=== PATIENT | male | born 1945 | race Caucasian/White ===

== ENCOUNTER 2020-07-23 09:12 | Outpatient (CLI) | payer OTHER, SELFPAY ==
--- NOTE | 2020-07-23 09:29 | USCV_ITS ---
Farhat Daly Age: 74 Gender: M : 1945 Exam Date: 07/23/2020 09:57 Ordering Phys: Kenney Wallace DO Technologist: Shelbie Yuan [place] [facility] [place]: SCREENING HISTORY: Diameter (cm) AP x Transverse x Length Velocity (cm/s) Waveform Prox Aorta: 2.00 x 2.38 x 166.10 Mid Aorta: 1.76 x 1.81 x 116.50 Distal Aorta: 1.69 x 2.01 x 102.30 Right Iliac Prox: 1.55 x 1.72 x 113.70 Left Iliac Prox: 1.38 x 1.75 x 92.80 Stent Prox Landing x x Aneurysmal Sac Max x x Lt Lat Sac Dim Rt Lat Sac Dim Stent Dist Landing x x Right Iliac Stent x x Left Iliac Stent x x Right Renal Art Left Renal Art FINDINGS: Comparison: none available. No evidence of abdominal aortic or bilateral iliac aneurysm. Ectatic abdominal aorta with evidence of atherosclerotic plaque noted. There is no evidence of a right common iliac artery aneurysm. There is no evidence of a left common iliac artery aneurysm. CONCLUSIONS No evidence of abdominal aortic aneurysm. Dr. Jaqui Carlisle DO (Electronically Signed) Final Date: 23 Jul 2020 10:40 S
== END 2020-07-23 09:13 | disposition home or self-care (01) ==
LOC: RAD 09:16
PROVIDERS: Visit Provider Emergency Medicine Emergency Medical Services
DX: Z13.6 Encounter for screening for cardiovascular disorders (principal)
CPT/HCPCS: 76706

== ENCOUNTER → 2021-08-24 11:36 | Outpatient (BNVA) | payer OTHER, SELFPAY | PROVIDERS: PCP Emergency Medicine Emergency Medical Services; Visit Provider Internal Medicine Cardiovascular Disease | DX: I25.10 Atherosclerotic heart disease of native coronary artery without angina pectoris (principal); R60.0 Localized edema; Z95.818 Presence of other cardiac implants and grafts; I48.0 Paroxysmal atrial fibrillation; G47.33 Obstructive sleep apnea (adult) (pediatric); I47.2 Ventricular tachycardia; I10 Essential (primary) hypertension; I11.0 Hypertensive heart disease with heart failure; I50.33 Acute on chronic diastolic (congestive) heart failure; M79.606 Pain in leg, unspecified; Z87.891 Personal history of nicotine dependence | CPT/HCPCS: 36415; 80048; 83880; 93005; 99214 ==

== ENCOUNTER → 2021-12-22 11:00 | Outpatient (BNVA) | payer OTHER, SELFPAY | PROVIDERS: PCP Emergency Medicine Emergency Medical Services; Visit Provider Internal Medicine Cardiovascular Disease | DX: R06.02 Shortness of breath (principal); R60.0 Localized edema; N18.9 Chronic kidney disease, unspecified; I48.0 Paroxysmal atrial fibrillation; Z79.01 Long term (current) use of anticoagulants; I12.9 Hypertensive chronic kidney disease with stage 1 through stage 4 chronic kidney disease, or unspecified chronic kidney disease; G47.33 Obstructive sleep apnea (adult) (pediatric); I47.20 Ventricular tachycardia, unspecified; I25.10 Atherosclerotic heart disease of native coronary artery without angina pectoris; Z95.818 Presence of other cardiac implants and grafts; Z87.891 Personal history of nicotine dependence | CPT/HCPCS: 80048; 83880; 84443; 99214 ==

== ENCOUNTER 2022-01-19 10:14 | Outpatient (CLI) | payer OTHER, SELFPAY ==
--- NOTE | 2022-01-19 10:15 | USCV_ITS ---
Farhat Daly Age: 76 Gender: M : 1945 Exam Date: 01/19/2022 10:36 Ordering Phys: Rebecca Alvarenga MD ([email or web address]) Technologist: MARY JANE Exam Location: [facility] [place] Indication: Leg Swelling HISTORY: Lower extremity swelling. Lower extremity edema. PROCEDURES: Venous duplex imaging was performed in bilateral lower extremities. The venous duplex Doppler examination of both lower extremities was performed in the standard fashion. The following venous structures were evaluated: common femoral vein, profunda vein, proximal portion of the greater saphenous vein, superficial femoral vein, and the popliteal vein. In addition, the posterior tibial and peroneal trunk were evaluated. Bilaterally, the common femoral, superficial femoral, profunda femoral, popliteal, posterior tibial, greater saphenous veins, and the peroneal trunk were identified and interrogated in the standard fashion. These veins were found to be easily compressible with spontaneous blood flow. No evidence of insufficiency or thrombus noted. FINDINGS: No evidence of DVT seen in any vessel visualized at this time. Multiple echolucent seeds in the subcutaneous tissue The veins were found to be easily compressible with spontaneous blood flow. Non pulsatile flow pattern. CONCLUSIONS No evidence of DVT in the above-mentioned identifiable veins. Features of Fluid retention/edema in the subcutaneous tissue on the right side, mostly in the thigh area Dr Rebecca Alvarenga MD [facility] (Electronically Signed) Final Date: 19 January 2022 19:20 S
== END 2022-01-19 10:15 | disposition home or self-care (01) ==
LOC: RAD 10:15
PROVIDERS: PCP Emergency Medicine Emergency Medical Services; Visit Provider Internal Medicine Cardiovascular Disease
DX: M79.89 Other specified soft tissue disorders (principal)
CPT/HCPCS: 93970

== ENCOUNTER → 2022-06-29 09:40 | Outpatient (BNVA) | payer OTHER, SELFPAY | PROVIDERS: PCP Emergency Medicine Emergency Medical Services; Visit Provider Internal Medicine Cardiovascular Disease | DX: I48.0 Paroxysmal atrial fibrillation (principal); R60.0 Localized edema; I25.10 Atherosclerotic heart disease of native coronary artery without angina pectoris; Z95.818 Presence of other cardiac implants and grafts; G47.33 Obstructive sleep apnea (adult) (pediatric); I10 Essential (primary) hypertension; I49.8 Other specified cardiac arrhythmias; Z87.891 Personal history of nicotine dependence | CPT/HCPCS: 99214 ==

== ENCOUNTER → 2023-01-11 11:31 | Outpatient (BNVA) | payer OTHER, SELFPAY | PROVIDERS: PCP Emergency Medicine Emergency Medical Services; Visit Provider Internal Medicine Cardiovascular Disease | DX: I48.0 Paroxysmal atrial fibrillation (principal); I25.10 Atherosclerotic heart disease of native coronary artery without angina pectoris; R60.0 Localized edema; Z95.818 Presence of other cardiac implants and grafts; G47.33 Obstructive sleep apnea (adult) (pediatric); I10 Essential (primary) hypertension; Z87.891 Personal history of nicotine dependence | CPT/HCPCS: 99214 ==

== ENCOUNTER → 2023-09-06 09:29 | Outpatient (BNVA) | payer OTHER, SELFPAY | PROVIDERS: PCP Emergency Medicine Emergency Medical Services; Visit Provider Nurse Practitioner Family | DX: I10 Essential (primary) hypertension (principal); I48.0 Paroxysmal atrial fibrillation; I25.10 Atherosclerotic heart disease of native coronary artery without angina pectoris; Z87.891 Personal history of nicotine dependence | CPT/HCPCS: 99214 ==

== ENCOUNTER 2024-02-07 11:19 | Inpatient (IN) | payer OTHER, SELFPAY ==
[2024-02-07] VITALS (66 sets, daily range): BP systolic 126–172; BP diastolic 62–110; PULSE 68–90; RESP 10–26; TEMP 36.5–36.8; O2SAT 89–99; BMI 33.0
--- NOTE | 2024-02-07 11:54 | XR_ITS ---
WS: [id number] Exam: XR chest 1V portable [id number] Date/Time of Exam: 02/07/2024 12:03 PM Reason For Exam: Chest pain No priors. Lungs are fully expanded and clear. Mild cardiac enlargement. No pleural effusions. The mediastinum i s normal in contour for technique. Bony structures are unremarkable. XR/XR chest 1V portable [id number] IMPRESSION: 1. Mild cardiac enlargement. No acute process.
--- NOTE | 2024-02-07 11:54 | ECG_ITS ---
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 Measurements Intervals [employer] Rate: 86 P: 0 MD: 0 QRS: 76 QRSD: 115 T: 65 QT: 390 QTc: 468 Interpretive Statements ATRIAL FIBRILLATION INCOMPLETE RIGHT BUNDLE BRANCH BLOCK [90+ ms QRS DURATION, TERMINAL R IN V1/V2, 40+ ms S IN I/aVL/V4/V5/V6] ABNORMAL RHYTHM ECG No previous ECG available for comparison Electronically Signed On 02-09-2024 22:02:23 WAREHOUSE SORTER by Matthias Flores M.D. [email or web address]
[2024-02-07 12:34] LABS: Basophils # 0.1 10^3/uL (0.0-0.1); Basophils % 0.9 %; Eosinophils # 0.3 10^3/uL (0.0-0.8); Eosinophils % 3.7 %; Hematocrit 49.9 % (37-53); Lymphocytes # 1.1 10^3/uL (0.8-4.8); Lymphocytes % 12.1 %; Mean Corpuscular HGB Conc 32.7 g/dL (30-55); Mean Corpuscular Hemoglobin 28.6 pg (27-33); Mean Corpuscular Volume 87.7 fl (82-101); Mean Platelet Volume 8.7 fL (7.4-10.4); Monocytes # 0.8 10^3/uL (0.2-0.9); Monocytes % 9.3 %; Neutrophils # 6.43 10^3/uL (1.8-7.7); Neutrophils % 73.5 %; Nucleated Red Blood Cells % 0 %; Platelet Count 380 10^3/cmm (157-399); Red Blood Count 5.69 10^6/uL (3.85-5.65); Red Cell Distribution Width 13.6 % (12.1-15.1); White Blood Count 8.74 10^3/uL (3.29-11.43)
[2024-02-07 12:55] LABS: Troponin(5th) Baseline 14 ng/L (0-15)
[2024-02-07 13:08] LABS: Alanine Aminotransferase 26 U/L (0-41); Albumin Level 4.1 g/dL (3.5-5.2); Alkaline Phosphatase 116 U/L (40-130); Anion Gap 16.1 (5-19); Aspartate Amino Transferase 18 U/L (0-40); Blood Urea Nitrogen 18 mg/dL (8-23); Carbon Dioxide 25 mmol/L (22-29); Chloride 104 mmol/L (98-107); Creatinine Clr Calc Pharmacy 80.5147; Globulin 2.7 g/dL (1.3-4.6); Glucose 97 mg/dL (65-115); NT Pro B Type Natriuretic Pept 799 pg/mL (0-450); Osmolality Calculated 294 mOsm/kg (285-295); Potassium 4.1 mmol/L (3.5-5.1); Sodium 141 mmol/L (136-145); Total Bilirubin 0.3 mg/dL (0.15-1.2); Total Protein 6.8 g/dL (6.6-8.7)
--- NOTE | 2024-02-07 14:27 | ECG_ITS ---
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 Measurements Intervals [place] Rate: 78 P: 0 NE: 0 QRS: 74 QRSD: 113 T: 62 QT: 395 QTc: 450 Interpretive Statements ATRIAL FIBRILLATION INCOMPLETE RIGHT BUNDLE BRANCH BLOCK [90+ ms QRS DURATION, TERMINAL R IN V1/V2, 40+ ms S IN I/aVL/V4/V5/V6] Compared to ECG 02/07/2024 11:24:55 No significant changes Electronically Signed On 02-09-2024 22:17:55 TOP EDGE BEVELER by Matthias Flores M.D. [email or web address]
--- NOTE | 2024-02-07 14:27 | ED_ITS ---
HPI - Chest Pain 2 General: Chief Complaint: Chest Pain Stated Complaint: Chest pain Time Seen by Provider: 02/07/24 14:16 History of Present Illness: 78-year-old man with a history of atrial fibrillation, history of multiple ablations and a watchman placement, and nonocclusive coronary artery disease who presents to the emergency room with chest pain. He was outside doing something and developed some pain down the left side of his chest. He felt like it was something that hit him in the chest. Also had some tightness and pressure. He sat down to rest and it finally improved so he decided not to come to the emergency room. They then went to [facility] and as he got up and started walking he developed the pain again. Seems to be exertional in nature. It is now resolved. Related Data Home Medications Medication Instructions Recorded Confirmed amlodipine 2.5 mg tablet 2.5 mg PO DAILY 08/13/20 02/07/24 tamsulosin 0.4 mg capsule 0.4 mg PO DAILY 08/13/20 02/07/24 hydroxyzine HCl 25 mg tablet 25 mg PO TID PRN anxiety or sleep 06/29/22 02/07/24 carvedilol 12.5 mg tablet See Rx Instructions .Route .COMPLEX 02/07/24 02/07/24 dorzolamide 22.3 mg-timolol 6.8 1 drp ophthalmic (eye) BID 02/07/24 02/07/24 mg/mL eye drops finasteride 5 mg tablet 5 mg PO DAILY 02/07/24 02/07/24 furosemide 40 mg tablet (Lasix) 40 mg PO QAM 02/07/24 02/07/24 latanoprost 0.005 % eye drops 1 drp ophthalmic (eye) QPM 02/07/24 02/07/24 potassium chloride 20 mEq See Rx Instructions .Route .COMPLEX 02/07/24 02/07/24 tablet,extended release vit C 250 mg-vit E 90 mg-zinc 40 1 tab PO BID 02/07/24 02/07/24 mg-copper 1 [id number] capsule (PreserVision AREDS-2) Previous Rx's Medication Instructions Recorded isosorbide mononitrate 30 mg See Rx Instructions .Route 01/29/21 tablet,extended release 24 hr .COMPLEX #90 tabs Allergies Allergy/AdvReac Type Severity Reaction Status Date / Time clonidine Allergy unknown Verified 02/07/24 11:37 diltiazem Allergy unknown Verified 02/07/24 11:37 hydrochlorothiazide Allergy unknown Verified 02/07/24 11:37 lisinopril Allergy unknown Verified 02/07/24 11:37 sertraline [From Zoloft] Allergy unknown Verified 02/07/24 11:37 spironolactone Allergy unknown Verified 02/07/24 11:37 [From Aldactone] telmisartan [From Micardis] Allergy unknown Verified 02/07/24 11:37 Review of Systems 2 Narrative: Constitutional symptoms: Negative except as documented in HPI. Skin symptoms: Negative except as documented in HPI. Eye symptoms: Negative except as documented in HPI. ENMT symptoms: Negative except as documented in HPI. Respiratory symptoms: Negative except as documented in HPI. Cardiovascular symptoms: Negative except as documented in HPI. Gastrointestinal symptoms: Negative except as documented in HPI. Genitourinary symptoms: Negative except as documented in HPI. Musculoskeletal symptoms: Negative except as documented in HPI. Neurologic symptoms: Negative except as documented in HPI. Psychiatric symptoms: Negative except as documented in HPI. Endocrine symptoms: Negative except as documented in HPI. PFSH ED 2 PFSH: Medical History Atherosclerosis of coronary artery Benign prostatic hyperplasia Gout Hyperlipidemia LVH (left ventricular hypertrophy) Hearing loss Macular degeneration PTSD (post-traumatic stress disorder) Hx of tongue cancer Hx of tuberculosis Presence of Watchman left atrial appendage closure device Sleep apnea Ventricular tachycardia CAD (coronary artery disease) Patient was told to have mild coronary disease by cardiac catheterization. Paroxysmal A-fib Hypertension Surgical History Hx of lymph node excision Hx of neck surgery Hx of tonsillectomy Hx of appendectomy History of radiofrequency ablation procedure for cardiac arrhythmia Family History Mother CAD (coronary artery disease) Cancer Diabetes Son Cancer Chronic kidney disease (CKD) Father Dementia Lung disease TB Stroke Denies family history of Clotting disorder Suicide Anesthesia complication Bleeding disorder Social History Smoking and tobacco/nicotine status: former use of tobacco/nicotine Alcohol intake: never Substance/Drug Use: never Physical Exam 2 Narrative: EXAM NARRATIVE: General: Alert, no acute distress. Skin: Warm, dry. Head: Normocephalic, atraumatic. Neck: Supple, trachea midline. Eye: Extraocular movements are intact. Ears, nose, mouth and throat: mucosa moist. Cardiovascular: Regular, Normal peripheral perfusion. Respiratory: Lungs are clear to auscultation, respirations are non-labored, breath sounds are equal, Symmetrical chest wall expansion. Gastrointestinal: Soft, Nontender, Non distended Musculoskeletal: Normal ROM, no deformity. Neurological: Alert and oriented, No focal neurological deficit observed. Psychiatric: Cooperative, appropriate mood & affect. Course 2 Vital Signs: Vital signs: Vital Signs Temperature 97.7 F 02/07/24 11:31 Pulse Rate 72 02/07/24 15:00 Respiratory Rate 17 02/07/24 15:00 Blood Pressure 146/95 02/07/24 15:00 Pulse Oximetry 96 02/07/24 15:00 Oxygen Delivery Me thod Room Air 02/07/24 15:00 MDM - Chest Pain Medical Decision Making Differential diagnosis for patient with chest pain includes but is not limited to and based on the above HPI, review of systems and physical exam: Pneumonia. unstable angina. angina. Acute coronary syndrome / [place]. Pulmonary embolism. Costochondritis / musculoskeletal. Pleurisy. Pericarditis. Esophageal spasm. Pancreatis. Cholecystitis. Orders placed to evaluate differential diagnosis based on the above differential, HPI and physical exam Chest x-ray: Mild cardiomegaly. No acute process. No infiltrate. No pneumothorax. This was reviewed and interpreted by myself the emergency room physician. I also reviewed the radiology report. EKG: Time 1124. Rate 86. Atrial fibrillation with controlled rate, No ST-T changes, no ectopy, This was reviewed and interpreted by myself the ER physician at 1130 Repeat EKG: Time 1427. Rate 78. Atrial fibrillation with controlled rate, No ST-T changes, no ectopy, This was reviewed and interpreted by myself the ER physician at 1430. No significant changes from EKG done previously today in the emergency room. Lab Review: Laboratory results were reviewed and interpreted by myself the emergency room physician. No leukocytosis. No anemia. No renal failure. Initial troponin and 2-hour troponin are negative. I reviewed the patient's medical record. HEART Pathway for Early Discharge in Acute Chest Pain from [employer] on 02/07/2024 All calculations should be rechecked by clinician prior to use RESULT SUMMARY: 6 points HEART Pathway Score High risk 12-65% 30-day MACE Admit to hospital or observation. Further testing indicated. INPUTS: History ?> 2 = Highly suspicious EKG ?> 0 = Normal Age ?> 2 = >=5 Risk factors ?> 2 = >= risk factors or history of atherosclerotic disease Initial troponin ?> 0 = <=ormal limit Reexamination: Patient remained stable. No increased work of breathing. No altered mental status. No focal motor deficits. We discussed admission and he favors being admitted. Discussed that his heart score does suggest that he should be at least observed. Consultation: I spoke with Dr. Unger who is on-call for the [employer] solutions architect service. He agrees that admission with a stress test in the morning is appropriate. He request consultation if the stress test indicates. No official consultation at this time. Consultation: I spoke with Dr. Fierro who is on-call for the hospitalist service. She agrees to admission. We will place him on observation. Assessment and plan: Coronary artery disease Chest pain Exertional chest pain -I discussed the patient with the hospitalist on-call who is admitting the patient. - Discussed findings and plan with patient. Answered any questions. - All laboratory values were reviewed and interpreted personally by myself, the ER physician - All imaging was reviewed and interpreted personally by myself, the ER physician. - Evaluation and treatment of this problem were appropriate in the emergency setting Lab Data 02/07/24 12:18 02/07/24 12:18 Radiology Impressions Chest X-Ray 02/07/24 11:54 IMPRESSION: 1. Mild cardiac enlargement. No acute process. Laboratory Results WBC 8.74 10^3/uL (3.29-11.43) 02/07/24 12:18 RBC 5.69 10^6/uL (3.85-5.65) H 02/07/24 12:18 Hgb 16.30 g/dL (11.27-16.99) 02/07/24 12:18 Hct 49.9 % (37-53) 02/07/24 12:18 MCV 87.7 fl (82-101) 02/07/24 12:18 MCH 28.6 pg (27-33) 02/07/24 12:18 MCHC 32.7 g/dL (30-55) 02/07/24 12:18 RDW 13.6 % (12.1-15.1) 02/07/24 12:18 Plt Count 380 10^3/cmm (157-399) 02/07/24 12:18 MPV 8.7 fL (7.4-10.4) 02/07/24 12:18 Neut % (Auto) 73.5 % 02/07/24 12:18 Lymph % (Auto) 12.1 % 02/07/24 12:18 Taliaferro % (Auto) 9.3 % 02/07/24 12:18 Eos % (Auto) 3.7 % 02/07/24 12:18 Baso % (Auto) 0.9 % 02/07/24 12:18 Neut # (Auto) 6.43 10^3/uL (1.8-7.7) 02/07/24 12:18 Lymph # (Auto) 1.1 10^3/uL (0.8-4.8) 02/07/24 12:18 [place]ferro # (Auto) 0.8 10^3/uL (0.2-0.9) 02/07/24 12:18 Eos # (Auto) 0.3 10^3/uL (0.0-0.8) 02/07/24 12:18 Baso # (Auto) 0.1 10^3/uL (0.0-0.1) 02/07/24 12:18 Nucleated RBC % (auto) 0 % 02/07/24 12:18 Nucleated RBCs # 0.0 /100WBC 02/07/24 12:18 Sodium 141 mmol/L (136-145) 02/07/24 12:18 Potassium 4.1 mmol/L (3.5-5.1) 02/07/24 12:18 Chloride 104 mmol/L (98-107) 02/07/24 12:18 Carbon Dioxide 25 mmol/L (22-29) 02/07/24 12:18 Anion Gap 16.1 (5-19) 02/07/24 12:18 BUN 18 mg/dL (8-23) 02/07/24 12:18 Creatinine 0.9 mg/dL (0.7-1.2) 02/07/24 12:18 GFR Calculation Not Reportable 02/07/24 12:18 Glucose 97 mg/dL (65-115) 02/07/24 12:18 Calculated Osmolality 294 mOsm/kg (285-295) 02/07/24 12:18 Calcium 10.0 mg/dL (8.5-10.5) 02/07/24 12:18 Total Bilirubin 0.3 mg/dL (0.15-1.2) 02/07/24 12:18 AST 18 U/L (0-40) 02/07/24 12:18 ALT 26 U/L (0-41) 02/07/24 12:18 Alkaline Phosphatase 116 U/L (40-130) 02/07/24 12:18 Troponin T Baseline 14 ng/L (0-15) 02/07/24 12:18 Troponin T 120 Minute 12.22 ng/L (0-15) 02/07/24 14:24 Delta Troponin T -1.78 ABS# (0-10) L 02/07/24 14:24 NT-Pro-B Natriuret Pep 799 pg/mL (0-450) H 02/07/24 12:18 Total Protein 6.8 g/dL (6.6-8.7) 02/07/24 12:18 Albumin 4.1 g/dL (3.5-5.2) 02/07/24 12:18 Globulin 2.7 g/dL (1.3-4.6) 02/07/24 12:18 All radiology interpretation(s) finalized by discharge Clincial Decision Support The following clinical decision support tools were used to aid in care of the patient HEART Score -> History: Highly Suspicious, EKG: Normal, Age: 65 or more yrs, Risk Factors: >/=3 Risk Factors, Troponin: Baseline Trop <16 ng/L. Resulting HEART Score: 6. Discharge Plan Discharge Patient Disposition: Placed in Observation Clinical Impression: Chest pain CAD (coronary artery disease) Qualifiers: Coronary Disease-Associated Artery/Lesion type: hamilton artery [place] vs. transplanted heart: hamilton heart Associated angina: without angina Qualified Code(s): I25.10 - Atherosclerotic heart disease of hamilton coronary artery without angina pectoris Coding Level of Care Code ED Associate Research Scientist for Anamariag Mazin
--- NOTE | 2024-02-07 14:40 | PC.PHAR ---
Addendum entered by Marilou Blackwell 02/07/24 14:40: faxed for med list 1:50pm Original Note: Pt is Va
[2024-02-07 14:47] LABS: Troponin 5 2HR 12.22 ng/L (0-15)
[2024-02-07 14:48] LABS: Troponin 5 2HR Delta -1.78 ABS# (0-10)
--- NOTE | 2024-02-07 16:14 | ECG_ITS ---
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 Interpretive Statements LEXISCAN SESTAMIBI STRESS TEST Procedure: At the baseline, the blood pressure was 185/104 mmHg with a heart rate of 93 bpm. The electrocardiogram showed atrial fibrillation, normal axis with normal ST and T's. The Lexiscan was infused over a period of 20 seconds. A total of 0.4 mg of Lexiscan was infused. The stress phase was continued for a total of 5 minutes. Heart rate was at the end of stress phase was 85 bpm and a blood pressure of 179/104 mmHg. The EKG at the peak infusion revealed atrial fibrillation with no significant ST-T wave changes. Sestamibi was injected 20 seconds after the Lexiscan infusion. Blood pressure at the end of recovery phase was 181/103 mmHg with a heart rate of 94 bpm. Conclusion: 1. Normal EKG response to Lexiscan infusion 2. No Lexiscan induced chest pain or cardiac arrhythmia. 3. Normal blood pressure and heart rate response. 4. Sestamibi/sestamibi perfusion scan pending; see separate report. Electronically Signed On 02-12-2024 08:50:16 UNIT OPERATOR by Matthias Flores M.D. [id number]
--- NOTE | 2024-02-07 16:14 | USCV_ITS ---
Farhat Daly Age: 78 Gender: M : 1945 Exam Date: 02/07/2024 17:59 Ordering Phys: Kia Fierro MD Technologist: [place] [facility] [place] cp BP: 155 / 95 HR: 86 Rhythm: Sinus Technical Quality: Adequate MEASUREMENTS (Male / Female) Normal Values 2D ECHO LVOT Diameter 2.2 cm LV Ejection Fraction MOD 4C 48.3 % LV Ejection Fraction MOD 2C 47.1 % LV Ejection Fraction 2C AL 48.7 % LA Diameter 5.1 cm RA Systolic Volume 4C AL 81.6 ml RA Systolic Volume 4C MOD 78.5 ml LA Sys Volume AL 72.4 cm cubed LA Sys Volume Index AL 30.9 cm cubed/m squared Aorta at Sinotubular Diameter 3.0 cm IVC Diameter 2.4 cm M-MODE LA Ao Ratio MM 1.8 AV Cusp Separation MM 1.6 cm DOPPLER AV Peak Velocity 99.0 cm/s LVOT Peak Velocity 73.0 cm/s AV Area Cont Eq vti 3.1 cm squared AV Area Cont Eq pk 2.7 cm squared MV Peak Velocity 106.0 cm/s MV Area PHT 3.8 cm squared Mitral E to A Ratio 53.5 TR Peak Velocity 377.5 cm/s TR Peak Gradient 57.0 mmHg TR Mean Velocity 247.0 cm/s TR Mean Gradient 29.4 mmHg TR Velocity Time Integral 101.3 cm TV Peak E Velocity 101.0 cm/s PV Peak Velocity 74.0 cm/s FINDINGS Left Ventricle Left ventricle is normal in size. LV systolic function is mildly reduced with EF of 45 to 50%. Mild global hypokinesis. Right Ventricle Normal in size and function Right Atrium Dilated Left Atrium Normal in size Mitral Valve Structurally normal mitral valve. Mild mitral regurgitation. Aortic Valve Aortic valve is thickened. No significant aortic stenosis. Mild aortic regurgitation Tricuspid Valve Mild tricuspid regurgitation. RVSP is 55 to 60 mmHg. This is consistent with moderate pulmonary hypertension. Pulmonic Valve Mild pulmonic regurgitation. Pericardium Normal Aorta Normal in size IVC Not well visualized CONCLUSIONS LV systolic function is mildly reduced with EF of 45 to 50%. Right atrial dilation Mild mitral regurgitation. Mild aortic regurgitation. Mild tricuspid regurgitation Moderate pulmonary hypertension Mild pulmonic regurgitation No comparison studies are available. Matthias Flores MD (Electronically Signed) Final Date: 08 February 2024 07:26 S
--- NOTE | 2024-02-07 16:17 | NMCV_ITS ---
NM kenisha perf SPECT r/s* [id number] Farhat Daly Age: 78 Gender: M : 1945 Exam Date: 02/08/2024 06:58 Ordering Phys: Kia Fierro MD Technologist: MAGALI Garzon Exam Location: [facility] Indications: CP STRESS TEST Please see separate stress test report in [facility] for full findings IMAGE PROTOCOL Rest/Stress 1 Day Radiopharmaceutical Dose (mCi) Administration Site Administered by Rest: Tc-99m 11 IV MAGALI Garzon Sestamibi Stress:Tc-99m 33 IV MAGALI Perera Sestamibi Rest: 08-Feb-2024 60 Discovery 630 Stress: 08-Feb-2024 30 Discovery 630 0.4mg Lexiscan. Images obtained in supine and prone position. SPECT RESULTS Technical Quality: Good Raw Data Analysis: Normal Image Corrections: No attenuation or motion correction applied Summed Stress Score: 8 Summed Rest Score: 7 Summed Difference Score: 2 PERFUSION FINDINGS There is a large area of mostly fixed perfusion defect seen in inferior and inferolateral galindo. This is consistent with large area of prior infarct with minimal evelyn-infarct ischemia in these galindo. FUNCTIONAL RESULTS (calculated via Gated SPECT) Stress Image LV EF (%): 58 Stress EDV (mL):97 TID: 1.04 Stress ESV (mL):41 FUNCTIONAL FINDINGS: There is normal left ventricular systolic function. IMPRESSIONS 1. Large area of prior infarct with minimal evelyn-infarct ischemia seen in the inferior and inferolateral galindo. Attenuation artifact can not be ruled out. 2. LV systolic function is normal Matthias Flores MD (Electronically Signed) Final Date: 08 February 2024 09:26 S
[2024-02-07 16:53] LABS: Estmated Average Glucose 120; Hemoglobin A1C 5.8 % (4.0-6.0)
[2024-02-07 17:02] LABS: Chol HDL Ratio 5.19 mg/dL (1.0-5.00); Cholesterol 192 mg/dL (0-200); HDL Cholesterol 37 mg/dL (60-100); LDL Cholesterol Calculated 129 mg/dL (50-129); LDL HDL Ratio 3.49 RATIO (0.00-3.22); Thyroid Stimulating Hormone 1.11 uIU/mL (0.27-4.20); Triglycerides 130 mg/dL (0-150)
--- NOTE | 2024-02-07 18:26 | ECG_ITS ---
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 Measurements Intervals [place] Rate: 84 P: 0 RI: 0 QRS: 67 QRSD: 120 T: 64 QT: 389 QTc: 461 Interpretive Statements ATRIAL FIBRILLATION POSSIBLE RIGHT VENTRICULAR CONDUCTION DELAY [RSR (QR) IN V1/V2] Compared to ECG 02/07/2024 14:27:31 Incomplete right bundle-branch block no longer present Electronically Signed On 02-09-2024 22:15:00 OPERATIONS BOARDMAN by Matthias Flores M.D. [id number]
[2024-02-07] MEDS: heparin 5,000 unit/mL INJ 1 mL 5000 UNIT SUBCUT (18:53)
[2024-02-07 19:30] LABS: Troponin 5 6HR 12.32 ng/L (0-15)
[2024-02-07 19:31] LABS: Troponin 5 6HR Delta -1.68 ng/L (0-12)
[2024-02-07] MEDS: isosorbide mononitrate ER 30 mg Tablet PO (22:00)
--- NOTE | 2024-02-07 22:06 | P.HP_ITS ---
Providers/Chief Complaint 2 Admitting Physician: Kia Fierro MD Primary Care Provider: Kenney Wallace DO Chief Complaint: Chest pain History of Present Illness Farhat Daly is a 78 year old male with history of hypertension, hyperlipidemia, paroxysmal Afib, ventricular tachycardia, atherosclerosis of coronary artery, sleep apnea, implanted watchman device, hx of radiofrequency ablation r/t arrythmia, and PTSD.? [place] He mainly came to the office to be established with our service. He has a history intermittent atrial fibrillation, symptomatic.? He has a history of intraocular bleed.? Because of the history of the bleeding complication, it was decided to do a watchman procedure for the atrial appendage occlusion.? Prior to this, he had a couple of radiofrequency ablations and 1 or 2 electrical cardioversions.? For the last few years, he has been doing okay with no recurrence of atrial fibrillation.? He has been compliant with medications.? He had anaphylactic reaction with SRIRAM inhibitor/ARB. He had a cardiac catheterization in the past and was told to have mild coronary disease Presented with chief complaint of chest pain. Patient is stating that he is not on any anticoagulating agent since Watchman device insertion, at baseline he sometimes gets left-sided chest discomfort which does resolve on its own but yesterday around 8:40 AM when he wanted to check the front door to make sure it was locked he took 3 steps to get up to the door and became short of breath and started experiencing left-sided chest pain, he described this pain as dull, left-sided, he had to stop after taking 3 steps to catch his breath, when his chest pain eased up he went outside, his was at the front door, his is a nurse, he told his symptoms to his , he was expecting that his chest pain will ease out but it was not getting better, they decided to come to the hospital, on his way he had 1 episode of emesis and then felt better. In the ER his chest pain resolved, his CBC BMP was unremarkable, troponin trending down with BNP 800, stress test was requested. EKG showing A-fib without RVR Review of Systems 2 Const: Denies: fever(s) Eyes: Denies: change in vision ENMT: Denies: throat pain Card: Reports: chest pain Resp: Reports: dyspnea Medications/Allergies Home Medications Medication Instructions Recorded Confirmed Last Taken Type amlodipine 2.5 mg tablet 2.5 mg PO DAILY 08/13/20 02/07/24 02/07/24 History tamsulosin 0.4 mg capsule 0.4 mg PO DAILY 08/13/20 02/07/24 02/07/24 History isosorbide mononitrate 30 mg See Rx Instructions .Route 01/29/21 02/07/24 02/07/24 Rx tablet,extended release 24 hr .COMPLEX #90 tabs hydroxyzine HCl 25 mg tablet 25 mg PO TID PRN anxiety or sleep 06/29/22 02/07/24 Unknown History carvedilol 12.5 mg tablet See Rx Instructions .Route .COMPLEX 02/07/24 02/07/24 02/07/24 History dorzolamide 22.3 mg-timolol 6.8 1 drp ophthalmic (eye) BID 02/07/24 02/07/24 02/07/24 History mg/mL eye drops finasteride 5 mg tablet 5 mg PO DAILY 02/07/24 02/07/24 02/07/24 History furosemide 40 mg tablet (Lasix) 40 mg PO QAM 02/07/24 02/07/24 02/07/24 History latanoprost 0.005 % eye drops 1 drp ophthalmic (eye) QPM 02/07/24 02/07/24 Unknown History potassium chloride 20 mEq See Rx Instructions .Route .COMPLEX 02/07/24 02/07/24 02/07/24 History tablet,extended release vit C 250 mg-vit E 90 mg-zinc 40 1 tab PO BID 02/07/24 02/07/24 02/07/24 History mg-copper 1 ac-[id number]-[id number] capsule (PreserVision AREDS-2) Allergies Allergy/AdvReac Type Severity Reaction Status Date / Time clonidine Allergy unknown Verified 02/07/24 11:37 diltiazem Allergy unknown Verified 02/07/24 11:37 hydrochlorothiazide Allergy unknown Verified 02/07/24 11:37 lisinopril Allergy unknown Verified 02/07/24 11:37 sertraline [From Zoloft] Allergy unknown Verified 02/07/24 11:37 spironolactone Allergy unknown Verified 02/07/24 11:37 [From Aldactone] telmisartan [From Micardis] Allergy unknown Verified 02/07/24 11:37 PFSH Acute 2 PFSH: Medical History Atherosclerosis of coronary artery Benign prostatic hyperplasia Gout Hyperlipidemia LVH (left ventricular hypertrophy) Hearing loss Macular degeneration PTSD (post-traumatic stress disorder) Hx of tongue cancer Hx of tuberculosis Presence of Watchman left atrial appendage closure device Sleep apnea Ventricular tachycardia CAD (coronary artery disease) Patient was told to have mild coronary disease by cardiac catheterization. Paroxysmal A-fib Hypertension Surgical History Hx of lymph node excision Hx of neck surgery Hx of tonsillectomy Hx of appendectomy History of radiofrequency ablation procedure for cardiac arrhythmia Family History Mother CAD (coronary artery disease) Cancer Diabetes Son Cancer Chronic kidney disease (CKD) Father Dementia Lung disease TB Stroke Denies family history of Clotting disorder Suicide Anesthesia complication Bleeding disorder Social History Smoking and tobacco/nicotine status: former use of tobacco/nicotine Alcohol intake: never Substance/Drug Use: never Vitals/I&O/Wt Last Vital Signs Temp 98.3 F 02/07/24 20:00 Pulse 75 02/07/24 20:23 Resp 21 H 02/07/24 20:00 BP 153/101 02/07/24 20:23 Pulse Ox 98 02/07/24 20:23 O2 Del Method Room Air 02/07/24 20:00 Weight last 48 hrs Weight 110.132 kg Weight 104.326 kg Physical Exam 2 Narrative: Morbidly obese A-fib without RVR GCS 15 No sign of fluid overload No audible stridor or wheezing Afebrile S1-S2 hemodynamically stable No active chest pain Pleasant and cooperative Nonfocal neuroexam Data 02/07/24 12:18 02/07/24 12:18 A&P Assessment and plan (1) Hypertension: Qualifiers: Hypertension type: essential hypertension Qualified Code(s): I10 - Essential (primary) hypertension (2) CAD (coronary artery disease): Qualifiers: Coronary Disease-Associated Artery/Lesion type: [place] artery [place] vs. transplanted heart: [place] heart Associated angina: without angina Qualified Code(s): I25.10 - Atherosclerotic heart disease of [place] coronary artery without angina pectoris (3) Chest pain: (4) Paroxysmal A-fib: (5) Presence of Watchman left atrial appendage closure device: (6) Sleep apnea: Qualifiers: Sleep apnea type: obstructive Qualified Code(s): G47.33 - Obstructive sleep apnea (adult) (pediatric) (7) Leg edema: Plan Unstable angina No active chest pain Troponin trending down Requested echo and stress test in the morning N.p.o. after midnight A-fib without RVR status post Watchman device Rate controlled Patient history of sleep apnea: CPAP overnight Hypertension: Continue amlodipine, Coreg CHF new onset? Patient does not have a official diagnosis of CHF, he is on diuretics for lower extremity edema Considering sleep apnea my concern is related to right-sided heart failure symptoms EF unknown I do not have previous echo: No severe exacerbation I will continue his home regimen of Lasix along potassium supplementation which she normally takes for lower extremity edema Requested echo BPH: Continue tamsulosin Full code N.p.o. right now DVT prophylaxis added Attestations 2 Medical Necessity Statement*: Anticipating discharge within 48 hours Diagnoses Essential hypertension I10 Hypertension type: essential hypertension Coronary artery disease involving [place] coronary artery of [place] heart without angina pectoris I25.10 Coronary Disease-Associated Artery/Lesion type: [place] artery [place] vs. transplanted heart: [place] heart Associated angina: without angina Chest pain R07.9 Paroxysmal A-fib I48.0 Presence of Watchman left atrial appendage closure device Z95.818 Obstructive sleep apnea syndrome G47.33 Sleep apnea type: obstructive Leg edema R60.0
[2024-02-08] VITALS (10 sets, daily range): BP systolic 123–181; BP diastolic 71–120; PULSE 70–94; RESP 15–22; TEMP 36.4–37.2; O2SAT 94–97
[2024-02-08] MEDS: heparin 5,000 unit/mL INJ 1 mL 5000 UNIT SUBCUT ×2 (04:49→17:03)
--- NOTE | 2024-02-08 07:13 | USCV_ITS ---
Farhat Daly Age: 78 Gender: M : 1945 Exam Date: 02/08/2024 09:08 Ordering Phys: Caitlin Malave MD Technologist: Exam [place]: [facility] [place]: pedal edmea PROCEDURES: The venous duplex Doppler examination of both lower extremities was performed in the standard fashion. In addition, the posterior tibial and peroneal trunk were evaluated. FINDINGS: Normal 2-D Doppler and augmentation and compressibility throughout the lower extremity venous structures. Additional imaging through the proximal calf veins also reveals no thrombus. Limited evaluation of the greater saphenous vein is patent with no thrombus. CONCLUSIONS No DVT bilateral lower extremities. Dr. Jaqui Carlisle DO (Electronically Signed) Final Date: 08 February 2024 09:52 S
[2024-02-08] MEDS: regadenoson 0.4 Mg/5 ml Syringe IVP (07:43)
[2024-02-08] MEDS: isosorbide mononitrate ER 30 mg Tablet PO (10:15)
[2024-02-08] MEDS: aspirin 81 mg EC Tablet PO (10:15)
[2024-02-08] MEDS: tamsulosin 0.4 mg Capsule PO (10:15)
[2024-02-08] MEDS: amlodipine 5 mg Tablet 2.5 MG PO (10:16)
[2024-02-08] MEDS: FUROsemide 40 mg Tablet PO (10:16)
[2024-02-08] MEDS: pantoprazole DR 40 mg Tablet PO (10:16)
[2024-02-08 12:54] LABS: Basophils # 0.1 10^3/uL (0.0-0.1); Basophils % 0.8 %; Eosinophils # 0.2 10^3/uL (0.0-0.8); Eosinophils % 2.6 %; Hematocrit 53.2 % (37-53); Lymphocytes # 1.3 10^3/uL (0.8-4.8); Lymphocytes % 14.2 %; Mean Corpuscular HGB Conc 32.7 g/dL (30-55); Mean Corpuscular Hemoglobin 28.3 pg (27-33); Mean Corpuscular Volume 86.5 fl (82-101); Mean Platelet Volume 8.8 fL (7.4-10.4); Monocytes # 0.8 10^3/uL (0.2-0.9); Monocytes % 9.4 %; Neutrophils # 6.37 10^3/uL (1.8-7.7); Neutrophils % 72.4 %; Nucleated Red Blood Cells % 0 %; Platelet Count 403 10^3/cmm (157-399); Red Blood Count 6.15 10^6/uL (3.85-5.65); Red Cell Distribution Width 13.6 % (12.1-15.1)
[2024-02-08] MEDS: carvedilol 12.5 mg Tablet PO (12:57)
[2024-02-08 13:14] LABS: D Dimer 0.57 ug/mLFEU (0-0.59)
[2024-02-08 13:16] LABS: Anion Gap 15.6 (5-19); Blood Urea Nitrogen 15 mg/dL (8-23); Calcium 10.1 mg/dL (8.5-10.5); Carbon Dioxide 25 mmol/L (22-29); Chloride 103 mmol/L (98-107); Creatinine Clr Calc Pharmacy 93.0386; Glucose 101 mg/dL (65-115); Magnesium 2.4 mg/dL (1.7-2.3); Osmolality Calculated 291 mOsm/kg (285-295); Potassium 3.6 mmol/L (3.5-5.1); Sodium 140 mmol/L (136-145)
[2024-02-08 13:20] LABS: Estmated Average Glucose 120; Hemoglobin A1C 5.8 % (4.0-6.0)
--- NOTE | 2024-02-08 13:22 | P.PN_ITS ---
Subjective 2 Subjective: Patient seen this morning after stress test. Stress test shows large area of prior infarct with minimal evelyn-infarct ischemia seen in the inferior and inferior lateral galindo. Attenuation artifact cannot be ruled out. Patient states he was climbing stairs yesterday when suddenly had pressure like chest pain in the middle of the chest substernal area which spread towards his shoulder and downwards towards his stomach. He clenched his chest with his fist and bend over. Also had an episode of vomiting at the same time. Did report mild shortness of breath around that time as well. He states the pain lasted for 10 to 15 minutes. He came to the hospital thereafter. Patient's at bedside was with him at the time this happened. He states the pain he had yesterday he has never had before in his life. He does get chest pain on and off from time to time however the crushing chest pain episode yesterday was different. He also states he has wet macular degeneration and gets injections every 7 weeks. Has had a scleral bleed in the past. Was told by ophthalmology that is better he stay off of anticoagulants and secondly he was not interested in taking Eliquis and therefore Watchman device was pursued. He does have a known history of A-fib. At this time he is chest pain-free and denies any family history of MS. Vitals/I&O/Wt Last Vital Signs Temp 98.3 F 02/08/24 12:00 Pulse 91 02/08/24 12:00 Resp 18 02/08/24 12:00 BP 159/120 02/08/24 12:00 Pulse Ox 96 02/08/24 12:00 O2 Del Method Room Air 02/08/24 12:00 02/07/24 02/08/24 02/08/24 22:59 06:59 14:59 Intake Total 200 / 200 480 / 480 Output Total 0 / 0 600 / 600 Balance 200 / 200 -600 / -400 480 / 480 Weight last 48 hrs Weight 110.132 kg Weight 110.132 kg Weight 104.326 kg Physical Exam 2 Narrative: Morbidly obese A-fib without RVR GCS 15 No sign of fluid overload No audible stridor or wheezing Afebrile S1-S2 hemodynamically stable No active chest pain Pleasant and cooperative Nonfocal neuroexam Data 02/08/24 12:38 02/08/24 12:38 A&P Assessment and plan (1) Hypertension: Qualifiers: Hypertension type: essential hypertension Qualified Code(s): I10 - Essential (primary) hypertension (2) CAD (coronary artery disease): Qualifiers: Coronary Disease-Associated Artery/Lesion type: [place] artery [place] vs. transplanted heart: [place] heart Associated angina: without angina Qualified Code(s): I25.10 - Atherosclerotic heart disease of [place] coronary artery without angina pectoris (3) Chest pain: (4) Paroxysmal A-fib: (5) Presence of Watchman left atrial appendage closure device: (6) Sleep apnea: Qualifiers: Sleep apnea type: obstructive Qualified Code(s): G47.33 - Obstructive sleep apnea (adult) (pediatric) (7) Leg edema: Plan Unstable angina No active chest pain Troponin trending down Requested echo and stress test in the morning N.p.o. after midnight A-fib without RVR status post Watchman device Rate controlled Patient history of sleep apnea: CPAP overnight Hypertension: Continue amlodipine, Coreg CHF new onset? Patient does not have a official diagnosis of CHF, he is on diuretics for lower extremity edema Considering sleep apnea my concern is related to right-sided heart failure symptoms EF unknown I do not have previous echo: No severe exacerbation I will continue his home regimen of Lasix along potassium supplementation which she normally takes for lower extremity edema Requested echo BPH: Continue tamsulosin Full code N.p.o. right now DVT prophylaxis added 02/08/2024 -Echocardiogram pending ? Stress is complete. Have consulted cardiology. Await recommendations ? Stress test abnormal ? Continue home regimen of Lasix and potassium. ? Plan to discharge if no procedures planned by cardiology. Will await their recommendations regarding medications. I will hold off on starting patient on dual antiplatelet at this time and have only added aspirin 81 daily. Attestations 2 Medical Necessity Statement*: Potential discharge today after cardiology consult. If procedures planned patient may stay tonight. Diagnoses Essential hypertension I10 Hypertension type: essential hypertension Coronary artery disease involving [place] coronary artery of [place] heart without angina pectoris I25.10 Coronary Disease-Associated Artery/Lesion type: [place] artery [place] vs. transplanted heart: [place] heart Associated angina: without angina Chest pain R07.9 Paroxysmal A-fib I48.0 Presence of Watchman left atrial appendage closure device Z95.818 Obstructive sleep apnea syndrome G47.33 Sleep apnea type: obstructive Leg edema R60.0
--- NOTE | 2024-02-08 16:29 | P.CONIM_ITS ---
<Statement entered by Caitlin Unger MD - 02/08/24 21:16> Patient was evaluated and cared for in conjunction with an advanced practice practitioner. I personally examined the patient and reviewed the chart and all pertinent data including imaging, telemetry, and laboratory results. I discussed the patient in detail with the advanced practice practitioner. Please see their note for complete H&P testing result and agreed upon plan of care for the patient. 78-year-old male as history defined below presented with chest pain and moderately depressed left ventricular ejection fraction which has slightly dropped from the previous echo has been having off-and-on chest pressure yesterday it was more radiating towards the left side, stress test was suggestive of old myocardial infarction with mild evelyn-infarct ischemia however patient continues to get worse with shortness of breath chest pressure and now LV function we have been asked to assist in his care. GENERAL: Patient is alert, awake and oriented x3. HEART: Regular S1 and S2. No murmur, rub or gallop. LUNGS: Clear to auscultate bilaterally. CENTRAL NERVOUS SYSTEM: Grossly nonfocal. EXTREMITIES: Lower extremities with out edema bilaterally. Assessment and plan Paroxysmal A-fib Moderately depressed left ventricular ejection fraction Chest pain worsening of shortness of breath Given patient high risk for obstructive coronary artery disease worsening of LV function chest pain evidence of myocardial infarction on the nuclear stress test I think coronary angiogram may be appropriate to assess the anatomy and pathology specifically when patient is complaining of chest pain chest radiating to left side. Continue current management Plan for left heart cath tomorrow afternoon Providers/Reason For Consult 2 Consulting Physician/Specialty*: Caitlin Unger MD Reason for Consult*: Chest pain Requesting Physician: Dr. Fierro Attending Physician: Kia Fierro MD Primary Care Provider: Kenney Wallace DO History of Present Illness History of Present Illness This is a very pleasant 78-year-old gentleman who has a history of chronic A-fib Watchman several ablations and cardioversions in the past. States he has had a coronary artery angiogram in the past several years ago that was shown to be negative. He came in originally for chest pain that occurred when he was walking down the steps. He states it was on the left side of his chest any describes this as a chest pressure like something was sitting on his left side. He states he thinks this stayed there for about 30 minutes. He came to the hospital after being recommended by his to do so. Currently he is chest pain-free. Currently in A-fib. He is not anticoagulated due to history of watchman. Rates are controlled. He has not noted acute distress. EKG showed no acute ST elevations or T wave abnormalities. Troponins negative. He patient underwent a stress test that showed large area of previous infarct in the inferior and inferior lateral galindo with small area of evelyn-infarct ischemia although prone imaging was not performed. Echo was performed that showed EF was 45 to 50%. Mild global hypokinesis. Patient does not have any signs of CHF overload. He states he has never been told he has had a reduced ejection fraction or heart failure. This is newer onset according to him. Currently taking carvedilol, aspirin, and amlodipine. Risk factors include former smoker many years ago, hypertension, prediabetes. Review of Systems 2 Narrative: Consitutional: denies fever, chills, body aches, or changes in appetite, denies abnormal weight loss Eyes: Denies changes in vision Card: Denies chest pain, palpitations, irregular heart rhythm, edema, syncope, shortness of breath, orthopnea, leg pain with exertion Resp: Denies shortness of breath, denies hemoptysis, denies cough GI: denies abdominal pain, denies nausea or voimting, denies blood in stool : denies blood in urine, denies dysuria Musc: Denies extremity pain, denies limited range of motion or recent injury Skin: Denies rash, lesions, or wounds, denies changes to skin color Neuro: Denies nubmness in extremities, h/a, s/s of stroke Julio Cesar: Denies easy bruiding/bleeding All: Denies s/s of allergies Medications/Allergies Home Medications Medication Instructions Recorded Confirmed Last Taken Type amlodipine 2.5 mg tablet 2.5 mg PO DAILY 08/13/20 02/07/24 02/07/24 History tamsulosin 0.4 mg capsule 0.4 mg PO DAILY 08/13/20 02/07/24 02/07/24 History isosorbide mononitrate 30 mg See Rx Instructions .Route 01/29/21 02/07/24 02/07/24 Rx tablet,extended release 24 hr .COMPLEX #90 tabs hydroxyzine HCl 25 mg tablet 25 mg PO TID PRN anxiety or sleep 06/29/22 02/07/24 Unknown History carvedilol 12.5 mg tablet See Rx Instructions .Route .COMPLEX 02/07/24 02/07/24 02/07/24 History dorzolamide 22.3 mg-timolol 6.8 1 drp ophthalmic (eye) BID 02/07/24 02/07/24 02/07/24 History mg/mL eye drops finasteride 5 mg tablet 5 mg PO DAILY 02/07/24 02/07/24 02/07/24 History furosemide 40 mg tablet (Lasix) 40 mg PO QAM 02/07/24 02/07/24 02/07/24 History latanoprost 0.005 % eye drops 1 drp ophthalmic (eye) QPM 02/07/24 02/07/24 Unknown History potassium chloride 20 mEq See Rx Instructions .Route .COMPLEX 02/07/24 02/07/24 02/07/24 History tablet,extended release vit C 250 mg-vit E 90 mg-zinc 40 1 tab PO BID 02/07/24 02/07/24 02/07/24 History mg-copper 1 [id number] capsule (PreserVision AREDS-2) Allergies Allergy/AdvReac Type Severity Reaction Status Date / Time clonidine Allergy unknown Verified 02/07/24 11:37 diltiazem Allergy unknown Verified 02/07/24 11:37 hydrochlorothiazide Allergy unknown Verified 02/07/24 11:37 lisinopril Allergy unknown Verified 02/07/24 11:37 sertraline [From Zoloft] Allergy unknown Verified 02/07/24 11:37 spironolactone Allergy unknown Verified 02/07/24 11:37 [From Aldactone] telmisartan [From Micardis] Allergy unknown Verified 02/07/24 11:37 Current Medications Generic Name Dose Route Start Last Admin Trade Name Freq PRN Reason Stop Dose Admin Amlodipine Besylate 2.5 mg 02/08/24 10:00 02/08/24 10:16 Amlodipine 5 Mg Tablet PO 2.5 mg DAILY ORIANA Administration Aspirin 81 mg 02/08/24 09:00 02/08/24 10:15 Aspirin 81 Mg Ec Tablet PO 81 mg DAILY ORIANA Administration Carvedilol 12.5 mg 02/08/24 14:30 02/08/24 12:57 Carvedilol 12.5 Mg Tablet PO 12.5 mg DAILY ORIANA Administration Furosemide 40 mg 02/08/24 10:00 02/08/24 10:16 Furosemide 40 Mg Tablet PO 40 mg QAM ORIANA Administration Heparin Sodium (Porcine) 5,000 unit 02/07/24 16:15 02/08/24 04:49 Heparin 5,000 Unit/Ml Inj 1 Ml SUBCUT 5,000 unit Q12H ORIANA Administration Isosorbide Mononitrate 30 mg 02/07/24 21:00 02/08/24 10:15 Isosorbide Mononitrate Er 30 Mg Tablet PO 30 mg DAILY ORIANA Administration Pantoprazole Sodium 40 mg 02/08/24 09:00 02/08/24 10:[address] 40 Mg Tablet PO 40 mg DAILY ORIANA Administration Tamsulosin HCl 0.4 mg 02/08/24 09:00 02/08/24 10:15 Tamsulosin 0.4 Mg Capsule PO 0.4 mg DAILY ORIANA Administration PFSH Acute 2 PFSH: Medical History Atherosclerosis of coronary artery Benign prostatic hyperplasia Gout Hyperlipidemia LVH (left ventricular hypertrophy) Hearing loss Macular degeneration PTSD (post-traumatic stress disorder) Hx of tongue cancer Hx of tuberculosis Presence of Watchman left atrial appendage closure device Sleep apnea Ventricular tachycardia CAD (coronary artery disease) Patient was told to have mild coronary disease by cardiac catheterization. Paroxysmal A-fib Hypertension Surgical History Hx of lymph node excision Hx of neck surgery Hx of tonsillectomy Hx of appendectomy History of radiofrequency ablation procedure for cardiac arrhythmia Family History Mother CAD (coronary artery disease) Cancer Diabetes Son Cancer Chronic kidney disease (CKD) Father Dementia Lung disease TB Stroke Denies family history of Clotting disorder Suicide Anesthesia complication Bleeding disorder Social History Smoking and tobacco/nicotine status: former use of tobacco/nicotine Alcohol intake: never Substance/Drug Use: never Vitals/I&O/Wt Last Vital Signs Temp 98.3 F 02/08/24 12:00 Pulse 91 02/08/24 12:00 Resp 18 02/08/24 12:00 BP 159/120 02/08/24 12:00 Pulse Ox 96 02/08/24 12:00 O2 Del Method Room Air 02/08/24 12:00 02/08/24 02/08/24 02/08/24 06:59 14:59 22:59 Intake Total 480 / 480 Output Total 600 / 600 Balance -600 / -400 480 / 480 Weight last 48 hrs Weight 242 lb 12.8 oz Weight 242 lb 12.8 oz Weight 230 lb Physical Exam 2 Narrative: General: No apparent distress, healthy appearing, well nourished HENMT: normoceophalic Eye: PERRL Muskuloskeletal: Full ROM Lymphatic: no lymphedema noted Respiratory: Normal respiratory effort, clear to auscultation bilaterally throughout all lung pink, no use of accessory muscles Cardio: No JVD, irregularly irregular rhythm rhythm regular rate, S1 S2 normal, no murmurs, peripheral pulses 2+ throughout GI: Normal to inspection, nondistended Extremities: Full ROM, normal, normal capillary refill, no cyanosis or edema Neuro: Alert and oriented x4, no focal motor deficits Psych: Affect normal, denies suicidal ideation, mental status grossly normal Skin: No rashes or lesions noted, no wounds Data 02/08/24 12:38 02/08/24 12:38 A&P Assessment and plan (1) Chest pain: (2) Hypertension: Qualifiers: Hypertension type: essential hypertension Qualified Code(s): I10 - Essential (primary) hypertension (3) Paroxysmal A-fib: (4) CAD (coronary artery disease): Qualifiers: Coronary Disease-Associated Artery/Lesion type: [place] artery [place] vs. transplanted heart: [place] heart Associated angina: without angina Qualified Code(s): I25.10 - Atherosclerotic heart disease of [place] coronary artery without angina pectoris (5) Presence of Watchman left atrial appendage closure device: (6) Heart failure with reduced ejection fraction: Plan Patient has new onset CHF with reduced systolic function global wall motion abnormalities. Patient's chest pain is atypical but in the setting of the new onset heart failure it is appropriate to proceed with a coronary angiogram to evaluate for possible disease. This reduced systolic function may be from A- fib. If patient's cath is clear may need to do a cardioversion on an outpatient basis and treat medically with goal-directed medical therapy. Patient currently on beta-ubaldo carvedilol will continue this continue dual antiplatelet therapy. Patient will be going tomorrow afternoon at 1 PM. He has been educated on the risks and benefits and agrees to proceed. Thank you for allowing us to take care of this very pleasant 78-year-old gentleman Consult Attestations 2 Medical Necessity Statement: Defer to primary. Coding Level of Care Code Acute Code for [facility] Diagnoses Chest pain R07.9 Essential hypertension I10 Hypertension type: essential hypertension Paroxysmal A-fib I48.0 Coronary artery disease involving [place] coronary artery of [place] heart without angina pectoris I25.10 Coronary Disease-Associated Artery/Lesion type: [place] artery [place] vs. transplanted heart: [place] heart Associated angina: without angina Presence of Watchman left atrial appendage closure device Z95.818 Heart failure with reduced ejection fraction I50.20
[2024-02-08] MEDS: acetaminophen 325 mg Tablet 650 MG PO (17:12)
[2024-02-08] MEDS: carvedilol 6.25 mg Tablet PO (21:48)
[2024-02-09] VITALS (59 sets, daily range): BP systolic 120–177; BP diastolic 71–114; PULSE 67–110; RESP 8–26; TEMP 36.4–37.3; O2SAT 91–98
--- NOTE | 2024-02-09 02:11 | PC.RESP ---
Pt wearing his home CPAP with no help needed from Respiratory
[2024-02-09 04:05] LABS: Basophils # 0.1 10^3/uL (0.0-0.1); Basophils % 1.2 %; Eosinophils # 0.6 10^3/uL (0.0-0.8); Eosinophils % 7.4 %; Hematocrit 47.4 % (37-53); Lymphocytes # 1.7 10^3/uL (0.8-4.8); Lymphocytes % 21.9 %; Mean Corpuscular HGB Conc 32.5 g/dL (30-55); Mean Corpuscular Hemoglobin 28.7 pg (27-33); Mean Corpuscular Volume 88.4 fl (82-101); Mean Platelet Volume 8.9 fL (7.4-10.4); Monocytes % 12.7 %; Neutrophils # 4.34 10^3/uL (1.8-7.7); Neutrophils % 56.2 %; Nucleated Red Blood Cells % 0 %; Platelet Count 355 10^3/cmm (157-399); Red Blood Count 5.36 10^6/uL (3.85-5.65); Red Cell Distribution Width 13.5 % (12.1-15.1); White Blood Count 7.72 10^3/uL (3.29-11.43)
[2024-02-09 04:51] LABS: Anion Gap 14.3 (5-19); Blood Urea Nitrogen 17 mg/dL (8-23); Calcium 9.3 mg/dL (8.5-10.5); Carbon Dioxide 24 mmol/L (22-29); Chloride 105 mmol/L (98-107); Creatinine Clr Calc Pharmacy 82.7009; Glucose 92 mg/dL (65-115); Osmolality Calculated 291 mOsm/kg (285-295); Potassium 3.3 mmol/L (3.5-5.1); Sodium 140 mmol/L (136-145)
[2024-02-09] MEDS: FUROsemide 40 mg Tablet PO (05:27)
[2024-02-09] MEDS: isosorbide mononitrate ER 30 mg Tablet PO (08:49)
[2024-02-09] MEDS: acetaminophen 325 mg Tablet 650 MG PO ×2 (08:49→20:12)
[2024-02-09] MEDS: aspirin 81 mg EC Tablet PO (08:49)
[2024-02-09] MEDS: tamsulosin 0.4 mg Capsule PO (08:49)
[2024-02-09] MEDS: pantoprazole DR 40 mg Tablet PO (08:49)
[2024-02-09] MEDS: amlodipine 5 mg Tablet 2.5 MG PO (08:49)
[2024-02-09] MEDS: carvedilol 12.5 mg Tablet PO (08:49)
--- NOTE | 2024-02-09 13:00 | XACV_ITS ---
Exam Room: 2 Ht: 178 cm Wt: 110 kg BSA: 2.37 m2 Gender: Male : 1945 Exam Priority: Routine Procedure(s): Procedure Description: Diagnostic procedure Procedure Description: PCI procedure Procedure Description: Drug Eluting Coronary Stent Procedure Description: PTCA Procedure Description: Miscellaneous Procedure Description: ACT Procedure Description: Coronary Angiography Cornel ACOSTA; Diagnostic Cath Status: Urgent Diagnostic Findings * Left Main has no disease. * Mid Left Anterior Descending: severe 90% stenosis, MITALI: 3 flow. * Mid Right Coronary Artery to Distal Right Coronary Artery: luminal irregularities 20% stenosis, MITALI: 3 flow. * Proximal Circumflex: luminal irregularities 20% stenosis, MITALI: 3 flow. * Coronary angiography shows right dominance. PCI Indication: New Onset Angina <= 2 months Interventional Findings * Mid Left Anterior Descendin% stenosis treated with a AB TREK 3.00X12 RX BALLOON, WENDY Stiles DARRELL 4.0X18 KB, and WENDY LONGORIA EUPHORA RX [id number] BALLOON. 0% residual stenosis, MITALI: 3 flow. Conclusions 1. There is severe coronary artery disease with three vessel disease. 2. Mid Left Anterior Descending was treated with a Balloon, Drug Eluting Stent, and Balloon. Recommendations * Continue current medical management and risk factor modification. * 1-Return to inpatient for close monitoring and routine cath care 2-Risk factor modification for secondary prevention 3-Statin and aspirin 81 mg life-long, if tolerated 4-Patient was pre-loaded with 600 mg of Plavix, continue Plavix 75mg p.o. daily for at least one year. We will assess at the end of one year again to continue if further or not 5-Continue optimal medical management 6-Follow up with Dr. Unger in four weeks and your primary care in 10 days. Diagnostic RX Recommendation: PCI w/o planned CABG Pressures Phase:Rest AO : 130 / 100 ( 115 ) @ 3:24:00 PM 138 / 93 ( 116 ) @ 3:33:00 PM 142 / 102 ( 118 ) @ 3:37:00 PM Clinical Evaluation EBL: 5mL-10mL Procedural Details Procedure Consent Obtained. Admit Source: In Patient. Pre-Procedure Time Out. Identified patient by full name and date of as verbalized by the patient/guarantor. Does the consent match the physician's order: Yes. Accurate & Complete Informed Consent: Yes. Inpatient/Outpatient History & Physical on Chart: Yes. If H&P is completed, is and addenduem needed: No; If yes, is the addendum complete: N/A. Visualize and Verify Site with Patient/Guarantor: N/A. Relevant Radiology Images available: N/A. Pre-op teaching completed and patient verbalized understanding. The risks, benefits, and alternatives of sedation and/or procedure were discussed by physician. The patient agrees to continue. Procedure started. [facility] Clinical Fraility Score: 3: Managing Well. 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 Chest Pain Symptom Assessment: Typical Angina Symptoms. Cardiovascular Instability: Yes, if yes, Persistant Ischemic Symptoms. Correct patient, site and procedure confirmed by cath team. Current diagnosis: Chest Pain. PERRLA. Strong, equal hand surgical corsetier bilaterally. Lungs clear x 5 lobes. IV Site on Arrival: 20 gauge in the left wrist. IV Site on Arrival: Saline Lock. IV Fluids: 0.9% NaCl at KVO. 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 Pre Procedural Pulses: right radial was 3+. Pre Procedural Pulses: bilateral dorsalis pedis was 2+. Oxygen started at 2liters/min via nasal canula. right groin was prepped with chloroprep then draped in the usual sterile fashion. right radial was prepped with chloroprep then draped in the usual sterile fashion. Physician notified. Baseline sample Acquired. HR: 91 BPM. Physician arrived. Physician scrubbed in. Immediate Pre-Procedure Time Out. Correct Patient: Yes; Correct Procedure: Yes; Correct Site: Yes; Correct Patient Position: Yes; Correct Supplies: Yes; Dried Flammable Prep: Yes; Blood Products Available: N/A;. Lidocaine 1% infiltrated to the right radial. Arterial access obtained. A 5 kazakh TIG catheter in over wire. Multiple views taken of left coronary artery. Catheter redirected to the RCA. Multiple views taken of right coronary artery. Catheter removed over the exchange wire. Equipment: 6F - Radial. 6 kazakh XB 3.5 guide catheter was inserted over the wire. BMW guidewire was advanced through the guide catheter to lesion in the mid LAD. Balloon inserted to lesion in the mid LAD. Inflation number : 1 A AB TREK 3.00X12 RX BALLOON was prepped and advanced across the Mid LAD , then inflated to 14 ALY for 0:09 seconds. Inflation number: 2 The AB TREK 3.00X12 RX BALLOON was reinflated across the Mid LAD, to 16 ALY for 0:08 seconds. Results checked. Balloon out. Stent inserted to lesion in the mid LAD. Inflation Number : 3 A MDT R DARRELL 4.0X18 KB -Lot Number# [id number] Exp 11/06/2026 was prepped and advanced across the Mid LAD. The stent was deployed at 12 ALY for 0:16 seconds. Stent balloon out over wire. Inflation number : 4 A MDT NC EUPHORA RX [id number] BALLOON was prepped and advanced across the Mid LAD , then inflated to 12 ALY for 0:12 seconds. Inflation number: 5 The MDT NC EUPHORA RX [id number] BALLOON was reinflated across the Mid LAD, to 12 ALY for 0:12 seconds. Inflation number: 6 The MDT NC EUPHORA RX [id number] BALLOON was reinflated across the Mid LAD, to 12 ALY for 0:15 seconds. ACT drawn. Results 295 seconds. Therapeutic limits - pre-heparin administration 90-150 seconds and monitoring heparin during a vascular procedure >250 seconds. Wire out. Guide catheter out. A TR Band was successful obtaining hemostatsis at the Right Radial artery insertion site. Physician scrubbed out. Post Procedure: Pulses reassessed and unchanged. PERRLA. Strong, equal hand surgical corsetier bilaterally. No VTE prophylaxis required. Medication's Wasted: Nitro = 49.6 mg. Medication's Wasted: Other = Fentanyl 25 mcg. Medication's Wasted: Other = Versed 1 mg. Medication's Wasted: Lidocaine 1% = 18 mL. Medication's Wasted: Heparin = 1000 u. Total IV fluids: 50 mL. Post-op diagnosis: LV Dysfunction, Severe Mid LAD stenosis S/P successful stenting x1. Complications: none. Estimated blood loss: 5mL-10mL. Responsiveness - Normal response to verbal stimuli; alert and oriented, PERRLA. Airway - Unaffected, no intervention required; spontaneous ventilation. Circulation: W/N/L, pulses unchanged. Nausea/Vomiting: No. Procedure completed. Patient transferred by wheelchair to 1st floor. Vital chart was stopped. Pt c/o chest pain post procedure. 12 lead EKG ordered per Dr. Unger. Pt chest pain improved from 6/10 to 3/10 currently. 12 lead EKG performed and reviewed by Dr. Unger, no acute findings. Results checked. Balloon inserted to lesion in the mid LAD. Balloon out. Results checked. Results checked. Dr. Unger states pt ok to be returned to CSU, and nitro paste ordered to start on floor. Access Site Site: Right Radial artery Sheath Size: 6 Fr Hemostasis Method: TR Band Hemostasis Success: Successful Procedure Medications Start: 3:11 PM Stop: 3:11 PM Medication: Versed Amount: 1 mg Route: I.V. Start: 3:11 PM Stop: 3:11 PM Medication: Fentanyl Amount: 50 mcg Route: I.V. Start: 3:14 PM Stop: 3:14 PM Medication: Versed Amount: 1 mg Route: I.V. Start: 3:19 PM Stop: 3:19 PM Medication: Nitrogylcerin Amount: 200 mcg Route: I.A. Start: 3:20 PM Stop: 3:20 PM Medication: Heparin Amount: 5000 units Route: I.V. Start: 3:30 PM Stop: 3:30 PM Medication: Plavix Amount: 600 mg Route: P.O. Start: 3:33 PM Stop: 3:33 PM Medication: Heparin Amount: 5000 units Route: I.V. Start: 3:35 PM Stop: 3:35 PM Medication: Versed 1 mg and Fentanyl 25 mcg Amount: 1 Route: I.V. Start: 3:44 PM Stop: 3:44 PM Medication: Nitrogylcerin Amount: 200 mcg Route: I.C. Start: 4:02 PM Stop: 4:02 PM Medication: Aggrastat 12.5 mg/250 mL Amount: 55 ml Route: I.V. bolus Start: 4:03 PM Stop: 4:03 PM Medication: Aggrastat 12.5 mg/250 mL Amount: 19.8 ml/hr Route: I.V. bolus Start: 4:03 PM Stop: 4:03 PM Medication: Nitrogylcerin Amount: 2 Sprays Route: SRosalio Sierra, the attending physician, have reviewed and verified all procedure medications. Yes, all medications given per verbal order History/Risk Factors Hypertension: Yes Dyslipidemia: Yes Peripheral Arterial Disease (PAD): No Myocardial Infarction ([place]): No Obesity: Yes Renal Disease: No Tobacco Use: Former Prior Interventions PCI: No CABG: No Valve Surgery: No Report Signatures Finalized by Caitlin Unger MD on 02/09/2024 04:19 PM
--- NOTE | 2024-02-09 14:52 | PM.PN ---
Subjective Subjective: seen today going for cath at 1 pm denies cp at this time Vitals/I&O/Wt Last Vital Signs Temp 97.5 F L 02/09/24 12:00 Pulse 75 02/09/24 12:00 Resp 18 02/09/24 12:00 BP 120/82 02/09/24 12:00 Pulse Ox 94 02/09/24 12:00 O2 Del Method CPAP 02/09/24 12:00 02/08/24 02/09/24 02/09/24 22:59 06:59 14:59 Intake Total 480 / 960 400 / 1360 Output Total 500 / 500 600 / 1100 475 / 475 Balance -20 / 460 -200 / 260 -475 / -475 Weight last 48 hrs Weight 110.404 kg Weight 110.132 kg Weight 110.132 kg Physical Exam Narrative: Morbidly obese A-fib without RVR GCS 15 No sign of fluid overload No audible stridor or wheezing Afebrile S1-S2 hemodynamically stable No active chest pain Pleasant and cooperative Nonfocal neuroexam Data 02/09/24 03:09 02/09/24 03:09 A&P Assessment and plan (1) Hypertension: Qualifiers: Hypertension type: essential hypertension Qualified Code(s): I10 - Essential (primary) hypertension (2) CAD (coronary artery disease): Qualifiers: Coronary Disease-Associated Artery/Lesion type: [place] artery [place] vs. transplanted heart: [place] heart Associated angina: without angina Qualified Code(s): I25.10 - Atherosclerotic heart disease of [place] coronary artery without angina pectoris (3) Chest pain: (4) Paroxysmal A-fib: (5) Presence of Watchman left atrial appendage closure device: (6) Sleep apnea: Qualifiers: Sleep apnea type: obstructive Qualified Code(s): G47.33 - Obstructive sleep apnea (adult) (pediatric) (7) Leg edema: Plan Unstable angina No active chest pain Troponin trending down Requested echo and stress test in the morning N.p.o. after midnight A-fib without RVR status post Watchman device Rate controlled Patient history of sleep apnea: CPAP overnight Hypertension: Continue amlodipine, Coreg CHF new onset? Patient does not have a official diagnosis of CHF, he is on diuretics for lower extremity edema Considering sleep apnea my concern is related to right-sided heart failure symptoms EF unknown I do not have previous echo: No severe exacerbation I will continue his home regimen of Lasix along potassium supplementation which she normally takes for lower extremity edema Requested echo BPH: Continue tamsulosin Full code N.p.o. right now DVT prophylaxis added 02/09/2024 -Echocardiogram reviewed. ? Stress test abnormal. coronary angiogram scheduled for today; ? Continue home regimen of Lasix and potassium. - cardiology consulted Attestations Medical Necessity Statement*: angiogram today Diagnoses Essential hypertension I10 Hypertension type: essential hypertension Coronary artery disease involving [place] coronary artery of [place] heart without angina pectoris I25.10 Coronary Disease-Associated Artery/Lesion type: [place] artery [place] vs. transplanted heart: [place] heart Associated angina: without angina Chest pain R07.9 Paroxysmal A-fib I48.0 Presence of Watchman left atrial appendage closure device Z95.818 Obstructive sleep apnea syndrome G47.33 Sleep apnea type: obstructive Leg edema R60.0
--- NOTE | 2024-02-09 15:04 | W.PM.OPSUD ---
Surgery/Procedure H&P Update DATE OF PROCEDURE: February 09, 2024 DATE H&P PERFORMED: 02/08/24 H&P UPDATE INFORMATION: I have reviewed H&P completed within last 30 days, I have examined patient prior to procedure, No changes to prior documentation and Changes to prior documentation as noted here PREOP DIAGNOSIS: Abnormal stress test chest pain unstable angina, LV dysfunction PATIENT REASSESSED PRIOR TO SEDATION, WITH NO CHANGE NOTED: Yes PHYSICAL EXAM: alert, oriented x 3, clear to auscultation bilaterally, regular rate & rhythm and operative site marked AIRWAY EVAL/ANESTHESIA PLAN: ASA II, Risks, benefits & alternatives of sedation and/or procedure discussed and Patient agrees to continue as planned
[2024-02-09] MEDS: sodium chloride 0.9% 1,000 ML 50 ML IV (15:38)
--- NOTE | 2024-02-09 16:06 | ECG_ITS ---
[facility] Date: 2024-02-09 Pat Name: Farhat Daly Department: Room: 104 Gender: Male Medical Office Clerk: : 1945 Requested By: Caitlin Unger Order Number: [id number] Guerrero MD: Matthias Flores M.D. Measurements Intervals [place] Rate: 90 P: 0 MA: 0 QRS: 81 QRSD: 117 T: 73 QT: 382 QTc: 469 Interpretive Statements ATRIAL FIBRILLATION Electronically Signed On 02-09-2024 22:06:40 SEARCH DEVELOPER by Matthias Flores M.D. [id number]
[2024-02-09] MEDS: carvedilol 6.25 mg Tablet PO (20:12)
[2024-02-10] VITALS: BP 160/95; PULSE 78; RESP 15; TEMP 36.6; O2SAT 96
--- NOTE | 2024-02-10 03:42 | PC.RESP ---
Pt using home CPAP with no need of assistance from RT
[2024-02-10 04:00] VITALS: BP 152/94; PULSE 65; RESP 12; O2SAT 97
[2024-02-10] MEDS: FUROsemide 40 mg Tablet PO (05:01)
[2024-02-10] MEDS: heparin 5,000 unit/mL INJ 1 mL 5000 UNIT SUBCUT (05:01)
[2024-02-10 07:39] VITALS: PULSE 85; RESP 16; O2SAT 98
[2024-02-10 07:55] VITALS: BP 170/91; PULSE 73; RESP 16; TEMP 36.7; O2SAT 97
[2024-02-10] MEDS: tamsulosin 0.4 mg Capsule PO (08:57)
[2024-02-10] MEDS: carvedilol 12.5 mg Tablet PO (08:57)
[2024-02-10] MEDS: pantoprazole DR 40 mg Tablet PO (08:57)
[2024-02-10] MEDS: aspirin 81 mg EC Tablet PO (08:57)
[2024-02-10] MEDS: isosorbide mononitrate ER 30 mg Tablet PO (08:58)
[2024-02-10] MEDS: clopidogrel 75 mg Tablet PO (08:58)
[2024-02-10] MEDS: amlodipine 5 mg Tablet 2.5 MG PO (08:58)
[2024-02-10 12:00] VITALS: BP 144/86; PULSE 81; RESP 20; TEMP 36.6; O2SAT 93
--- NOTE | 2024-02-10 12:38 | P.DS_ITS ---
Discharge Providers Date of Admission: 02/09/24 13:00 Date of Discharge: February 10, 2024 Attending Provider at Admission: Kia Fierro MD Attending Provider at Discharge: Kia Fierro MD Primary Care Provider: Kenney Wallace DO Diagnoses at Discharge Discharge Diagnosis (1) Hypertension: Status: Acute Qualifiers: Hypertension type: essential hypertension Qualified Code(s): I10 - Essential (primary) hypertension (2) CAD (coronary artery disease): Status: Acute Qualifiers: Associated angina: without angina Coronary Disease-Associated Artery/Lesion type: [place] artery [place] vs. transplanted heart: [place] heart Qualified Code(s): I25.10 - Atherosclerotic heart disease of [place] coronary artery without angina pectoris Permanent problem details: Patient was told to have mild coronary disease by cardiac catheterization. (3) Chest pain: Status: Acute (4) Paroxysmal A-fib: Status: Acute (5) Presence of Watchman left atrial appendage closure device: Status: Acute (6) Sleep apnea: Status: Acute Qualifiers: Sleep apnea type: obstructive Qualified Code(s): G47.33 - Obstructive sleep apnea (adult) (pediatric) (7) Leg edema: Status: Acute Reason for Visit Reason for Visit: Chest pain Hospital Course Hospital Course Patient presented to the hospital with chest pain underwent stress testing which was abnormal. Cardiology was consulted and he was taken for coronary angiogram. Echo did show diffuse hypokinesia and mildly reduced EF. Patient received a stent to LAD and had balloon angioplasty done. He will be discharged home with aspirin Plavix atorvastatin. Continue home Coreg. Right posterior approach was used. Capillary refill less than 2 seconds. No evidence of hematoma. Patient chest pain-free at this time. Is to follow-up with cardiology as an outpatient. at bedside. Plan discussed. Physical Exam Narrative: Morbidly obese A-fib without RVR GCS 15 No sign of fluid overload No audible stridor or wheezing Afebrile S1-S2 hemodynamically stable No active chest pain Pleasant and cooperative Nonfocal neuroexam Discharge Data Studies Completed and Pending Completed Studies During Hospitalization Category Date Time Status SENIOR FACILITIES MANAGER request for service Routine Exams 02/09/24 13:00 Completed XR chest 1V portable [id number] Stat Exams 02/07/24 11:54 Completed NM kenisha perf SPECT r/s* [id number] Routine Nuc Med 02/07/24 16:17 [place] [id number] Routine Ultrasound 02/08/24 07:13 Completed US echo complete [CV. echo complete* [id number]] Routine Ultrasound 02/07/24 16:14 Completed Pending at discharge Category Date Time Status Sestamibi Stress Test Request Stat Exams 02/07/24 16:14 Ordered Basic Metabolic Panel AM LABS Lab 02/10/24 04:00 Ordered Complete Blood Count w/Auto AM LABS Lab 02/10/24 04:00 Ordered Radiology Impressions Chest X-Ray 02/07/24 11:54 IMPRESSION: 1. Mild cardiac enlargement. No acute process. Laboratory Results WBC 7.72 10^3/uL (3.29-11.43) 02/09/24 03:09 RBC 5.36 10^6/uL (3.85-5.65) 02/09/24 03:09 Hgb 15.40 g/dL (11.27-16.99) 02/09/24 03:09 Hct 47.4 % (37-53) 02/09/24 03:09 MCV 88.4 fl (82-101) 02/09/24 03:09 MCH 28.7 pg (27-33) 02/09/24 03:09 MCHC 32.5 g/dL (30-55) 02/09/24 03:09 RDW 13.5 % (12.1-15.1) 02/09/24 03:09 Plt Count 355 10^3/cmm (157-399) 02/09/24 03:09 MPV 8.9 fL (7.4-10.4) 02/09/24 03:09 Neut % (Auto) 56.2 % 02/09/24 03:09 Lymph % (Auto) 21.9 % 02/09/24 03:09 [place] % (Auto) 12.7 % 02/09/24 03:09 Eos % (Auto) 7.4 % 02/09/24 03:09 Baso % (Auto) 1.2 % 02/09/24 03:09 Neut # (Auto) 4.34 10^3/uL (1.8-7.7) 02/09/24 03:09 Lymph # (Auto) 1.7 10^3/uL (0.8-4.8) 02/09/24 03:09 [place] # (Auto) 1.0 10^3/uL (0.2-0.9) H 02/09/24 03:09 Eos # (Auto) 0.6 10^3/uL (0.0-0.8) 02/09/24 03:09 Baso # (Auto) 0.1 10^3/uL (0.0-0.1) 02/09/24 03:09 Nucleated RBC % (auto) 0 % 02/09/24 03:09 Nucleated RBCs # 0.0 /100WBC 02/09/24 03:09 D-Dimer 0.57 ug/mLFEU (0-0.59) 02/08/24 12:38 Sodium 140 mmol/L (136-145) 02/09/24 03:09 Potassium 3.3 mmol/L (3.5-5.1) L 02/09/24 03:09 Chloride 105 mmol/L (98-107) 02/09/24 03:09 Carbon Dioxide 24 mmol/L (22-29) 02/09/24 03:09 Anion Gap 14.3 (5-19) 02/09/24 03:09 BUN 17 mg/dL (8-23) 02/09/24 03:09 Creatinine 0.9 mg/dL (0.7-1.2) 02/09/24 03:09 GFR Calculation Not Reportable 02/09/24 03:09 Glucose 92 mg/dL (65-115) 02/09/24 03:09 Estimat Average Glucose 120 02/08/24 12:38 Hemoglobin A1c 5.8 % (4.0-6.0) 02/08/24 12:38 Calculated Osmolality 291 mOsm/kg (285-295) 02/09/24 03:09 Calcium 9.3 mg/dL (8.5-10.5) 02/09/24 03:09 Magnesium 2.4 mg/dL (1.7-2.3) H 02/08/24 12:38 Total Bilirubin 0.3 mg/dL (0.15-1.2) 02/07/24 12:18 AST 18 U/L (0-40) 02/07/24 12:18 ALT 26 U/L (0-41) 02/07/24 12:18 Alkaline Phosphatase 116 U/L (40-130) 02/07/24 12:18 Troponin T Baseline 14 ng/L (0-15) 02/07/24 12:18 Troponin T 120 Minute 12.22 ng/L (0-15) 02/07/24 14:24 Delta Troponin T -1.78 ABS# (0-10) L 02/07/24 14:24 Troponin T Hi Sens 6Hr 12.32 ng/L (0-15) 02/07/24 19:03 Troponin T Hi Sens 6Hr Delta -1.68 ng/L (0-12) L 02/07/24 19:03 NT-Pro-B Natriuret Pep 799 pg/mL (0-450) H 02/07/24 12:18 Total Protein 6.8 g/dL (6.6-8.7) 02/07/24 12:18 Albumin 4.1 g/dL (3.5-5.2) 02/07/24 12:18 Globulin 2.7 g/dL (1.3-4.6) 02/07/24 12:18 Triglycerides 130 mg/dL (0-150) 02/07/24 12:18 Cholesterol 192 mg/dL (0-200) 02/07/24 12:18 LDL Cholesterol, Calc 129 mg/dL (50-129) 02/07/24 12:18 HDL Cholesterol 37 mg/dL (60-100) L 02/07/24 12:18 LDL/HDL Ratio 3.49 RATIO (0.00-3.22) H 02/07/24 12:18 Cholesterol/HDL Ratio 5.19 mg/dL (1.0-5.00) H 02/07/24 12:18 TSH 1.11 uIU/mL (0.27-4.20) 02/07/24 12:18 Vitals Last Vital Signs Temp 97.9 F 02/10/24 12:00 Pulse 81 02/10/24 12:00 Resp 20 H 02/10/24 12:00 BP 144/86 02/10/24 12:00 Pulse Ox 93 02/10/24 12:00 O2 Del Method Room Air 02/10/24 12:00 Discharge Plan Discharge Patient Disposition: Home Condition: Stable Prescriptions: New clopidogrel 75 mg Tablet 75 mg PO DAILY Qty: 30 0RF aspirin 81 mg Tablet,Delayed Release (Dr/Ec) 81 mg PO DAILY Qty: 30 0RF pantoprazole 40 mg Tablet,Delayed Release (Dr/Ec) 40 mg PO DAILY Qty: 30 0RF atorvastatin 40 mg tablet 40 mg PO DAILY Qty: 30 0RF Continued amlodipine 2.5 mg tablet 2.5 mg PO DAILY tamsulosin 0.4 mg capsule 0.4 mg PO DAILY hydroxyzine HCl 25 mg tablet 25 mg PO TID PRN (Reason: anxiety or sleep) isosorbide mononitrate 30 mg tablet extended release 24 hr See Rx Instructions .ROUTE .COMPLEX Qty: 90 3RF Dose Instruction: TAKE ONE TABLET BY MOUTH ONCE A DAY TO PREVENT CHEST PAIN. TAKE ON EMPTY STOMACH. SWALLOW WHOLE. DO NOT CRUSH OR CHEW. Rx Instructions: TAKE ONE TABLET BY MOUTH ONCE A DAY TO PREVENT CHEST PAIN. TAKE ON EMPTY STOMACH. SWALLOW WHOLE. DO NOT CRUSH OR CHEW. latanoprost 0.005 % Drops 1 drp ophthalmic (eye) QPM carvedilol 12.5 mg Tablet See Rx Instructions .ROUTE .COMPLEX Rx Instructions: Take 1 tablet by mouth in the morning and (1/2) one-half tablet in the evening. dorzolamide-timolol 22.3-6.8 mg/mL Drops 1 drp OPHTHALMIC (EYE) BID finasteride 5 mg Tablet 5 mg PO DAILY PreserVision AREDS-2 250-90-40-1 mg Capsule 1 tab PO BID furosemide [Lasix] 40 mg tablet 40 mg PO QAM potassium chloride 20 mEq tablet extended release See Rx Instructions .ROUTE .COMPLEX Rx Instructions: Take 1 tablet by mouth daily and take an additional dose every other day. Discharge Orders: Discharge Order (Routine); Ordered 02/10/24 Ordered By: Kia Fierro Referrals: Kia Suárez NP [Nurse Practitioner] - 7-10 days (Kia Suárez's Office has your information and will be calling you to schedule a follow up appointment. You can call them to schedule if you do not hear from them. Thank you.) Caitlin Unger MD [Physician] - 1 month (Your follow up appointment with Dr. Unger will be scheduled during your visit with Kia Suárez. Thank you.) Kenney Wallace DO [Primary Care Provider] - 4-7 days (Please call Dr. Wallace's Office on Monday at [phone] to schedule a follow up appointment. Thank you.) Discharge Diet: Cardiac and Diabetic Discharge Activity: Limit activity as instructed Patient Instructions: Aspirin (By mouth) (Venkatesh Extra Strength, Venkatesh Aspirin Children's,..., Atorvastatin (By mouth) (Lipitor, Atorvaliq), Clopidogrel (By mouth) (Plavix), Pantoprazole (By mouth) (Protonix), Heart Failure (DC), Coronary Artery Disease (GEN), CHF Stoplight, Opioid Safety Discharge Attestations Time Spent in Discharge Care*: greater than 30 min Quality Metrics Clinical Quality Measures [ No reported AMI, CVA or VTE this stay] Coding Level of Care Code Acute Code for Chg Fwd Diagnoses Essential hypertension I10 Hypertension type: essential hypertension Coronary artery disease involving [place] coronary artery of [place] heart without angina pectoris I25.10 Associated angina: without angina Coronary Disease-Associated Artery/Lesion type: [place] artery [place] vs. transplanted heart: [place] heart Chest pain R07.9 Paroxysmal A-fib I48.0 Presence of Watchman left atrial appendage closure device Z95.818 Obstructive sleep apnea syndrome G47.33 Sleep apnea type: obstructive Leg edema R60.0
[2024-02-10 13:15] VITALS: BP 146/96; PULSE 83; RESP 19; O2SAT 95
== END 2024-02-10 13:52 | disposition home or self-care (01) | DRG 322 ==
LOC: ER 16:34 → ER IP 16:51 → CSU 18:17
PROVIDERS: Internal Medicine; Internal Medicine Cardiovascular Disease; Nurse Practitioner Family; Admitting Provider Internal Medicine; Emergency Provider Emergency Medicine; PCP Emergency Medicine Emergency Medical Services; Visit Provider Internal Medicine
PROC: 027034Z Dilation of Coronary Artery, One Artery with Drug-eluting Intraluminal Device, Percutaneous Approach (ICD-10-PCS; principal; 2024-02-09 15:00)
PROC: 027034Z Dilation of Coronary Artery, One Artery with Drug-eluting Intraluminal Device, Percutaneous Approach (ICD-10-PCS; 2024-02-09 15:00)
DX: I25.110 Atherosclerotic heart disease of native coronary artery with unstable angina pectoris (principal); I50.20 Unspecified systolic (congestive) heart failure; I11.0 Hypertensive heart disease with heart failure; E78.5 Hyperlipidemia, unspecified; I48.0 Paroxysmal atrial fibrillation; G47.33 Obstructive sleep apnea (adult) (pediatric); F43.10 Post-traumatic stress disorder, unspecified; N40.0 Benign prostatic hyperplasia without lower urinary tract symptoms; M10.9 Gout, unspecified; H91.90 Unspecified hearing loss, unspecified ear; H35.30 Unspecified macular degeneration; E66.01 Morbid (severe) obesity due to excess calories; R60.9 Edema, unspecified; Z68.34 Body mass index [BMI] 34.0-34.9, adult; Z85.810 Personal history of malignant neoplasm of tongue; Z87.891 Personal history of nicotine dependence; Z98.890 Other specified postprocedural states
CPT/HCPCS: 36415; 71045; 78452; 80048; 80053; 80061; 83036; 83735; 83880; 84443; 84484; 85025; 85347; 85378; 93005; 93017; 93306; 93454; 93970; 96372; 96374; 96375; 96376; 99152; 99153; 99285; A9500; C1725; C1769; C1874; C1887; C1894; C9600; G0378; J1644; J2250; J2785; J3010; J3490; J7030; Q9967

== ENCOUNTER 2024-02-27 14:39 | Outpatient (CLI) | payer OTHER, SELFPAY ==
[2024-02-27 16:08] LABS: Blood Urea Nitrogen 18 mg/dL (8-23); Calcium 10.2 mg/dL (8.5-10.5); Carbon Dioxide 27 mmol/L (22-29); Chloride 103 mmol/L (98-107); Glucose 83 mg/dL (65-115); NT Pro B Type Natriuretic Pept 848 pg/mL (0-450); Osmolality Calculated 289 mOsm/kg (285-295); Sodium 139 mmol/L (136-145)
== END 2024-02-27 14:40 | disposition home or self-care (01) ==
LOC: LAB 14:41
PROVIDERS: PCP Emergency Medicine Emergency Medical Services; Visit Provider Nurse Practitioner Family
DX: I50.20 Unspecified systolic (congestive) heart failure (principal); I10 Essential (primary) hypertension; I25.10 Atherosclerotic heart disease of native coronary artery without angina pectoris; E87.6 Hypokalemia; R60.9 Edema, unspecified; Z87.891 Personal history of nicotine dependence
CPT/HCPCS: 36415; 80048; 83880; 99214

== ENCOUNTER 2024-05-06 18:37 | Emergency (ER) | payer OTHER, SELFPAY ==
[2024-05-06] VITALS (8 sets, daily range): BP systolic 148–167; BP diastolic 92–104; PULSE 78–89; RESP 16; TEMP 36.6; O2SAT 93–95
--- NOTE | 2024-05-06 18:51 | XRR_ITS ---
PROCEDURE INFORMATION: Exam: XR Right Shoulder Exam date and time: 05/06/2024 7:17 PM Age: 78 years old Clinical indication: Injury or trauma; Fall; Blunt trauma (contusions or hematomas); Shoulder; Right; Additional info: Fall, shoulder pain TECHNIQUE: Imaging protocol: Radiologic exam of the right shoulder. Views: 2 or more views. COMPARISON: DX XR shoulder RT min 2V* [id number] 02/13/2024 10:49 AM FINDINGS: Bones/joints: Fracture through the head neck junction of the proximal humerus. Soft tissues: Normal. XR/XR shoulder RT min 2V* [id number] IMPRESSION: Fracture through the proximal right humerus.
--- NOTE | 2024-05-06 18:51 | XRR_ITS ---
PROCEDURE INFORMATION: Exam: XR Left Wrist Exam date and time: 05/06/2024 7:20 PM Age: 78 years old Clinical indication: Injury or trauma; Fall; Blunt trauma (contusions or hematomas); Wrist; Left; Additional info: Fall, wrist pain TECHNIQUE: Imaging protocol: Radiologic exam of the left wrist. Views: 3 or more views. COMPARISON: No relevant prior studies available. FINDINGS: Bones/joints: Nondisplaced fracture of the distal radius. Soft tissues: Normal. XR/XR wrist LT min 3V* [id number] IMPRESSION: Nondisplaced fracture of the distal radius.
--- NOTE | 2024-05-06 18:51 | CTR_ITS ---
PROCEDURE INFORMATION: Exam: CT Head Without Contrast Exam date and time: 05/06/2024 7:10 PM Age: 78 years old Clinical indication: Injury or trauma; Fall; Blunt trauma (contusions or hematomas); Additional info: Fall, head injury TECHNIQUE: Imaging protocol: Computed tomography of the head without contrast. Radiation optimization: All CT scans at this facility use at least one of these dose optimization techniques: automated exposure control; mA and/or kV adjustment per patient size (includes targeted exams where dose is matched to clinical indication); or iterative reconstruction. COMPARISON: CT cervical spin wo con* [id number] 05/06/2024 7:10 PM RADIATION DOSE METRICS: Total DLP (mGy-cm): 1171.72 FINDINGS: Brain: There is an acute small subdural hematoma lying in the anterior portion of the interhemispheric fissure. The hematoma measures 4 mm in diameter. No other brain abnormality is noted. Cerebral ventricles: No ventriculomegaly. No midline shift. Paranasal sinuses: A mucous retention cyst is noted in the right maxillary sinus. Mastoid air cells: Visualized mastoid air cells are well aerated. Bones: Unremarkable. No acute fracture. Soft tissues: See Brain finding. CT/CT head wo con* [id number] IMPRESSION: 1. Small acute subdural hematoma lying in the interhemispheric fissure 2. Mucous retention cyst in the right maxillary sinus
--- NOTE | 2024-05-06 18:51 | CTR_ITS ---
PROCEDURE INFORMATION: Exam: CT Cervical Spine Without Contrast Exam date and time: 05/06/2024 7:10 PM Age: 78 years old Clinical indication: Injury or trauma; Fall; Blunt trauma; Additional info: Fall, neck pain TECHNIQUE: Imaging protocol: Computed tomography of the cervical spine without contrast. Radiation optimization: All CT scans at this facility use at least one of these dose optimization techniques: automated exposure control; mA and/or kV adjustment per patient size (includes targeted exams where dose is matched to clinical indication); or iterative reconstruction. COMPARISON: DX XR shoulder RT min 2V* [id number] 02/13/2024 10:49 AM RADIATION DOSE METRICS: Total DLP (mGy-cm): 238.7 FINDINGS: Bones: There is multilevel degenerative disc disease along with vertebral body spurring and facet arthropathy. No fracture or subluxation. Lungs: Lung apices are normal. Soft tissues: Unremarkable. CT/CT cervical spin wo con* [id number] IMPRESSION: 1. No acute findings 2. Multilevel arthritic changes are noted.
--- NOTE | 2024-05-06 18:52 | W.ED.FALL ---
HPI - Fall General: Chief Complaint: Fall Stated Complaint: Fell hit head and L Wrist and R arm Time Seen by Provider: 05/06/24 18:48 History of Present Illness: 78-year-old man with a history of coronary artery disease, BPH, gout, hyperlipidemia, left ventricular hypertrophy, PTSD, history of tongue cancer with surgical excision, A-fib with a watchman placement and hypertension who presents emergency room after a fall. His only anticoagulation is on aspirin. He tripped on steps because of his boots he says. He hit his head. He has an abrasion in his mid central forehead. He is having pain in his right shoulder that is quite severe and there is some swelling. Also some pain and swelling in his right radial wrist. He is neurovascular intact. No known loss of consciousness. No altered mental status. No vomiting. No chest pain. No shortness of breath. No abdominal pain. No other extremity injuries. Related Data Home Medications ?Medication ?Instructions ?Recorded ?Confirmed amlodipine 2.5 mg tablet 2.5 mg PO DAILY 08/13/20 02/27/24 tamsulosin 0.4 mg capsule 0.4 mg PO DAILY 08/13/20 02/27/24 hydroxyzine HCl 25 mg tablet 25 mg PO TID PRN anxiety or sleep 06/29/22 02/27/24 carvedilol 12.5 mg tablet See Rx Instructions .Route .COMPLEX 02/07/24 02/27/24 dorzolamide 22.3 mg-timolol 6.8 1 drp ophthalmic (eye) BID 02/07/24 02/27/24 mg/mL eye drops finasteride 5 mg tablet 5 mg PO DAILY 02/07/24 02/27/24 latanoprost 0.005 % eye drops 1 drp ophthalmic (eye) QPM 02/07/24 02/27/24 potassium chloride 20 mEq See Rx Instructions .Route .COMPLEX 02/07/24 02/27/24 tablet,extended release vit C 250 mg-vit E 90 mg-zinc 40 1 tab PO BID 02/07/24 02/27/24 mg-copper 1 [id number] capsule (PreserVision AREDS-2) Previous Rx's ?Medication ?Instructions ?Recorded aspirin 81 mg tablet,delayed 81 mg PO DAILY #30 tabs 02/10/24 release atorvastatin 40 mg tablet 40 mg PO DAILY #30 tabs 02/10/24 clopidogrel 75 mg tablet 75 mg PO DAILY #30 tabs 02/10/24 pantoprazole 40 mg tablet,delayed 40 mg PO DAILY #30 tabs 02/10/24 release isosorbide mononitrate 30 mg 30 mg PO DAILY #90 tabs 02/27/24 tablet,extended release 24 hr furosemide 40 mg tablet (Lasix) 40 mg PO QAM PRN edema #30 tabs 03/04/24 Allergies Allergy/AdvReac Type Severity Reaction Status Date / Time clonidine Allergy unknown Verified 05/06/24 18:46 diltiazem Allergy unknown Verified 05/06/24 18:46 hydrochlorothiazide Allergy unknown Verified 05/06/24 18:46 lisinopril Allergy unknown Verified 05/06/24 18:46 sertraline (From Zoloft) Allergy unknown Verified 05/06/24 18:46 spironolactone (From Allergy unknown Verified 05/06/24 18:46 Aldactone) telmisartan (From Micardis) Allergy unknown Verified 05/06/24 18:46 Review of Systems Narrative: Constitutional symptoms: Negative except as documented in HPI. Skin symptoms: Negative except as documented in HPI. Eye symptoms: Negative except as documented in HPI. ENMT symptoms: Negative except as documented in HPI. Respiratory symptoms: Negative except as documented in HPI. Cardiovascular symptoms: Negative except as documented in HPI. Gastrointestinal symptoms: Negative except as documented in HPI. Genitourinary symptoms: Negative except as documented in HPI. Musculoskeletal symptoms: Negative except as documented in HPI. Neurologic symptoms: Negative except as documented in HPI. Psychiatric symptoms: Negative except as documented in HPI. Endocrine symptoms: Negative except as documented in HPI. PFSH ED PFSH: Medical History Atherosclerosis of coronary artery Benign prostatic hyperplasia Gout Hyperlipidemia LVH (left ventricular hypertrophy) Hearing loss Macular degeneration PTSD (post-traumatic stress disorder) Hx of tongue cancer Hx of tuberculosis Presence of Watchman left atrial appendage closure device Sleep apnea Ventricular tachycardia CAD (coronary artery disease) Patient was told to have mild coronary disease by cardiac catheterization. Paroxysmal A-fib Hypertension Surgical History Hx of lymph node excision Hx of neck surgery Hx of tonsillectomy Hx of appendectomy History of radiofrequency ablation procedure for cardiac arrhythmia Family History Mother CAD (coronary artery disease) Cancer Diabetes Son Cancer Chronic kidney disease (CKD) Father Dementia Lung disease TB Stroke Denies family history of Clotting disorder Suicide Anesthesia complication Bleeding disorder Social History Smoking and tobacco/nicotine status: former use of tobacco/nicotine Alcohol intake: never Substance/Drug Use: never Physical Exam Narrative: EXAM NARRATIVE: General: Alert, no acute distress. Skin: Warm, dry. Abrasion on the right forearm. Head: Normocephalic, abrasions on the forehead.. Neck: Supple, trachea midline. Eye: Extraocular movements are intact. Ears, nose, mouth and throat: mucosa moist. Cardiovascular: Regular, Normal peripheral perfusion. Respiratory: Lungs are clear to auscultation, respirations are non-labored, breath sounds are equal, Symmetrical chest wall expansion. Gastrointestinal: Soft, Nontender, Non distended Musculoskeletal: Patient is quite tender in his right shoulder with some swelling and tenderness to palpation. No obvious deformity. Neurovascularly intact. Left wrist has some swelling over the radial dorsal portion. No obvious deformity there as well. Again neurovascularly intact. Neurological: Alert and oriented, No focal neurological deficit observed. Psychiatric: Cooperative, appropriate mood & affect. Course Vital Signs: Vital signs: Vital Signs Temperature 97.9 F 05/06/24 18:41 Pulse Rate 85 05/06/24 18:46 Respiratory Rate 16 05/06/24 18:46 Blood Pressure 148/94 05/06/24 18:46 Pulse Oximetry 95 05/06/24 18:46 Oxygen Delivery Me thod Room Air 05/06/24 18:46 MDM - Fall Medical Decision Making Medical decision making: Differential diagnosis including but not limited to and based on the above HPI, review of systems and physical exam: patient with fall and head injury. Subdural hematoma, subarachnoid hemorrhage, concussion, skull fracture. Also getting a neck CT given he has distracting injury of his shoulder. Also right shoulder x-ray and left wrist x-ray. Orders placed to evaluate differential diagnosis based on the above differential, HPI and physical exam CT scan of the head was ordered. CT head: What appears to be a very small subdural hematoma in the anterior hemispheric fissure. No skull fractures..This was reviewed and interpreted by myself the ER physician. CT of the cervical spine: No fracture. Good alignment. No step-offs. This was reviewed and interpreted by myself the emergency room physician. I also reviewed the radiologist report. X-ray of the right shoulder: There is a proximal humerus fracture. This was reviewed and interpreted by myself the emergency room physician. I also reviewed the radiology report. X-ray of the left wrist: Patient has a nondisplaced distal radial fracture. This was reviewed and interpreted by myself the emergency room physician. I also reviewed the radiology report. Lab work: Lab work was reviewed and interpreted by myself emergency room physician. No significant abnormalities. Mild leukocytosis. No anemia. No renal failure. Coags are normal. I reviewed the patient's medical record. Consultation: I spoke with Dr. Salcedo who is on-call for orthopedics. He recommends splint for the wrist and sling for the shoulder. Consultation: I spoke with Dr. Kulkarni in the ER at [facility] who has accepted the patient to the emergency room. He is a trauma with a subdural hematoma. Requires tertiary care. Requires neurosurgery which is not available here. Assessment and plan: Subdural hematoma Fall Head injury Wrist fracture Shoulder fracture ? Life-saving tetanus was given ?Splint placed by nursing. Sling placed. I have examined. Neurovascular intact. - Discharged home - Discussed plan with patient. Answered any questions. - Evaluation and treatment of this problem were appropriate in the emergency setting. Lab Data 05/06/24 20:25 05/06/24 20:25 Radiology Impressions Cervical Spine CT 05/06/24 18:51 IMPRESSION: 1. No acute findings 2. Multilevel arthritic changes are noted. Head CT 05/06/24 18:51 IMPRESSION: 1. Small acute subdural hematoma lying in the interhemispheric fissure 2. Mucous retention cyst in the right maxillary sinus ADDENDUM: 05/06/241946 COMMENT: THIS REPORT CONTAINS FINDINGS THAT MAY BE CRITICAL TO PATIENT CARE. The exam findings were verbally communicated by me to JAZZY TELLES via telephone conference at 7:45 PM CDT on 05/06/2024. The findings were acknowledged and understood. Shoulder X-Ray 05/06/24 18:51 IMPRESSION: Fracture through the proximal right humerus. Wrist X-Ray 03/10/25 18:51 IMPRESSION: Nondisplaced fracture of the distal radius. Laboratory Results WBC 12.32 10^3/uL (3.29-11.43) H 05/06/24 20:25 RBC 5.57 10^6/uL (3.85-5.65) 05/06/24 20:25 Hgb 16.10 g/dL (11.27-16.99) 05/06/24 20:25 Hct 49.4 % (37-53) 05/06/24 20:25 MCV 88.7 fl (82-101) 05/06/24: MCH 28.9 pg (27-33) 05/06/24: MCHC 32.6 g/dL (30-55) 05/06/24: RDW 13.8 % (12.1-15.1) 05/06/24: Plt Count 283 10^3/cmm (157-399) 05/06/24: MPV 9.2 fL (7.4-10.4) 05/06/24 20:25 Neut % (Auto) 80.6 % 05/06/24 20:25 Lymph % (Auto) 7.7 % 05/06/24 20:25 [place] % (Auto) 8.4 % 05/06/24:25 Eos % (Auto) 1.9 % 05/06/24:25 Baso % (Auto) 0.7 % 05/06/24:25 Neut # (Auto) 9.91 10^3/uL (1.8-7.7) H 05/06/24 20:25 Lymph # (Auto) 1.0 10^3/uL (0.8-4.8) 05/06/24 20:25 [place] # (Auto) 1.0 10^3/uL (0.2-0.9) H 05/06/24 20:25 Eos # (Auto) 0.2 10^3/uL (0.0-0.8) 05/06/24:25 Baso # (Auto) 0.1 10^3/uL (0.0-0.1) 05/06/24 20:25 Nucleated RBC % (auto) 0 % 03/10/25 20:25 Nucleated RBCs # 0.0 /100WBC 05/06/24 20: PT 13.70 SECONDS (12.1-14.9) 05/06/24 20:25 INR 0.98 (0.8-1.2) 05/06/24 20: APTT 31.0 SECONDS (23.9-36.7) 05/06/24 20:25 Sodium 141 mmol/L (136-145) 05/06/24 20:25 Potassium 4.0 mmol/L (3.5-5.1) 05/06/24 20:25 Chloride 105 mmol/L (98-107) 05/06/24 20: Carbon Dioxide 23 mmol/L (22-29) 05/06/24 20: Anion Gap 17.0 (5-19) 05/06/24 20: BUN 23 mg/dL (8-23) 05/06/24: Creatinine 1.0 mg/dL (0.7-1.2) 05/06/24: GFR Calculation Not Reportable 05/06/24: Glucose 112 mg/dL (65-115) 05/06/24: Calculated Osmolality 296 mOsm/kg (285-295) H 05/06/24 20: Lactic Acid 1.5 mmol/L (0.5-2.2) 05/06/24: Calcium 9.1 mg/dL (8.5-10.5) 05/06/24 20: Total Bilirubin 0.6 mg/dL (0.15-1.2) 05/06/24 20:25 AST 19 U/L (0-40) 05/06/24:25 ALT 21 U/L (0-41) 05/06/24 20: Alkaline Phosphatase 107 U/L (40-130) 05/06/24 20: Total Protein 6.9 g/dL (6.6-8.7) 05/06/24: Albumin 3.8 g/dL (3.5-5.2) 05/06/24 20: Globulin 3.1 g/dL (1.3-4.6) 05/06/24 20:25 All radiology interpretation(s) finalized by discharge Discharge Plan Discharge Patient Disposition: Xfer Short-Term Hosp Clinical Impression: Acute subdural hematoma, Head injury, Fall Fracture of left distal radius Qualifiers: Encounter type: initial encounter Fracture type: closed Fracture morphology: unspecified fracture morphology Qualified Code(s): S52.502A - Unspecified fracture of the lower end of left radius, initial encounter for closed fracture Closed fracture of right proximal humerus Qualifiers: Encounter type: initial encounter Fracture morphology: unspecified fracture morphology Qualified Code(s): S42.201A - Unspecified fracture of upper end of right humerus, initial encounter for closed fracture Condition: Stable Referrals: Pierre Estes MD [Physician] - 4-7 days (Please call for follow-up appointment.) Print Language: Congolese Coding Level of Care Code ED Hat [employer]ining Blocker for Sheela Retana
[2024-05-06] MEDS: tetanus-dipt-pertussis 0.5 mL SDV IM (20:20)
[2024-05-06 20:47] LABS: Basophils # 0.1 10^3/uL (0.0-0.1); Basophils % 0.7 %; Eosinophils # 0.2 10^3/uL (0.0-0.8); Eosinophils % 1.9 %; Hematocrit 49.4 % (37-53); Lymphocytes % 7.7 %; Mean Corpuscular HGB Conc 32.6 g/dL (30-55); Mean Corpuscular Hemoglobin 28.9 pg (27-33); Mean Corpuscular Volume 88.7 fl (82-101); Mean Platelet Volume 9.2 fL (7.4-10.4); Monocytes % 8.4 %; Neutrophils # 9.91 10^3/uL (1.8-7.7); Neutrophils % 80.6 %; Nucleated Red Blood Cells % 0 %; Platelet Count 283 10^3/cmm (157-399); Red Blood Count 5.57 10^6/uL (3.85-5.65); Red Cell Distribution Width 13.8 % (12.1-15.1); White Blood Count 12.32 10^3/uL (3.29-11.43)
[2024-05-06 20:58] LABS: INR 0.98 (0.8-1.2)
[2024-05-06 21:03] LABS: Alanine Aminotransferase 21 U/L (0-41); Albumin Level 3.8 g/dL (3.5-5.2); Alkaline Phosphatase 107 U/L (40-130); Aspartate Amino Transferase 19 U/L (0-40); Blood Urea Nitrogen 23 mg/dL (8-23); Calcium 9.1 mg/dL (8.5-10.5); Carbon Dioxide 23 mmol/L (22-29); Chloride 105 mmol/L (98-107); Creatinine Clr Calc Pharmacy 74.4617; Globulin 3.1 g/dL (1.3-4.6); Sodium 141 mmol/L (136-145); Total Bilirubin 0.6 mg/dL (0.15-1.2); Total Protein 6.9 g/dL (6.6-8.7)
[2024-05-06 21:04] LABS: Lactic Sepsis W/Reflex 1.5 mmol/L (0.5-2.2)
[2024-05-06 21:11] LABS: Glucose 112 mg/dL (65-115); Osmolality Calculated 296 mOsm/kg (285-295)
== END 2024-05-06 21:25 | disposition short-term general hospital (02) ==
PROVIDERS: Emergency Provider Emergency Medicine
DX: I62.00 Nontraumatic subdural hemorrhage, unspecified (principal); S52.502A Unspecified fracture of the lower end of left radius, initial encounter for closed fracture; S42.201A Unspecified fracture of upper end of right humerus, initial encounter for closed fracture; Z87.891 Personal history of nicotine dependence; I25.10 Atherosclerotic heart disease of native coronary artery without angina pectoris; E78.5 Hyperlipidemia, unspecified; Z85.810 Personal history of malignant neoplasm of tongue; I10 Essential (primary) hypertension; W19.XXXA Unspecified fall, initial encounter; Z23 Encounter for immunization; M54.2 Cervicalgia
CPT/HCPCS: 29125; 36415; 70450; 72125; 73030; 73110; 80053; 83605; 85025; 85610; 85730; 90471; 90715; 99285

== ENCOUNTER → 2024-06-20 14:51 | Outpatient (BNVA) | payer OTHER, SELFPAY | PROVIDERS: PCP Nurse Practitioner Family; Visit Provider Internal Medicine Cardiovascular Disease | DX: I48.0 Paroxysmal atrial fibrillation (principal); Z79.01 Long term (current) use of anticoagulants; Z79.82 Long term (current) use of aspirin; I25.10 Atherosclerotic heart disease of native coronary artery without angina pectoris; I10 Essential (primary) hypertension; I47.20 Ventricular tachycardia, unspecified; R60.0 Localized edema; G47.33 Obstructive sleep apnea (adult) (pediatric); Z95.818 Presence of other cardiac implants and grafts; Z87.891 Personal history of nicotine dependence | CPT/HCPCS: 99214 ==

== ENCOUNTER 2024-08-20 14:49 | Outpatient (RCR) | payer OTHER, SELFPAY | END 2024-08-26 23:55 | disposition home or self-care (01) | LOC: SPT 14:49 | PROVIDERS: Visit Provider Physician Assistant | DX: S42.201D Unspecified fracture of upper end of right humerus, subsequent encounter for fracture with routine healing (principal); S52.502D Unspecified fracture of the lower end of left radius, subsequent encounter for closed fracture with routine healing; X58.XXXD Exposure to other specified factors, subsequent encounter | CPT/HCPCS: 97110; 97161 ==

== ENCOUNTER 2024-08-27 06:30 | Outpatient (RCR) | payer OTHER, SELFPAY | END 2024-09-26 23:59 | disposition home or self-care (01) | LOC: SPT 06:30 | PROVIDERS: Visit Provider Physician Assistant | DX: S42.201D Unspecified fracture of upper end of right humerus, subsequent encounter for fracture with routine healing (principal); S52.502D Unspecified fracture of the lower end of left radius, subsequent encounter for closed fracture with routine healing; X58.XXXD Exposure to other specified factors, subsequent encounter | CPT/HCPCS: 97110 ==

== ENCOUNTER 2024-09-23 19:26 | Inpatient (IN) | payer OTHER, MEDICARE, SELFPAY ==
--- OUTSIDE RECORDS SUMMARY | 2017-12-06 04:00 | XMS_ITS | Continuity of Care Document ---
Author Organization [facility] Address [address] [place] [address] Phone Care Team Providers Care Rock Star Name Role Phone Destiny ENAMORADO Dr Unavailable Unavailable Procedures Procedure Date Offic/outpt E&m Estab Mod-tx 2 18 Routine Venipunct/finger/heel 8 Offic/outpt E&m Estab [facility] [place] 8 Offic/outpt E&m Estab [facility]-tx 2 18 Routine Venipunct/finger/heel 8 Offic/outpt E&m Estab [facility] [place] 7 Offic/outpt E&m Estab [facility]-tx 2 16 Routine Venipunct/finger/heel 6 Offic/outpt E&m Estab [facility] [place] 6 No Charge Visit Ecg-routine 12 Lead; W/intrpt 5 Offic/outpt E&m Estab Mod-tx 2 15 Offic/outpt E&m Estab Mod-tx 2 15 Preven Meds E&m Estab Pt; /> 15 Routine Venipunct/finger/heel 5 Routine Venipunct/finger/heel 4 Preven Meds E&m Estab Pt; 65/> 14 Routine Venipunct/finger/heel 4 Offic/outpt E&m Estab Low-mod 9 Offic/outpt E&m New Mod-hi 45 9 Advance Directives Directive Yes / No Effective Date File Name No Information Encounters Encounter Description Practice Location Reason(s) For Visit Diagnoses Date Provider Offic/outpt E&m Estab Mod-hi 2 [facility], [address], [place], [place], [id number], [place] tel:[phone] [facility] No Information 2017 [employer] Iyer [address] [facility], [place], [id number], [place]. tel: [facility], [address], [place], [place], [id number], [place] tel:[phone] [place] [address] No Information 2017 [employer] Iyer [address] [facility], [place], [id number], [place]. tel: Offic/outpt E&m Estab Low-mod [facility], [address], [place], [place], [id number], [place] tel:[phone] [facility] No Information 2017 [employer] Iyer [address] [facility], [place], [id number], [place]. tel: Offic/outpt E&m Estab Mod-hi 2 [facility], [address], [place], [place], [id number], [place] tel:[phone] [facility] No Information 2017 [employer] Iyer [address] [facility], [place], [id number], [place]. tel: [facility], [address], [place], [place], [id number], [place] tel:[phone] [facility] No Information 2017 Destiny Iyer [address] [facility], [place], [id number], [place]. tel: Offic/outpt E&m Estab Low-mod [facility], [address], [place], [place], [id number], [place] tel:[phone] [facility] No Information [address], [place], [place], [id number], [place]. tel: [phone] Offic/outpt E&m Estab Mod-hi 2 [facility], [address], [place], [place], [id number], [place] tel:[phone] [place] [address] No Information 2015 Oj LOCKHART Ro[address]. [address], [place], [place], [id number], [place]. tel: [facility], [address], [place], [place], [id number], [place] tel:[phone] [facility] No Information 2015 Enriquez PAC [address]anth. [address], [place], [place], [id number], [place]. tel: Offic/outpt E&m Estab Low-mod [facility], [address], [place], [place], [id number], [place] tel:[phone] [facility] No Information 2015 [address], [place], [place], [id number], [place]. tel: No Charge Visit [facility], [address], [place], [place], [id number], [place] tel:[phone] [place] [address] No Information 2014 [employer], [place], [place], [id number], [place]. tel: [phone] [facility], [address], [place], [place], [id number], [place] tel:[phone] [place] [address] No Information 2014 [employer], [place], [place], [id number], [place]. tel: [phone] Offic/outpt E&m Estab Mod-hi 2 [facility], [address], [place], [place], [id number], [place] tel:[phone] [place] [address] No Information 2014 [address], [place], [place], [id number], [place]. tel: [phone] Offic/outpt E&m Estab Mod-hi 2 [facility], [address], [place], [place], [id number], [place] tel:[phone] [facility] No Information 2014 En[address], [place], [place], [id number], [place]. tel: Preven Meds E&m Estab Pt; 65/> [facility], [address], [place], [place], [id number], [place] tel:[phone] [place] [address] No Information 2014 Enri[address] PAC [address]anth. [address], [place], [place], [id number], [place]. tel: [facility], [address], [place], [place], [id number], [place] tel:[phone] [facility] No Information 2014 Enri[address] PAC [address], [place], [place], [id number], [place]. tel: [phone] [facility], [address], [place], [place], [id number], [place] tel:[phone] [facility] No Information 2013 En[address]. [address], [place], [place], [id number], [place]. tel: [phone] Preven Meds E&m Estab Pt; 65/> [facility], [address], [place], [place], [id number], [place] tel:[phone] [facility] No Information [address], [place], [place], [id number], [place]. tel: [phone] [facility], [address], [place], [place], [id number], [place] tel:[phone] [facility] No Information [address], [place], [place], [id number], [place]. tel: [phone] Offic/outpt E&m Estab Low-mod [facility], [address], [place], [place], [id number], [place] tel:[phone] [facility] No Information 2008 Trini Hernandez. [address] [place], [place], [id number], [place]. tel: [phone] Offic/outpt E&m New Mod-hi 45 [facility], [address], [place], [place], [id number], [place] tel:[phone] [facility] No Information [address] [facility], [place], [place], [id number], [place]. tel: [phone] Family History Family Member Type Diagnosis Age At Onset No Information Payers Payer name Insurance type Covered democrat ID Marian umana(s) [facility] Administration CI [id number] Social History Type Description Quantity Date Captured Comments Sex Male Smoking Status No Information Chief Complaint And Reason For Visit No Information History Of Present Illness Encounter Date Complaint History Of Prese nt Illness No Information Instructions Date Instruction Additional Infor mation No Information Assessments Type Assessment Date No Information
--- OUTSIDE RECORDS SUMMARY | 2017-12-06 04:00 | XMS_ITS | Continuity of Care Document ---
Author Organization [facility] Address [address] [place] [address] Phone Care Team Providers Care Side Show Entertainer Name Role Phone Destiny ENAMORADO Dr Unavailable Unavailable Procedures Procedure Date Offic/outpt E&m Estab Mod-de 2 18 Routine Venipunct/finger/heel 8 Offic/outpt E&m Estab [facility] 8 Offic/outpt E&m Estab [facility]-de 2 18 Routine Venipunct/finger/heel 8 Offic/outpt E&m Estab [facility] 7 Offic/outpt E&m Estab [facility]-de 2 16 Routine Venipunct/finger/heel 6 Offic/outpt E&m Estab [facility] 6 No Charge Visit Ecg-routine 12 Lead; W/intrpt 5 Offic/outpt E&m Estab Mod-de 2 15 Offic/outpt E&m Estab Mod-de 2 15 Preven Meds E&m Estab Pt; [...] Date Provider Offic/outpt E&m Estab Mod-hi 2 [facility], [address], [place], [place], [id number], [place] tel:[phone] [facility] No Information 2017 [employer]yer [address] [facility], [place], [place], [id number], [place]. tel: [facility], [address], [place], [place], [id number], [place] tel:[phone] [place] [address] No Information 2017 [employer] Iyer [address] [facility], [place], [place], [id number], [place]. tel: Offic/outpt E&m Estab Low-mod [facility], [address], [place], [place], [id number], [place] tel:[phone] [facility] No Information 2017 [employer] Iyer [address] [facility], [place], [id number], [place]. tel: Offic/outpt E&m Estab Mod-hi 2 [facility], [address], [place], [place], [id number], [place] tel:[phone] [facility] No Information 2017 [employer] Iyer [address] [facility], [place], [id number], [place]. tel: [facility], [address], [place], [place], [id number], [place] tel:[phone] [facility] No Information 2017 Destiny Iyer [address] [facility], [place], [id number], [place]. tel: Offic/outpt E&m Estab Low-mod [facility], [address], [place], [place], [id number], [place] tel:[phone] [facility] No Information [address], [place], [place], [id number], [place]. tel: [phone] Offic/outpt E&m Estab Mod-hi 2 [facility], [address], [place], [place], [id number], [place] tel:[phone] [place] [address] No Information 2015 Oj LOCKHART [address], [place], [place], [id number], [place]. tel: [facility], [address], [place], [place], [id number], [place] tel:[phone] [facility] No Information 2015 Enri[address], [place], [place], [id number], [place]. tel: Offic/outpt E&m Estab Low-mod [facility], [address], [place], [place], [id number], [place] tel:[phone] [facility] No Information 2015 [address], [place], [place], [id number], [place]. tel: No Charge Visit [facility], [address], [place], [place], [id number], [place] tel:[phone] [place] [address] No Information 2014 Enri[address], [place], [place], [id number], [place]. tel: [phone] [facility], [address], [place], [place], [id number], [place] tel:[phone] [place] [address] No Information 2014 Enri[address], [place], [place], [id number], [place]. tel: [phone] Offic/outpt E&m Estab Mod-hi 2 [facility], [address], [place], [place], [id number], [place] tel:[phone] [place] [address] No Information 2014 En[address]. [address], [place], [place], [id number], [place]. tel: [phone] Offic/outpt E&m Estab Mod-hi 2 [facility], [address], [place], [place], [id number], [place] tel:[phone] [facility] No Information 2014 Enriquez [address], [place], [place], [id number], [place]. tel: Preven Meds E&m Estab Pt; 65/> [facility], [address], [place], [place], [id number], [place] tel:[phone] [place] [address] No Information 2014 Enri[address], [place], [place], [id number], [place]. tel: [facility], [address], [place], [place], [id number], [place] tel:[phone] [facility] No Information 2014 Enriquez [address], [place], [place], [id number], [place]. tel: [phone] [facility], [address], [place], [place], [id number], [place] tel:[phone] [facility] No Information 2013 Enri[address], [place], [place], [id number], [place]. tel: [phone] Preven Meds E&m Estab Pt; 65/> [facility], [address], [place], [place], [id number], [place] tel:[phone] [facility] No Information [address], [place], [place], [id number], [place]. tel: [phone] [facility], [address], [place], [place], [id number], [place] tel:[phone] [facility] No Information [address], [place], [place], [id number], [place]. tel: [phone] Offic/outpt E&m Estab Low-mod [facility], [address], [place], [place], [id number], [place] tel:[phone] [facility] No Information 2008 Trini Hernandez. [address] [place], [place], [id number], [place]. tel: [phone] Offic/outpt E&m New Mod-hi 45 [facility], [address], [place], [place], [id number], [place] tel:[phone] [facility] No Information [address] [facility], [place], [place], [id number], [place]. tel: [phone] Family History Family Member Type Diagnosis Age At Onset No Information Payers Payer name Insurance type Covered libertarian ID Marian umana(s) [facility] Administration CI [id number] Social History Type Description Quantity Date Captured Comments Sex Male Smoking Status No Information Chief Complaint And Reason For Visit No Information History Of Present Illness Encounter Date Complaint History Of Prese nt Illness No Information Instructions Date Instruction Additional Infor mation No Information Assessments Type Assessment Date No Information
--- OUTSIDE RECORDS SUMMARY | 2017-12-06 04:00 | XMS_ITS | Continuity of Care Document ---
Author Organization [facility] Address [address] [place] [address] Phone Care Team Providers Care Nursery Technician Name Role Phone Destiny ENAMORADO Dr Unavailable Unavailable Procedures Procedure Date Offic/outpt E&m Estab Mod-il 2 18 Routine Venipunct/finger/heel 8 Offic/outpt E&m Estab [facility] 8 Offic/outpt E&m Estab [facility]-[place] 2 18 Routine Venipunct/finger/heel 8 Offic/outpt E&m Estab [facility] 7 Offic/outpt E&m Estab [facility]-[place] 2 16 Routine Venipunct/finger/heel 6 Offic/outpt E&m Estab [facility] 6 No Charge Visit Ecg-routine 12 Lead; W/intrpt 5 Offic/outpt E&m Estab Mod-il 2 15 Offic/outpt E&m Estab Mod-il 2 15 Preven Meds E&m Estab Pt; [...] Date Provider Offic/outpt E&m Estab Mod-hi [address] [facility], [address], [place], [place], [id number], [place] tel:[phone] [facility] No Information 2017 [employer] Iyer [address] [facility], [place], [place], [id number], [place]. tel: [facility], [address], [place], [place], [id number], [place] tel:[phone] [place] [address] No Information 2017 [employer] Iyer [address] [facility], [place], [id number], [place]. tel: Offic/outpt E&m Estab Low-mod [facility], [address], [place], [place], [id number], [place] tel:[phone] [facility] No Information 2017 NextGen Iyer [address] [facility], [place], [id number], [place]. tel: Offic/outpt E&m Estab Mod-hi [address] [facility], [address], [place], [place], [id number], [place] tel:[phone] [facility] No Information 2017 NextGen Iyer [address] [facility], [place], [id number], [place]. tel: [facility], [address], [place], [place], [id number], [place] tel:[phone] [facility] No Information 2017 Destiny Iyer [address] [facility], [place], [id number], [place]. tel: Offic/outpt E&m Estab Low-mod [facility], [address], [place], [place], [id number], [place] tel:[phone] [facility] No Information [address], [place], [place], [id number], [place]. tel: [phone] Offic/outpt E&m Estab Mod-hi 2 [facility], [address], [place], [place], [id number], [place] tel:[phone] [place] [address] No Information 2015 Oj LOCKHART [address], [place], [place], [id number], [place]. tel: [facility], [address], [place], [place], [id number], [place] tel:[phone] [facility] No Information 2015 Enriquez PAC [address], [place], [place], [id number], [place]. tel: Offic/outpt E&m Estab Low-mod [facility], [address], [place], [place], [id number], [place] tel:[phone] [facility] No Information 2015 [address], [place], [place], [id number], [place]. tel: No Charge Visit [facility], [address], [place], [place], [id number], [place] tel:[phone] [place] [address] No Information 2014 Enriquez PAC [address]. [address], [place], [place], [id number], [place]. tel: [phone] [facility], [address], [place], [place], [id number], [place] tel:[phone] [place] [address] No Information 2014 Enriquez PAC [address]. [address], [place], [place], [id number], [place]. tel: [phone] Offic/outpt E&m Estab Mod-hi 2 [facility], [address], [place], [place], [id number], [place] tel:[phone] [place] [address] No Information 2014 Enriquez PAC [address]. [address], [place], [place], [id number], [place]. tel: [phone] Offic/outpt E&m Estab Mod-hi 2 [facility], [address], [place], [place], [id number], [place] tel:[phone] [facility] No Information 2014 Enriquez PAC [address]. [address], [place], [place], [id number], [place]. tel: Preven Meds E&m Estab Pt; 65/> [facility], [address], [place], [place], [id number], [place] tel:[phone] [place] [address] No Information 2014 Enriquez PAC [address]. [address], [place], [place], [id number], [place]. tel: [facility], [address], [place], [place], [id number], [place] tel:[phone] [facility] No Information 2014 Enriquez PAC [address]. [address], [place], [place], [id number], [place]. tel: [phone] [facility], [address], [place], [place], [id number], [place] tel:[phone] [facility] No Information 2013 Enri[address] PAC [address], [place], [place], [id number], [place]. tel: [phone] Preven Meds E&m Estab Pt; 65/> [facility], [address], [place], [place], [id number], [place] tel:[phone] [facility] No Information [address], [place], [place], [id number], [place]. tel: [phone] [facility], [address], [place], [place], [id number], [place] tel:[phone] [facility] No Information [address], [place], [place], [id number], [place]. tel: [phone] Offic/outpt E&m Estab Low-mod [facility], [address], [place], [place], [id number], [place] tel:[phone] [facility] No Information 2008 Trini Hernandez. [address] [place], [place], [id number], [place]. tel: [phone] Offic/outpt E&m New Mod-hi 45 [facility], [address], [place], [place], [id number], [place] tel:[phone] [facility] No Information 2008 Juanito Bravo. [address] [facility], [place], [place], [id number], [place]. tel: [phone] Family History Family Member Type Diagnosis Age At Onset No Information Payers Payer name Insurance type Covered republican ID Marian umana(s) [facility] Administration CI [id number] Social History Type Description Quantity Date Captured Comments Sex Male Smoking Status No Information Chief Complaint And Reason For Visit No Information History Of Present Illness Encounter Date Complaint History Of Prese nt Illness No Information Instructions Date Instruction Additional Infor mation No Information Assessments Type Assessment Date No Information
--- OUTSIDE RECORDS SUMMARY | 2023-10-18 08:38 | XMS_ITS | Encounter Summary ---
Author Name [facility] [place] [facility] [place] [facility] [place] Address [address] [place] [address] Care Team Providers Care Meter/Relay Technician Name Role Phone GORDY BOONE Primary Care Provider Unavaila LAXMI Stubbs Primary Care Provider Unavailab MURRAY Knox Unavailable Unavailable ROYAL, HAILEY Unavailable Unavailable DOMINIC DELATORRE Unavailable Unavailable ELLIOT GOMEZ Primary Care Provider Unavailabl bryan Insurance Providers: All historical and current Section Date Range: From patient's date of to the date document was created. This section includes the names of all active insurance providers for the patient. Insurance Provider Type of Coverage Plan Name Start of Policy Coverage End of Policy Coverage Group Number Member ID Insurance Provider's Telephone Number Policy Castle's Name Patient's Relationship to Policy Castle [employer] SENIOR SUPPLEMNTA L INS* MEDICARE SUPPLEMEN JAMES PLANG * Jan 27, 2018 PLANG [id number] [phone] ZAIDA MURILLO PATIENT CIGNA PREFERRED PROVIDER ORGANIZAT ION (PPO) VALIT HEALT H SERV Feb 27, 2007 [id number] ZAIDA MURILLO PATIENT [employer] HEALTHCARE COMPREHEN SIVE MAJOR MEDICAL VALIT HEALT H Feb 27, 2007 [id number] ZAIDA MURILLO PATIENT MEDICARE (WNR) MEDICARE (M) PART A Feb 27, 2018 PART A [id number] [phone] ZAIDA MURILLO PATIENT MEDICARE (WNR) MEDICARE (M) PART A Feb 27, 2018 PART A [id number] ZAIDA MURILLO PATIENT MEDICARE (WNR) MEDICARE (M) PART B Feb 27, 2018 PART B [id number] ZAIDA MURILLO PATIENT MEDICARE (WNR) MEDICARE (M) PART B Jan 27, 2018 PART B [id number] ZAIDA MURILLO PATIENT MEDICARE (WNR) MEDICARE (M) PART B Jan 27, 2018 PART B [id number] ZAIDA MURILLO PATIENT MEDICARE (WNR) MEDICARE (M) PART A Aug 27, 2009 PART A [id number] ZAIDA MURILLO PATIENT MEDICARE (WNR) MEDICARE (M) PART A Aug 27, 2009 PART A [id number] ZAIDA MURILLO PATIENT MEDICARE (WNR) MEDICARE (M) PART B Aug 27, 2009 PART B [id number] ZAIDA MURILLO PATIENT Selected Encounter This section includes the information on record at [place] for the Encounter. Date/Time Encounter Type Encounter Description Reason Pro vider Source Oct 18, 2023 01:38 PM Outpatient Encounter ADMIN PAT ACTIVTIES (MASNONCT) IHE Encounter Template Text not used by [place] Plan of Treatment: Future Appointments (+ 6 months) and Future Tests (+/- 45 days) The Plan of Treatment section includes future care activities for the patient from all [place] treatmentfacilities. This section includes future appointments and future orders which are active, pending or scheduled. Future Appointments This section includes appointments that were scheduled to occur 6 months from the date of the Encounter, up to a maximum of 20 appointments. The data comes from all [place] treatment facilities. Appointment Date/Time Appointment Type Appointme nt Facility Name Oct 19, 2023 02:00 PM AMBULATORY - PSYCHIATRY [facility] Oct 25, 2023 12:30 PM AMBULATORY - PS[facility]CHIATRY [facility] Oct 25, 2023 12:32 PM AMBULATORY - PSYCHIATRY [facility] Nov 06, 2023 11:30 AM AMBULATORY - MEDICINE [facility] [facility] Nov 10, 2023 01:00 PM [facility]IC[place] [facility] Nov 10, 2023 01:01 PM AMBULATORY - [facility]IC[facility] [place] Nov 13, 2023 10:30 AM [facility] Nov 24, 2023 10:30 AM AM[facility]ULATORY - MEDICINE [facility] Nov 24, 2023 10:31 AM AMBULATORY - MEDIC[facility] [place] [facility] Dec 06, 2023 09:30 AM [facility] Dec 18, 2023 08:30 AM [facility] Dec 18, 2023 11:30 AM [facility]ULATORY - MEDICINE [facility] Dec 22, 2023 12:30 PM [facility] Dec 22, 2023 12:31 PM AMBULATORY - MEDICINE [facility] Dec 26, 2023 08:30 AM [facility] Dec 29, 2023 02:00 PM AM[facility]ULATORY - MEDICINE [facility] Dec 29, 2023 02:01 PM AMBULATORY - MEDIC[facility] [place] [facility] Jan 03, 2024 01:00 PM AM[facility]ULAT[facility]RY [facility] Jan 11, 2024 10:30 AM [facility] Jan 30, 2024 12:00 PM AM[facility]ULATORY - MEDICINE [facility] Social History: Smoking Status (Most current) and Tobacco Use (All prior to encounter date) This section includes the most current, and the historical, smoking and tobacco- related health factors from the [place] facility where the Encounter took place. Current Smoking Status This section includes the most current smoking, or tobacco-related health factor, from the [place] facility where the Encounter took place. Date/Time Current Smoking Status Comment Facil ity Jun 15, 2023 09:00 AM VA-TOBACCO FORMER USER [facility] Tobacco Use History This section includes a history of the smoking, or tobacco-related health factors, that were collected on or before the date of the Encounter. The data comes from the [place] facility where the Encounter took place. Date/Time Smoking Status/Tobacco Use Comment F acility Jun 15, 2023 09:00 AM VA-TOBACCO QUIT 15 YRS OR MORE [facility] Jun 15, 2022 10:00 AM [facility] Jun 15, 2022 10:00 AM VA-TOBACCO QUIT 15 YRS OR MORE [facility] Jun 15, 2021 10:00 AM VA-TOBACCO FORMER USER [facility] Jun 15, 2021 10:00 AM VA-TOBACCO QUIT 15 YRS OR MORE [facility] Jun 15, 2020 10:00 AM VA-TOBACCO FORMER USER [facility] Jun 15, 2020 10:00 AM VA-TOBACCO QUIT 15 YRS OR MORE [facility] Apr 27, 2004 10:39 AM CURRENT NON-TOBACCO USER-HX OF [facility] Nov 28, 2003 10:32 AM CURRENT NON-TOBACCO USER-HX OF [facility] May 06, 2003 11:28 AM CURRENT NON-TOBACCO USER-HX OF [facility] Dec 12, 2002 09:14 AM CURRENT NON-TOBACCO USER-HX OF [facility] Jun 25, 2002 08:26 AM CURRENT NON-TOBACCO USER-HX OF [facility] Apr 30, 2002 01:27 PM TOB-CURRENT NON-SMOKER BUT HX [facility] Advance Directives: All historical and current Section Date Range: From patient's date of to the date document was created. This section includes ALL of a patient's completed or amended [place] Advance and Rescinded Directives. The entries below indicate that a directive exists for the patient, but an actual copy is not included with this document. The data comes from all [place] facilities. Date Advance Directives Provider Source Aug 17, 2007 ADVANCE DIRECTIVE HUDSON SHEPARD [facility] Aug 16, 2007 ADVANCE DIRECTIVE Pipe [facility] Apr 01, 2004 ADVANCE DIRECTIVE DAREN DENISE [facility] Encounter Notes: All associated encounter notes This section contains the clinical notes associated to the Encounter. Date/Time Encounter Note(s) Provider Source Oct 18, 2023 01:38 PM GENERAL MEDICINE N OTE: LOCAL TITLE: General Note PB STANDARD TITLE: GENERAL MEDICINE NOTE DATE OF NOTE: OCT 18, 2023@13:38 ENTRY DATE: OCT 18, 2023@13:39:06 AUTHOR: XIMENA MARTINEZ EXP COSIGNER: URGENCY: STATUS: COMPLETED Rec'd hearing aids, certified in [facility]. [place] has upcoming appt for fitting. /nancy/ JESSIE ABAD [facility] Signed: 10/18/2023 13:39 XIMENA MARTINEZ [facility]
--- OUTSIDE RECORDS SUMMARY | 2024-01-04 08:22 | XMS_ITS | Encounter Summary ---
Author Name [facility] [place] Organization [facility] [place] [place] [facility] [place] Address [address] [place] [address] Care Team Providers Care System Support Specialist Name Role Phone GORDY BOONE Primary Care [...] JAMES PLANG * Jan 27, 2018 PLANG [id number] [phone] ZAIDA MURILLO PATIENT [employer] PREFERRED PROVIDER ORGANIZAT ION (PPO) VALIT HEALT H SERV Feb 27, 2007 [id number] ZAIDA MURILLO PATIENT [employer] HEALTHCARE COMPREHEN SIVE MAJOR MEDICAL VALIT HEALT H Feb 27, 2007 [id number] ZAIDA MURILLO PATIENT MEDICARE (WNR) MEDICARE (M) PART A Feb 27, 2018 PART A [id number] ZAIDA MURILLO PATIENT MEDICARE (WNR) MEDICARE (M) PART A Feb 27, 2018 PART A [id number] ZAIDA MURILLO PATIENT MEDICARE (WNR) MEDICARE (M) PART B Feb 27, 2018 PART B [id number] ZAIDA MURILLO PATIENT MEDICARE (WNR) MEDICARE (M) PART B Jan 27, 2018 PART B [id number] ZAIDA MURILLO PATIENT MEDICARE (WNR) MEDICARE (M) PART B Jan 27, 2018 PART B [id number] ZAIDA MURILLO PATIENT MEDICARE (WNR) MEDICARE (M) PART A Aug 27, 2009 PART A [id number] ZAIDA MURILLO PATIENT MEDICARE (WNR) MEDICARE (M) PART A Aug 27, 2009 PART A [id number] ZAIDA MURILLO PATIENT MEDICARE (WNR) MEDICARE (M) PART B Aug 27, 2009 PART B [id number] ZAIDA MURILLO PATIENT Selected Encounter This section includes the information on record at [place] for the Encounter. Date/Time Encounter Type Encounter Description Reason Pro vider Source Jan 04, 2024 01:22 PM Outpatient Encounter ADMIN PAT ACTIVTIES (MASNONCT) IHE Encounter Template Text not used by [place] Plan of Treatment: Future Appointments (+ 6 months) and Future Tests (+/- 45 days) The Plan of Treatment section includes future care activities for the patient from all [place] treatmentfacilities. This section includes future appointments and future orders which are active, pending or scheduled. Future Appointments This section includes appointments that were scheduled to occur 6 months from the date of the Encounter, up to a maximum of 20 appointments. The data comes from all [place] treatment facilities. Appointment Date/Time Appointment Type Appointme nt Facility Name Jan 11, 2024 10:30 AM AMBULATORY - [facility]CHIATRY [facility] Jan 30, 2024 12:00 PM AMBULATORY - MEDICINE [facility] Jan 30, 2024 12:01 PM AMBULATORY - MEDICINE [facility] Feb 13, 2024 09:30 AM AMBULATORY - MEDICINE [facility] Mar 12, 2024 11:00 AM AMBULATORY - MEDICINE [place] [facility] Mar 14, 2024 02:00 PM AMBULATORY - PS[facility]CHIATRY [facility] May 03, 2024 10:30 AM AMBULATORY - [facility]CHIATRY [facility] May 15, 2024 01:00 PM AMBULATORY - MEDICINE [facility] May 22, 2024 08:20 AM AMBULATORY - [facility]IC[facility] [place] [facility] Jun 14, 2024 09:30 AM AMBULATORY - MEDICINE [facility] Jun 19, 2024 10:30 AM AMBULATORY - MEDICINE [facility] Jun 20, 2024 03:15 PM AMBULATORY - MEDICINE [place] Active, Pending, and Scheduled Orders This section includes a listing of several types of active, pending, and scheduled orders, including clinic medications orders, diagnostic test orders, procedure orders and consult orders; where the start date of the order is 45 days before the date of the Encounter or 45 days after the date of theEncounter. The data comes from all [place] treatment facilities. Test Date/Time Test Type Test Details Facility Name Dec 18, 2023 11:47 AM Laboratory - Chemi stry Order POC UA (STL-PB-MA) URINE SP [facility] Social History: Smoking Status (Most current) and Tobacco Use (All prior to encounter date) This section includes the most current, and the historical, smoking and tobacco- related health factors from the [place] facility where the Encounter took place. Current Smoking Status This section includes the most current smoking, or tobacco-related health factor, from the [place] facility where the Encounter took place. Date/Time Current Smoking Status Comment Facil ity Jun 15, 2023 09:00 AM VA-TOBACCO FORMER USER [facility] Tobacco Use History This section includes a history of the smoking, or tobacco-related health factors, that were collected on or before the date of the Encounter. The data comes from the [place] facility where the Encounter took place. Date/Time Smoking Status/Tobacco Use Comment F acility Jun 15, 2023 09:00 AM VA-TOBACCO QUIT 15 YRS OR MORE [facility] Jun 15, 2022 10:00 AM VA-TOBACCO FORMER USER [facility] Jun 15, 2022 10:00 AM VA-TOBACCO QUIT 15 YRS OR MORE [facility] Jun 15, 2021 10:00 AM VA-TOBACCO FORMER USER [facility] Jun 15, 2021 10:00 AM VA-TOBACCO QUIT 15 YRS OR MORE [facility] Jun 15, 2020 10:00 AM VA-TOBACCO FORMER USER [facility] Jun 15, 2020 10:00 AM VA-TOBACCO QUIT 15 YRS OR MORE [facility] Apr 27, 2004 10:39 AM CURRENT NON-TOBACCO USER-HX [facility] Nov 28, 2003 10:32 AM CURRENT NON-TOBACCO USER-[facility]X [facility] May 06, 2003 11:28 AM CURRENT NON-TOBACCO USER-[facility]X [facility] Dec 12, 2002 09:14 AM CURRENT NON-TOBACCO USER-HX [facility] Jun 25, 2002 08:26 AM CURRENT NON-TOBACCO USER-HX [facility] Apr 30, 2002 01:27 PM TOB-CURRENT NON-SMOKER BUT HX [facility] Advance Directives: All historical and current Section Date Range: From patient's date of to the date document was created. This section includes ALL of a patient's completed or amended [place] Advance and Rescinded Directives. The entries below indicate that a directive exists for the patient, but an actual copy is not included with this document. The data comes from all [place] facilities. Date Advance Directives Provider Source Aug 17, 2007 ADVANCE DIRECTIVE HUDSON SHEPARD [facility] Aug 16, 2007 ADVANCE DIRECTIVE Pipe [facility] Apr 01, 2004 ADVANCE DIRECTIVE DAREN DENISE [facility] Encounter Notes: All associated encounter notes This section contains the clinical notes associated to the Encounter. Date/Time Encounter Note(s) Provider Source Jan 04, 2024 01:22 PM GENERAL MEDICINE N OTE: LOCAL TITLE: General Note PB STANDARD TITLE: GENERAL MEDICINE NOTE DATE OF NOTE: JAN 04, 2024@13:22 ENTRY DATE: JAN 04, 2024@13:22:27 AUTHOR: MEGHAN SOLORIO EXP COSIGNER: URGENCY: STATUS: COMPLETED General Note PB Has ADDENDA Received hearing aid devices, certified in [place]> has pending appt for fitting /nancy/ MEGHAN SOLORIO Telehealth Clinical Lithographic Press Operator Signed: 01/04/2024 13:22 01/04/2024 ADDENDUM STATUS: COMPLETED Correction Drew was received /nancy/ MEGHAN SOLORIO Telehealth Clinical Lithographic Press Operator Signed: 01/04/2024 13:24 MEGHAN SOLORIO [facility]
--- OUTSIDE RECORDS SUMMARY | 2024-05-15 08:00 | XMS_ITS | Encounter Summary ---
Author Name [facility] [place] [facility] [place] [facility] [place] Address [address] [place] [address] Care Team Providers Care Combiner Name Role Phone GORDY BOONE Primary Care [...] JAMES PLANG * Jan 27, 2018 PLANG [id number] [phone] ZAIDA MURILLO PATIENT [employer] PREFERRED PROVIDER ORGANIZAT ION (PPO) VALIT HEALT H SERV Feb 27, 2007 [id number] ZAIDA MURILLO PATIENT [employer] HEALTHCARE COMPREHEN SIVE MAJOR MEDICAL VALIT HEALT H Feb 27, 2007 [id number] ZAIDA MURILLO PATIENT MEDICARE (WNR) MEDICARE (M) PART A Feb 27, 2018 PART A [id number] ZAIDA MURILLO PATIENT MEDICARE (WNR) MEDICARE (M) PART A Feb 27, 2018 PART A [id number] ZAIDA MURILLO PATIENT MEDICARE (WNR) MEDICARE (M) PART B Feb 27, 2018 PART B [id number] ZAIDA MURILLO PATIENT MEDICARE (WNR) MEDICARE (M) PART B Jan 27, 2018 PART B [id number] ZAIDA MURILLO PATIENT MEDICARE (WNR) MEDICARE (M) PART B Jan 27, 2018 PART B [id number] ZAIDA MURILLO PATIENT MEDICARE (WNR) MEDICARE (M) PART A Aug 27, 2009 PART A [id number] ZAIDA MURILLO PATIENT MEDICARE (WNR) MEDICARE (M) PART B Aug 27, 2009 PART B [id number] ZAIDA MURILLO PATIENT MEDICARE (WNR) MEDICARE (M) PART A Aug 27, 2009 PART A [id number] ZAIDA MURILLO PATIENT Selected Encounter This section includes the information on [place] at [place] for the Encounter. Date/Time Encounter Type Encounter Description Reason Provider Source May 15, 2024 01:00 PM OFFICE O/P EST MOD 30 MIN PRIMARY CARE/MEDICINE ICD-10-CM Z09 Encntr for f/u exam aft trtmt for cond oth than malig AMANDA Molina Bryan Encounter Template Text not used by [facility] Assessments - Encounter Diagnoses This section includes the primary and secondary diagnoses documented for the Encounter. Date/Time Primary/Secondary Diagnosis Diagnosis Name Provider Source May 15, 2024 02:31 PM PRIMARY Encntr for f/u exam aft trtmt for cond oth than AMANDA Schmidt [facility] May 15, 2024 02:31 PM SECONDARY Other fracture of shaft of left humerus, esthelaela AM[facility]DA JAIN [facility] May 15, 2024 02:31 PM SECONDARY Other fractures of lower end of left radius, sequela AM[facility]DA JAINS [facility] Plan of Treatment: Future Appointments (+ 6 months) and Future Tests (+/- 45 days) The Plan of Treatment section includes future care activities for the patient from all [place] [facility]. This section includes future appointments and future orders which are active, pending or scheduled. Future Appointments This section includes appointments that were scheduled to occur 6 months from the date of the Encounter, up to a maximum of 20 appointments. The data comes from all [facility] facilities. Appointment Date/Time Appointment Type Appointme nt Facility Name May 22, 2024 08:20 AM AMBULATORY - MEDICINE [facility] Jun 14, 2024 09:30 AM AMBULATORY - MEDICINE [facility] Jun 19, 2024 10:30 AM AMBULATORY - MEDICINE [facility] Jun 20, 2024 03:15 PM AMBULATORY - MEDICINE POPL [facility] Vital Signs: All taken on the encounter date This section contains inpatient and outpatient Vital Signs collected on the date of the Encounter. Date/Time Temperature Pulse Blood Pressure Respiratory Rate SP02 Pain Height Weight Body Mass Index Source May 15, 2024 01:33 PM 132/88 [facility] May 15, 2024 01:10 PM 97.4 84 152/99 20 96 254.0 50 [facility] Social History: Smoking Status (Most current) and Tobacco Use (All prior to encounter date) This section includes the most current, and the historical, smoking and tobacco- related health factors from the [place] facility where the Encounter took place. Current Smoking Status This section includes the most current smoking, or tobacco-related health factor, from the [place] facility where the Encounter took place. Date/Time Current Smoking Status Comment Aletha ity May 15, 2024 01:00 PM VA-TOBACCO USE FORMER CIGARETTES [facility] Tobacco Use History This section includes a history of the smoking, or tobacco-related health factors, that were collected on or before the date of the Encounter. The data comes from the [place] facility where the Encounter took place. Date/Time Smoking Status/Tobacco Use Comment F acility May 15, 2024 01:00 PM VA-TOBACCO USE FORMER OTHER TYPE [facility] Jun 15, 2023 09:00 AM VA-TOBACCO FORMER USER [facility] Jun 15, 2023 09:00 AM VA-TOBACCO QUIT 15 YRS OR MORE [facility] Jun 15, 2022 10:00 AM VA-TOBACCO FORMER USER [facility] Jun 15, 2022 10:00 AM VA-TOBACCO QUIT 15 YRS OR MORE [facility] Jun 15, 2021 10:00 AM VA-TOBACCO FORMER USER [facility] Jun 15, 2021 10:00 AM VA-TOBACCO QUIT 15 YRS OR MORE [facility] Jun 15, 2020 10:00 AM VA-TOBACCO FORMER USER [facility] Jun 15, 2020 10:00 AM VA-TOBACCO QUIT 15 YRS OR MORE [facility] Apr 27, 2004 10:39 AM CURRENT NON-TOBACCO USER-HX OF U [facility] Nov 28, 2003 10:32 AM CURRENT NON-TOBACCO USER-HX OF U [facility] May 06, 2003 11:28 AM CURRENT NON-TOBACCO USER-HX OF U [facility] Dec 12, 2002 09:14 AM CURRENT NON-TOBACCO USER-HX OF [facility] Jun 25, 2002 08:26 AM CURRENT NON-TOBACCO USER-HX OF [facility] Apr 30, 2002 01:27 PM TOB-CURRENT NON-SMOKER BUT HX [facility] Advance Directives: All historical and current Section Date Range: From patient's date of to the date document was created. This section includes ALL of a patient's completed or amended [place] Advance and Rescinded Directives. The entries below indicate that a directive exists for the patient, but an actual copy is not included with this document. The data comes from all [place] facilities. Date Advance Directives Provider Source Aug 17, 2007 ADVANCE DIRECTIVE HUDSON SHEPARD [facility] Aug 16, 2007 ADVANCE DIRECTIVE Pipe [facility] Apr 01, 2004 ADVANCE DIRECTIVE DAREN [facility] Encounter Notes: All associated encounter notes This section contains the clinical notes associated to the Encounter. Date/Time Encounter Note(s) Provider Source May 15, 2024 01:58 PM PRIMARY CARE PROGRESS NOTE: LOCAL TITLE: PRIMARY CARE CLINIC PROGRESS NOTE PB STANDARD TITLE: PRIMARY CARE PROGRESS NOTE DATE OF NOTE: MAY 15, 2024@13:58 ENTRY DATE: MAY 15, 2024@13:58:40 AUTHOR: AMANDA JAIN EXP COSIGNER: URGENCY: STATUS: COMPLETED Date & Time: Apr@13:58 This is a 78 year old MALE Allergies: MICARDIS TABS, CLONIDINE, ZOLOFT, ALDACTONE, LISINOPRIL HCTZ HYDROCHLOROTHIAZIDE, DILTIAZEM CC: Follow-up hospital stay HPI: [place] presented today for follow-up hospital stay fell off of his porch that was 5 feet tall and approximately May 07 has a broken humerus to the right and a left distal radius fracture will not follow-up with Ortho until May 27. Subdural hematoma and was cleared by neuro and does not need to follow-up a consult will be placed for Dr. Astorga for follow-up at [facility] orthopedics for May 27. Temperature: 97.4 F [36.3 C] (05/15/2024 13:10) Respiratory Rate: 20 (05/15/2024 13:10) Pulse Rate: 84 (05/15/2024 13:10) Blood Pressure: 132/88 (05/15/2024 13:33) HT: 60.0 in [152.4 cm] (02/13/2024 10:01) WT: 254.0 lb [115.21 kg] (05/15/2024 13:10) BMI: 49.7 96% (05/15/2024 13:10) REVIEW OF SYSTEMS: HEENT: No headache. No blurry vision, vision loss, eye pain, red eyes, or foreign body. No runny nose, congestion, or nose bleed. No hearing loss, ringing in the ears, or vertigo. No sore throat or dental pain. RESPIRATORY: No cough, SOA, wheezing, or sputum production. CARDIOVASCULAR: No chest pain, palpitations, tachycardia, PND, or orthopnea. GI: No abdominal pain, nausea, vomiting, diarrhea, constipation, melena, or hematochezia. : No dysuria, hematuria, urinary frequency, weak stream, or post-void dribbling. MUSCULOSKELETAL: Bilateral arm pain. SKIN: No rash, lesions, or infection PSYCH: No depression and anxious at this time. Not suicidal. 1) Hypertension (SNOMED CT 72183432) 2) Hyperlipidemia (SCT 27641058) 3) Elevated PSA 4) AF- Atrial Fibrillation ([facility] [id number]) 5) Benign Prostatic Hypertrophy with Outflow Obstruction ([facility] [id number]) 6) Sleep Apnea ([facility] [id number]) 7) CAD - Coronary Artery Disease ([facility] [id number]) 8) Gout ([facility] [id number]) 9) Hearing Loss ([facility] [id number]) 10) LVH - Left ventricular hypertrophy 11) VT - Ventricular tachycardia 12) PTSD - Post-traumatic stress disorder 13) Exposure to potentially hazardous chemical 14) Exposure to potentially hazardous substance 15) Bilateral tinnitus Active Outpatient Medications (including Supplies): Active Outpatient Medications Status 1) AMLODIPINE BESYLATE 2.5MG TAB TAKE ONE TABLET BY MOUTH ONCE ACTIVE A DAY FOR HEART/BLOOD PRESSURE 2) ASPIRIN 81MG EC TAB TAKE ONE TABLET BY MOUTH ONCE A DAY ACTIVE TAKE WITH FOOD. Indication: FOR CARDIOVASCULAR DISEASE 3) ATORVASTATIN CALCIUM 80MG TAB TAKE ONE-HALF TABLET BY MOUTH ACTIVE EVERY EVENING Indication: FOR HIGH CHOLESTEROL 4) CARVEDILOL 12.5MG TAB TAKE ONE TABLET BY MOUTH EVERY MORNING ACTIVE AND TAKE ONE-HALF TABLET EVERY EVENING TAKE WITH FOOD. DOSAGE CHANGE Indication: FOR HIGH BLOOD PRESSURE 5) CLOPIDOGREL BISULFATE 75MG TAB TAKE ONE TABLET BY MOUTH ONCE ACTIVE A DAY Indication: FOR ACUTE CORONARY SYNDROME 6) DORZOLAMIDE 22.3/TIMOLOL6.8MG/ML OPH JAVI INSTILL 1 DROP IN ACTIVE LEFT EYE TWICE A DAY 7) FINASTERIDE 5MG TAB TAKE ONE TABLET BY MOUTH ONCE A DAY ACTIVE SWALLOW WHOLE, DO NOT CRUSH, SPLIT, OR CHEW. Indication: FOR BENIGN PROSTATIC HYPERPLASIA 8) FUROSEMIDE 40MG TAB TAKE ONE TABLET BY MOUTH EVERY MORNING ACTIVE Indication: FOR FLUID RETENTION (EDEMA) 9) HYDROXYZINE HCL 25MG TAB TAKE ONE TABLET BY MOUTH THREE ACTIVE TIMES A DAY NEEDED *MAY CAUSE DROWSINESS* Indication: ANXIETY OR SLEEP. 10) ISOSORBIDE MONONITRATE 30MG SA TAB TAKE ONE TABLET BY MOUTH ACTIVE ONCE A DAY TO PREVENT CHEST PAIN. TAKE ON EMPTY STOMACH. SWALLOW WHOLE. DO NOT CRUSH OR CHEW. 11) LATANOPROST 0.005% OPH SOLN INSTILL 1 DROP IN BOTH EYES ACTIVE EVERY EVENING FOR GLAUCOMA. KEEP REFRIGERATED UNTIL READY TO USE, THEN STORE AT ROOM TEMPERATURE FOR MAXIMUM OF 42 DAYS. 12) MULTIVIT/OPHTH AREDS2/LUTE/ZEAX CAP/TAB TAKE 1 CAP/TAB BY ACTIVE MOUTH TWICE A DAY WITH MEAL(S) FOR EYE HEALTH. AVOID IF YOU HAVE PEANUT ALLERGY. 13) PANTOPRAZOLE NA 40MG EC TAB TAKE ONE TABLET BY MOUTH EVERY ACTIVE MORNING BEFORE A MEAL TAKE 30 MINUTES BEFORE MEAL(S) Indication: FOR GASTROESOPHAGEAL REFLUX DISEASE 14) POTASSIUM CL 20MEQ SA TAB (DISPERSIBLE) TAKE ONE TABLET BY ACTIVE MOUTH ONCE A DAY AND TAKE 1 ADDITIONAL TABLET EVERY OTHER DAY. TAKE WITH FOOD Indication: FOR POTASSIUM SUPPLEMENTATION 15) TAMSULOSIN HCL 0.4MG CAP TAKE TWO CAPSULES BY MOUTH EVERY ACTIVE EVENING APPROXIMATELY 30 MINUTES AFTER THE SAME MEAL EACH DAY (FOR PROSTATE) Indication: FOR BENIGN PROSTATIC HYPERPLASIA OBJECTIVE: Physical Exam General: NAD noted, A&Ox3, pleasant, appears stated age HEENT: NCAT, TM's clear, nares and oropharynx clear Neck: Supple with normal active ROM, without any lymphadenopathy Heart: RRR, no murmur, clicks, or rub Resp: Lungs CTA bilaterally, respirations even and unlabored Abdomen: Soft, non-distended, non-tender Ext: No clubbing, cyanosis, edema or obvious deformity Neuro: Grossly intact Psych: Affect normal, answers questions appropriately throughout visit Assessment/Plan: Follow-up hospital stay -current The plan is to continue current plan of care and follow-up with orthopedics in May 27 Broken right humerus -current Plan continue current plan of care taking pain medication oxycodone and follow-up with orthopedics in April Broken left distal radius -current Plan continue current plan of care splint in place will follow-up with orthopedics May 27 Follow-up: ___ as needed. Discussed with patient that in the event of community imaging / testing being ordered in the future, once the imaging / testing has been completed, please notify PACT of completion at outside facility if not called with results within 1 week by a [facility] PACT member; this is due to intermittent lapses in notification of imaging completion within CPR[facility]. All questions answered; agrees to plan of care. Follow up as listed above, annually, and as needed. Keep all appointments. Medications Reconciled. See AVS given to [place]. Time spent 30 minutes. Amanda LOPEZ /nancy/ NIA Auguste, MSN, Zaida Kothari [facility] Signed: 05/15/2024 14:32 AMANDA JAIN Donis [facility] May 15, 2024 01:54 PM ORTHOTICS PROSTHETICS EDUCATION NOTE: LOCAL TITLE: NURSING PROSTHETIC ITEM PATIENT EDUCATION NOTE PB STANDARD TITLE: ORTHOTICS PROSTHETICS EDUCATION NOTE DATE OF NOTE: MAY 15, 2024@13:54 ENTRY DATE: MAY 15, 2024@13:55:08 AUTHOR: BARBARA CHAPARRO COSIGNER: URGENCY: STATUS: COMPLETED Prosthetic Patient Education Learner: Patient, Significant other Method: Individual Evaluation of Learning: Able to Perform/Verbalize Items: Compression Stockings (15-20) Knee High Washing Instructions: It is best to wash stockings after each day of use. DO NOT USE WOOLITE, fabric softener or bleach. Most stocking can be machined washed in cold or warm water; however, your provider will inform you if hand washing is needed. Do not put in the dryer unless instructed by your provider. How to Put on Compression Stockings: 1. Turn the stocking so that the heel faces you. 2. Roll your stockings down and inside out stopping when you see the heel. This can be done by reaching inside the stocking and pinching the heel with your first figure and thumb pulling the stocking inside out holding on to the heel between the two fingers. 3. Put toes inside the end of the stocking and pull onto midfoot. 4. Then slowly pull the top of the stocking over the foot and to ankle area. 5. Grab and pull the stocking with both hands staying low around the ankle area. Continue pulling with both hands up toward the calf. 6. The top band of the stocking should come up to just below the bend of your knee leaving 1-2 fingers width at the top of stocking and the bend in the back of your knee. 7. Next, run your hands up and down the stocking making sure you don't feel any wrinkle or folds. If you do find wrinkle or folds, rub or pull to smooth it out. Never fold or tuck top band over nor under. Safety: -Compressions stockings are for everyday use and should NEVER be worn to bed. -If you experience any complication while wearing your stockings such as increased pain or discoloration in the leg or you notice swelling in the thigh, knee or toes, take them off and call your PC Provider. If you are unable to reach and you feel you have an emergency please go to the nearest emergency room and take the stockings with you so the Doctor can see them. A copy of this document was provided to the patient. /nancy/ BARBARA CHAPARRO LPN [facility] Signed: 05/15/2024 14:01 BARBARA CHAPARRO [facility] May 15, 2024 01:10 PM PRIMARY CARE NURSING NOTE: LOCAL TITLE: PRIMARY CARE NURSING PROGRESS NOTE (TEXT) NURSING P STANDARD TITLE: PRIMARY CARE NURSING NOTE DATE OF NOTE: MAY 15, 2024@13:10 ENTRY DATE: MAY 15, 2024@13:10:40 AUTHOR: BARBARA CHAPARRO EXP COSIGNER: URGENCY: STATUS: COMPLETED Established Patient ZAIDA MURILLO IS A 78 YEAR OLD MALE BEING SEEN IN CLINIC MAY 15, 2024. REASON FOR VISIT: Hospital follow up after a fall on 05/06/24. Subdermal hematoma, Top of humerous right arm, radius close to the wrist on left arm. Are you receiving care any where other than the [place]? No HEALTH AND SURGICAL HISTORY: Does patient report using home oxygen? No CURRENT ACTIVE MEDICATIONS FOR REVIEW: Allergies/ADRs (Tool #5) FACILITY ALLERGY/ADR -------- [facility] CLONIDINE [facility] DILTIAZEM [facility] HYDROCHLOROTHIAZIDE [facility] LISINOPRIL [facility] SERTRALINE [facility] SPIRONOLACTONE [facility] TELMISARTAN GERDA [facility] CLONIDINE GERDA [facility] DILTIAZEM GERDA [facility] SERTRALINE GERDA NOYOLA [facility] TELMISARTAN [facility] HYDROCHLOROTHIAZIDE [facility] LISINOPRIL [facility] SPIRONOLACTONE [facility] TELMISARTAN [facility] DIVISION ALDACTONE [facility] DIVISION CLONIDINE [facility] DILTIAZEM [facility] HCTZ HYDROCHLOROTHIAZIDE [facility] LISINOPRIL [facility] MICARDIS TABS [facility] ZOLOFT Med. Reconciliation (Tool #1) INCLUDED IN THIS LIST: Alphabetical list of active outpatient prescriptions dispensed from this [place] (local) and dispensed from another [place] or [facility] facility (remote) as well as inpatient orders (local pending and active), local clinic medications, locally documented non-VA medications, and local prescriptions that have or been discontinued in the past 90 days. Non-VA Meds Last Documented On: Data not found NOTE The display of VA prescriptions dispensed from another [place] or [facility] [place] facility (remote) is limited to active outpatient prescription entries matched to National Drug File at the originating site and may not include some items such as investigational drugs, compounds, etc. NOT INCLUDED IN THIS LIST: Medications self-entered by the patient into personal health records (i.e. [facility]) are NOT included in this list. Non-VA medications documented outside this [place], remote inpatient orders (regardless of status) and remote clinic medications are NOT included in this list. The patient and provider must always discuss medications the patient is taking, regardless of where the medication was dispensed or obtained. OUTPT AMLODIPINE BESYLATE 2.5MG TAB (Status = Active) TAKE ONE TABLET BY MOUTH ONCE A DAY FOR HEART/BLOOD PRESSURE Rx# [id number] Last Released: 03/30/24 Qty/Days Supply: 90/ Rx Expiration Date: 05/26/24 Refills Remainin OUTPT ASPIRIN 81MG EC TAB (Status = Active) TAKE ONE TABLET BY MOUTH ONCE A DAY FOR CARDIOVASCULAR DISEASE TAKE WITH FOOD. Rx# [id number] Last Released: 02/15/24 Qty/Days Supply: 120/90 Rx Expiration Date: 02/13/25 Refills Remainin Indication: FOR CARDIOVASCULAR DISEASE OUTPT ATORVASTATIN CALCIUM 80MG TAB (Status = Active) TAKE ONE-HALF TABLET BY MOUTH EVERY EVENING FOR HIGH CHOLESTEROL Rx# [id number] Last Released: 02/15/24 Qty/Days Supply: 45/ Rx Expiration Date: 02/13/25 Refills Remainin Indication: FOR HIGH CHOLESTEROL OUTPT CARVEDILOL 12.5MG TAB (Status = Active) TAKE ONE TABLET BY MOUTH EVERY MORNING AND TAKE ONE-HALF TABLET EVERY EVENING FOR HIGH BLOOD PRESSURE TAKE WITH FOOD. DOSAGE CHANGE Rx# [id number] Last Released: 01/18/24 Qty/Days Supply: 135/90 Rx Expiration Date: 06/16/24 Refills Remainin Indication: FOR HIGH BLOOD PRESSURE OUTPT CLOPIDOGREL BISULFATE 75MG TAB (Status = Active) TAKE ONE TABLET BY MOUTH ONCE A DAY FOR ACUTE CORONARY SYNDROME Rx# [id number] Last Released: 02/14/24 Qty/Days Supply: 90/ Rx Expiration Date: 02/13/25 Refills Remainin Indication: FOR ACUTE CORONARY SYNDROME OUTPT DORZOLAMIDE 22.3/TIMOLOL6.8MG/ML OPH JAVI (Status = Active) INSTILL 1 DROP IN LEFT EYE TWICE A DAY Rx# [id number] Last Released: 04/26/24 Qty/Days Supply: 12/26 Rx Expiration Date: 06/15/24 Refills Remainin OUTPT FINASTERIDE 5MG TAB (Status = Active) TAKE ONE TABLET BY MOUTH ONCE A DAY FOR BENIGN PROSTATIC HYPERPLASIA SWALLOW WHOLE, DO NOT CRUSH, SPLIT, OR CHEW. Rx# [id number] Last Released: 04/17/24 Qty/Days Supply: 90 Rx Expiration Date: 12/14/24 Refills Remainin Indication: FOR BENIGN PROSTATIC HYPERPLASIA OUTPT FUROSEMIDE 40MG TAB (Status = Active) TAKE ONE TABLET BY MOUTH EVERY MORNING FOR FLUID RETENTION (EDEMA) Rx# [id number] Last Released: 04/15/24 Qty/Days Supply: 90 Rx Expiration Date: 05/26/24 Refills Remainin Indication: FOR FLUID RETENTION (EDEMA) OUTPT HYDROXYZINE HCL 25MG TAB (Status = Active) TAKE ONE TABLET BY MOUTH THREE TIMES A DAY NEEDED ANXIETY OR SLEEP. *MAY CAUSE DROWSINESS* Rx# [id number] Last Released: 05/31/23 Qty/Days Supply: 150/ Rx Expiration Date: 05/26/24 Refills Remainin Indication: ANXIETY OR SLEEP. OUTPT ISOSORBIDE MONONITRATE 30MG SA TAB (Status = Active) TAKE ONE TABLET BY MOUTH ONCE A DAY TO PREVENT CHEST PAIN. TAKE ON EMPTY STOMACH. SWALLOW WHOLE. DO NOT CRUSH OR CHEW. Rx# [id number] Last Released: 04/12/24 Qty/Days Supply: Rx Expiration Date: 05/26/24 Refills Remainin OUTPT LATANOPROST 0.005% OPH SOLN (Status = Active) INSTILL 1 DROP IN BOTH EYES EVERY EVENING FOR GLAUCOMA. KEEP REFRIGERATED UNTIL READY TO USE, THEN STORE AT ROOM TEMPERATURE FOR MAXIMUM OF 42 DAYS. Rx# [id number] Last Released: 03/08/24 Qty/Days Supply: 7.5 Rx Expiration Date: 05/26/24 Refills Remainin OUTPT MULTIVIT/OPHTH AREDS2/LUTE/ZEAX CAP/TAB (Status = Active) TAKE 1 CAP/TAB BY MOUTH TWICE A DAY WITH MEAL(S) FOR EYE HEALTH. AVOID IF YOU HAVE PEANUT ALLERGY. Rx# [id number] Last Released: 02/23/24 Qty/Days Supply: 240/ Rx Expiration Date: 05/26/24 Refills Remainin OUTPT PANTOPRAZOLE NA 40MG EC TAB (Status = Active) TAKE ONE TABLET BY MOUTH EVERY MORNING BEFORE A MEAL FOR GASTROESOPHAGEAL REFLUX DISEASE TAKE 30 MINUTES BEFORE MEAL(S) Rx# [id number] Last Released: 02/19/24 Qty/Days Supply: 90 Rx Expiration Date: 02/13/25 Refills Remainin Indication: FOR GASTROESOPHAGEAL REFLUX DISEASE OUTPT POTASSIUM CL 20MEQ SA TAB (DISPERSIBLE) (Status = Active) TAKE ONE TABLET BY MOUTH ONCE A DAY FOR POTASSIUM SUPPLEMENTATION AND TAKE 1 ADDITIONAL TABLET EVERY OTHER DAY. TAKE WITH FOOD Rx# [id number] Last Released: 02/14/24 Qty/Days Supply: 135 Rx Expiration Date: 05/26/24 Refills Remainin Indication: FOR POTASSIUM SUPPLEMENTATION OUTPT TAMSULOSIN HCL 0.4MG CAP (Status = Active) TAKE TWO CAPSULES BY MOUTH EVERY EVENING FOR BENIGN PROSTATIC HYPERPLASIA APPROXIMATELY 30 MINUTES AFTER THE SAME MEAL EACH DAY (FOR PROSTATE) Rx# [id number] Last Released: 01/04/24 Qty/Days Supply: 180 Rx Expiration Date: 12/14/24 Refills Remainin Indication: FOR BENIGN PROSTATIC HYPERPLASIA SUPPLIES PHARMACY TERMS AND POSSIBLE PATIENT ACTIONS INPT = [place] inpatient order IV = [place] intravenous medication OUTPT = [place] outpatient prescription PHARMACY POSSIBLE PATIENT TERMS EXPLANATION ACTIONS -------- -- ACTIVE A prescription that can be If you have refills, filled at the local [place] pharmacy. you may request a refill of this prescription from your [place] pharmacy. CLINIC A medication you received during If you have questions a visit to a VA clinic or about this medication emergency department. contact your VA healthcare team. DISCONTINUED A prescription your provider has Contact your VA stopped. It is no longer healthcare team if you available to be sent to you or need more of this picked up at the [place] pharmacy medication. window. A prescription which is too old Contact your VA to fill. This does not refer to healthcare team if you the expiration date of the need more of this medication in the container. medication. NON-VA A medication that came from If this medication someplace other than a VA information is pharmacy. This may be a incorrect or out of prescription from either the VA date, please tell your or non VA providers that was VA healthcare team. filled outside the VA. Or, it may be an [id number] (OTC), herbal, dietary supplements or sample medication. ON HOLD An active prescription that will [facility] not be filled until pharmacy pharmacy when you need resolves the issue. more of this medication. PARKED An active prescription that will [facility] not be filled until the patient pharmacy when you need requests it. this medication. PENDING This prescription order has been If you have been sent to the pharmacy for review instructed to start and is not ready yet. this medication now, [facility]. SUSPENDED An active prescription that is Contact your [place] not scheduled to be filled yet. pharmacy if you need You should receive it before this medication now. you run out. ====== Medication list reviewed with Patient Patient/Caregiver reports taking medications as ordered., Patient/Caregiver reports taking meds other than as directed/ordered: Gabapentin, methocarbamol, oxycodone, acetaminophen, ascorbic acid, turmeric see list. IS PATIENT TAKING ANY OVER THE COUNTER MEDICATIONS, SUCH VITAMINS OR HERBAL SUPPLEMENTS, INCLUDING ANY MEDICATIONS PRESCRIBED BY ANOTHER PHYSICIAN? No Does patient have any new allergies to report since last visit? NO VITALS: TEMPERATURE: 97.4 F [36.3 C] (05/15/2024 13:10) BP: 152/99 (05/15/2024 13:10) RESP: 20 (05/15/2024 13:10) PULSE: 84 (05/15/2024 13:10) HT: 60.0 in [152.4 cm] (02/13/2024 10:01) WT: 254.0 lb [115.21 kg] (05/15/2024 13:10) BMI: 49.7 PAIN ASSESSMENT: (Most Recent Pain Score in Vitals Package: 0 (02/13/2024 10:01) ) The patient indicated that they and their close contacts have not traveled outside of the [place] in the past 21 days. The patient reports the following symptoms: No symptoms present The patient is not immunocompromised. The patient does not report having a history of Multi Drug Resistant Organism (MDRO) within the last five years. The patient does not report having been exposed to measles, chickenpox, or zoster in last 30 days. STRESS: Thank you for your service. Now let us serve you. At the [facility], we strive to provide you with exceptional health care that improves your health and well-being. Are you feeling sad, empty, or depressed? Yes Do you need to talk about things in your life that worry you or cause you stress? No Do you need to talk about personal problems, family problems, alcohol use, drug use, or mental or emotional illness? No SUICIDE SCREENING: The patient was asked, Over the past two weeks, how often have you been bothered by thoughts that you would be better off or of hurting yourself in some way? Not At All SPIRITUAL ASSESSMENT: Are there orthodox practices or spiritual concerns you want the pediatric genetic counselor, your physician, and other health care team members to immediately know about? No Patient advised to call the clinic for any concerns, questions, or symptoms. Patient and/or caregiver verbalized understanding of plan of care. Per [facility] Directive 1605.06, wristband documentation: Patient wristband was removed and destroyed by (staff name) barbara chaparro and placed in the designated [employer] bin. Suicide Screen - V: C-SSRS Screening [place] Suicide Severity Rating Scale (C-SSRS) screener 1. Over the past month, have you wished you were or wished you could go to sleep and not wake up? No 2. Over the past month, have you had any actual thoughts of killing yourself? No 3. Over the past month, have you been thinking about how you might do this? Response not required due to responses to other questions. 4. Over the past month, have you had these thoughts and had some intention of acting on them? Response not required due to responses to other questions. 5. Over the past month, have you started to work out or worked out the details of how to kill yourself? Response not required due to responses to other questions. 6. If yes, at any time in the past month did you intend to carry out this plan? Response not required due to responses to other questions. 7. In your lifetime, have you ever done anything, started to do anything, or prepared to do anything to end your life (for example, collected pills, obtained a gun, gave away valuables, went to the roof but didn't jump)? No 8. If YES, was this within the past 3 months? Response not required due to responses to other questions. Sexual Orientation - CP,L,N,P,PH,PS,S,U: The patient thinks of their sexual orientation as: Straight or Heterosexual COVID-19 Immunization - L,N,P,PH,U: Refused Moderna Monovalent COVID-19 vaccine Immunization: COVID-19 (MODERNA), MRNA, LNP-S, PF, 50 MCG/0.5 ML (AGES 12+ YEARS) Refusal Reason: PATIENT DECISION Patient refuses all immunization(s) in the COVID-19 group Date Documented: 05/15/24 13:22 Alcohol Use Screen (AUDIT-C) - V: Alcohol Screen: SCREEN FOR ALCOHOL (AUDIT-C) An alcohol screening test (AUDIT-C) was negative (score=0). 1. How often did you have a drink containing alcohol in the past year? Consider a drink to be a 12 ounce can or bottle of regular beer, 8 ounces of malt liquor, a 5 ounce glass of table wine, or a 1.5 ounce shot of liquor (like scotch, gin, or vodka). Never 2. How many drinks containing alcohol did you have on a typical day when you were drinking in the past year? Response not required due to responses to other questions. 3. How often did you have six or more drinks on one occasion in the past year? Response not required due to responses to other questions. Tobacco Use Screening - AT,DE,L,M,N,P,PH,PS,RT,S,U: The patient is a former cigarette smoker. The patient formerly used other types of tobacco. Depression Screening - V: Perform PHQ-2 A PHQ-2 screen was performed. The score was 2 which is a negative screen for depression. Over the past two weeks, how often have you been bothered by the following problems? 1. Little interest or pleasure in doing things Several days 2. Feeling down, depressed, or hopeless Several days Influenza Immunization - L,N,P,PH,U: Deferral / Refusal The patient declines to receive the recommended dose of seasonal influenza vaccine. Immunization: INFLUENZA, UNSPECIFIED FORMULATION Refusal Reason: PATIENT DECISION Patient refuses all immunization(s) in the FLU group Date Documented: 05/15/24 13:23 Pain Assessment: - PAIN ASSESSMENT: .. This patient's last pain assessment score was: 0 (02/13/2024 10:01). A detailed pain assessment showed the following: Pain characteristics (per patient's own words) Intermittent, Aching Location of current pain Arms bilateral Patient's self identified pain goal: 9 Weight Control/Nutrition Counseling: * The patient received the following counseling at this encounter: Patient was encouraged to restrict fat, especially saturated fats, in a normal diet. Benefit of a diet high in fiber was discussed. Patient was advised to include 5 or more servings of fruit and vegetables and six or more servings of grains as a well balanced diet. [facility] [employer] CAPABILITY REMINDER: Patient is not interested in [facility] at this time. 'S RIGHT TO DECLINE STATEMENT understands they have the right to decline the use of [employer] at any time without adverse affects on their continued access to healthcare. Patient/Nurse Interview: * * Patient stated that adequate information was received regarding the condition and/or treatment. /nancy/ BARBARA CHAPARRO LPN [place] [facility] Signed: 05/15/2024 13:34 BARBARA CHAPARRO [facility]ON[facility]
--- OUTSIDE RECORDS SUMMARY | 2024-06-19 05:30 | XMS_ITS | Encounter Summary ---
Author Name [facility] Organization [facility] [place] Address [address] [place] [address] Care Team Providers Care Neuro Intensivist Physician Name Role Phone GORDY BOONE Primary Care Provider Unavaila LAXMI Stubbs Primary Care Provider Unavailab MURRAY Knox Unavailable Unavailable ROYAL, HAILEY Unavailable Unavailable DOMINIC DELATORRE Unavailable Unavailable ELLIOT GOMEZ Primary Care Provider Unavailabl bryna Insurance Providers: All historical and current Section [...] JAMES PLANG * Jan 27, 2018 PLANG [id number] ZAIDA MURILLO PATIENT [employer] PREFERRED PROVIDER ORGANIZAT ION (PPO) VALIT HEALT H SERV Feb 27, 2007 [id number] ZAIDA MURILLO PATIENT [employer] COMPREHEN SIVE MAJOR MEDICAL VALIT HEALT H Feb 27, 2007 [id number] ZAIDA MURILLO PATIENT MEDICARE (WNR) MEDICARE (M) PART A Feb 27, 2018 PART A [id number] ZAIDA MURILLO PATIENT MEDICARE (WNR) MEDICARE (M) PART A Feb 27, 2018 PART A [id number] ZAIDA MURILLO PATIENT MEDICARE (WNR) MEDICARE (M) PART B Feb 27, 2018 PART B [id number] ZAIDA MURILLO PATIENT MEDICARE (WNR) MEDICARE (M) PART B Jan 27, 2018 PART B [id number] ZAIDA MURILLO PATIENT MEDICARE (WNR) MEDICARE (M) PART B Jan 27, 2018 PART B [id number] ZAIDA MURILLO PATIENT MEDICARE (WNR) MEDICARE (M) PART A Aug 27, 2009 PART A [id number] ZAIDA MURILLO PATIENT MEDICARE (WNR) MEDICARE (M) PART A Aug 27, 2009 PART A [id number] ZAIDA MURILLO PATIENT MEDICARE (WNR) MEDICARE (M) PART B Aug 27, 2009 PART B [id number] ZAIDA MURILLO PATIENT Selected Encounter This section includes the information on record at DC for the Encounter. Date/Time Encounter Type Encounter Description Reason Provider Source Jun 19, 2024 10:30 AM OFFICE O/P EST MOD 30 MIN PRIMARY CARE/MEDICINE ICD-10-CM Z00.01 Encounter for general adult medical exam w abnormal findings AMANDA JAIN Encounter Template Text not used by DC Assessments - Encounter Diagnoses This section includes the primary and secondary diagnoses documented for the Encounter. Date/Time Primary/Secondary Diagnosis Diagnosis Name Provider Source Jun 19, 2024 04:08 PM PRIMARY Encounter for general adult medical exam w abnormal findings AMANDA JAIN [facility] Jun 19, 2024 04:08 PM SECONDARY Benign prostatic hyperplasia with lower urinary tract symp [facility] Jun 19, 2024 04:08 PM SECONDARY Essential (primary) hypertension [facility] Jun 19, 2024 04:08 PM SECONDARY Hyperlipidemia, unspecified AMANDA JAIN [facility] Jun 19, 2024 04:08 PM SECONDARY Other obstructive and reflux uropathy AMANDA JAIN [facility] Jun 19, 2024 04:08 PM SECONDARY Pneumonia, unspecified organism AMANDA JAIN [facility] Jun 19, 2024 04:08 PM SECONDARY Post-traumatic stress disorder, unspecified AMANDA JAIN [facility] Jun 19, 2024 04:08 PM SECONDARY Unspecified atrial fibrillation AMANDA JAIN [facility] Plan of Treatment: Future Appointments (+ 6 months) and Future Tests (+/- 45 days) The Plan of Treatment section includes future care activities for the patient from all [facility] This section includes future appointments and future orders which are active, pending or scheduled. Future Appointments This section includes appointments that were scheduled to occur 6 months from the date of the Encounter, up to a maximum of 20 appointments. The data comes from all [place] treatment facilities. Appointment Date/Time Appointment Type Appointme nt Facility Name Jun 20, 2024 03:15 PM AMBULATORY - MEDICINE [facility] Lab Results: +/- 30 days of the encounter This section includes the Chemistry and Hematology Lab Results on record with DC for the patient. Radiology Reports and Pathology Reports are provided separately, in subsequent sections. Lab Results This section contains the Chemistry/Hematology Results that were resulted 30 days before or 30 daysafter the date of the Encounter. Date/Time Source Result Type Result - Unit Interpretation Reference Range Specimen Type Comment Jun 19, 2024 11:55 AM [facility] B12 SERUM Specimen Type: SERUM No comment entered. Ordering Provider: AMANDA JAIN Report Released Date/Time: Jun 13, 2024 01:57 PM Reporting Lab: [place] [facility] [address] [place] [address] Performing Lab: [facility] [address] [place] [address] B12 470 pg/mL 213-816 Jun 19, 2024 11:55 AM [facility] FOLATE (PB) SERUM Specimen Typ e: SERUM No comment entered. Ordering Provider: AMANDA JAIN Report Released Date/Time: Jun 13, 2024 01:57 PM Reporting Lab: [facility] [address] [place] [address] Performing Lab: [place] [facility] [address] [place] [address] FOLATE (PB) 11.5 ng/mL 7-20 Jun 19, 2024 11:55 AM [facility] COMPREHENSIVE METABOLIC PANEL PLASMA Specimen Type: PLASMA No comment entered. Ordering Provider: AMANDA JAIN Report Released Date/Time: Jun 13, 2024 01:57 PM Reporting Lab: [place] [facility] [address] [place] [address] Performing Lab: [place] [facility] [address] [place] [address] CREATININE 0.94 mg/dL 0.7-1.3 UREA NITROGEN 17 mg/dL 9-25 GLUCOSE 97 mg/dL 72-99 SODIUM 140 meq/L 136-145 POTASSIUM 3.8 meq/L 3.5-5 CHLORIDE 108 meq/L H 98-107 CARBON DIOXIDE 23 meq/L 22-31 CALCIUM 9.7 mg/dL 8.4-10.4 PROTEIN 6.9 g/dL 6-8.6 ALBUMIN 3.9 g/dL 3.4-5 TOTAL BILIRUBIN 1.0 mg/dL 0.2-1.2 ALKALINE PHOSPHATASE 137 U/L 40-150 AST/SGOT 25 U/L 5-34 ALT/SGPT 25 U/L 8-40 EGFR (CKD-EPI 2020) 82 Jun 19, 2024 11:55 AM [facility] HGA1C BLOOD Specimen Type: BLOOD No comment entered. Ordering Provider: AMANDA JAIN Report Released Date/Time: Jun 13, 2024 01:57 PM Reporting Lab: [place] [facility] [address] [place] [address] Performing Lab: [place] [facility] [address] [place] [address] HGA1C 5.7 4.0-6.0 Jun 19, 2024 11:55 AM [facility] CBC BLOOD Specimen Type: BLOOD No comment entered. Ordering Provider: AMANDA JAIN Report Released Date/Time: Jun 13, 2024 01:57 PM Reporting Lab: [place] [facility] [address] [place] [address] Performing Lab: [place] [facility] [address] [place] [address] WBC 8.2 10*3/uL 3.6-11.2 RBC 5.52 10*6/uL 4.10-5.70 HGB 15.9 g/dL 13.1-16.8 HCT 48.5 H 38.2-48.4 MCV 87.9 fL 80.0-100.0 MCH 28.8 pg 27.0-34.0 MCHC 32.8 g/dL L 33.0-36.0 PLT 275 10*3/uL 150-400 MPV 8.9 fL 7.5-11.2 RDW 13.6 11.8-15.1 LYMPHOCYTES, AUTO % 14.1 MONOCYTES, AUTO % 12.0 NEUTROPHILS, AUTO % 65.3 EOSINOPHILS, AUTO % 7.3 BASOPHILS, AUTO % 0.9 LYMPHOCYTES, ABSOLUTE 1.15 10*3/uL 0.77- 4.50 MONOCYTES, ABSOLUTE 0.98 10*3/uL H 0.19-0. 8 NEUTROPHILS, ABSOLUTE 5.35 10*3/uL 2.10- 8.00 EOSINOPHILS, ABSOLUTE 0.60 10*3/uL 0.00- 0.60 BASOPHILS, ABSOLUTE 0.07 10*3/uL 0.00-0. 20 IMMATURE GRANS, AUTO % 0.4 IMMATURE GRANS, AUTO ABS 0.03 10*3/uL 0. 00-0.05 Jun 19, 2024 11:55 AM [facility] VITAMIN D, 25-HYDROXY SERUM Specimen Type: SE RUM No comment entered. Ordering Provider: AMANDA JAIN Report Released Date/Time: Jun 13, 2024 01:57 PM Reporting Lab: [facility] [address] [place] [address] Performing Lab: [facility] [address] [place] [address] VITAMIN D, 25-HYDROXY >154.2 ng/mL H 30-96 Jun 19, 2024 11:55 AM [facility] CHOLESTEROL PANEL (PB) PLASMA Specimen Type: P LASMA No comment entered. Ordering Provider: AMANDA JAIN Report Released Date/Time: Jun 13, 2024 01:57 PM Reporting Lab: [facility] [address] [place] [address] Performing Lab: [place] [facility] [address] [place] [address] CHOLESTEROL 123 mg/dL 0-200 TRIGLYCERIDE 163 mg/dL H 0-150 CALCULATED LDL 56.7 mg/dL HDL(New) 33.7 mg/dL L >40 HDL % OF TOTAL CHOLESTEROL (PB) 27.4 >25 Jun 19, 2024 11:55 AM [facility] TSH (MA-PB) SERUM Specimen Typ e: SERUM No comment entered. Ordering Provider: AMANDA JAIN Report Released Date/Time: Jun 13, 2024 01:57 PM Reporting Lab: [facility] [address] [place] [address] Performing Lab: [facility] [address] [place] [address] TSH 1.185 u[IU]/mL 0.47-5 Vital Signs: All taken on the encounter date This section contains inpatient and outpatient Vital Signs collected on the date of the Encounter. Date/Time Temperature Pulse Blood Pressure Respiratory Rate SP02 Pain Height Weight Body Mass Index Source Jun 19, 2024 11:03 AM 97.5 79 129/79 20 94 7 250.7 49 [facility] Social History: Smoking Status (Most current) and Tobacco Use (All prior to encounter date) This section includes the most current, and the historical, smoking and tobacco- related health factors from the DC facility where the Encounter took place. Current Smoking Status This section includes the most current smoking, or tobacco-related health factor, from the DC facility where the Encounter took place. Date/Time Current Smoking Status Comment Aletha ity May 15, 2024 01:00 PM VA-TOBACCO USE FORMER CIGARETTES [facility] Tobacco Use History This section includes a history of the smoking, or tobacco-related health factors, that were collected on or before the date of the Encounter. The data comes from the DC facility where the Encounter took place. Date/Time Smoking Status/Tobacco Use Comment F acility May 15, 2024 01:00 PM VA-TOBACCO USE FORMER OTHER TYPE [facility] Jun 15, 2023 09:00 AM VA-TOBACCO FORMER USER [facility] Jun 15, 2023 09:00 AM VA-TOBACCO QUIT 15 YRS OR MORE [facility] Jun 15, 2022 10:00 AM VA-TOBACCO FORMER USER [facility] Jun 15, 2022 10:00 AM VA-TOBACCO QUIT 15 YRS OR MORE [facility] Jun 15, 2021 10:00 AM VA-TOBACCO FORMER USER [facility] Jun 15, 2021 10:00 AM VA-TOBACCO QUIT 15 YRS OR MORE [facility] Jun 15, 2020 10:00 AM VA-TOBACCO FORMER USER [facility] Jun 15, 2020 10:00 AM VA-TOBACCO QUIT 15 YRS OR MORE [facility] Apr 27, 2004 10:39 AM CURRENT NON-TOBACCO USER-HX OF [facility] Nov 28, 2003 10:32 AM CURRENT NON-TOBACCO USER-HX OF [facility] May 06, 2003 11:28 AM CURRENT NON-TOBACCO USER-HX OF [facility] Dec 12, 2002 09:14 AM CURRENT NON-TOBACCO USER-HX OF [facility] Jun 25, 2002 08:26 AM CURRENT NON-TOBACCO USER-HX OF [facility] Apr 30, 2002 01:27 PM TOB-CURRENT NON-SMOKER BUT HX [facility] Advance Directives: All historical and current Section Date Range: From patient's date of to the date document was created. This section includes ALL of a patient's completed or amended DC Advance and Rescinded Directives. The entries below indicate that a directive exists for the patient, but an actual copy is not included with this document. The data comes from all [place] facilities. Date Advance Directives Provider Source Aug 17, 2007 ADVANCE DIRECTIVE HUDSON SHEPARD [facility] Aug 16, 2007 ADVANCE DIRECTIVE Pipe [facility] Apr 01, 2004 ADVANCE DIRECTIVE DAREN DENISE [facility] Radiology Reports: +/- 30 days of the encounter Radiology Reports For cases when an order for radiology services may have been completed prior to the date of the Encounter, the report list includes the Radiology Reports that were completed up to 30 days before dateof the Encounter. For cases when an order for radiology services may have been completed after the date of the Encounter, the report list also includes the Radiology Reports that were completed up to30 days after date of the Encounter. The data comes from all [place] treatment facilities. Date/Time Radiology Report Provider Source Jun 19, 2024 11:32 AM CHEST X-RAY, 2 VIE WS: ZAIDA MURILLO [id number] M Exm Date: JUN 19, 2024@11:32 Req Phys: JAINAMADNA Donis Pat Loc: PB-SIG[facility]REDO PACT [facility] [employer] [facility] (Req'g Lo Img Loc: PB-XRAY [place] Service: [place] [address] (Case [id number] COMPLETE) CHEST X-RAY, 2 VIEWS (RAD Detailed) CPT:14901 Reason for Study: cough Clinical History: Report Status: Verified Date Reported: JUN 19, 2024 Date Verified: JUN 19, 2024 Sales/Marketing E-Sig: Report: EXAM: Chest x-ray PA and lateral views. FINDINGS: There is atherosclerotic change involving the thoracic aorta. There is borderline cardiomegaly. There is no pulmonary vascular congestion. There is blunting of the left costophrenic angle which may represent pleural scarring or small pleural effusion. There is mild density in the left lung base which may represent scarring, atelectasis, or infiltrate. There is a question of old granulomatous disease. There is degenerative change involving the thoracic spine. Impression: 1. Mild density in the left lung base which may represent scarring, atelectasis, or infiltrate. 2. Borderline cardiomegaly. 3. Blunting of the left costophrenic angle which may represent pleural scarring or a small left pleural effusion. 4. Chronic changes. 5. Follow-up chest x-ray in approximately 1 week is recommended. Primary Interpreting Staff: Mario Balderas M.D., Radiology (Sales/Marketing, no e-sig) /MARIO ZAMUDIO [facility] Encounter Notes: All associated encounter notes This section contains the clinical notes associated to the Encounter. Date/Time Encounter Note(s) Provider Source Jun 19, 2024 11:30 AM PRIMARY CARE PROGRESS NOTE: LOCAL TITLE: PRIMARY CARE CLINIC PROGRESS NOTE PB STANDARD TITLE: PRIMARY CARE PROGRESS NOTE DATE OF NOTE: JUN 19, 2024@11:30 ENTRY DATE: JUN 19, 2024@11:30:48 AUTHOR: AMANDA JAIN COSIGNER: URGENCY: STATUS: COMPLETED This is a 78 year old MALE DS - Disabilities Eligibility: SERVICE CONNECTED 50% to 100% VERIFIED Total S/C %: 80 POST-TRAUMATIC STRESS DISORDER 30% S/C IMPAIRED HEARING 0% S/C ARTERIOSCLEROTIC HEART DISEASE 60% S/C TINNITUS 10% S/C DEFORMITY OF THE PENIS 0% S/C IMPAIRED HEARING 20% S/C HYPERTENSIVE VASCULAR DISEASE 0% S/C Chief Complaint (Reason for today's visit): annual appointment History of Present Illness (Subjective): Julissa presented today for a scheduled appointment for an annual exam for chronic illnesses such as hypertension, hyperlipidemia, atrial fibrillation, BPH and PTSD. On exam lower left lobe diminished with faint crackle noted will do chest x-ray today. Julissa is still in recovery fell off his porch several weeks back had a brain bleed and has broken both arms. Julissa denies any other needs at this time he is being followed by orthopedics for his arm fractures and has been released from neurology for his brain bleed. Julissa did state that he has started having occasional headaches that only last a little while and go away but he has never had headaches before. 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 We discussed the fact that he fell off 5 foot over onto his face onto the concrete and that ultimately caused his brain bleed and injury to his head. Julissa ultimately is not sure why he fell off he does not remember discussed with his possible dizziness and just falling off tripping versus dizziness he does have a history of hypertension and A-fib. Julissa does not have any other complaints states that everything else is fine he is being treated by orthopedics and followed for his injuries to both arms. Julissa is up-to-date and current on all of his health maintenance at this point Allergies: MICARDIS TABS, CLONIDINE, ZOLOFT, ALDACTONE, LISINOPRIL HCTZ HYDROCHLOROTHIAZIDE, DILTIAZEM REVIEW OF SYSTEMS: HEENT: No visual or auditory symptoms. RESPIRATORY: Cough no shortness of breath, or sputum. CARDIOVASCULAR: No chest pain or palpitation. GI: No abdominal pain, nausea, vomiting or bowel changes. MUSCULOSKELETAL: Bilateral arm pain. SKIN: No new rashes, no unhealing lesions, no moles. : No urinary symptoms. PSYCH: Denies being depressed or anxious. VITALS: Temperature: 97.5 F [36.4 C] (06/19/2024 11:03) Respiratory Rate: 20 (06/19/2024 11:03) Pulse Rate: 79 (06/19/2024 11:03) Blood Pressure: 129/79 (06/19/2024 11:03) HT: 60.0 in [152.4 cm] (02/13/2024 10:01) WT: 250.7 lb [113.72 kg] (06/19/2024 11:03) BMI: 49.1 94% (06/19/2024 11:03) PHYSICAL EXAM: General: NAD noted, A&Ox3, pleasant, appears stated age HEENT: NCAT, TM's clear, nares and oropharynx clear Neck: Supple with normal active ROM, without any lymphadenopathy Heart: RRR, no murmur, clicks, or rub Resp: Lungs on auscultation diminished left lower lobe with slight crackles, respirations even and unlabored. does state he has a productive cough abdomen: Soft, non-distended, non-tender Ext: No clubbing, cyanosis, edema or obvious deformity Neuro: Grossly intact Psych: Affect normal, answers questions appropriately throughout visit DIAGNOSTIC STUDIES: Labs Performed/Reviewed at Today's Visit: annual labs Radiology/Imaging Performed/Reviewed at Today's Visit: CXR Reason for studies: On the following Active Medications: Active Outpatient Medications (including Supplies): Active Outpatient [...] ONE TABLET BY MOUTH EVERY MORNING ACTIVE (S) AND TAKE ONE-HALF TABLET EVERY EVENING TAKE WITH FOOD. DOSAGE CHANGE Indication: FOR HIGH BLOOD PRESSURE 5) CLOPIDOGREL BISULFATE 75MG TAB TAKE ONE TABLET BY MOUTH ONCE ACTIVE A DAY Indication: FOR ACUTE CORONARY SYNDROME 6) FINASTERIDE 5MG TAB TAKE ONE TABLET BY MOUTH ONCE A DAY ACTIVE SWALLOW WHOLE, DO NOT CRUSH, SPLIT, OR CHEW. Indication: FOR BENIGN PROSTATIC HYPERPLASIA 7) FUROSEMIDE 40MG TAB TAKE ONE TABLET BY MOUTH EVERY MORNING ACTIVE (S) Indication: FOR FLUID RETENTION (EDEMA) 8) GABAPENTIN 300MG CAP TAKE ONE CAPSULE BY MOUTH THREE TIMES A ACTIVE DAY Indication: FOR NERVE PAIN 9) HYDROXYZINE HCL 25MG TAB TAKE ONE [...] TEMPERATURE FOR MAXIMUM OF 42 DAYS. 12) METHOCARBAMOL 750MG TAB TAKE 1 TABLET BY MOUTH EVERY ACTIVE EIGHT(8) HOURS NEEDED Indication: FOR MUSCLE SPASM 13) MULTIVIT/OPHTH AREDS2/LUTE/ZEAX CAP/TAB TAKE 1 CAP/TAB BY ACTIVE MOUTH TWICE A DAY WITH MEAL(S) FOR EYE HEALTH. AVOID IF YOU HAVE PEANUT ALLERGY. 14) PANTOPRAZOLE NA 40MG EC TAB TAKE ONE TABLET BY MOUTH EVERY ACTIVE MORNING BEFORE A MEAL TAKE 30 MINUTES BEFORE MEAL(S) Indication: FOR GASTROESOPHAGEAL REFLUX DISEASE 15) POTASSIUM CL 20MEQ SA TAB (DISPERSIBLE) TAKE ONE TABLET BY ACTIVE MOUTH ONCE A DAY AND TAKE 1 ADDITIONAL TABLET EVERY OTHER DAY. TAKE WITH FOOD Indication: FOR POTASSIUM SUPPLEMENTATION 16) TAMSULOSIN HCL 0.4MG CAP TAKE TWO CAPSULES BY MOUTH EVERY ACTIVE EVENING APPROXIMATELY 30 MINUTES AFTER THE SAME MEAL EACH DAY (FOR PROSTATE) Indication: FOR BENIGN PROSTATIC HYPERPLASIA 1) Hypertension (SNOMED CT 72834877) 2) Hyperlipidemia (SCT 72277756) 3) Elevated PSA 4) AF- Atrial Fibrillation (SCT 88061643) 5) Benign Prostatic Hypertrophy with Outflow Obstruction (SCT 456491131) 6) Sleep Apnea ([facility] [id number]) 7) CAD - Coronary Artery Disease ([facility] [id number]) 8) Gout ([facility] [id number]) 9) Hearing Loss ([facility] [id number]) 10) LVH - Left ventricular hypertrophy 11) VT - Ventricular tachycardia 12) PTSD - Post-traumatic stress disorder 13) Exposure to potentially hazardous chemical 14) Exposure to potentially hazardous substance 15) Bilateral tinnitus = MEDICATION RECONCILIATION: ACTIVE/ OUTPATIENT MEDICATIONS: MRT1 - Med Reconciliation INCLUDED IN THIS LIST: Alphabetical list of active outpatient prescriptions dispensed from this DC (local) and dispensed from another DC or [facility] facility (remote) as well as inpatient orders (local pending and active), local clinic medications, locally documented non-VA medications, and local prescriptions that have or been discontinued in the past 90 days. Non-VA Meds Last Documented On: Data not found NOTE The display of VA prescriptions dispensed from another DC or [facility] facility (remote) is limited to active outpatient prescription entries matched to National Drug File at the originating site and may not include some items such as investigational drugs, compounds, etc. NOT INCLUDED IN THIS LIST: Medications self-entered by the patient into personal health records (i.e. [place]) are NOT included in this list. Non-VA medications documented outside this DC, remote inpatient orders (regardless of status) and remote clinic medications are NOT included in this list. The patient and provider must always discuss medications the patient is taking, regardless of where the medication was dispensed or obtained. OUTPT AMLODIPINE BESYLATE 2.5MG TAB (Status = Discontinued) TAKE ONE TABLET BY MOUTH ONCE A DAY FOR HEART/BLOOD PRESSURE Rx# [id number] Last Released: 03/30/24 Qty/Days Supply: 90/90 Rx Expiration Date: 05/26/24 Refills Remainin OUTPT AMLODIPINE BESYLATE 2.5MG TAB (Status = Active) TAKE ONE TABLET BY MOUTH ONCE A DAY FOR HEART/BLOOD PRESSURE Rx# [id number] Last Released: 06/18/24 Qty/Days Supply: 90/90 Rx Expiration Date: 06/14/25 Refills Remainin OUTPT ASPIRIN 81MG EC TAB (Status = Active) TAKE ONE TABLET BY MOUTH ONCE A DAY FOR CARDIOVASCULAR DISEASE TAKE WITH FOOD. Rx# [id number] Last Released: 02/15/24 Qty/Days Supply: 120/90 Rx Expiration Date: 02/13/25 Refills Remainin Indication: FOR CARDIOVASCULAR DISEASE OUTPT ATORVASTATIN CALCIUM 80MG TAB (Status = Active) TAKE ONE-HALF TABLET BY MOUTH EVERY EVENING FOR HIGH CHOLESTEROL Rx# [id number] Last Released: 02/15/24 Qty/Days Supply: 45/90 Rx Expiration Date: 02/13/25 Refills Remainin Indication: FOR HIGH CHOLESTEROL OUTPT CARVEDILOL 12.5MG TAB (Status = Discontinued) TAKE ONE TABLET BY MOUTH EVERY MORNING AND TAKE ONE-HALF TABLET EVERY EVENING FOR HIGH BLOOD PRESSURE TAKE WITH FOOD. DOSAGE CHANGE Rx# [id number] Last Released: 05/29/24 Qty/Days Supply: 135/90 Rx Expiration Date: 06/16/24 Refills Remainin Indication: FOR HIGH BLOOD PRESSURE OUTPT CARVEDILOL 12.5MG TAB (Status = Active/Suspended) TAKE ONE TABLET BY MOUTH EVERY MORNING AND TAKE ONE-HALF TABLET EVERY EVENING FOR HIGH BLOOD PRESSURE TAKE WITH FOOD. DOSAGE CHANGE Rx# [id number] Last Released: Qty/Days Supply: 135/90 Rx Expiration Date: 06/14/25 Refills Remainin Indication: FOR HIGH BLOOD PRESSURE OUTPT CLOPIDOGREL BISULFATE 75MG TAB (Status = Active) TAKE ONE TABLET BY MOUTH ONCE A DAY FOR ACUTE CORONARY SYNDROME Rx# [id number] Last Released: 06/13/24 Qty/Days Supply: Rx Expiration Date: 02/13/25 Refills Remainin Indication: FOR ACUTE CORONARY SYNDROME OUTPT DORZOLAMIDE 22.3/TIMOLOL6.8MG/ML OPH JAVI (Status = ) INSTILL 1 DROP IN LEFT EYE TWICE A DAY Rx# [id number] Last Released: 04/26/24 Qty/Days Supply: 12/26 Rx Expiration Date: 06/15/24 Refills Remainin OUTPT FINASTERIDE 5MG TAB (Status = Active) TAKE ONE TABLET BY MOUTH ONCE A DAY FOR BENIGN PROSTATIC HYPERPLASIA SWALLOW WHOLE, DO NOT CRUSH, SPLIT, OR CHEW. Rx# [id number] Last Released: 04/17/24 Qty/Days Supply: 90 Rx Expiration Date: 12/14/24 Refills Remainin Indication: FOR BENIGN PROSTATIC HYPERPLASIA OUTPT FUROSEMIDE 40MG TAB (Status = Discontinued) TAKE ONE TABLET BY MOUTH EVERY MORNING FOR FLUID RETENTION (EDEMA) Rx# [id number] Last Released: 04/15/24 Qty/Days Supply: 90 Rx Expiration Date: 05/26/24 Refills Remainin Indication: FOR FLUID RETENTION (EDEMA) OUTPT FUROSEMIDE 40MG TAB (Status = Active/Suspended) TAKE ONE TABLET BY MOUTH EVERY MORNING FOR FLUID RETENTION (EDEMA) Rx# [id number] Last Released: Qty/Days Supply: Rx Expiration Date: 06/14/25 Refills Remainin Indication: FOR FLUID RETENTION (EDEMA) OUTPT GABAPENTIN 300MG CAP (Status = Active) TAKE ONE CAPSULE BY MOUTH THREE TIMES A DAY FOR NERVE PAIN Rx# [id number] Last Released: 05/16/24 Qty/Days Supply: 270 Rx Expiration Date: 05/16/25 Refills Remainin Indication: FOR NERVE PAIN OUTPT HYDROXYZINE HCL 25MG TAB (Status = Discontinued) TAKE ONE TABLET BY MOUTH THREE TIMES A DAY NEEDED ANXIETY OR SLEEP. *MAY CAUSE DROWSINESS* Rx# [id number] Last Released: 05/31/23 Qty/Days Supply: 150/ Rx Expiration Date: 05/26/24 Refills Remainin Indication: ANXIETY OR SLEEP. OUTPT HYDROXYZINE HCL 25MG TAB (Status = Active) TAKE ONE TABLET BY MOUTH THREE TIMES A DAY NEEDED ANXIETY OR SLEEP. *MAY CAUSE DROWSINESS* Rx# [id number] Last Released: 06/17/24 Qty/Days Supply: 150/ Rx Expiration Date: 06/14/25 Refills Remainin Indication: ANXIETY OR SLEEP. OUTPT ISOSORBIDE MONONITRATE 30MG SA TAB (Status = Discontinued) TAKE ONE TABLET BY MOUTH ONCE A DAY TO PREVENT CHEST PAIN. TAKE ON EMPTY STOMACH. SWALLOW WHOLE. DO NOT CRUSH OR CHEW. Rx# [id number] Last Released: 04/12/24 Qty/Days Supply: 90/ Rx Expiration Date: 05/26/24 Refills Remainin OUTPT ISOSORBIDE MONONITRATE 30MG SA TAB (Status = Active) TAKE ONE TABLET BY MOUTH ONCE A DAY TO PREVENT CHEST PAIN. TAKE ON EMPTY STOMACH. SWALLOW WHOLE. DO NOT CRUSH OR CHEW. Rx# [id number] Last Released: 06/17/24 Qty/Days Supply: 90/ Rx Expiration Date: 06/14/25 Refills Remainin OUTPT LATANOPROST 0.005% OPH SOLN (Status = Discontinued) INSTILL 1 DROP IN BOTH EYES EVERY EVENING FOR GLAUCOMA. KEEP REFRIGERATED UNTIL READY TO USE, THEN STORE AT ROOM TEMPERATURE FOR MAXIMUM OF 42 DAYS. Rx# [id number] Last Released: 03/08/24 Qty/Days Supply: 7.5 Rx Expiration Date: 05/26/24 Refills Remainin OUTPT LATANOPROST 0.005% OPH SOLN (Status = Active) INSTILL 1 DROP IN BOTH EYES EVERY EVENING FOR GLAUCOMA. KEEP REFRIGERATED UNTIL READY TO USE, THEN STORE AT ROOM TEMPERATURE FOR MAXIMUM OF 42 DAYS. Rx# [id number] Last Released: 06/17/24 Qty/Days Supply: 7. Rx Expiration Date: 06/14/25 Refills Remainin OUTPT METHOCARBAMOL 750MG TAB (Status = Active) TAKE 1 TABLET BY MOUTH EVERY EIGHT(8) HOURS NEEDED FOR MUSCLE SPASM Rx# [id number] Last Released: 05/16/24 Qty/Days Supply: 270/90 Rx Expiration Date: 05/16/25 Refills Remainin Indication: FOR MUSCLE SPASM OUTPT MULTIVIT/OPHTH AREDS2/LUTE/ZEAX CAP/TAB (Status = Discontinued) TAKE 1 CAP/TAB BY MOUTH TWICE A DAY WITH MEAL(S) FOR EYE HEALTH. AVOID IF YOU HAVE PEANUT ALLERGY. Rx# [id number] Last Released: 02/23/24 Qty/Days Supply: 240/90 Rx Expiration Date: 05/26/24 Refills Remainin OUTPT MULTIVIT/OPHTH AREDS2/LUTE/ZEAX CAP/TAB (Status = Active) TAKE 1 CAP/TAB BY MOUTH TWICE A DAY WITH MEAL(S) FOR EYE HEALTH. AVOID IF YOU HAVE PEANUT ALLERGY. Rx# [id number] Last Released: 06/17/24 Qty/Days Supply: 240/90 Rx Expiration Date: 06/14/25 Refills Remainin OUTPT PANTOPRAZOLE NA 40MG EC TAB (Status = Active) TAKE ONE TABLET BY MOUTH EVERY MORNING BEFORE A MEAL FOR GASTROESOPHAGEAL REFLUX DISEASE TAKE 30 MINUTES BEFORE MEAL(S) Rx# [id number] Last Released: 02/19/24 Qty/Days Supply: 90/90 Rx Expiration Date: 02/13/25 Refills Remainin Indication: FOR GASTROESOPHAGEAL REFLUX DISEASE OUTPT POTASSIUM CL 20MEQ SA TAB (DISPERSIBLE) (Status = Discontinued) TAKE ONE TABLET BY MOUTH ONCE A DAY FOR POTASSIUM SUPPLEMENTATION AND TAKE 1 ADDITIONAL TABLET EVERY OTHER DAY. TAKE WITH FOOD Rx# [id number] Last Released: 02/14/24 Qty/Days Supply: 135/90 Rx Expiration Date: 05/26/24 Refills Remainin Indication: FOR POTASSIUM SUPPLEMENTATION OUTPT POTASSIUM CL 20MEQ SA TAB (DISPERSIBLE) (Status = Active) TAKE ONE TABLET BY MOUTH ONCE A DAY FOR POTASSIUM SUPPLEMENTATION AND TAKE 1 ADDITIONAL TABLET EVERY OTHER DAY. TAKE WITH FOOD Rx# [id number] Last Released: 06/17/24 Qty/Days Supply: 135/90 Rx Expiration Date: 06/14/25 Refills Remainin Indication: FOR POTASSIUM SUPPLEMENTATION OUTPT TAMSULOSIN HCL 0.4MG CAP (Status = Active) TAKE TWO CAPSULES BY MOUTH EVERY EVENING FOR BENIGN PROSTATIC HYPERPLASIA APPROXIMATELY 30 MINUTES AFTER THE SAME MEAL EACH DAY (FOR PROSTATE) Rx# [id number] Last Released: 05/15/24 Qty/Days Supply: 180/90 Rx Expiration Date: 12/14/24 Refills Remainin Indication: FOR BENIGN PROSTATIC HYPERPLASIA SUPPLIES PHARMACY TERMS AND POSSIBLE PATIENT ACTIONS INPT = DC inpatient order IV = DC intravenous medication OUTPT = DC outpatient prescription PHARMACY POSSIBLE PATIENT TERMS EXPLANATION ACTIONS -------- -- ACTIVE A prescription that can be If you have refills, filled at the local DC pharmacy. you may request a refill of this prescription from your DC pharmacy. CLINIC A medication you received during If you have questions a visit to a DC clinic or about this medication emergency department. contact your DC healthcare team. DISCONTINUED A prescription your provider has Contact your [facility] stopped. It is no longer healthcare team if you available to be sent to you or need more of this picked up at the DC pharmacy medication. window. A prescription which is [...] the VA date, please tell your or non-VA providers that was VA healthcare team. filled outside the VA. Or, it may be an iypx-qat-knefxka (OTC), herbal, dietary supplements or sample medication. [...] An active prescription that is Contact your DC not scheduled to be filled yet. pharmacy if you need You should receive it before this medication now. you run out. ====== DISCONTINUED: none ADDED/CHANGES: none NON-VA MEDICATIONS NOT LISTED ABOVE (List, including Herbals and OTC): Reviewed with patient/family members. Copy given to patient. Patient verbalized understanding? yes = ASSESSMENT/IMPRESSION: Annual adult well exam -current Hypertension -current Hyperlipidemia -current Atrial fibrillation -current PTSD -current BPH -current pneumonia -current PLAN OF CARE: Adult annual well exam plan annual labs today Hypertension plan to continue current medications annual labs today Hyperlipidemia plan to continue atorvastatin and plan labs today Atrial fibrillation plan annual labs today plan to continue current medications PTSD plan to continue current medications BPH plan to continue current medications plan annual labs today pneumonia plan to call Augmentin, Tessalon pearls and doxycycline called to [facility] [place] called reported x-ray report will treat for pneumonia Impression: 1. Mild density in the left lung base which may represent scarring, atelectasis, or infiltrate. 2. Borderline cardiomegaly. 3. Blunting of the left costophrenic angle which may represent pleural scarring or a small left pleural effusion. 4. Chronic changes. 5. Follow-up chest x-ray in approximately 1 week is recommended. Follow-up: _8_ months and/or as needed and keep regularly scheduled appointment. Discussed diet and exercise as relevant to patient conditions. Patient is advised this primary care clinic has open access and he can make a same day appointment anytime a problem/concern arises. Patient further advised he can be seen on a walk-in basis as needed. Patient is provided clinic contact information. Treatment plan as noted above and the After Visit Summary was reviewed with ; opportunity provided to report concerns and ask question regarding aspects of care or treatment or services; concurrence reached and verbalized understanding. Discussed with patient that in the event of community imaging/testing being ordered in the future, once the imaging testing has been completed, please notify PACT of within 1 week by a DC PACT member; this is due to intermittent lapses in notification of imaging completion within CPRS. All questions answered; agrees to plan of care. Follow up as listed above, annually, and as needed. Keep all completion at outside facility if not called with results appointments. Medications Reconciled. Time spent 30 minutes. Amanda KRAMER-[facility] MAY Float /es/ NIA Auguste, MSN, Zaida Bennetthing [facility] Signed: 06/19/2024 16:12 AMANDA JAIN [facility] Jun 19, 2024 10:55 AM PRIMARY CARE NURSING NOTE: LOCAL TITLE: PRIMARY CARE NURSING PROGRESS NOTE (TEXT) NURSING P STANDARD TITLE: PRIMARY CARE NURSING NOTE DATE OF NOTE: JUN 19, 2024@10:55 ENTRY DATE: JUN 19, 2024@10:55:07 AUTHOR: BARBARA CHAPARRO COSIGNER: URGENCY: STATUS: COMPLETED Established Patient ZAIDA MURILLO IS A 78 YEAR OLD MALE BEING SEEN IN CLINIC JUN 19, 2024. REASON FOR VISIT: Annual visit Are you receiving care any where other than the DC? No HEALTH AND SURGICAL HISTORY: Does patient report using home oxygen? CURRENT ACTIVE MEDICATIONS FOR REVIEW: If the list for review does not include a component, then it was not applicable to this patient. Allergies/ADRs (Tool #5) FACILITY [facility] -------- [facility]ON[facility] DILTIAZEM [place] [facility] HYDROCHLOROTHIAZIDE [facility] [facility] LISINOPRIL [facility] [facility] SERTRALINE [place] [facility] SPIRONOLACTONE BILI [facility] TELMISARTAN GERDA CRESPOOG [facility] CLONIDINE GERDA CRESPOOG [facility] DILTIAZEM GERDA [facility] SERTRALINE GERDA Saldivar [facility] TELMISARTAN [facility] HYDROCHLOROTHIAZIDE [facility] LISINOPRIL [facility] SPIRONOLACTONE [facility] TELMISARTAN [facility] ALDACTONE [facility] CLONIDINE [facility] DILTIAZEM [facility] HCTZ HYDROCHLOROTHIAZIDE [facility] LISINOPRIL [facility] MICARDIS TABS [facility] ZOLOFT Med. Reconciliation (Tool #1) INCLUDED IN THIS LIST: Alphabetical list of active outpatient prescriptions dispensed from this DC (local) and dispensed from another DC or DoD facility (remote) as well as inpatient orders (local pending and active), local clinic medications, locally documented non-VA medications, and local prescriptions that have or been discontinued in the past 90 days. Non-VA Meds Last Documented On: Data not found NOTE The display of VA prescriptions dispensed from another DC or DoD facility (remote) is limited to active outpatient prescription entries matched to National Drug File at the originating site and may not include some items such as investigational drugs, compounds, etc. NOT INCLUDED IN THIS LIST: Medications self-entered by the patient into personal health records (i.e. [employer]) are NOT included in this list. Non-VA medications documented outside this DC, remote inpatient orders (regardless of status) and remote clinic medications are NOT included in this list. The patient and provider must always discuss medications the patient is taking, regardless of where the medication was dispensed or obtained. OUTPT AMLODIPINE BESYLATE 2.5MG TAB (Status = Discontinued) TAKE ONE TABLET BY MOUTH ONCE A DAY FOR HEART/BLOOD PRESSURE Rx# [id number] Last Released: 03/30/24 Qty/Days Supply: 90/ Rx Expiration Date: 05/26/24 Refills Remainin OUTPT AMLODIPINE BESYLATE 2.5MG TAB (Status = Active) TAKE ONE TABLET BY MOUTH ONCE A DAY FOR HEART/BLOOD PRESSURE Rx# [id number] Last Released: 06/18/24 Qty/Days Supply: 90/90 Rx Expiration Date: 06/14/25 Refills Remainin OUTPT ASPIRIN 81MG EC TAB (Status = Active) TAKE ONE TABLET BY MOUTH ONCE A DAY FOR CARDIOVASCULAR DISEASE TAKE WITH FOOD. Rx# [id number] Last Released: 02/15/24 Qty/Days Supply: 120/90 Rx Expiration Date: 02/13/25 Refills Remainin Indication: FOR CARDIOVASCULAR DISEASE OUTPT ATORVASTATIN CALCIUM 80MG TAB (Status = Active) TAKE ONE-HALF TABLET BY MOUTH EVERY EVENING FOR HIGH CHOLESTEROL Rx# [id number] Last Released: 02/15/24 Qty/Days Supply: 45/90 Rx Expiration Date: 02/13/25 Refills Remainin Indication: FOR HIGH CHOLESTEROL OUTPT CARVEDILOL 12.5MG TAB (Status = Discontinued) TAKE ONE TABLET BY MOUTH EVERY MORNING AND TAKE ONE-HALF TABLET EVERY EVENING FOR HIGH BLOOD PRESSURE TAKE WITH FOOD. DOSAGE CHANGE Rx# [id number] Last Released: 05/29/24 Qty/Days Supply: 135/90 Rx Expiration Date: 06/16/24 Refills Remainin Indication: FOR HIGH BLOOD PRESSURE OUTPT CARVEDILOL 12.5MG TAB (Status = Active/Suspended) TAKE ONE TABLET BY MOUTH EVERY MORNING AND TAKE ONE-HALF TABLET EVERY EVENING FOR HIGH BLOOD PRESSURE TAKE WITH FOOD. DOSAGE CHANGE Rx# [id number] Last Released: Qt/ Supply: 135 Rx Expiration Date: 06/14/25 Refills Remainin Indication: FOR HIGH BLOOD PRESSURE OUTPT CLOPIDOGREL BISULFATE 75MG TAB (Status = Active) TAKE ONE TABLET BY MOUTH ONCE A DAY FOR ACUTE CORONARY SYNDROME Rx# [id number] Last Released: 06/13/24 Qty/Days Supply: Rx Expiration Date: 02/13/25 Refills Remainin Indication: FOR ACUTE CORONARY SYNDROME OUTPT DORZOLAMIDE 22.3/TIMOLOL6.8MG/ML OPH JAVI (Status = ) INSTILL 1 DROP IN LEFT EYE TWICE A DAY Rx# [id number] Last Released: 04/26/24 Qty/Days Supply: 12/26 Rx Expiration Date: 06/15/24 Refills Remainin OUTPT FINASTERIDE 5MG TAB (Status = Active) TAKE ONE TABLET BY MOUTH ONCE A DAY FOR BENIGN PROSTATIC HYPERPLASIA SWALLOW WHOLE, DO NOT CRUSH, SPLIT, OR CHEW. Rx# [id number] Last Released: 04/17/24 Qty/Days Supply: Rx Expiration Date: 12/14/24 Refills Remainin Indication: FOR BENIGN PROSTATIC HYPERPLASIA OUTPT FUROSEMIDE 40MG TAB (Status = Discontinued) TAKE ONE TABLET BY MOUTH EVERY MORNING FOR FLUID RETENTION (EDEMA) Rx# [id number] Last Released: 04/15/24 Qty/Days Supply: Rx Expiration Date: 05/26/24 Refills Remainin Indication: FOR FLUID RETENTION (EDEMA) OUTPT FUROSEMIDE 40MG TAB (Status = Active/Suspended) TAKE ONE TABLET BY MOUTH EVERY MORNING FOR FLUID RETENTION (EDEMA) Rx# [id number] Last Released: Qty/Days Supply: Rx Expiration Date: 06/14/25 Refills Remainin Indication: FOR FLUID RETENTION (EDEMA) OUTPT GABAPENTIN 300MG CAP (Status = Active) TAKE ONE CAPSULE BY MOUTH THREE TIMES A DAY FOR NERVE PAIN Rx# [id number] Last Released: 05/16/24 Qty/Days Supply: 270/ Rx Expiration Date: 05/16/25 Refills Remainin Indication: FOR NERVE PAIN OUTPT HYDROXYZINE HCL 25MG TAB (Status = Discontinued) TAKE ONE TABLET BY MOUTH THREE TIMES A DAY NEEDED ANXIETY OR SLEEP. *MAY CAUSE DROWSINESS* Rx# [id number] Last Released: 05/31/23 Qty/Days Supply: 150/90 Rx Expiration Date: 05/26/24 Refills Remainin Indication: ANXIETY OR SLEEP. OUTPT HYDROXYZINE HCL 25MG TAB (Status = Active) TAKE ONE TABLET BY MOUTH THREE TIMES A DAY NEEDED ANXIETY OR SLEEP. *MAY CAUSE DROWSINESS* Rx# [id number] Last Released: 06/17/24 Qty/Days Supply: 150/90 Rx Expiration Date: 06/14/25 Refills Remainin Indication: ANXIETY OR SLEEP. OUTPT ISOSORBIDE MONONITRATE 30MG SA TAB (Status = Discontinued) TAKE ONE TABLET BY MOUTH ONCE A DAY TO PREVENT CHEST PAIN. TAKE ON EMPTY STOMACH. SWALLOW WHOLE. DO NOT CRUSH OR CHEW. Rx# [id number] Last Released: 04/12/24 Qty/Days Supply: 90/90 Rx Expiration Date: 05/26/24 Refills Remainin OUTPT ISOSORBIDE MONONITRATE 30MG SA TAB (Status = Active) TAKE ONE TABLET BY MOUTH ONCE A DAY TO PREVENT CHEST PAIN. TAKE ON EMPTY STOMACH. SWALLOW WHOLE. DO NOT CRUSH OR CHEW. Rx# [id number] Last Released: 06/17/24 Qty/Days Supply: 90 Rx Expiration Date: 06/14/25 Refills Remainin OUTPT LATANOPROST 0.005% OPH SOLN (Status = Discontinued) INSTILL 1 DROP IN BOTH EYES EVERY EVENING FOR GLAUCOMA. KEEP REFRIGERATED UNTIL READY TO USE, THEN STORE AT ROOM TEMPERATURE FOR MAXIMUM OF 42 DAYS. Rx# [id number] Last Released: 03/08/24 Qty/Days Supply: 7. Rx Expiration Date: 05/26/24 Refills Remainin OUTPT LATANOPROST 0.005% OPH SOLN (Status = Active) INSTILL 1 DROP IN BOTH EYES EVERY EVENING FOR GLAUCOMA. KEEP REFRIGERATED UNTIL READY TO USE, THEN STORE AT ROOM TEMPERATURE FOR MAXIMUM OF 42 DAYS. Rx# [id number] Last Released: 06/17/24 Qty/Days Supply: 7. Rx Expiration Date: 06/14/25 Refills Remainin OUTPT METHOCARBAMOL 750MG TAB (Status = Active) TAKE 1 TABLET BY MOUTH EVERY EIGHT(8) HOURS NEEDED FOR MUSCLE SPASM Rx# [id number] Last Released: 05/16/24 Qty/Days Supply: 270/90 Rx Expiration Date: 05/16/25 Refills Remainin Indication: FOR MUSCLE SPASM OUTPT MULTIVIT/OPHTH AREDS2/LUTE/ZEAX CAP/TAB (Status = Discontinued) TAKE 1 CAP/TAB BY MOUTH TWICE A DAY WITH MEAL(S) FOR EYE HEALTH. AVOID IF YOU HAVE PEANUT ALLERGY. Rx# [id number] Last Released: 02/23/24 Qty/Days Supply: 240/90 Rx Expiration Date: 05/26/24 Refills Remainin OUTPT MULTIVIT/OPHTH AREDS2/LUTE/ZEAX CAP/TAB (Status = Active) TAKE 1 CAP/TAB BY MOUTH TWICE A DAY WITH MEAL(S) FOR EYE HEALTH. AVOID IF YOU HAVE PEANUT ALLERGY. Rx# [id number] Last Released: 06/17/24 Qty/Days Supply: 240/90 Rx Expiration Date: 06/14/25 Refills Remainin OUTPT PANTOPRAZOLE NA 40MG EC TAB (Status = Active) TAKE ONE TABLET BY MOUTH EVERY MORNING BEFORE A MEAL FOR GASTROESOPHAGEAL REFLUX DISEASE TAKE 30 MINUTES BEFORE MEAL(S) Rx# [id number] Last Released: 02/19/24 Qty/Days Supply: 90 Rx Expiration Date: 02/13/25 Refills Remainin Indication: FOR GASTROESOPHAGEAL REFLUX DISEASE OUTPT POTASSIUM CL 20MEQ SA TAB (DISPERSIBLE) (Status = Discontinued) TAKE ONE TABLET BY MOUTH ONCE A DAY FOR POTASSIUM SUPPLEMENTATION AND TAKE 1 ADDITIONAL TABLET EVERY OTHER DAY. TAKE WITH FOOD Rx# [id number] Last Released: 02/14/24 Qty/Days Supply: 135/90 Rx Expiration Date: 05/26/24 Refills Remainin Indication: FOR POTASSIUM SUPPLEMENTATION OUTPT POTASSIUM CL 20MEQ SA TAB (DISPERSIBLE) (Status = Active) TAKE ONE TABLET BY MOUTH ONCE A DAY FOR POTASSIUM SUPPLEMENTATION AND TAKE 1 ADDITIONAL TABLET EVERY OTHER DAY. TAKE WITH FOOD Rx# [id number] Last Released: 06/17/24 Qty/Days Supply: 135/90 Rx Expiration Date: 06/14/25 Refills Remainin Indication: FOR POTASSIUM SUPPLEMENTATION OUTPT TAMSULOSIN HCL 0.4MG CAP (Status = Active) TAKE TWO CAPSULES BY MOUTH EVERY EVENING FOR BENIGN PROSTATIC HYPERPLASIA APPROXIMATELY 30 MINUTES AFTER THE SAME MEAL EACH DAY (FOR PROSTATE) Rx# [id number] Last Released: 05/15/24 Qty/Days Supply: 180/90 Rx Expiration Date: 12/14/24 Refills Remainin Indication: FOR BENIGN PROSTATIC HYPERPLASIA SUPPLIES PHARMACY TERMS AND POSSIBLE PATIENT ACTIONS INPT = DC inpatient order IV = DC intravenous medication OUTPT = DC outpatient prescription PHARMACY POSSIBLE PATIENT TERMS EXPLANATION ACTIONS -------- -- ACTIVE A prescription that can be If you have refills, filled at the local DC pharmacy. you may request a refill of this prescription from your DC pharmacy. CLINIC A medication you received during If you have questions a visit to a DC clinic or about this medication emergency department. contact your DC healthcare team. DISCONTINUED A prescription your provider has Contact your DC stopped. It is no longer healthcare team if you available to be sent to you or need more of this picked up at the DC pharmacy medication. window. A prescription which is [...] the [facility]. Or, it may be an iflu-cwx-wewyxaz (OTC), herbal, dietary supplements or sample medication. [...] An active prescription that is Contact your DC not scheduled to be filled yet. pharmacy if you need You should receive it before this medication now. you run out. ====== Medication list reviewed with Patient Patient/Caregiver reports taking medications as ordered. IS PATIENT TAKING ANY OVER THE COUNTER MEDICATIONS, SUCH VITAMINS OR HERBAL SUPPLEMENTS, INCLUDING ANY MEDICATIONS PRESCRIBED BY ANOTHER PHYSICIAN? No Does patient have any new allergies to report since last visit? NO VITALS: TEMPERATURE: 97.4 F [36.3 C] (05/15/2024 13:10) BP: 132/88 (05/15/2024 13:33) RESP: 20 (05/15/2024 13:10) PULSE: 84 (05/15/2024 [...] Now let us serve you. At the [facility], we strive to provide you with exceptional health care that improves your health and well-being. Are you feeling sad, empty, or depressed? No Do you need to talk about things [...] Not At All SPIRITUAL ASSESSMENT: Are there uatsdin practices or spiritual concerns you want the salsa dance instructor, your physician, and other health care team members to immediately know about? No Patient advised to call the clinic for any concerns, questions, or symptoms. Patient and/or caregiver verbalized understanding of plan of care. Per [facility] Directive 1605.06, wristband documentation: Patient wristband was removed and destroyed by (staff name) Barbara Chaparro and placed in the designated [employer] bin. Influenza Immunization - L,N,P,PH,U: Deferral / Refusal The patient declines to receive the recommended dose of seasonal influenza vaccine. Immunization: INFLUENZA, UNSPECIFIED FORMULATION Refusal Reason: PATIENT DECISION Patient refuses all immunization(s) in the FLU group Date Documented: 06/19/24 11:08 COVID-19 Immunization - L,N,P,PH,U: Refused Moderna Monovalent COVID-19 vaccine Immunization: COVID-19 (MODERNA), MRNA, LNP-S, PF, 50 MCG/0.5 ML (AGES 12+ YEARS) Refusal Reason: PATIENT DECISION Patient refuses all immunization(s) in the COVID-19 group Date Documented: 06/19/24 11:08 Frail/Elderly Screen: ADL Screen - [place] Index of [place] in Activities of Daily Living Bathing: (3 Points) Receives no assistance (gets in and out of tub by self, if tub is usual means of bathing) Dressing: (3 Points) Gets clothes and gets completely dressed without assistance. Toileting: (3 Points) Goes to toilet room , cleans self, and arranges clothes without assistance (may use object for support such as cane, walker, or wheelchair, and may manage own night bedpan or commode, emptying same next morning) Transferring: (3 Points) Moves in and out of bed and in and out of chair without assistance (may be using object for support, such as cane or walker) Continence: (2 Points) Has occasional accidents or urination or bowels Feeding: (3 Points) Feeds self without assistance Total Score: 18 Points 18 = High (patient independent) 6 = Low (patient very dependent) IADL Screen - [place] Instrumental Activities of Daily Living Scale Ability to use telephone: (1 point) Operates Telephone on own initiative; looks up and dials numbers. Shopping: (1 point) Takes care of all shopping needs independently. Food preparation: (1 point) Plans, prepares, and serves adequate meals independently. Housekeeping: (1 point) Maintains house alone with occasional assistance (heavy work). Laundry: (1 point) Does personal laundry completely. Mode of transportation: (1 point) Travels independently on public transportation or drives own car. Responsibility for own medications: (1 point) Is responsible for taking medications in correct dosages at correct times. Ability to handle finances: (1 point) Manages financial matters independently (budgets, writes checks, pays rent and bills, goes to bank); collects and keeps track of income. Total score: 8 points 8 = High function, independent 0 = Low function, dependent Falls Screen: At least one fall with injury requiring treatment (in ED or clinic visit) within the last 12 months. Incontinence Screen: No incontinence. Eye Care At-Risk Screen - L,N,PH,U: Patient identified to be at risk for the following eye condition(s): MACULAR DEGENERATION: Macular Degeneration Risk Factors Information: Reminder Term: VA-AMD RISK FACTORS Problem Diagnosis: 06/19/2024@11:10:18 I25.10 (ICD-10-CM) Atherosclerotic Heart Disease of [place] Coronary Artery without Angina Pectoris Date Entered: 06/15/2020; Date Last Modified: 06/15/2020 Status: ACTIVE; Priority: CHRONIC Prov. Narr. - CAD - Coronary Artery Disease ([facility] [id number]) Action: No Referral Ordered: Eye exam completed elsewhere by an Twisting Press Operator or Commercial Sewing Instructor Exam Information: Date: May, ? Exact date is unknown Findings/Comment Getting eye injections Location: Dr. Torres at [facility] Patient/Nurse Interview: * * Patient stated that adequate information was received regarding the condition and/or treatment. Pain Assessment: - PAIN ASSESSMENT: .. This patient's last pain assessment score was: 7 (06/19/2024 11:03). A detailed pain assessment showed the following: Location of current pain Bilateral arm fractures from fall. Patient's self identified pain goal: 7 Herpes Zoster (Shingles) Vaccine - L,N,P,PH,U: The patient declines to receive the recommended dose of zoster (shingles) vaccine. Immunization: ZOSTER RECOMBINANT Refusal Reason: PATIENT DECISION Patient refuses all immunization(s) in the ZOSTER group Date Documented: 06/19/24 11:13 /nancy/ BARBARA CHAPARRO LPN [facility] Signed: 06/19/2024 11:13 BARBARA CHAPARRO [facility]
[2024-09-23] VITALS (8 sets, daily range): BP systolic 140–178; BP diastolic 86–107; PULSE 82–95; RESP 16–18; TEMP 37.3; O2SAT 91–97; BMI 35.2
--- OUTSIDE RECORDS SUMMARY | 2024-09-23 19:33 | XMS_ITS | Continuity of Care Document ---
Author Name [facility] Organization [facility] Care Team Providers Care Digital Campaign Manager Name Role Phone [facility] Unavailable Unavailable Problems Combined list of problems from Department of Defense and Veterans Affairs facilities. It does not include entries that were removed or entered in error. Problem Status Onset Date Problem Type Date of Resolution Comments Source Abnormal glucose level Active Condition Unknown Organization Atrial fibrillation Active Condition Un known Organization Atrial fibrillation and flutter Active Condition Unknown Organization Benign essential hypertension (SNOMED CT 7931167) Active Condition Unknown Organization Hypertension, Benign Active Condition U nknown Organization Benign prostatic hyperplasia Active Condition Unknown Organization Benign prostatic hypertrophy without outflow obstruction Active Condition Unkno Organization Coronary artery disease1 Active Condition cardiology eval 01/09/18 reviewed on 03/13/18 Unknown Organization Dyspnea on exertion Active Condition Un known Organization Essential hypertension Active Condition Unknown Organization Wet senile macular degeneration2 Active Condition Eyeinjections every 8 weeks- Eylea Unknown Organization Family History of Diabetes Mellitus3 Active Condition MOTHER, NIDDM Unk nown Organization Generalized seizure4 Active Condition hospitalized 04/2017 seizures secondary to severe hyponatremia Unknown Organization Gout Active Condition Unknown Organization History of shingles Active Condition Un known Organization History of radiofrequency ablation operation for arrhythmia Active Condition Unknown Organization Hypercholesterolemia Active Condition U nknown Organization Hyperlipidemia (SNOMED CT 58811678) Active Condition Unknown Organization Hypertension5 Active Condition PREVIO USLY ON HCTZ/PROPRANOL OL 25/40 MG. HYPOKALEMIA?<b r/>HCTZ/LISINO PRIL 12.520 INITIATED REPLACEMENT Unknown Organization Hypokalemia Active Condition Unknown Organization Hyponatremia Active Condition Unknown Organization Left ventricular hypertrophy6 Active Condition cardiology exam 06/28/17 karlene Dia 6 months Unknown Organization Cancer of tongue Active Condition Unkno wn Organization Medical examinations/reports status (SNOMED CT 460898803) Active Condition Unknown Organization Obstructive sleep apnea syndrome7 Active Condition CPAP Unknown Organization Bilateral foot pain Active Condition Un known Organization Ptsd Active Condition Unknown Organization Elevated PSA Active Condition Unknown Organization Sensorineural hearing loss Active Condition Unknown Organization Ventricular tachycardia Active Condition Unknown Organization AF- Atrial Fibrillation (SCT 15910997) Active Condition Jun 15, 2020 Entered By: MILLA DANG RD Comment: Intermittent. Watchman device implanted.Jun 15, 2020 Entered By: MILLA DANG RD Comment: Hx. Abalation procedure. [facility] Benign prostatic hyperplasia Active Condition GERDA Janna [facility] Benign Prostatic Hypertrophy with Outflow Obstruction (SCT 787560547) Active Condition [facility] Bilateral tinnitus Active Condition [facility] CAD - Coronary artery disease Active Condition Mar 13, 2018 Entered By: RODO DRISCOLL Comment: cardiology eval 01/09/18 reviewed on 03/13/18 [facility] CAD - Coronary Artery Disease ([facility] 57747267) Active Condition [facility] Coronary artery disease Active Condition [facility] Elevated PSA Active Condition Jun 12, 2020 Entered By: MILLA DANG RD Comment: 17 in May,.Jun 15, 2020 Entered By: MILLA DANG RD Comment: Biopsy neg. per pt. Declines referral 05/2020. [facility] Elevated PSA (SNOMED CT 135939334) Active Condition [facility] Exposure to potentially hazardous chemical Active Condition [facility] Exposure to potentially hazardous substance Active Condition [facility] Family History of Diabetes Mellitus Active Condition Aug 03 07 Entered By: ZAIDA RAY Comment: MOTHER, NIDDM [facility] Generalized seizure Active Condition May 23, 2017 Entered By: RODO DRISCOLL Comment: hospitalized 04/2017 seizures secondary to severe hyponatremia [facility] Gout (SCT 71993907) Active Condition [facility] Hearing Loss (SCT 50454547) Active Condition [facility] Hyperlipidemia (SCT 06117163) Active Condition [facility] Hypertension Active Condition Jan 16, 2006 Entered By: ZAIDA RAY Comment: PREVIOUSLY ON HCTZ/PROPRANOL OL 25/40 MG. HYPOKALEMIA?Ju n 2006 Entered By: ZAIDA RAY Comment: HCTZ/LISINOPRI L 12.5 INITIATED REPLACEMENT [facility] Hypertension (SNOMED CT 97081181) Active Condition [facility] Left ventricular hypertrophy Active Condition Aug 22, 2017 Entered By: RODO DRISCOLL Comment: cardiology exam 06/28/17 karlene Dia 6 months [facility] LVH - Left ventricular hypertrophy Active Condition [facility] Obstructive sleep apnea syndrome Active Condition May 23, 2017 Entered By: RODO DRISCOLL Comment: CPAP [facility] Obstructive sleep apnea syndrome Active Condition [facility] PTSD - Post-traumatic stress disorder Active Condition [facility] Sleep Apnea Active Condition Jan 16, 2006 Entered By: ZAIDA RAY Comment: ON C-PAP. CONSISTENT USE ENCOURAGED [facility]DA CandelariaStefani [facility] Sleep Apnea (SCT 71058245) Active Condition [facility] Vitamin B12 deficiency Active Condition [facility] VT - Ventricular tachycardia Active Condition [place] [facility] Wet senile macular degeneration Active Condition Dec 06, 2017 Entered By: RODO DRISCOLL Comment: Eyeinjections every 8 weeks- Eylea [facility] Chest discomfort Inactive Condition 05/23/2017 [facility] Chest pain Inactive Condition 03/13/2018 Jan 25, 2018 Entered By: RODO DRISCOLL Comment: lidia [facility] Edema Inactive Condition 10/27/2004 [facility] Fatigue Inactive Condition 05/15/2017 [facility] Lipoma Inactive Condition 05/15/2017 [facility] Morbid obesity Inactive Condition 05/23/2017 [facility] Obesity Inactive Condition 01/16/2006 GERDA TeaganStefani [facility] Obstructive Sleep APNEA (ADULT) (Pediatric) (ICD-9-CM 327.23) Inactive Condition 05/15/2017 [facility] Other and unspecified Sleep Apnea (ICD-9-CM 780.57) Inactive Condition 05/15/2017 [facility] Palpitations Inactive Condition 03/13/2018Dec Entered By: RODO DRISCOLL Comment: per [facility] SENSORY R L B Inactive Condition 08/03/2006 [facility] Tinnitus-Subj R L B Inactive Condition 08/03/2006 [facility] Diagnosis: ICD-10-CM Z00.01 Encounter for general adult medical exam w abnormal findings Active Diagnosis [facility] Diagnosis: ICD-10-CM Z09 Encntr for f/u exam aft trtmt for cond oth than malig neoplm Active Diagnosis [facility] Diagnosis: ICD-10-CM F43.10 Post-traumatic stress disorder, unspecified Active Diagnosis [facility] Diagnosis: ICD-10-CM Z46.1 Encounter for fitting and adjustment of hearing aid Active Diagnosis [facility] Diagnosis: ICD-10-CM N40.1 Benign prostatic hyperplasia with lower urinary tract symp Active Diagnosis [facility] Diagnosis: ICD-10-CM Z02.89 Encounter for other administrative examinations Active Diagnosis [facility] Diagnosis: ICD-10-CM H93.13 Tinnitus, bilateral Active Diagnosis [facility] Diagnosis: ICD-10-CM D49.2 Neoplasm of unsp behavior of bone, soft tissue, and skin Active Diagnosis [facility] Diagnosis: ICD-10-CM Z13.89 Encounter for screening for other disorder Active Diagnosis [facility] Diagnosis: ICD-10-CM I25.10 Athscl heart disease of ione coronary artery w/o ang pctrs Active Diagnosis [facility] Diagnosis: ICD-10-CM G47.33 Obstructive sleep apnea (adult) (pediatric) Active Diagnosis [facility] Medications Combined list of outpatient medications from Department of Defense and Veterans Affairs facilities.Medications provided include 1) outpatient medications from the last 15 months, and 2) patient-reported medications. Medication Details Route Status Patient Instructions Prescription Expires Prescription Number Last Dispense Date Ordering Provider Order Date Order Qty Source ALBUTEROL 90 MCG (CFC-F) FOR PFT Inhale, Once, INHALE 2 PUFFS BY INHALATI ON ONE TIME ONLY ADMINIST ERED IN CLINIC, 0 total refill(s ) Inhala tion (breat he in) Complet ed 05/14/20202020 [facility] PST AMIODARONE HCL (PACERONE) 200MG TAB 200 mg, Oral, Daily, TAKE ONE TABLET BY MOUTH DAILY FOR ARRHYTHM IA, 0 total refill(s ) Oral (given by mouth) Ordered 2019 [facility] PST AMLODIPINE BESYLATE 2.5MG TAB 2.5 mg, Oral, Daily, TAKE ONE TABLET BY MOUTH EVERY DAY FOR BLOOD PRESSURE CONTROL. , 0 total refill(s ) Oral (given by mouth) Complet ed 12/26/20192019 [facility] PST AMLODIPINE BESYLATE 2.5MG TAB 2.5 mg, Oral, Daily, TAKE ONE TABLET BY MOUTH EVERY DAY FOR BLOOD PRESSURE CONTROL. , 0 total refill(s ), Physicia n Stop Oral (given by mouth) Discont inued 06/29/20172019 [facility] PST AMLODIPINE BESYLATE 2.5MG TAB 2.5 mg, Oral, Daily, TAKE ONE TABLET BY MOUTH EVERY DAY FOR BLOOD PRESSURE CONTROL. , 0 total refill(s ) Oral (given by mouth) Complet ed 12/26/20192019 [facility] PST AMLODIPINE BESYLATE 2.5MG TAB TAKE ONE TABLET BY MOUTH ONCE A DAY FOR HEART/BL OOD PRESSURE ORAL ACTIVE 06/14/2025 [id number] 5 ANSELMO JAIN [address] [place] [address] [facility] AMLODIPINE BESYLATE 2.5MG TAB TAKE ONE TABLET BY MOUTH ONCE A DAY FOR HEART/BL OOD PRESSURE ORAL DISCONT INUED 05/26/2024 [id number] 5 SHANNON DANG [address] [place] [address] [facility] AMLODIPINE BESYLATE 5MG TAB 5 mg, Oral, Daily, TAKE ONE TABLET BY MOUTH EVERY DAY FOR BLOOD PRESSURE CONTROL. , 0 total refill(s ), Physicia n Stop Oral (given by mouth) Discont inued 05/15/20172019 [facility] PST AMLODIPINE BESYLATE 5MG TAB 2.5 mg, Oral, Daily, TAKE ONE-HALF TABLET BY MOUTH DAILY (DO NOT TAKE WITH GRAPEFRU IT JUICE) FOR HEART AND BLOOD PRESSURE , 0 total refill(s ) Oral (given by mouth) Ordered 2019 [facility] PST AMOXICILLIN TRIHYDRATE 875MG/CLAVU LANATE K 125MG TAB TAKE ONE TABLET BY MOUTH TWO TIMES DAILY WITH MEALS ORAL ACTIVE AMERICOLAXMIY 2017 [facility] APIXABAN 5MG TAB 5 mg, Oral, BID, TAKE ONE TABLET BY MOUTH TWICE A DAY AN ANTICOAG ULANT (BLOOD THINNER) , 0 total refill(s ) Oral (given by mouth) Complet ed 05/14/20202020 [facility] PST APIXABAN 5MG TAB 5 mg, Oral, BID, TAKE ONE TABLET BY MOUTH TWICE A DAY AN ANTICOAG ULANT (BLOOD THINNER) , 0 total refill(s ), Physicia n Stop Oral (given by mouth) Discont inued 08/21/20192019 [facility] PST ASPIRIN 81MG EC TAB 81 mg, Oral, Daily, TAKE ONE TABLET BY MOUTH EVERY DAY FOR HEART AND CIRCULAT ION PER DR MURPHY, 0 total refill(s ) Oral (given by mouth) Complet ed 12/26/20192019 [facility] PST ASPIRIN 81MG EC TAB 81 mg, Oral, Daily, TAKE ONE TABLET BY MOUTH DAILY TO PREVENT BLOOD CLOTS, 0 total refill(s ) Oral (given by mouth) Ordered 2019 [facility] PST ASPIRIN 81MG TAB,EC TAKE ONE TABLET BY MOUTH ONCE A DAY FOR CARDIOVA SCULAR DISEASE TAKE WITH FOOD. ORAL ACTIVE 02/13/2025 [id number] ANSELMO JAIN 2023 120 [facility] ATORVASTATI N CA 80MG TAB TAKE ONE-HALF TABLET BY MOUTH EVERY EVENING FOR HIGH CHOLESTE ROL ORAL ACTIVE 02/13/2025 [id number] 5 ANSELMO JAIN G 2023 45 [facility] ATORVASTATI N CALCIUM 10MG TAB 10 mg, Oral, Daily, TAKE ONE TABLET BY MOUTH EVERY DAY FOR CHOLESTE ROL, 0 total refill(s ), Physicia n Stop Oral (given by mouth) Discont inued 01/10/20182019 [facility] PST ATORVASTATI N CALCIUM 80MG TAB 80 mg, Oral, every day at bedtime, TAKE ONE TABLET BY MOUTH AT BEDTIME FOR CHOLESTE ROL, 0 total refill(s ) Oral (given by mouth) Complet ed 12/26/20192019 [facility] PST CARVEDILOL 12.5MG TAB 6.25 mg, Oral, BID, TAKE ONE-HALF TABLET BY MOUTH TWICE A DAY FOR HEART AND BLOOD PRESSURE , 0 total refill(s ) Oral (given by mouth) Ordered 2019 [facility] PST CARVEDILOL 12.5MG TAB TAKE ONE TABLET BY MOUTH EVERY MORNING AND TAKE ONE-HALF TABLET EVERY EVENING FOR HIGH BLOOD PRESSURE TAKE WITH FOOD. DOSAGE CHANGE ORAL ACTIVE 06/14/2025 [id number] 5 ANSELMO JAIN 2024 [address] [place] [facility] CARVEDILOL 12.5MG TAB TAKE ONE TABLET BY MOUTH EVERY MORNING AND TAKE ONE-HALF TABLET EVERY EVENING FOR HIGH BLOOD PRESSURE TAKE WITH FOOD. DOSAGE CHANGE ORAL DISCONT INUED 06/16/2024 [id number] 5 SHANNON DANG 2023 [address] [place] [facility] CARVEDILOL 25MG TAB 12.5 mg, Oral, BID, TAKE ONE-HALF TABLET BY MOUTH TWICE A DAY FOR HEART AND BLOOD PRESSURE , 0 total refill(s ), Physicia n Stop Oral (given by mouth) Discont inued 06/28/20192019 [facility] PST CARVEDILOL 6.25MG TAB 6.25 mg, Oral, BID w/Meals, TAKE ONE TABLET BY MOUTH TWO TIMES DAILY WITH MEALS, 0 total refill(s ), Physicia n Stop Oral (given by mouth) Discont inued 07/04/20172019 [facility] PST CARVEDILOL 6.25MG TAB 6.25 mg, Oral, BID w/Meals, TAKE ONE TABLET BY MOUTH TWO TIMES DAILY WITH MEALS, 0 total refill(s ), Physicia n Stop Oral (given by mouth) Discont inued 05/07/20182019 [facility] PST CARVEDILOL 6.25MG TAB 6.25 mg, Oral, BID w/Meals, TAKE ONE TABLET BY MOUTH TWO TIMES DAILY WITH MEALS, 0 total refill(s ) Oral (given by mouth) Complet ed 12/26/20192019 [facility] PST CARVEDILOL 6.25MG TAB TAKE ONE TABLET BY MOUTH TWO TIMES DAILY WITH MEALS ORAL ACTIVE MARIO WEN 2017 [facility] CIPROFLOXAC IN HCL 500MG TAB 500 mg, Oral, As Directed , TAKE ONE TABLET BY MOUTH DIRECTED FOR PROSTATE BIOPSY (TAKE ONE TABLET THE EVENING PRIOR, ONE TABLET THE MORNING OF; ONE TABLET THE EVENING OF; ONE TABLET THE MORNING AFTER) DO NOT TAKE WITH MILK OR DAIRY PRODUCTS , 0 total refill(s ) Oral (given by mouth) Complet ed 12/26/20192019 [facility] PST CLOPIDOGREL BISULFATE 75MG TAB 75 mg, Oral, Daily, TAKE ONE TABLET BY MOUTH DAILY TO PREVENT BLOOD CLOTS, 0 total refill(s ) Oral (given by mouth) Ordered 2019 [facility] PST CLOPIDOGREL BISULFATE 75MG TAB TAKE ONE TABLET BY MOUTH ONCE A DAY FOR ACUTE CORONARY SYNDROME ORAL ACTIVE 02/13/2025 [id number] 5 ANSELMO JAIN [address] [place] [address] [facility]OC COLCHICINE 0.6MG CAP TAKE 1 CAPSULE BY MOUTH ORAL ACTIVE LAXMI DRISCOLL 2017 [facility] COLCHICINE 0.6MG TAB 1.2 mg, Oral, TAKE TWO TABLETS BY MOUTH NOW AT ONSET OF ATTACK. MAY REPEAT ONE TABLET IN ONE HOUR (MAX 3 TABLETS/ DAY)., 0 total refill(s ) Oral (given by mouth) Complet ed 12/26/20192019 [facility] PST COLCHICINE 0.6MG TAB 0.6 mg, Oral, Daily, TAKE ONE TABLET BY MOUTH DAILY UNTIL PAIN IMPROVES . FOR ACUTE GOUT ATTACK, 0 total refill(s ), Physicia n Stop Oral (given by mouth) Discont inued 10/15/20192019 [facility] PST CYCLOSPORIN E 0.05% (PF) OPH EMUL 0.4ML RIGHT EYE, BID, INSTILL 1 DROP IN RIGHT EYE TWICE A DAY, 0 total refill(s ) Complet ed 12/26/20192019 [facility] PST DICLOFENAC NA 1% TOP GEL Topical, QID, APPLY 4 GRAMS TOPICALL Y FOUR TIMES A DAY NEEDED FOR PAIN. USE DOSE CARD. DO NOT EXCEED 8 GRAMS/DA Y FOR JOINTS OF UPPER EXTREMIT IES, 16 GRAMS/DA Y FOR JOINTS OF LOWER EXTREMIT IES OR 32 GRAMS/DA Y OVER ALL JOINTS, 0 total refill(s ) Topica l (on the skin) Ordered 2019 [facility] PST DORZOLAMIDE HCL 22.3MG/HIEN LOL MALEATE 6.8MG/ML SOLN,OPH INSTILL 1 DROP IN LEFT EYE TWICE A DAY FOR GLAUCOMA OPHTHA LMIC ACTIVE 07/25/2025 [id number] REX DELATORRE EDWARD 2024 10 [facility] DORZOLAMIDE HCL 22.3MG/HIEN LOL MALEATE 6.8MG/ML SOLN,OPH INSTILL 1 DROP IN LEFT EYE TWICE A DAY OPHTHA LMIC 06/15/2024 [id number] 5 SHANNON DANG [address] [place] [address] [facility]OC FINASTERIDE 5MG TAB TAKE ONE TABLET BY MOUTH ONCE A DAY FOR BENIGN PROSTATI C HYPERPLA NELSON SWALLOW WHOLE, DO NOT CRUSH, SPLIT, OR CHEW. ORAL ACTIVE 12/14/2024 [id number] 5 ANSELMO JAIN ISTEL G [address] [place] [address] [facility]OC FUROSEMIDE 40MG TAB TAKE ONE TABLET BY MOUTH EVERY MORNING FOR FLUID RETENTIO N (EDEMA) ORAL ACTIVE 06/14/2025 [id number] 5 ANSELMO JAIN ISTEL G [address] [place] [address] [facility]OC FUROSEMIDE 40MG TAB TAKE ONE TABLET BY MOUTH EVERY MORNING FOR FLUID RETENTIO N (EDEMA) ORAL DISCONT INUED 05/26/2024 [id number] 5 SHANNON DANG [address] [place] [address] [facility]OC GABAPENTIN 300MG CAP TAKE ONE CAPSULE BY MOUTH THREE TIMES A DAY FOR NERVE PAIN ORAL ACTIVE 05/16/2025 [id number] ANSELMO JAIN G 2024 270 [facility] HYDROXYZINE HCL 25MG TAB TAKE ONE TABLET BY MOUTH THREE TIMES A DAY NEEDED ANXIETY OR SLEEP. *MAY CAUSE DROWSINE SS* ORAL ACTIVE 06/14/2025 [id number] 5 ANSELMO JAIN ISTEL G 2024 150 [facility] INDAPAMIDE 2.5MG TAB 2.5 mg, Oral, BID, TAKE ONE TABLET BY MOUTH TWICE A DAY FOR BLOOD PRESSURE CONTROL, 0 total refill(s ) Oral (given by mouth) Complet ed 12/26/20192019 [facility] PST INDAPAMIDE 2.5MG TAB 2.5 mg, Oral, BID, TAKE ONE TABLET BY MOUTH TWICE A DAY FOR BLOOD PRESSURE CONTROL, 0 total refill(s ), Physicia n Stop Oral (given by mouth) Discont inued 06/18/20182019 [facility] PST INDAPAMIDE 2.5MG TAB 2.5 mg, Oral, BID, TAKE ONE TABLET BY MOUTH TWICE A DAY A DIURETIC OR WATER PILL, 0 total refill(s ) Oral (given by mouth) Ordered 2019 [facility] PST INDAPAMIDE 2.5MG TAB 2.5 mg, Oral, BID, TAKE ONE TABLET BY MOUTH TWICE A DAY FOR BLOOD PRESSURE CONTROL, 0 total refill(s ), Physicia n Stop Oral (given by mouth) Discont inued 05/15/20172019 [facility] PST ISOSORBIDE MONONITRATE 30MG TAB,SA TAKE ONE TABLET BY MOUTH ONCE A DAY TO PREVENT CHEST PAIN. TAKE ON EMPTY STOMACH. SWALLOW WHOLE. DO NOT CRUSH OR CHEW. ORAL ACTIVE 06/14/2025 [id number] 5 ANSELMO JAIN ISTEL G 2024 90 [facility] ISOSORBIDE MONONITRATE 30MG TAB,SA TAKE ONE TABLET BY MOUTH ONCE A DAY TO PREVENT CHEST PAIN. TAKE ON EMPTY STOMACH. SWALLOW WHOLE. DO NOT CRUSH OR CHEW. ORAL DISCONT INUED 05/26/2024 [id number] 5 SHANNON DANG 2023 90 [facility] LATANOPROST 0.005% SOLN,OPH INSTILL 1 DROP IN BOTH EYES EVERY EVENING FOR GLAUCOMA . KEEP REFRIGER ATED UNTIL READY TO USE, THEN STORE AT ROOM TEMPERAT URE FOR MAXIMUM OF 42 DAYS. OPHTHA LMIC ACTIVE 06/14/2025 [id number] 5 ANSELMO JAIN G 2024 7.5 [facility] LATANOPROST 0.005% SOLN,OPH INSTILL 1 DROP IN BOTH EYES EVERY EVENING FOR GLAUCOMA . KEEP REFRIGER ATED UNTIL READY TO USE, THEN STORE AT ROOM TEMPERAT URE FOR MAXIMUM OF 42 DAYS. OPHTHA LMIC DISCONT INUED 05/26/2024 [id number] 5 SHANNON DANG 2023 7.5 [facility] METHOCARBAM OL 750MG TAB TAKE 1 TABLET BY MOUTH EVERY EIGHT(8) HOURS NEEDED FOR MUSCLE SPASM ORAL ACTIVE 05/16/2025 [id number] 5 ANSELMO JAIN 2024 270 [facility] MULTIVIT/OP HTH AREDS2/LUTE IN/ZEAXANTH IN CAP/TAB TAKE 1 CAP/TAB BY MOUTH TWICE A DAY WITH MEAL(S) FOR EYE HEALTH. AVOID IF YOU HAVE PEANUT ALLERGY. ORAL ACTIVE 06/14/2025 [id number] 5 ANSELMO JAINTEL G 2024 240 [facility] MULTIVIT/OP HTH AREDS2/LUTE IN/ZEAXANTH IN CAP/TAB TAKE 1 CAP/TAB BY MOUTH TWICE A DAY WITH MEAL(S) FOR EYE HEALTH. AVOID IF YOU HAVE PEANUT ALLERGY. ORAL DISCONT INUED 05/26/2024 [id number] 4 SHANNON DANG 2023 240 [facility] NITROFURANT OIN MONO/MACRO 100MG SA CAP 100 mg, Oral, As Directed , TAKE ONE CAPSULE BY MOUTH DIRECTED FOR PROSTATE BIOPSY (TAKE ONE CAPSULE THE EVENING PRIOR, ONE CAPSULE THE MORNING OF; ONE CAPSULE THE EVENING OF; ONE CAPSULE THE MORNING AFTER), 0 total refill(s ) Oral (given by mouth) Complet ed 12/26/20192019 [facility] PST OPHTH VITAMIN/ARE DS/LUTEIN CAP Oral, BID, TAKE 1 CAPSULE BY MOUTH TWICE A DAY, 0 total refill(s ) Oral (given by mouth) Ordered 2019 [facility] PST PANTOPRAZOL E NA 40MG TAB,EC TAKE ONE TABLET BY MOUTH EVERY MORNING BEFORE A MEAL FOR GASTROES OPHAGEAL REFLUX DISEASE TAKE 30 MINUTES BEFORE MEAL(S) ORAL ACTIVE 02/13/2025 [id number] ANSELMO JAIN ISTEL G 2023 90 [facility] POTASSIUM CHLORIDE 20MEQ TAB,SA (DISPERSIBL E) TAKE ONE TABLET BY MOUTH ONCE A DAY FOR POTASSIU M SUPPLEME NTATION AND TAKE 1 ADDITION AL TABLET EVERY OTHER DAY. TAKE WITH FOOD ORAL ACTIVE 06/14/2025 [id number] 5 ANSELMO JAIN ISTEL G 2024 135 [facility] POTASSIUM CHLORIDE 20MEQ TAB,SA (DISPERSIBL E) TAKE ONE TABLET BY MOUTH ONCE A DAY FOR POTASSIU M SUPPLEME NTATION AND TAKE 1 ADDITION AL TABLET EVERY OTHER DAY. TAKE WITH FOOD ORAL DISCONT INUED 05/26/2024 [id number] SHANNON DANG 2023 135 [facility] POTASSIUM CL 20MEQ SA TAB 20 mEq, Oral, Daily, TAKE ONE TABLET BY MOUTH DAILY A POTASSIU M SUPPLEME NT, 0 total refill(s ), Physicia n Stop Oral (given by mouth) Discont inued 05/10/20192019 [facility] PST POTASSIUM CL 20MEQ SA TAB (DISPERSIBL E) 20 mEq, Oral, BID, TAKE ONE TABLET BY MOUTH TWICE A DAY A POTASSIU M SUPPLEME NT, 0 total refill(s ) Oral (given by mouth) Ordered 2019 [facility] PST PREDNISOLON E ACETATE 1% SUSP,OPH INSTILL 1 DROP IN AFFECTED EYE(S) FOUR TIMES A DAY OPHTHA LMIC ACTIVE 09/04/2025 [id number] MONTYPETTY GUDINOIgnacio CLARITZA 2024 10 [place] [facility] PROPAFENONE HCL 150MG TAB 150 mg, Oral, BID, TAKE ONE TABLET BY MOUTH TWICE A DAY PRESCIBE D BY DR. MURPHY, 0 total refill(s ), Physicia n Stop Oral (given by mouth) Discont inued 08/22/20172019 [facility] PST PROPAFENONE HCL 150MG TAB 150 mg, Oral, BID, TAKE ONE TABLET BY MOUTH TWICE A DAY PRESCIBE D BY DR. MURPHY, 0 total refill(s ) Oral (given by mouth) Complet ed 05/14/20202020 [facility] PST PROPAFENONE HCL 150MG TAB 150 mg, Oral, BID, TAKE ONE TABLET BY MOUTH TWICE A DAY PRESCIBE D BY DR. MURPHY, 0 total refill(s ), Physicia n Stop Oral (given by mouth) Discont inued 08/22/20172019 [facility] PST PROPAFENONE HCL 150MG TAB 150 mg, Oral, BID, TAKE ONE TABLET BY MOUTH TWICE A DAY PRESCIBE D BY DR. MURPHY, 0 total refill(s ), Physicia n Stop Oral (given by mouth) Discont inued 10/22/20182019 [facility] PST PROPAFENONE HCL 150MG TAB 150 mg, Oral, BID, TAKE ONE TABLET BY MOUTH TWICE A DAY PRESCIBE D BY DR. MURPHY, 0 total refill(s ), Physicia n Stop Oral (given by mouth) Discont inued 03/13/20182019 [facility] PST ROSUVASTATI N CA 10MG TAB 5 mg, Oral, Daily, TAKE ONE-HALF TABLET BY MOUTH DAILY FOR CHOLESTE ROL, 0 total refill(s ) Oral (given by mouth) Ordered 2019 [facility] PST SODIUM CHLORIDE 5% OINT,OPH APPLY SMALL AMOUNT TO BOTH EYES 6 TIMES A DAY KEEP EYE WET WITH OINTMENT . OPHTHA LMIC ACTIVE 10/03/2024 [id number] PETTY MILLAN CLARITZA 2024 1 [place] [facility] TABLET CUTTER MIS, As Directed , USE * DIRECTED USE TO CUT/SPLI T PILLS, 0 total refill(s ) Complet ed 05/14/20202020 [facility] PST TAMSULOSIN HCL 0.4MG CAP 0.4 mg, Oral, every evening, TAKE ONE CAPSULE BY MOUTH EVERY EVENING . TAKE 30 MINUTES AFTER THE EVENING MEAL. TAKE FOR YOUR URINARY HEALTH, 0 total refill(s ), Physicia n Stop Oral (given by mouth) Discont inued 05/13/20172019 [facility] PST TAMSULOSIN HCL 0.4MG CAP TAKE TWO CAPSULES BY MOUTH EVERY EVENING FOR BENIGN PROSTATI C HYPERPLA NELSON APPROXIM ATELY 30 MINUTES AFTER THE SAME MEAL EACH DAY (FOR PROSTATE ) ORAL SUSPEND ED 12/14/2024 [id number] ANSELMO JAIN G 2023 180 [facility] TAMSULOSIN HCL 0.4MG CAP TAKE ONE CAPSULE BY MOUTH EVERY EVENING APPROXIM ATELY 30 MINUTES AFTER THE SAME MEAL EACH DAY (FOR PROSTATE ) ORAL DISCONT INUED (EDIT) 05/26/2024 [id number] SHANNON DANG 2023 90 [facility] Allergies, Adverse Reactions, Alerts Combined list of allergies from Department of Defense and Veterans Affairs facilities. It does not include entries that were removed or entered in error. Substance Category Reaction Severity Reaction type Status Date Reported Comments Source ALDACTONE Propensity to adverse reactions to drug (finding) Gynecomasti a active 9 [facility] ALDACTONE Propensity to adverse reactions to drug (finding) active 1 [facility] CLONIDINE Propensity to adverse reactions to drug (finding) Fatigue active 5 [facility] CLONIDINE Propensity to adverse reactions to drug (finding) Xerostomia active 9 [facility] cloNIDine Drug allergy Aptyalism (disorder), Aptyalism (disorder), Fatigue (finding) <not entered> Active [facility] PST DILTIAZEM Propensity to adverse reactions to drug (finding) Ankle edema active 6 [facility] DILTIAZEM Propensity to adverse reactions to drug (finding) Swollen ankle region active 1 [facility] dilTIAZem Drug allergy Swollen ankle (finding), Ankle edema (finding) <not entered> Active [facility] HCTZ HYDROCHLOROT HIAZIDE Propensity to adverse reactions to drug (finding) Swelling of lower limb active 1 [facility] HYDROCHLOROT HIAZIDE Propensity to adverse reactions to drug (finding) Swelling of lower limb active 9 [facility] hydroCHLOROt hiazide Drug allergy Leg swelling symptom (finding), Leg swelling symptom (finding) <not entered> Active [facility] LISINOPRIL Propensity to adverse reactions to drug (finding) Cough active 1 [facility] lisinopril Drug allergy Cough (finding), Cough (finding) <not entered> Active [facility] More [facility] Facilit[facility] es PST MICARDIS Propensity to adverse reactions to drug (finding) Anaphylaxis active 9 [facility] MICARDIS TABS Propensity to adverse reactions to drug (finding) active 3 [facility] MICARDIS TABS Propensity to adverse reactions to drug (finding) Anaphylaxis active 5 [facility] sertraline Drug allergy Nausea and vomiting (disorder), Headache (finding), Nausea and vomiting (disorder) <not entered> Active AND HEADACHE [facility] spironolacto ne Drug allergy Gynecomasti a (disorder), Gynecomasti a (disorder) <not entered> Active Obtained from office notes from [facility] telmisartan Drug allergy Anaphylaxis (disorder), Anaphylaxis (disorder) <not entered> Active [facility] PST ZOLOFT Propensity to adverse reactions to drug (finding) Nausea and vomiting active 1 [facility] ZOLOFT 100MG TABLET Propensity to adverse reactions to drug (finding) Nausea and vomiting, Headache active 8 [facility] Immunizations Combined list of available immunizations from the Department of Defense and Veterans Affairs facilities. 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 Comments Source TDAP 1 2024 115 complet ed HISTORICA L INFORMATI ON - FROM OTHER REGISTRY, [facility] PNEUMOCOCCAL POLYSACCHARID E PPV23 2023 JT [place] LEFT DELTO ID [id number] 33 complet ed [facility] INFLUENZA, TRIVALENT, ADJUVANTED 2018 168 complet ed [facility] Influenza, trivlanent, adjuvanted, pf 2018 168 complet ed Influenza , trivlanen t, adjuvante d, pf 02/06/19 Recorded Ambulat ory Pharmac y PNEUMOCOCCAL CONJUGATE PCV 13 2017 133 complet ed [facility] pneumococcal 13-valent conjugate (PCV13) 2017 133 complet ed Result Comment: JL Ambulat ory Pharmac y PNEUMOCOCCAL (HISTORICAL) 2013 109 complet ed [facility] pneumococcal polysaccharid e, 23 valent 2013 33 complet ed pneumococ siena polysacch aride, 23 valent 06/04/13 Recorded Ambulat ory Pharmac y pneumococcal vaccine, unspecified 2013 109 complet ed pneumococ siena vaccine, unspecifi ed 06/04/13 Recorded Ambulat ory Pharmac y tetanus, diphtheria, acellular pertu is 2013 115 complet ed tetanus, diphtheri a, acellular pertussis 06/04/13 Recorded Ambulat ory Pharmac y PNEUMOCOCCAL POLYSACCHARID E PPV23 2013 33 complet ed See note [facility]ELAZQUE[facility] TDAP 2013 115 complet ed noted in JLV [facility] PNEUMOCOCCAL, ADULT (HISTORICAL) 2004 NONE 33 complet ed [id number] [facility] pneumococcal vaccine, unspecified 2004 109 complet ed Result Comment: [id number] Ambulat ory Pharmac y Td(adult) unspecified formulation 2001 139 complet ed Td(adult) unspecifi ed formulati on 08/27/01 Recorded Ambulat ory Pharmac y TETANUS-DIPHT HERIA (HISTORICAL) 2001 139 complet ed [facility] Td(adult) unspecified formulation 2001 139 complet ed Td(adult) unspecifi ed formulati on 02/27/01 Recorded Ambulat ory Pharmac y TD(ADULT) UNSPECIFIED FORMULATION 2001 139 complet ed [facility] influenza virus vaccine, inactivated 2000 88 complet ed influenza virus vaccine, inactivat ed 11/27/00 Recorded Ambulat ory Pharmac y INFLUENZA, UNSPECIFIED FORMULATION 2000 88 complet ed [facility] Results Combined list of recent chemistry, hematology and other laboratory results from Department of Defense and Veterans Affairs, ranging from 15 months to all on record, depending upon the facility. Order Name Results Value Reference Range Date Interpretation Specimen Comments Source B12 COBALAMIN (VITAMIN B12) [MASS/VOLUME] IN SERUM OR PLASMA 470 pg/mL 213 - 816 06/19 Specimen Type: SERUM No comment entered. Ordering Provider: ANSELMO JAIN Report Released Date/Time : Jun 13, 2024 01:57 PM Reporting Lab: [place] [facility] [address] [place] [address] Performin g Lab: [place] [facility] [address] [place] [address] 8 [facility] FOLATE (PB) FOLATE [MASS/VOLUME] IN SERUM OR PLASMA 11.5 ng/mL 7 - 20 06/19 Specimen Type: SERUM No comment entered. Ordering Provider: ANSELMO JAIN Report Released Date/Time : Jun 13, 2024 01:57 PM Reporting Lab: [place] [facility] [address] [place] [address] Performin g Lab: [place] [facility] [address] [place] [address] 8 [facility] COMPREHENSI VE METABOLIC PANEL CREATININE [MASS/VOLUME] IN SERUM OR PLASMA 0.94 mg/dL 0.7 - 1.3 06/19 Specimen Type: PLASMA No comment entered. Ordering Provider: ANSELMO JAIN Report Released Date/Time : Jun 13, 2024 01:57 PM Reporting Lab: [place] [facility] [address] [place] [address] 8 Performin g Lab: [place] [facility] [address] [place] [address] 8 [facility] COMPREHENSI VE METABOLIC PANEL UREA NITROGEN [MASS/VOLUME] IN SERUM OR PLASMA 17 mg/dL 9 - 25 06/19 Specimen Type: PLASMA No comment entered. Ordering Provider: ANSELMO JAIN Report Released Date/Time : Jun 13, 2024 01:57 PM Reporting Lab: [place] [facility] [address] [place] [address] Performin g Lab: [place] [facility] [address] [place] [address] 8 [facility] COMPREHENSI VE METABOLIC PANEL GLUCOSE [MASS/VOLUME] IN SERUM OR PLASMA 97 mg/dL 72 - 99 06/19 Specimen Type: PLASMA No comment entered. Ordering Provider: ANSELMO JAIN Report Released Date/Time : Jun 13, 2024 01:57 PM Reporting Lab: [place] [facility] [address] [place] [address] 8 Performin g Lab: [place] [facility] [address] [place] [address] 8 [facility] COMPREHENSI VE METABOLIC PANEL SODIUM [MOLES/VOLUME ] IN SERUM OR PLASMA 140 meq/L 136 - 145 06/19 Specimen Type: PLASMA No comment entered. Ordering Provider: ANSELMO JAIN Report Released Date/Time : Jun 13, 2024 01:57 PM Reporting Lab: [place] [facility] [address] [place] [address] 8 Performin g Lab: [place] [facility] [address] [place] [address] 8 [facility] COMPREHENSI VE METABOLIC PANEL POTASSIUM [MOLES/VOLUME ] IN SERUM OR PLASMA 3.8 meq/L 3.5 - 5 06/19 Specimen Type: PLASMA No comment entered. Ordering Provider: ANSELMO JAIN Report Released Date/Time : Jun 13, 2024 01:57 PM Reporting Lab: [place] [facility] [address] [place] [address] 8 Performin g Lab: [place] [facility] [address] [place] [address] 8 [facility] COMPREHENSI VE METABOLIC PANEL CHLORIDE [MOLES/VOLUME ] IN SERUM OR PLASMA 108 meq/L 98 - 107 06/19 H Specimen Type: PLASMA No comment entered. Ordering Provider: ANSELMO JAIN Report Released Date/Time : Jun 13, 2024 01:57 PM Reporting Lab: [place] [facility] [address] [place] [address] 8 Performin g Lab: [place] [facility] [address] [place] [address] 8 [facility] COMPREHENSI VE METABOLIC PANEL CARBON DIOXIDE, TOTAL [MOLES/VOLUME ] IN SERUM OR PLASMA 23 meq/L 22 - 31 06/19 Specimen Type: PLASMA No comment entered. Ordering Provider: ANSELMO JAIN Report Released Date/Time : Jun 13, 2024 01:57 PM Reporting Lab: [place] [facility] [address] [place] [address] 8 Performin g Lab: [place] [facility] [address] [place] [address] 8 [facility] COMPREHENSI VE METABOLIC PANEL CALCIUM [MASS/VOLUME] IN SERUM OR PLASMA 9.7 mg/dL 8.4 - 10.4 06/19 Specimen Type: PLASMA No comment entered. Ordering Provider: ANSELMO JAIN Report Released Date/Time : Jun 13, 2024 01:57 PM Reporting Lab: [place] [facility] [address] [place] [address] 8 Performin g Lab: [place] [facility] [address] [place] [address] 8 [facility] COMPREHENSI VE METABOLIC PANEL PROTEIN [MASS/VOLUME] IN SERUM OR PLASMA 6.9 g/dL 6 - 8.6 06/19 Specimen Type: PLASMA No comment entered. Ordering Provider: ANSELMO JAIN Report Released Date/Time : Jun 13, 2024 01:57 PM Reporting Lab: [place] [facility] [address] [place] [address] 8 Performin g Lab: [place] [facility] [address] [place] [address] 8 [facility] COMPREHENSI VE METABOLIC PANEL ALBUMIN [MASS/VOLUME] IN SERUM OR PLASMA 3.9 g/dL 3.4 - 5 06/19 Specimen Type: PLASMA No comment entered. Ordering Provider: ANSELMO JAIN Report Released Date/Time : Jun 13, 2024 01:57 PM Reporting Lab: [place] [facility] [address] [place] [address] 8 Performin g Lab: [place] [facility] [address] [place] [address] 8 [facility] COMPREHENSI VE METABOLIC PANEL BILIRUBIN.TOT AL [MASS/VOLUME] IN SERUM OR PLASMA 1.0 mg/dL 0.2 - 1.2 06/19 Specimen Type: PLASMA No comment entered. Ordering Provider: ANSELMO JAIN Report Released Date/Time : Jun 13, 2024 01:57 PM Reporting Lab: [place] [facility] [address] [place] [address] 8 Performin g Lab: [place] [facility] [address] [place] [address] 8 [facility] COMPREHENSI VE METABOLIC PANEL ALKALINE PHOSPHATASE [ENZYMATIC ACTIVITY/VOLU ME] IN SERUM OR PLASMA 137 U/L 40 - 150 06/19 Specimen Type: PLASMA No comment entered. Ordering Provider: ANSELMO JAIN Report Released Date/Time : Jun 13, 2024 01:57 PM Reporting Lab: [place] [facility] [address] [place] [address] 8 Performin g Lab: [place] [facility] [address] [place] [address] 8 [facility] COMPREHENSI VE METABOLIC PANEL ASPARTATE AMINOTRANSFER ASE [ENZYMATIC ACTIVITY/VOLU ME] IN SERUM OR PLASMA 25 U/L 5 - 34 06/19 Specimen Type: PLASMA No comment entered. Ordering Provider: ANSELMO JAIN Report Released Date/Time : Jun 13, 2024 01:57 PM Reporting Lab: [place] [facility] [address] [place] [address] 8 Performin g Lab: [place] [facility] [address] [place] [address] 8 [facility] COMPREHENSI VE METABOLIC PANEL ALANINE AMINOTRANSFER ASE [ENZYMATIC ACTIVITY/VOLU ME] IN SERUM OR PLASMA 25 U/L 8 - 40 06/19 Specimen Type: PLASMA No comment entered. Ordering Provider: ANSELMO JAIN Report Released Date/Time : Jun 13, 2024 01:57 PM Reporting Lab: [place] [facility] [address] [place] [address] 8 Performin g Lab: [place] [facility] [address] [place] [address] 8 [facility] COMPREHENSI VE METABOLIC PANEL GLOMERULAR FILTRATION RATE/1.73 SQ M.PREDICTED [VOLUME RATE/AREA] IN SERUM, PLASMA OR BLOOD BY CREATININE-BA SED FORMULA (CKD-EPI 2020) 82 06/19 Specimen Type: PLASMA No comment entered. Ordering Provider: ANSELMO JAIN Report Released Date/Time : Jun 13, 2024 01:57 PM Reporting Lab: [place] [facility] [address] [place] [address] 8 Performin g Lab: [place] [facility] [address] [place] [address] 8 [facility] HGA1C HEMOGLOBIN A1C/HEMOGLOBI N.TOTAL IN BLOOD 5.7 4.0 - 6.0 06/19 Specimen Type: BLOOD No comment entered. Ordering Provider: ANSELMO JAIN Report Released Date/Time : Jun 13, 2024 01:57 PM Reporting Lab: [place] [facility] [address] [place] [address] 8 Performin g Lab: [place] [facility] [address] [place] [address] 8 [facility] CBC LEUKOCYTES [#/VOLUME] IN BLOOD BY AUTOMATED COUNT 8.2 10*3/u L 3.6 - 11.2 06/19 Specimen Type: BLOOD No comment entered. Ordering Provider: ANSELMO JAIN Report Released Date/Time : Jun 13, 2024 01:57 PM Reporting Lab: [place] [facility] [address] [place] [address] 8 Performin g Lab: [place] [facility] [address] [place] [address] 8 [facility] CBC ERYTHROCYTES [#/VOLUME] IN BLOOD BY AUTOMATED COUNT 5.52 10*6/u L 4.10 - 5.70 06/19 Specimen Type: BLOOD No comment entered. Ordering Provider: ANSELMO JAIN Report Released Date/Time : Jun 13, 2024 01:57 PM Reporting Lab: [place] [facility] [address] [place] [address] 8 Performin g Lab: [place] [facility] [address] [place] [address] 8 [facility] CBC HEMOGLOBIN [MASS/VOLUME] IN BLOOD 15.9 g/dL 13.1 - 16.8 06/19 Specimen Type: BLOOD No comment entered. Ordering Provider: ANSELMO JAIN Report Released Date/Time : Jun 13, 2024 01:57 PM Reporting Lab: [place] [facility] [address] [place] [address] 8 Performin g Lab: [place] [facility] [address] [place] [address] [facility] CBC HEMATOCRIT [VOLUME FRACTION] OF BLOOD 48.5 38.2 - 48.4 06/19 H Specimen Type: BLOOD No comment entered. Ordering Provider: ANSELMO JAIN Report Released Date/Time : Jun 13, 2024 01:57 PM Reporting Lab: [place] [facility] [address] [place] [address] 8 Performin g Lab: [place] [facility] [address] [place] [address] 8 [facility] CBC MCV [ENTITIC VOLUME] BY AUTOMATED COUNT 87.9 fL 80.0 - 100.0 06/19 Specimen Type: BLOOD No comment entered. Ordering Provider: ANSELMO JAIN Report Released Date/Time : Jun 13, 2024 01:57 PM Reporting Lab: [place] [facility] [address] [place] [address] 8 Performin g Lab: [place] [facility] [address] [place] [address] [facility] CBC MCH [ENTITIC MASS] BY AUTOMATED COUNT 28.8 pg 27.0 - 34.0 06/19 Specimen Type: BLOOD No comment entered. Ordering Provider: ANSELMO JAIN Report Released Date/Time : Jun 13, 2024 01:57 PM Reporting Lab: [place] [facility] [address] [place] [address] 8 Performin g Lab: [place] [facility] [address] [place] [address] 8 [facility] CBC MCHC [MASS/VOLUME] BY AUTOMATED COUNT 32.8 g/dL 33.0 - 36.0 06/19 L Specimen Type: BLOOD No comment entered. Ordering Provider: ANSELMO JAIN Report Released Date/Time : Jun 13, 2024 01:57 PM Reporting Lab: [place] [facility] [address] [place] [address] 8 Performin g Lab: [place] [facility] [address] [place] [address] [facility] CBC PLATELETS [#/VOLUME] IN BLOOD BY AUTOMATED COUNT 275 10*3/u L 150 - 400 06/19 Specimen Type: BLOOD No comment entered. Ordering Provider: ANSELMO JAIN Report Released Date/Time : Jun 13, 2024 01:57 PM Reporting Lab: [place] [facility] [address] [place] [address] 8 Performin g Lab: [place] [facility] [address] [place] [address] [facility] CBC PLATELET MEAN VOLUME [ENTITIC VOLUME] IN BLOOD BY AUTOMATED COUNT 8.9 fL 7.5 - 11.2 06/19 Specimen Type: BLOOD No comment entered. Ordering Provider: ANSELMO JAIN Report Released Date/Time : Jun 13, 2024 01:57 PM Reporting Lab: [place] [facility] [address] [place] [address] 8 Performin g Lab: [place] [facility] [address] [place] [address] [facility] CBC ERYTHROCYTE DISTRIBUTION WIDTH [RATIO] BY AUTOMATED COUNT 13.6 11.8 - 15.1 06/19 Specimen Type: BLOOD No comment entered. Ordering Provider: ANSELMO JAIN Report Released Date/Time : Jun 13, 2024 01:57 PM Reporting Lab: [place] [facility] [address] [place] [address] 8 Performin g Lab: [place] [facility] [address] [place] [address] [facility] CBC LYMPHOCYTES/1 00 LEUKOCYTES IN BLOOD BY AUTOMATED COUNT 14.1 06/19 Specimen Type: BLOOD No comment entered. Ordering Provider: ANSELMO JAIN Report Released Date/Time : Jun 13, 2024 01:57 PM Reporting Lab: [place] [facility] [address] [place] [address] 8 Performin g Lab: [place] [facility] [address] [place] [address] 8 [facility] CBC MONOCYTES/100 LEUKOCYTES IN BLOOD BY AUTOMATED COUNT 12.0 06/19 Specimen Type: BLOOD No comment entered. Ordering Provider: ANSELMO JAIN Report Released Date/Time : Jun 13, 2024 01:57 PM Reporting Lab: [place] [facility] [address] [place] [address] 8 Performin g Lab: [place] [facility] [address] [place] [address] 8 [facility] CBC NEUTROPHILS/1 00 LEUKOCYTES IN BLOOD BY AUTOMATED COUNT 65.3 06/19 Specimen Type: BLOOD No comment entered. Ordering Provider: ANSELMO JAIN Report Released Date/Time : Jun 13, 2024 01:57 PM Reporting Lab: [place] [facility] [address] [place] [address] 8 Performin g Lab: [place] [facility] [address] [place] [address] [facility] CBC EOSINOPHILS/1 00 LEUKOCYTES IN BLOOD BY AUTOMATED COUNT 7.3 06/19 Specimen Type: BLOOD No comment entered. Ordering Provider: ANSELMO JAIN Report Released Date/Time : Jun 13, 2024 01:57 PM Reporting Lab: [place] [facility] [address] [place] [address] 8 Performin g Lab: [place] [facility] [address] [place] [address] [facility] CBC BASOPHILS/100 LEUKOCYTES IN BLOOD BY AUTOMATED COUNT 0.9 06/19 Specimen Type: BLOOD No comment entered. Ordering Provider: ANSELMO JAIN Report Released Date/Time : Jun 13, 2024 01:57 PM Reporting Lab: [place] [facility] [address] [place] [address] 8 Performin g Lab: [place] [facility] [address] [place] [address] 8 [facility] CBC LYMPHOCYTES [#/VOLUME] IN BLOOD BY AUTOMATED COUNT 1.15 10*3/u L 0.77 - 4.50 06/19 Specimen Type: BLOOD No comment entered. Ordering Provider: ANSELMO JAIN Report Released Date/Time : Jun 13, 2024 01:57 PM Reporting Lab: [place] [facility] [address] [place] [address] 8 Performin g Lab: [place] [facility] [address] [place] [address] [facility] CBC MONOCYTES [#/VOLUME] IN BLOOD BY AUTOMATED COUNT 0.98 10*3/u L 0.19 - 0.8 06/19 H Specimen Type: BLOOD No comment entered. Ordering Provider: ANSELMO JAIN Report Released Date/Time : Jun 13, 2024 01:57 PM Reporting Lab: [place] [facility] [address] [place] [address] 8 Performin g Lab: [place] [facility] [address] [place] [address] 8 [facility] CBC NEUTROPHILS [#/VOLUME] IN BLOOD BY AUTOMATED COUNT 5.35 10*3/u L 2.10 - 8.00 06/19 Specimen Type: BLOOD No comment entered. Ordering Provider: ANSELMO JAIN Report Released Date/Time : Jun 13, 2024 01:57 PM Reporting Lab: [place] [facility] [address] [place] [address] 8 Performin g Lab: [place] [facility] [address] [place] [phone] 8 [facility] CBC EOSINOPHILS [#/VOLUME] IN BLOOD BY AUTOMATED COUNT 0.60 10*3/u L 0.00 - 0.60 06/19 Specimen Type: BLOOD No comment entered. Ordering Provider: ANSELMO JAIN Report Released Date/Time : Jun 13, 2024 01:57 PM Reporting Lab: [place] [facility] [address] [place] [phone] Performin g Lab[facility] [place] [facility] [address] [place] [phone] [facility] CBC BASOPHILS [#/VOLUME] IN BLOOD BY AUTOMATED COUNT 0.07 10*3/u L 0.00 - 0.20 06/19 Specimen Type: BLOOD No comment entered. Ordering Provider: ANSELMO JAIN Report Released Date/Time : Jun 13, 2024 01:57 PM Reporting Lab: [place] [facility] [address] [place] [address] Performin g Lab: [place] [facility] [address] [place] [address] [facility] CBC IMMATURE GRANULOCYTES/ 100 LEUKOCYTES IN BLOOD BY AUTOMATED COUNT 0.4 06/19 Specimen Type: BLOOD No comment entered. Ordering Provider: ANSELMO JAIN Report Released Date/Time : Jun 13, 2024 01:57 PM Reporting Lab: [place] [facility] [address] [place] [address] Performin g Lab: [place] [facility] [address] [place] [address] [facility] CBC IMMATURE GRANULOCYTES [#/VOLUME] IN BLOOD BY AUTOMATED COUNT 0.03 10*3/u L 0.00 - 0.05 06/19 Specimen Type: BLOOD No comment entered. Ordering Provider: ANSELMO JAIN Report Released Date/Time : Jun 13, 2024 01:57 PM Reporting Lab: [place] [facility] [address] [place] [address] Performin g Lab: [place] [facility] [address] [place] [address] [facility] VITAMIN D, 25-HYDROXY 25-HYDROXYVIT PADILLA D3 [MASS/VOLUME] IN SERUM OR PLASMA >154.2 ng/mL 30 - 96 06/19 H Specimen Type: SERUM No comment entered. Ordering Provider: ANSELMO JAIN Report Released Date/Time : Jun 13, 2024 01:57 PM Reporting Lab: [place] [facility] [address] [place] [address] Performin g Lab: [place] [facility] [address] [place] [address] 8 [facility] CHOLESTEROL PANEL (PB) CHOLESTEROL [MASS/VOLUME] IN SERUM OR PLASMA 123 mg/dL 0 - 200 06/19 Specimen Type: PLASMA No comment entered. Ordering Provider: ANSELMO JAIN Report Released Date/Time : Jun 13, 2024 01:57 PM Reporting Lab: [place] [facility] [address] [place] [address] Performin g Lab: [place] [facility] [address] [place] [address] [facility] CHOLESTEROL PANEL (PB) TRIGLYCERIDE [MASS/VOLUME] IN SERUM OR PLASMA 163 mg/dL 0 - 150 06/19 H Specimen Type: PLASMA No comment entered. Ordering Provider: ANSELMO JAIN Report Released Date/Time : Jun 13, 2024 01:57 PM Reporting Lab: [place] [facility] [address] [place] [address] Performin g Lab: [place] [facility] [address] [place] [address] [facility] CHOLESTEROL PANEL (PB) CHOLESTEROL IN LDL [MASS/VOLUME] IN SERUM OR PLASMA BY CALCULATION 56.7 mg/dL 06/19 Specimen Type: PLASMA No comment entered. Ordering Provider: ANSELMO JAIN Report Released Date/Time : Jun 13, 2024 01:57 PM Reporting Lab: [place] [facility] [address] [place] [address] Performin g Lab: [place] [facility] [address] [place] [address] [facility] CHOLESTEROL PANEL (PB) CHOLESTEROL IN HDL [MASS/VOLUME] IN SERUM OR PLASMA 33.7 mg/dL 40 06/19 L Specimen Type: PLASMA No comment entered. Ordering Provider: ANSELMO JAIN Report Released Date/Time : Jun 13, 2024 01:57 PM Reporting Lab: [place] [facility] [address] [place] [address] Performin g Lab: [place] [facility] [address] [place] [address] [facility] CHOLESTEROL PANEL (PB) CHOLESTEROL IN HDL/CHOLESTER OL.TOTAL [MASS RATIO] IN SERUM OR PLASMA 27.4 25 06/19 Specimen Type: PLASMA No comment entered. Ordering Provider: ANSELMO JAIN Report Released Date/Time : Jun 13, 2024 01:57 PM Reporting Lab: [place] [facility] [address] [place] [address] Performin g Lab: [place] [facility] [address] [place] [address] [facility] TSH (MA-PB) THYROTROPIN [UNITS/VOLUME ] IN SERUM OR PLASMA 1.185 u[IU]/ mL 0.47 - 5 06/19 Specimen Type: SERUM No comment entered. Ordering Provider: ANSELMO JAIN Report Released Date/Time : Jun 13, 2024 01:57 PM Reporting Lab: [place] [facility] [address] [place] [address] Performin g Lab: [place] [facility] [address] [place] [address] 8 [facility] HGA1C HEMOGLOBIN A1C/HEMOGLOBI N.TOTAL IN BLOOD 5.8 4.0 - 6.0 06/14 Specimen Type: BLOOD No comment entered. Ordering Provider: SHANNON DANG Report Released Date/Time : Jun 12, 2023 12:45 PM Reporting Lab: [place] [facility] [address] [place] [address] Performin g Lab: [place] [facility] [address] [place] [address] [facility] FREE T4 (MA-PB) THYROXINE (T4) FREE [MASS/VOLUME] IN SERUM OR PLASMA 0.94 ng/dL 0.7 - 1.48 06/14 Specimen Type: SERUM No comment entered. Ordering Provider: SHANNON DANG Report Released Date/Time : Jun 12, 2023 12:45 PM Reporting Lab: [place] [facility] [address] [place] [address] Performin g Lab: [place] [facility] [address] [place] [address] [facility] Vital Signs Combined list of inpatient and outpatient Vital Signs from Department of Defense and Veterans Affairs, ranging from 12 months to all on record, depending upon the facility. Vital Sign Value Date Comments Source Systolic Blood Pressure 130 mm[Hg] 05/10/19 16:40:00 One or More A Facilities PST Diastolic Blood Pressure 78 mm[Hg] 16:40:00 [facility] More A Facilities PST Systolic Blood Pressure 142 mm[Hg] 05/10/19 16:26:03 One or More A Facilities PST Diastolic Blood Pressure 90 mm[Hg] 16:26:03 One or More A Facilities PST Systolic Blood Pressure 160 mm[Hg] 02/07/20 15:15:18 One or More [facility] Facilities PST Diastolic Blood Pressure 104 mm[Hg] 15:15:18 [facility] More [facility] Fac[facility] PST Systolic Blood Pressure 149 mm[Hg] 02/07/20 15:15:19 [facility] More [facility] Facilities PST Diastolic Blood Pressure 110 mm[Hg] 15:15:19 [facility] More [facility] Fac[facility] PST Systolic Blood Pressure 138 mm[Hg] 05/01/19 18:48:34 [facility] More [facility] PST Diastolic Blood Pressure 76 mm[Hg] 18:48:34 [facility] More [facility] PST Systolic Blood Pressure 116 mm[Hg] 02/07/20 16:15:00 [facility] More [facility] Facilities PST Diastolic Blood Pressure 78 mm[Hg] 16:15:00 [facility] More [facility] Fac[facility] PST Systolic Blood Pressure 150 mm[Hg] 01/02/20 17:41:45 [facility] More [facility] Facilities PST Diastolic Blood Pressure 86 mm[Hg] 17:41:45 [facility] More [facility] PST Systolic Blood Pressure 150 mm[Hg] 01/02/20 17:41:46 [facility] More [facility] PST Diastolic Blood Pressure 80 mm[Hg] 17:41:46 [facility] More [facility] PST Systolic Blood Pressure 154 mm[Hg] 05/10/19 16:16:03 [facility] More [facility] Fac[facility] PST Diastolic Blood Pressure 86 mm[Hg] 16:16:03 [facility] More [facility] PST Systolic Blood Pressure 122 mm[Hg] 12/07/19 18 16:15:01 [facility] More [facility] PST Diastolic Blood Pressure 76 mm[Hg] 16:15:01 [facility] More [facility] Facilities PST SYSTOLIC BLOOD PRESSURE 129 06/20/19 25 11:03:00 [facility] DIASTOLIC BLOOD PRESSURE 79 025 11:03:00 [facility] PULSE OXIMETRY 94 06/19/2024 11:03:00 [facility] WEIGHT 250.7 06/19/2024 11:03:00 [facility] BMI 49 kg/m2 06/19/2024 11:03:00 [place] [facility] PAIN 7 06/19/2024 11:03:00 [place] [facility] TEMPERATURE 97.5 06/19/2024 11:03:00 [facility] PULSE 79 06/19/2024 11:03:00 [place] [facility] RESPIRATION 20 06/19/2024 11:03:00 [facility] SYSTOLIC BLOOD PRESSURE 152 05/16/19 25 13:10:00 [place] [facility] DIASTOLIC BLOOD PRESSURE 99 025 13:10:00 [place] [facility] PULSE OXIMETRY 96 05/15/2024 13:10:00 [place] [facility] WEIGHT 254.0 05/15/2024 13:10:00 [place] [facility] BMI 50 kg/m2 05/15/2024 13:10:00 [place] [facility] TEMPERATURE 97.4 05/15/2024 13:10:00 [place] [facility] PULSE 84 05/15/2024 13:10:00 [place] [facility] RESPIRATION 20 05/15/2024 13:10:00 [place] [facility] SYSTOLIC BLOOD PRESSURE 138 02/13/20 24 10:01:00 [place] [facility] DIASTOLIC BLOOD PRESSURE 77 024 10:01:00 [place] [facility] PULSE OXIMETRY 94 02/13/2024 10:01:00 [place] [facility] WEIGHT 242.1 02/13/2024 10:01:00 [place] [facility] BMI 47 kg/m2 02/13/2024 10:01:00 [place] [facility] PAIN 0 02/13/2024 10:01:00 [place] [facility] HEIGHT 60.0 02/13/2024 10:01:00 [place] [facility] TEMPERATURE 97.8 02/13/2024 10:01:00 [place] [facility] PULSE 93 02/13/2024 10:01:00 [place] [facility] RESPIRATION 20 02/13/2024 10:01:00 [place] [facility] Encounters Combined list of: 1) Encounters from Department of Veterans Affairs facilities going backup to the last 18 months, not all VA inpatient encounters are included; 2) Encounters from the Department of Defense facilities going backup to 280 months. Location Location Details Encounter Type Encounter Number Reason For Visit Attending Provider ADM Date DC Date Status Disposition Source [facility] Outpatient Encounter [id number] 05/24 [facility] CONT AIRWAY PRESSURE DEVICE [id number] Diagnos is: ICD-10- CM G47.33 Obstruc tive sleep apnea (adult) (pediat rex) JASON COY 05/25 [facility] Outpatient Encounter [id number] 05/28 [facility] Outpatient Encounter [id number] 06/07 [facility] OFFICE O/P EST MOD 30 MIN [id number] Diagnos is: ICD-10- CM 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, soft tissue, and skin Steven MACKENZIE REYNALDO 07/05 [facility] Outpatient Encounter [id number] 07/05 [facility] En[facility] [id number] 07/06 [facility] Outpatient Encounter [id number] 07/09 [facility] Encounter [id number] CHRISTIANO NANCE 07/10 [facility] [place] [facility] Outpatient Encounter [id number] 07/24 [place] [facility] Outpatient Encounter [id number] 07/31 [facility] Outpatient Encounter [id number] 08/08 [facility] Outpatient Encounter [id number] 09/05 [facility] PSYTX W PT 60 MINUTES [id number] Diagnos is: ICD-10- CM F43.10 Post-tr aumatic stress disorde r, unspecDANDY Suarez P 09/14 [facility] PSYTX W PT 60 MINUTES [id number] Diagnos is: ICD-10- CM F43.10 Post-tr aumatic stress disorde r, unspeci DANDY Elena ARIAS P 09/24 [facility] PSYTX W PT 60 MINUTES [id number] Diagnos is: ICD-10- CM F43.10 Post-tr aumatic stress disorde r, unspecashley weinberg ELVADANDY [facility]AS P [facility]LE[facility] FAC[facility] FEE [id number] Diagnos is: ICD-10- CM H93.13 Tinnitu s, bilater al GRAVES,ANGEL BEAU A 10[facility]11 [facility] [place] [facility] [place] [id number] [id number] Diagnos is: ICD-10- CM H93.13 Tinnitu s, bilater al GRAVES,ANGEL BEAU A 10/11 [place] [facility] Outpatient Encounter [id number] 10/17 [facility] Outpatient Encounter [id number] 10/17 [facility] PSYTX W PT 60 MINUTES [id number] Diagnos is: ICD-10- CM F43.10 Post-tr aumatic stress disorde r, unspecashley weinberg ELVADANDY ARIAS P 10/18 [facility] Outpatient Encounter [id number] 10/23 [facility] TELEHEALTH FACILITY FEE [id number] [id number] Diagnos is: ICD-10- CM Z02.89 Encount er for other adminis trative examina LUAN Goldberg 10/24 [facility] Outpatient Encounter [id number] Diagnos is: ICD-10- CM Z02.89 Encount er for other adminis trative examina LUAN Goldberg 10/24 [facility] Outpatient Encounter [id number] 11/05 [facility] TELEHEALTH FACILITY FEE [id number] [id number] Diagnos is: ICD-10- CM Z46.1 Encount er for fitting and adjustm ent of hearing aid ANGEL ISIDRO A 11/09 [facility] CONFORMITY EVALUATION [id number] [id number] Diagnos is: ICD-10- CM Z46.1 Encount er for fitting and adjustm ent of hearing aid ANGEL ISIDRO A 11/09 [facility] PSYTX W PT 60 MINUTES [id number] Diagnos is: ICD-10- CM F43.10 Post-tr aumatic stress disorde r, unspeci fied DANDY STEVENSON ARIAS P 11/12 [facility] TELEHEALTH FACILITY FEE [id number] Diagnos is: ICD-10- CM Z46.1 Encount er for fitting and adjustm ent of hearing aid ANGEL ISIDRONDRA A 11/23 [facility] HEARING AID FITTING/CH ECKING [id number] Diagnos is: ICD-10- CM Z46.1 Encount er for fitting and adjustm ent of hearing aid ANGEL ISIDRO 11/23 [place] [facility] PSYTX W PT 60 MINUTES [id number] Diagnos is: ICD-10- CM F43.10 Post-tr aumatic stress disorde r, DANDY Nelson P 12/05 [facility] Outpatient Encounter [id number] 12/12 [facility] PSYTX W PT 60 MINUTES [id number] [id number] Diagnos is: ICD-10- CM F43.10 Post-tr aumatic stress disorde r, DANDY Nelson P 12/17 [facility] PSYTX W PT 60 MINUTES [id number] Diagnos is: ICD-10- CM F43.10 Post-tr aumatic stress disorde r, DANDY Nelson P 12/17 [facility] OFFICE O/P EST LOW 20 MIN [id number] [id number] Diagnos is: ICD-10- CM 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 ALBIN JAIN G 12/17 [facility] PSYTX W PT 60 MINUTES [id number] [id number] Diagnos is: ICD-10- CM F43.10 Post-tr aumatic stress disorde r, DANDY Nelson P 12/25 [facility] TELEHEALTH FACILITY FEE [id number] Diagnos is: ICD-10- CM Z46.1 Encount er for fitting and adjustm ent of hearing aid ANGEL ISIDRO A 12/28 [facility] [place] [facility] HEARING AID REPAIR/MOD IFYING [id number] [id number] Diagnos is: ICD-10- CM Z46.1 Encount er for fitting and adjustm ent of hearing aid ANGEL ISIDRO A 12/28 [place] [facility] PSYTX W PT 60 MINUTES [id number] [id number] Diagnos is: ICD-10- CM F43.10 Post-tr aumatic stress disorde r, unspeci DANDY Elena P 01/02 [facility] Outpatient Encounter [id number] 01/03 [facility] PSYTX W PT 60 MINUTES [id number] [id number] Diagnos is: ICD-10- CM F43.10 Post-tr aumatic stress disorde r, DANDY Nelson P 01/10 [facility] Outpatient Encounter [id number] 01/29 [facility] TELEHEALTH FACILITY FEE [id number] [id number] Diagnos is: ICD-10- CM Z46.1 Encount er for fitting and adjustm ent of hearing aid ANGEL ISIDRO A 01/29 [facility] [place] [facility] HEARING AID REPAIR/MOD IFYING [id number] [id number] Diagnos is: ICD-10- CM Z46.1 Encount er for fitting and adjustm ent of hearing aid ANGEL ISIDRO A 01/29 [place] [facility] Outpatient Encounter [id number] 01/30 [facility] Outpatient Encounter [id number] FANNIE JEAN-BAPTISTE 02/06 [facility] OFFICE O/P EST MOD 30 MIN [id number] Diagnos is: ICD-10- CM Z09 Encntr for f/u exam aft trtmt for cond oth than malig ALBIN Molina 02/12 [facility] Outpatient Encounter [id number] 02/22 [facility] [place] [facility] Outpatient Encounter [id number] 03/08 [place] [facility] [place] [facility] Outpatient Encounter [id number] 03/12 [place] [facility] [place] [facility] Outpatient Encounter [id number] [id number] 03/14 [place] [facility] [place] [facility] Outpatient Encounter [id number] 03/20 [place] [facility] Outpatient Encounter [id number] [id number] 03/27 [facility] W PT 60 MINUTES [id number] [id number] Diagnos is: ICD-10- CM F43.10 Post-tr aumatic stress disorde r, unspeci DANDY Elena P 05/03 [facility] Outpatient Encounter [id number] 05/06 [facility] [place] [facility] Outpatient Encounter [id number] 05/[address] [facility] Outpatient Encounter [id number] MARY JANE GARCIA 05/08 [facility] [place] [facility] Outpatient Encounter [id number] DOLORES COLON 05/[address] [facility] Encounter [id number] 05/08 [facility] [place] [facility] Outpatient Encounter [id number] 05/[address] [facility] Outpatient Encounter [id number] 05/13 [facility] OFFICE O/P EST MOD 30 MIN [id number] Diagnos is: ICD-10- CM Z09 Encntr for f/u exam aft trtmt for cond oth than isamarig ALBIN Molina 05/15 [facility] [facility] En[facility] [id number] 05/16 [place] [facility] Outpatient Encounter [id number] 05/16 [facility] [facility] En[facility] [id number] [id number] 05/31 [place] [facility] Outpatient Encounter [id number] 06/13 [facility] Outpatient Encounter [id number] 06/18 [facility] N [facility] Outpatient Encounter [id number] [id number] 06/19 [facility] OFFICE O/P EST MOD 30 MIN [id number] Diagnos is: ICD-10- CM Z00.01 Encount er for general adult medical exam w abnorma l finding s ALBIN JAIN G 06/19 [facility] Outpatient Encounter [id number] 06/20 [facility] En[facility] [id number] ALBIN JAIN G 06/20 [place] [facility] Outpatient Encounter [id number] 07/05 [facility] En[facility] [id number] 07/08 [facility] Outpatient Encounter [id number] [id number] 07/24 [facility] N [facility] Outpatient Encounter [id number] 07/29 [facility] Outpatient Encounter [id number] 08/01 [facility] Outpatient Encounter [id number] 08/14 [facility] Outpatient Encounter [id number] [id number] ANATOLY GOLDBERG A 09/04 [facility] Outpatient Encounter [id number] 09/13 [facility] Procedures Combined list of: 1) Procedures from [facility] facilities going back up to thelast 18 months, not all [place] non-surgical procedures are included; 2) All procedures from the Department of Defense facilities. Procedure Procedure Type Code Date Perfomer Comments [facility] e BIOPSY, PROSTATE; NEEDLE OR PUNCH, SINGLE OR MULTIPLE, ANY APPROACH Biopsy, prostate; needle or punch, single or multiple, any approach 47146 7 [facility] BIOPSY, PROSTATE; NEEDLE OR PUNCH, SINGLE OR MULTIPLE, ANY APPROACH Biopsy, prostate; needle or punch, single or multiple, any approach 20393 4 [facility] COLONOSCOPY, FLEXIBLE; DIAGNOSTIC, INCLUDING COLLECTION OF SPECIMEN(S) BY BRUSHING OR WASHING, WHEN PERFORMED (SEPARATE PROCEDURE) Colonoscopy, flexible, proximal to splenic flexure; diagnostic, with or without collection of specimen(s) by brushing or washing, with or without colon decompression (separate procedure) 20069 7 [facility] Normal results [facility] COLONOSCOPY, FLEXIBLE; DIAGNOSTIC, INCLUDING COLLECTION OF SPECIMEN(S) BY BRUSHING OR WASHING, WHEN PERFORMED (SEPARATE PROCEDURE) Colonoscopy, flexible, proximal to splenic flexure; diagnostic, with or without collection of specimen(s) by brushing or washing, with or without colon decompression (separate procedure) 44340 6 [facility] Other appendectomy 47.09 5 [facility] COLONOSCOPY, FLEXIBLE; DIAGNOSTIC, INCLUDING COLLECTION OF SPECIMEN(S) BY BRUSHING OR WASHING, WHEN PERFORMED (SEPARATE PROCEDURE) Colonoscopy, flexible, proximal to splenic flexure; diagnostic, with or without collection of specimen(s) by brushing or washing, with or without colon decompression (separate procedure) 87537 3 [facility] COLONOSCOPY, FLEXIBLE; DIAGNOSTIC, INCLUDING COLLECTION OF SPECIMEN(S) BY BRUSHING OR WASHING, WHEN PERFORMED (SEPARATE PROCEDURE) Colonoscopy, flexible, proximal to splenic flexure; diagnostic, with or without collection of specimen(s) by brushing or washing, with or without colon decompression (separate procedure) 57320 3 [facility] Social History Combined list of available smoking, tobacco, and other social history from Department of Defense and Veterans Affairs facilities. Social History Type Response Date Comment Sourc e Tobacco smoking status NHIS [facility]-TOBACCO USE FORMER CIGARETTES 05/15/2024 [facility] History of tobacco use VA-TOBACCO USE FORMER OTHER TYPE 05/15/2024 [facility] History of tobacco use VA-TOBACCO FORMER USER 06/15/2023 [facility] History of tobacco use VA-TOBACCO FORMER USER 06/15/2022 [facility] History of tobacco use VA-TOBACCO FORMER USER 06/15/2021 [facility] History of tobacco use VA-TOBACCO FORMER USER 06/15/2020 [facility] Sex Representation Male (finding) 11/15/2019 Un known Organization History of tobacco use VA-TOBACCO NEVER USED 02/06/2019 [facility] History of tobacco use VA-TOBACCO USE DECLINED TO ANSWER 10/26/2017 [facility] History of tobacco use LIFETIME NON-USER OF TOBACCO 10/24/2017 [facility] History of tobacco use LIFETIME NON-USER OF TOBACCO 05/02/2017 non smoker [facility] History of tobacco use TOBACCO SCREEN COMPLETED 11/22/2016 [facility] History of tobacco use TOBACCO SCREEN COMPLETED 01/13/2016 [facility] History of tobacco use TOBACCO SCREEN COMPLETED 05/05/2015 [facility] History of tobacco use LIFETIME NON-USER OF TOBACCO 08/20/2014 [facility]oker [facility] History of tobacco use QUIT TOBACCO >7 YEARS AGO 11/01/2007 [facility] History of tobacco use QUIT TOBACCO >12 MO and <7 YRS AGO 07/13/2007 [facility] History of tobacco use HISTORY OF NON-SMOKING >1YR 01/16/20061981 [facility] History of tobacco use HISTORY OF NON-SMOKING >1YR 10/27/20041981 [facility] History of tobacco use CURRENT NON-TOBAC CO USER-HX OF USE 04/27/2004 [facility] History of tobacco use CURRENT NON-TOBAC CO USER-HX OF USE 11/28/2003 [facility] History of tobacco use CURRENT NON-TOBAC CO USER-HX OF USE 05/06/2003 [facility] History of tobacco use CURRENT NON-TOBAC CO USER-HX OF USE 12/12/2002 [facility] History of tobacco use CURRENT NON-TOBAC CO USER-HX OF USE 06/25/2002 [facility] History of tobacco use TOB-CURRENT NON-SMOKER BUT HX 04/30/2002 [facility] Sexual Orientation Ambula tory Pharmacy Gender identity Ambulator y Pharmacy Assessment and Plan Combined list of future care activities from Department of [facility] and [facility] facilities (e.g., assessment and plan notes, appointments, orders, and referrals). Additional future care activities may be listed in the Plan of Care section. Result Assessment and Plan Date Source Assessment and Plan No data available for this section 09/24/2024 [facility] Plan of Care List of future care activities from Department [facility] facilities. Additional future care activities may be listed in the Assessment and Plan section. Date/Time Care Activity Care Activity Detail Facili ty 02/12/2025 AMBULATORY - MEDICINE AMBULATORY - MEDICI [facility] Advance Directives List of completed, amended, or rescinded Advance Directives on record at Department [facility] facilities. An actual copy of the Directive is not included. Date Advance Directive Provider Source 08/17/2007 ADVANCE DIRECTIVE [facility]ON [facility] 08/16/2007 ADVANCE DIRECTIVE Pipe [facility] 04/01/2004 ADVANCE DIRECTIVE [address] Functional Status Combined list of recent functional and cognitive assessments recorded at [facility] [place] Functional Wrens Measurement (FIM) Scale: 1 = Total Assistance (Subject = 0% +), 2 = Maximal Assistance (Subject = 25% +), 3 = Moderate Assistance (Subject = 50% +), 4 = Minimal Assistance (Subject = 75% +), 5 = Supervision, 6 = Modified Wrens (Device), 7 = Complete Wrens (Timely, Safely). Assessment Date/Time Source Assessment Type Assessment Skill Assessment Score Assessment Details No data available for this section
--- OUTSIDE RECORDS SUMMARY | 2024-09-23 19:34 | XMS_ITS | Data Portability ---
Author Organization DESIRE De Jesus jose de jesus [facility]omas [email or web address] Address [address] [place] [address] Care Team Providers Care Planer Operator Name Role Phone MOOKIE ONTIVEROS Referring Provider [phone] GERONIMO HERRERA Abstract Manager [phone] Assessment Encounter Date Assessment Date Assessment LastModified by Organization Details LastModified Time 06/27/2019 06/27/2019 Patient at home in [place]; Provider in [place] for virtual visit. Approximately minutes were spent in medical discussion with the patient and/or caregiver [email or web address] Not available 06/27/2019 12:52:17 01/21/2020 01/21/2020 Patient confirmed to be in a location covered by the provider's current licensure Approximately 25minutes were spent in medical discussion with the patient and/or caregiver [email or web address] Not available 01/21/2020 14:24:20 Plan of Treatment Reminders Order Date Submit Date Provider Last Modified By Organization Details Last Modified Time Details Appointments None record ed. Lab None record ed. Referral None record ed. Procedures None record ed. Surgeries None record ed. Imaging None record ed. Medication Orders None record ed. Patient TargetsNo targets recorded. 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 [email or web address] Not available 08/02/2019 10:18:00 10/07/2019 [id number] Status post chem o XRT currently no evidence of recurrencePatient history of tongue base carcinoma in [place] patient is doing well will follow back up prn. Not available 10/22/2019 19:02:04 Reason for Referral None Reported. Results Created Date Observation Date Name Description Value Unit Range Abnormal Flag Note LastModifiedBy Organization Detail LastModifiedTime 07/19/1907/19/2019 diffe renti al panel , blood neutrophils 63.7 % 40.0-7 4.0 normal Not Available [facility] (Lab) [facility] [address] [place] [address], [address], 07/19/2019 12:43:04 07/19/19 20 07/19/2019 diffe renti al panel , blood lymphocytes 17.1 % 19.0-4 8.0 low Not Available [facility] (Lab) [facility] [address] [place] [address], [address], 07/19/2019 12:43:04 07/19/19 20 07/19/2019 diffe renti al panel , blood monocytes 14.1 % 0.0-12 .0 high Not Available [facility] (Lab) [facility] [address], [address], 07/19/2019 12:43:04 07/19/19 20 07/19/2019 diffe renti al panel , blood eosinophils 3.9 % 0.0-7. 0 normal Not Available [facility] (Lab) [facility] [address] [place] [address], [address], 07/19/2019 12:43:04 07/19/19 20 07/19/2019 diffe renti al panel , blood basophils 1.2 % 0.0-3. 0 normal Not Available [facility] (Lab) [facility] [address] [place] [address], [address], 07/19/2019 12:43:04 07/19/19 20 07/19/2019 diffe renti al panel , blood neutro absolute 5.10 K/uL 1.60-8 .50 normal Not Available [facility] (Lab) [facility] [address] [place] [address], [address], 07/19/2019 12:43:04 07/19/19 20 07/19/2019 diffe renti al panel , blood lymph absolute 1.40 K/uL 0.50-4 .80 normal Not Available [facility] (Lab) [facility] [address] [place] [address], [address], 07/19/2019 12:43:04 07/19/19 20 07/19/2019 diffe kash al panel , blood mono absolute 1.10 K/uL 0.00-0 .80 high Not Available [facility] (Lab) [facility] [address] [place] [address], [address], 07/19/2019 12:43:04 07/19/19 20 07/19/2019 diffe renti al panel , blood eos absolute 0.30 K/uL 0.00-0 .70 normal Not Available [facility] (Lab) [facility] [address] [place] [address], [address], 07/19/2019 12:43:04 07/19/19 20 07/19/2019 diffe arabellati al panel , blood baso absolute 0.10 K/uL 0.00-0 .10 normal Not Available [facility] (Lab) [facility] [address] [place] [address], [address], 07/19/2019 12:43:04 07/19/19 20 07/19/2019 CBC w/ auto diff WBC 8.0 K/uL 4.0-11 .0 normal Not Available [facility] (Lab) [facility] [address] [place] [address], [address], 07/19/2019 12:46:00 07/19/19 20 07/19/2019 CBC w/ auto diff RBC 5.39 M/uL 4.20-5 .60 normal Not Available [facility] (Lab) [facility] [place], [address], 07/19/2019 12:46:00 07/19/19 20 07/19/2019 CBC w/ auto diff HGB 16.4 g/dL 13.7-1 7.0 normal Not Available [facility] (Lab) [facility] [address] [place], [address], 07/19/2019 12:46:00 07/19/19 20 07/19/2019 CBC w/ auto diff HCT 47.9 % 40.0-5 0.0 normal Not Available [facility] (Lab) [facility] [address], [address], 07/19/2019 12:46:00 07/19/19 20 07/19/2019 CBC w/ auto diff MCV 88.8 fL 81.0-9 8.0 normal Not Available [facility] (Lab) [facility] [address], [address], 07/19/2019 12:46:00 07/19/1907/19/2019 CBC w/ auto diff MCH 30.4 pg 27.0-3 3.0 normal Not Available [facility] (Lab) [facility] [address] [place], [address], 07/19/2019 12:46:00 07/19/19 20 07/19/2019 CBC w/ auto diff MCHC 34.2 g/dL 32.0-3 7.0 normal Not Available [facility] (Lab) [facility] [address] [place], [address], 07/19/2019 12:46:00 07/19/19 20 07/19/2019 CBC w/ auto diff RDW 14.1 % 11.5-1 4.5 normal Not Available [facility] (Lab) [facility] [address], [address], 07/19/2019 12:46:00 07/19/19 07/19/2019 CBC w/ auto diff MPV 7.6 fL 6.0-11 .1 normal Not Available [facility] (Lab) [facility], [address], 07/19/2019 12:46:00 07/19/19 20 07/19/2019 CBC w/ auto diff platelet 260 K/uL 150-40 0 normal Not Available [facility] (Lab) [facility] [address], [address], 07/19/2019 12:46:00 07/19/19 20 07/19/2019 CBC w/ auto diff instr WBC 8.0 Not Available [facility] (Lab) [facility] [address], [place], [address], 07/19/2019 12:46:00 07/19/19 20 07/19/2019 PT/IN R PT 16.8 secon ds 11.6-1 5.0 high Not Available [facility] (Lab) [facility] [address], [address], 07/19/2019 13:11:39 07/19/19 20 07/19/2019 PT/IN R INR 1.3 INR Thera peuti c Range s 2.0-3 .0 Low Level Antic oagul ation 2.5-3 .5 New Recom erick d High Level Antic oagul ation Not Available [facility] (Lab) [facility] [address], [address], 07/19/2019 13:11:39 07/19/19 20 07/19/2019 CMP, serum or plasm a glucose lvl 101 mg/dL 70-99 high Fasti ng Gluco se Inter preta tions Silvana l 70 - 99 Impai red Fasti ng Gluco se 100 - 125 Abnor mal >=126 Not Available [facility] (Lab) [facility], [address], 07/19/2019 14:22:19 07/19/19 20 07/19/2019 CMP, serum or plasm a BUN 17 mg/dL 8-26 normal Not Available [facility] (Lab) [facility] [address] [place] [address], [address], 07/19/2019 14:22:19 07/19/19 20 07/19/2019 CMP, serum or plasm a creatinine lvl 1.25 mg/dL 0.72-1 .25 normal Not Available [facility] (Lab) [facility] [address] [place] [address], [address], 07/19/2019 14:22:19 07/19/19 20 07/19/2019 CMP, serum or plasm a calcium lvl 10.2 mg/dL 8.4-10 .8 normal Not Available [facility] (Lab) [address] [place] [address], [address], 07/19/2019 14:22:19 07/19/19 20 07/19/2019 CMP, serum or plasm a sodium lvl 139 mmol/ L 136-14 5 normal Not Available [facility] (Lab) [address] [place] [address], [address], 07/19/2019 14:22:19 07/19/19 20 07/19/2019 CMP, serum or plasm a potassium lvl 3.5 mmol/ L 3.5-5. 1 normal Not Available [facility] (Lab) [address] [place] [address], [address], 07/19/2019 14:22:19 07/19/19 20 07/19/2019 CMP, serum or plasm a chloride 100 mmol/ L 98-107 normal Not Available [facility] (Lab) [address] [place] [address], [address], 07/19/2019 14:22:19 07/19/19 20 07/19/2019 CMP, serum or plasm a CO2 27 mmol/ L 20-30 normal Not Available [facility] (Lab) [address] [place], [address], 07/19/2019 14:22:19 07/19/19 20 07/19/2019 CMP, serum or plasm a agap 12.0 mmol/ L Not Available [facility] (Lab) [facility] [address], [address], 07/19/2019 14:22:19 07/19/19 20 07/19/2019 CMP, serum or plasm a alk phos 77 intl_ units /L 40-150 normal Not Available [facility] (Lab) [facility] [address] [place] [address], [address], 07/19/2019 14:22:19 07/19/19 20 07/19/2019 CMP, serum or plasm a bili total 0.7 mg/dL 0.2-1. 2 normal Not Available [facility] (Lab) [facility] [address] [place] [address], [address], 07/19/2019 14:22:19 07/19/19 20 07/19/2019 CMP, serum or plasm a albumin lvl 3.8 gm/dL 3.4-4. 8 normal Not Available [facility] (Lab) [facility] [address] [place] [address], [address], 07/19/2019 14:22:19 07/19/19 20 07/19/2019 CMP, serum or plasm a total protein 7.3 gm/dL 6.4-8. 3 normal Not Available [facility] (Lab) [facility] [address] [place] [address], [address], 07/19/2019 14:22:19 07/19/19 20 07/19/2019 CMP, serum or plasm a ALT 32 intl_ units /L 11-55 normal Not Available [facility] (Lab) [facility] [address] [place] [address], [address], 07/19/2019 14:22:19 07/19/19 20 07/19/2019 CMP, serum or plasm a AST 20 intl_ units /L 5-34 normal Not Available [facility] (Lab) [address] [place], [address], 07/19/2019 14:22:19 07/19/19 20 07/19/2019 CMP, serum or plasm a BUN/creat ratio 14 7-20 normal Not Available [facility] (Lab) [address] [place] [address], [address], 07/19/2019 14:22:19 07/19/19 20 07/19/2019 CMP, serum or plasm a osmolality 279 mOsm/ kg 275-30 0 normal Not Available [facility] (Lab) [facility] [place] [address], [place], [address], 07/19/2019 14:22:19 07/19/19 20 07/19/2019 CMP, serum or plasm a Ag ratio 1.1 1.1-1. 8 normal Not Available [facility] (Lab) [facility] [facility], [place], [address], 07/19/2019 14:22:19 07/19/19 20 07/19/2019 GFR, estim ated (eGFR ), serum eGFR non-aa 56 mL/mi n/1.7 3m2 Not Available [facility] (Lab) [facility] [place], [address], 07/19/2019 14:22:20 07/19/19 20 07/19/2019 GFR, estim ated (eGFR ), serum eGFR aa >60 mL/mi n/1.7 3m2 Stage s of Renal Failu re Stage I >90 Stage II 60-89 Stage III 30-59 Stage IV 15-29 Stage V <15 Stage Va- ESRD/ Dialy sis The stagi ng syste m for Kidne y Disea se canno t be appli ed for Stage I or Stage II. This calcu latio n for GFR has only been valid ated for GFR 's <60. This GFR calcu latio n is not adjus dianna for extre me body surfa ce area. Nor has it been valid ated for child arabella less than 18 years , pregn ant women , or ethni c group s other than Cristóbal ramires and Afric holley Fry can. Not Available [facility] (Lab) [address] [place], [address], 07/19/2019 14:22:20 07/21/19 20 07/22/2019 SARS CoV 2 RNA (COVI D-19) , QL, 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, respi rator y speci men sars-cov-2 Negati ve negati ve normal Not Available [facility] (Lab) [address], [place], [address], 07/22/2019 12:14:42 08/28/19 20 08/28/2019 BMP, serum or plasm a glucose lvl 95 mg/dL 70-99 normal Fasti ng Gluco se Inter preta tions Silvana l 70 - 99 Impai red Fasti ng Gluco se 100 - 125 Abnor mal >=126 Not Available [facility] (Lab) [address] [facility], [place], [address], 08/28/2019 13:10:41 08/28/19 20 08/28/2019 BMP, serum or plasm a BUN 18 mg/dL 8-26 normal Not Available [facility] (Lab) [address], [address], 08/28/2019 13:10:41 08/28/19 20 08/28/2019 BMP, serum or plasm a creatinine lvl 1.05 mg/dL 0.72-1 .25 normal Not Available [facility] (Lab) [address] [place], [address], 08/28/2019 13:10:41 08/28/19 20 08/28/2019 BMP, serum or plasm a calcium lvl 10.3 mg/dL 8.4-10 .8 normal Not Available [facility] (Lab) [address], [address], 08/28/2019 13:10:41 08/28/19 20 08/28/2019 BMP, serum or plasm a sodium lvl 139 mmol/ L 136-14 5 normal Not Available [facility] (Lab) [facility] [address] [place] [address], [address], 08/28/2019 13:10:41 08/28/19 20 08/28/2019 BMP, serum or plasm a potassium lvl 3.4 mmol/ L 3.5-5. 1 low Not Available [facility] (Lab) [facility] [address] [place] [address], [address], 08/28/2019 13:10:41 08/28/19 20 08/28/2019 BMP, serum or plasm a chloride 100 mmol/ L 98-107 normal Not Available [facility] (Lab) [address] [place] [address], [address], 08/28/2019 13:10:41 08/28/19 20 08/28/2019 BMP, serum or plasm a CO2 25 mmol/ L 20-30 normal Not Available [facility] (Lab) [facility] [address] [place] [address], [address], 08/28/2019 13:10:41 08/28/19 20 08/28/2019 BMP, serum or plasm a agap 14.0 mmol/ L Not Available [facility] (Lab) [facility] [address] [place] [address], [address], 08/28/2019 13:10:41 08/28/19 20 08/28/2019 BMP, serum or plasm a BUN/creat ratio 17 7-20 normal Not Available [facility] (Lab) [address] [place] [address], [address], 08/28/2019 13:10:41 08/28/19 20 08/28/2019 BMP, serum or plasm a osmolality 279 mOsm/ kg 275-30 0 normal Not Available [facility] (Lab) [address] [place], [place] [address], [place], [address], 08/28/2019 13:10:41 08/28/19 20 08/28/2019 GFR, estim ated (eGFR ), serum eGFR non-aa >60 mL/mi n/1.7 3m2 Not Available [facility] (Lab) [address] [facility], [place], [address], 08/28/2019 13:10:44 08/28/19 20 08/28/2019 GFR, estim ated (eGFR ), serum eGFR aa >60 mL/mi n/1.7 3m2 Stage s of Renal Failu re Stage I >90 Stage II 60-89 Stage III 30-59 Stage IV 15-29 Stage V <15 Stage Va- ESRD/ Dialy sis The stagi ng syste m for Kidne y Disea se canno t be appli ed for Stage I or Stage II. This calcu latio n for GFR has only been valid ated for GFR 's <60. This GFR calcu latio n is not adjus dianna for extre me body surfa ce area. Nor has it been valid ated for child arabella less than 18 years , pregn ant women , or ethni c group s other than Cristóbal ramires and Afric holley Ameri can. Not Available [facility] (Lab) [address] [facility], [place], [address], 08/28/2019 13:10:44 08/28/19 20 08/28/2019 CBC w/ auto diff WBC 7.5 K/uL 4.0-11 .0 normal Not Available [facility] (Lab) [address] [facility], [place], [address], 08/28/2019 13:32:30 08/28/19 20 08/28/2019 CBC w/ auto diff RBC 5.54 M/uL 4.20-5 .60 normal Not Available [facility] (Lab) [address] [facility], [place], [address], 08/28/2019 13:32:30 08/28/19 20 08/28/2019 CBC w/ auto diff HGB 16.8 g/dL 13.7-1 7.0 normal Not Available [facility] (Lab) [facility] [address], [address], 08/28/2019 13:32:30 08/28/19 20 08/28/2019 CBC w/ auto diff HCT 48.8 % 40.0-5 0.0 normal Not Available [facility] (Lab) [facility] [address] [place] [address], [address], 08/28/2019 13:32:30 08/28/19 20 08/28/2019 CBC w/ auto diff MCV 88.1 fL 81.0-9 8.0 normal Not Available [facility] (Lab) [facility] [address], [address], 08/28/2019 13:32:30 08/28/19 20 08/28/2019 CBC w/ auto diff MCH 30.4 pg 27.0-3 3.0 normal Not Available [facility] (Lab) [facility] [address] [place] [address], [address], 08/28/2019 13:32:30 08/28/19 20 08/28/2019 CBC w/ auto diff MCHC 34.5 g/dL 32.0-3 7.0 normal Not Available [facility] (Lab) [facility] [address] [place] [address], [address], 08/28/2019 13:32:30 08/28/19 20 08/28/2019 CBC w/ auto diff RDW 13.8 % 11.5-1 4.5 normal Not Available [facility] (Lab) [facility] [address] [place] [address], [address], 08/28/2019 13:32:30 08/28/19 20 08/28/2019 CBC w/ auto diff MPV 8.0 fL 6.0-11 .1 normal Not Available [facility] (Lab) [facility] [address] [place] [address], [address], 08/28/2019 13:32:30 08/28/19 20 08/28/2019 CBC w/ auto diff platelet 271 K/uL 150-40 0 normal Not Available [facility] (Lab) [facility] [address] [place] [address], [address], 08/28/2019 13:32:30 08/28/19 20 08/28/2019 CBC w/ auto diff instr WBC 7.5 Not Available [facility] (Lab) [facility] [address] [place] [address], [address], 08/28/2019 13:32:30 08/28/19 20 08/28/2019 diffe renti al panel , blood neutrophils 67.2 % 40.0-7 4.0 normal Not Available [facility] (Lab) [facility] [address] [place] [address], [address], 08/28/2019 13:32:31 08/28/19 20 08/28/2019 diffe renti al panel , blood lymphocytes 15.0 % 19.0-4 8.0 low Not Available [facility] (Lab) [address] [place] [address], [address], 08/28/2019 13:32:31 08/28/19 20 08/28/2019 diffe renti al panel , blood monocytes 13.9 % 0.0-12 .0 high Not Available [facility] (Lab) [facility] [address] [place] [address], [address], 08/28/2019 13:32:31 08/28/19 20 08/28/2019 diffe renti al panel , blood eosinophils 3.5 % 0.0-7. 0 normal Not Available [facility] (Lab) [facility] [address] [place] [address], [address], 08/28/2019 13:32:31 08/28/19 20 08/28/2019 diffe renti al panel , blood basophils 0.4 % 0.0-3. 0 normal Not Available [facility] (Lab) [facility] [address] [place], [address], 08/28/2019 13:32:31 08/28/19 20 08/28/2019 diffe kash al panel , blood neutro absolute 5.00 K/uL 1.60-8 .50 normal Not Available [facility] (Lab) [facility] [address] [place], [address], 08/28/2019 13:32:31 08/28/19 20 08/28/2019 diffe kash al panel , blood lymph absolute 1.10 K/uL 0.50-4 .80 normal Not Available [facility] (Lab) [facility] [address] [facility], [place], [address], 08/28/2019 13:32:31 08/28/19 20 08/28/2019 diffe kash al panel , blood mono absolute 1.00 K/uL 0.00-0 .80 high Not Available [facility] (Lab) [facility] [address] [place], [address], 08/28/2019 13:32:31 08/28/19 20 08/28/2019 diffe kash al panel , blood eos absolute 0.30 K/uL 0.00-0 .70 normal Not Available [facility] (Lab) [facility] [address] [place], [address], 08/28/2019 13:32:31 08/28/19 20 08/28/2019 diffe kash al panel , blood baso absolute 0.00 K/uL 0.00-0 .10 normal Not Available [facility] (Lab) [facility] [address] [place], [address], 08/28/2019 13:32:31 08/30/19 20 09/01/2019 SARS CoV 2 RNA (COVI D-19) , QL, 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, respi rator y speci men sars-cov-2 Negati ve negati ve normal Not Available [facility] (Lab) [facility] [place], [address], 09/01/2019 12:54:18 10/01/1910/01/2019 BMP, serum or plasm a glucose lvl 109 mg/dL 70-99 high Fasti ng Gluco se Inter preta tions Silvana l 70 - 99 Impai red Fasti ng Gluco se 100 - 125 Abnor mal >=126 Not Available [facility] (Lab) [facility] [address] [place], [address], 10/01/2019 12:05:36 10/01/19 20 10/01/2019 BMP, serum or plasm a BUN 18 mg/dL 8-26 normal Not Available [facility] (Lab) [facility] [address] [place], [address], 10/01/2019 12:05:36 10/01/19 20 10/01/2019 BMP, serum or plasm a creatinine lvl 1.01 mg/dL 0.72-1 .25 normal Not Available [facility] (Lab) [facility] [address] [place], [address], 10/01/2019 12:05:36 10/01/1910/01/2019 BMP, serum or plasm a calcium lvl 9.9 mg/dL 8.4-10 .8 normal Not Available [facility] (Lab) [facility] [address] [place] [address], [address], 10/01/2019 12:05:36 10/01/19 20 10/01/2019 BMP, serum or plasm a sodium lvl 138 mmol/ L 136-14 5 normal Not Available [facility] (Lab) [facility] [address] [place] [address], [address], 10/01/2019 12:05:36 10/01/19 20 10/01/2019 BMP, serum or plasm a potassium lvl 2.9 mmol/ L 3.5-5. 1 low Not Available [facility] (Lab) [facility] [address], [address], 10/01/2019 12:05:36 10/01/19 20 10/01/2019 BMP, serum or plasm a chloride 100 mmol/ L 98-107 normal Not Available [facility] (Lab) [facility] [address] [place] [address], [address], 10/01/2019 12:05:36 10/01/19 20 10/01/2019 BMP, serum or plasm a CO2 28 mmol/ L 20-30 normal Not Available [facility] (Lab) [facility] [address] [place] [address], [address], 10/01/2019 12:05:36 10/01/19 20 10/01/2019 BMP, serum or plasm a agap 10.0 mmol/ L Not Available [facility] (Lab) [facility] [address] [place] [address], [address], 10/01/2019 12:05:36 10/01/19 20 10/01/2019 BMP, serum or plasm a BUN/creat ratio 18 7-20 normal Not Available [facility] (Lab) [facility] [address] [place] [address], [address], 10/01/2019 12:05:36 10/01/19 20 10/01/2019 BMP, serum or plasm a osmolality 278 mOsm/ kg 275-30 0 normal Not Available [facility] (Lab) [facility] [address] [place] [address], [address], 10/01/2019 12:05:36 10/01/19 20 10/01/2019 GFR, estim ated (eGFR ), serum eGFR non-aa >60 mL/mi n/1.7 3m2 Not Available [facility] (Lab) [facility] [address] [place] [address], [address], 10/01/2019 12:05:38 10/01/19 20 10/01/2019 GFR, estim ated (eGFR ), serum eGFR aa >60 mL/mi n/1.7 3m2 Stage s of Renal Failu re Stage I >90 Stage II 60-89 Stage III 30-59 Stage IV 15-29 Stage V <15 Stage Va- ESRD/ Dialy sis The stagi ng syste m for Kidne y Disea se canno t be appli ed for Stage I or Stage II. This calcu latio n for GFR has only been valid ated for GFR 's <60. This GFR calcu latio n is not adjus dianna for extre me body surfa ce area. Nor has it been valid ated for child arabella less than 18 years , pregn ant women , or ethni c group s other than Cauca keyla and Afric an Ameri can. Not Available [facility] (Lab) [address] [place], [address], 10/01/2019 12:05:38 10/01/19 20 10/01/2019 CBC w/ auto diff WBC 7.6 K/uL 4.0-11 .0 normal Not Available [facility] (Lab) [address] [place], [address], 10/01/2019 12:16:04 10/01/1910/01/2019 CBC w/ auto diff RBC 5.43 M/uL 4.20-5 .60 normal Not Available [facility] (Lab) [address] [place], [address], 10/01/2019 12:16:04 10/01/1910/01/2019 CBC w/ auto diff HGB 16.4 g/dL 13.7-1 7.0 normal Not Available [facility] (Lab) [address] [place], [address], 10/01/2019 12:16:04 10/01/1910/01/2019 CBC w/ auto diff HCT 47.0 % 40.0-5 0.0 normal Not Available [facility] (Lab) [address] [place], [address], 10/01/2019 12:16:04 10/01/19 20 10/01/2019 CBC w/ auto diff MCV 86.5 fL 81.0-9 8.0 normal Not Available [facility] (Lab) [facility] [address], [address], 10/01/2019 12:16:04 10/01/19 20 10/01/2019 CBC w/ auto diff MCH 30.2 pg 27.0-3 3.0 normal Not Available [facility] (Lab) [facility] [address], [place], [address], 10/01/2019 12:16:04 10/01/19 20 10/01/2019 CBC w/ auto diff MCHC 35.0 g/dL 32.0-3 7.0 normal Not Available [facility] (Lab) [facility] [address] [place] [address], [address], 10/01/2019 12:16:04 10/01/19 20 10/01/2019 CBC w/ auto diff RDW 13.8 % 11.5-1 4.5 normal Not Available [facility] (Lab) [facility] [address] [place] [address], [address], 10/01/2019 12:16:04 10/01/19 20 10/01/2019 CBC w/ auto diff MPV 7.5 fL 6.0-11 .1 normal Not Available [facility] (Lab) [facility] [address] [place] [address], [address], 10/01/2019 12:16:04 10/01/19 20 10/01/2019 CBC w/ auto diff platelet 260 K/uL 150-40 0 normal Not Available [facility] (Lab) [facility] [address] [place] [address], [address], 10/01/2019 12:16:04 10/01/19 20 10/01/2019 CBC w/ auto diff instr WBC 7.6 Not Available [facility] (Lab) [facility] [address] [place] [address], [address], 10/01/2019 12:16:04 10/01/19 20 10/01/2019 diffe renti al panel , blood neutrophils 61.5 % 40.0-7 4.0 normal Not Available [facility] (Lab) [facility] [address] [place] [address], [address], 10/01/2019 12:16:05 10/01/19 20 10/01/2019 diffe renti al panel , blood lymphocytes 22.5 % 19.0-4 8.0 normal Not Available [facility] (Lab) [facility] [address] [place] [address], [address], 10/01/2019 12:16:05 10/01/19 20 10/01/2019 diffe renti al panel , blood monocytes 11.2 % 0.0-12 .0 normal Not Available [facility] (Lab) [facility] [address] [place] [address], [address], 10/01/2019 12:16:05 10/01/19 20 10/01/2019 diffe renti al panel , blood eosinophils 3.9 % 0.0-7. 0 normal Not Available [facility] (Lab) [facility] [address] [place] [address], [address], 10/01/2019 12:16:05 10/01/19 20 10/01/2019 diffe renti al panel , blood basophils 0.9 % 0.0-3. 0 normal Not Available [facility] (Lab) [facility] [address] [place] [address], [address], 10/01/2019 12:16:05 10/01/19 20 10/01/2019 diffe renti al panel , blood neutro absolute 4.70 K/uL 1.60-8 .50 normal Not Available [facility] (Lab) [facility] [address] [place] [address], [address], 10/01/2019 12:16:05 10/01/19 20 10/01/2019 diffe kash al panel , blood lymph absolute 1.70 K/uL 0.50-4 .80 normal Not Available [facility] (Lab) [facility] [address] [place] [address], [address], 10/01/2019 12:16:05 10/01/19 20 10/01/2019 diffe renti al panel , blood mono absolute 0.90 K/uL 0.00-0 .80 high Not Available [facility] (Lab) [facility] [address] [place] [address], [address], 10/01/2019 12:16:05 10/01/19 20 10/01/2019 diffe renti al panel , blood eos absolute 0.30 K/uL 0.00-0 .70 normal Not Available [facility] (Lab) [address] [place] [address], [address], 10/01/2019 12:16:05 10/01/19 20 10/01/2019 diffe kash al panel , blood baso absolute 0.10 K/uL 0.00-0 .10 normal Not Available [facility] (Lab) [address] [place] [address], [address], 10/01/2019 12:16:05 10/01/19 20 10/01/2019 SARS CoV 2 RNA (COVI D-19) , QL, 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, respi rator y speci men sars-cov-2 Negati ve negati ve normal Not Available [facility] (Lab) [address] [place] [address], [address], 10/01/2019 21:50:28 10/04/19 20 10/04/2019 BMP, serum or plasm a glucose lvl 103 mg/dL 70-99 high Fasti ng Gluco se Inter preta tions Silvana l 70 - 99 Impai red Fasti ng Gluco se 100 - 125 Abnor mal >=126 Not Available [facility] (Lab) [address] [place] [address], [address], 10/04/2019 09:55:48 10/04/19 20 10/04/2019 BMP, serum or plasm a BUN 19 mg/dL 8-26 normal Not Available [facility] (Lab) [facility] [address] [place] [address], [address], 10/04/2019 09:55:48 10/04/1910/04/2019 BMP, serum or plasm a creatinine lvl 1.10 mg/dL 0.72-1 .25 normal Not Available [facility] (Lab) [facility] [address] [place] [address], [address], 10/04/2019 09:55:48 10/04/1910/04/2019 BMP, serum or plasm a calcium lvl 9.5 mg/dL 8.4-10 .8 normal Not Available [facility] (Lab) [address] [place] [address], [address], 10/04/2019 09:55:48 10/04/1910/04/2019 BMP, serum or plasm a sodium lvl 140 mmol/ L 136-14 5 normal Not Available [facility] (Lab) [address] [place] [address], [address], 10/04/2019 09:55:48 10/04/1910/04/2019 BMP, serum or plasm a potassium lvl 3.2 mmol/ L 3.5-5. 1 low Not Available [facility] (Lab) [facility] [address] [place] [address], [address], 10/04/2019 09:55:48 10/04/1910/04/2019 BMP, serum or plasm a chloride 103 mmol/ L 98-107 normal Not Available [facility] (Lab) [facility] [address] [place] [address], [address], 10/04/2019 09:55:48 10/04/1910/04/2019 BMP, serum or plasm a CO2 26 mmol/ L 20-30 normal Not Available [facility] (Lab) [address] [place], [address], 10/04/2019 09:55:48 10/04/19 20 10/04/2019 BMP, serum or plasm a agap 11.0 mmol/ L Not Available [facility] (Lab) [address] [place] [address], [address], 10/04/2019 09:55:48 10/04/19 20 10/04/2019 BMP, serum or plasm a BUN/creat ratio 17 7-20 normal Not Available [facility] (Lab) [address] [place] [address], [address], 10/04/2019 09:55:48 10/04/19 20 10/04/2019 BMP, serum or plasm a osmolality 282 mOsm/ kg 275-30 0 normal Not Available [facility] (Lab) [address] [place] [address], [address], 10/04/2019 09:55:48 10/04/19 20 10/04/2019 GFR, estim ated (eGFR ), serum eGFR non-aa >60 mL/mi n/1.7 3m2 Not Available [facility] (Lab) [address] [facility], [place], [address], 10/04/2019 09:55:53 10/04/19 20 10/04/2019 GFR, estim ated (eGFR ), serum eGFR aa >60 mL/mi n/1.7 3m2 Stage s of Renal Failu re Stage I >90 Stage II 60-89 Stage III 30-59 Stage IV 15-29 Stage V <15 Stage Va- ESRD/ Dialy sis The stagi ng syste m for Kidne y Disea se canno t be appli ed for Stage I or Stage II. This calcu latio n for GFR has only been valid ated for GFR 's <60. This GFR calcu latio n is not adjus dianna for extre me body surfa ce area. Nor has it been valid ated for child arabella less than 18 years , pregn ant women , or ethni c group s other than Cristóbal ramires and Afric an Ameri can. Not Available [facility] (Lab) [facility] [address] [place] [address], [address], 10/04/2019 09:55:53 10/04/19 20 10/04/2019 shh - add on from floor test requested magnes ium Not Available [facility] (Lab) [facility] [address] [place] [address], [address], 10/04/2019 10:39:48 10/04/19 20 10/04/2019 shh - add on from floor test processed? Yes yes normal Not Available [facility] (Lab) [facility] [address] [place] [address], [address], 10/04/2019 10:39:48 10/04/19 20 10/04/2019 magne sium, serum or plasm a magnesium lvl 2.0 mg/dL 1.6-2. 6 normal Not Available [facility] (Lab) [facility] [address] [place] [address], [address], 10/04/2019 10:54:40 10/11/1910/11/2019 BMP, serum or plasm a glucose lvl 107 mg/dL 70-99 high Fasti ng Gluco se Inter preta tions Silvana l 70 - 99 Impai red Fasti ng Gluco se 100 - 125 Abnor mal >=126 Not Available [facility] (Lab) [facility] [address] [place] [address], [address], 10/11/2019 12:59:42 10/11/1910/11/2019 BMP, serum or plasm a BUN 16 mg/dL 8-26 normal Not Available [facility] (Lab) [facility] [address] [place] [address], [address], 10/11/2019 12:59:42 10/11/19 20 10/11/2019 BMP, serum or plasm a creatinine lvl 1.09 mg/dL 0.72-1 .25 normal Not Available [facility] (Lab) [facility] [address] [place] [address], [address], 10/11/2019 12:59:42 10/11/19 20 10/11/2019 BMP, serum or plasm a calcium lvl 9.4 mg/dL 8.4-10 .8 normal Not Available [facility] (Lab) [facility] [address] [place] [address], [address], 10/11/2019 12:59:42 10/11/19 20 10/11/2019 BMP, serum or plasm a sodium lvl 140 mmol/ L 136-14 5 normal Not Available [facility] (Lab) [facility] [address] [place] [address], [address], 10/11/2019 12:59:42 10/11/19 20 10/11/2019 BMP, serum or plasm a potassium lvl 3.1 mmol/ L 3.5-5. 1 low Not Available [facility] (Lab) [facility] [address] [place] [address], [address], 10/11/2019 12:59:42 10/11/19 20 10/11/2019 BMP, serum or plasm a chloride 104 mmol/ L 98-107 normal Not Available [facility] (Lab) [facility] [address] [place] [address], [address], 10/11/2019 12:59:42 10/11/19 20 10/11/2019 BMP, serum or plasm a CO2 26 mmol/ L 20-30 normal Not Available [facility] (Lab) [facility] [address] [place] [address], [address], 10/11/2019 12:59:42 10/11/19 20 10/11/2019 BMP, serum or plasm a agap 10.0 mmol/ L Not Available [facility] (Lab) [facility] [address] [place] [address], [address], 10/11/2019 12:59:42 10/11/19 20 10/11/2019 BMP, serum or plasm a BUN/creat ratio 15 7-20 normal Not Available [facility] (Lab) [address], [place], [address], 10/11/2019 12:59:42 10/11/19 20 10/11/2019 BMP, serum or plasm a osmolality 281 mOsm/ kg 275-30 0 normal Not Available [facility] (Lab) [address], [place], [address], 10/11/2019 12:59:42 10/11/19 20 10/11/2019 GFR, estim ated (eGFR ), serum eGFR non-aa >60 mL/mi n/1.7 3m2 Not Available [facility] (Lab) [address], [place], [address], 10/11/2019 12:59:47 10/11/19 20 10/11/2019 GFR, estim ated (eGFR ), serum eGFR aa >60 mL/mi n/1.7 3m2 Stage s of Renal Failu re Stage I >90 Stage II 60-89 Stage III 30-59 Stage IV 15-29 Stage V <15 Stage Va- ESRD/ Dialy sis The stagi ng syste m for Kidne y Disea se canno t be appli ed for Stage I or Stage II. This calcu latio n for GFR has only been valid ated for GFR 's <60. This GFR calcu latio n is not adjus dianna for extre me body surfa ce area. Nor has it been valid ated for child arabella less than 18 years , pregn ant women , or ethni c group s other than Cauca keyla and Afric an Ameri can. Not Available [facility] (Lab) [address] [facility], [place], [address], 10/11/2019 12:59:47 07/25/19 20 07/25/2019 US, echoc ardio gram, trans thora cic, compl ete, w/ color flow No observ ation record ed. [facility] [address], [place], [address], 07/25/2019 10:45:41 07/31/19 20 07/24/2019 US, echo ardio gram, trans esoph ageal No observ ation record ed. [email or web address] [facility] ([facility]) [address], [place], [address], 08/01/2019 08:23:24 10/04/19 20 10/04/2019 US, echoc ardio gram, trans esoph ageal No observ ation record ed. [email or web address] [facility] ([facility]) [address], [place], [address], 10/08/2019 12:06:59 Result Notes None recorded. 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 Salome lopez, [place] - [facility] 9 12:04:34 Coronary arteriosclero sis 66693488 Active 2018 Jeet lopez [place] - [facility] 9 15:32:48 Atrial fibrillation 61393430 Active 2018 Not Available [facility] 0 17:21:51 Ventricular tachycardia 55675974 Active 2018 Jeet lopez [place] [facility] 9 15:33:43 Palpitations 51821530 Active 2018 Jeet lopez, [place] - [facility] 9 15:33:50 Hypertensive disorder 53948014 Active 2018 Jeet lopez [place] - [facility] 9 15:33:57 Sleep apnea 66998952 Active 2018 Jeet lopez [place] - [facility] 9 15:34:07 Chest pain 55833152 Active 2018 Jeet lopez [place] - [facility] 9 15:34:21 Dyspnea 685304711 Active 2018 Not Available [facility] 0 17:21:51 Left ventricular hypertrophy 32503048 Active 2018 Jeet lopez [facility] 9 15:35:27 Problem Notes None recorded. Procedures Surgical History Date Name Laterality Status Provider Name and Address Organization Details Recorded Time Heart Surgery completed Salome Mcdowell [facility] 10/11/2018 12:01:05 [facility] 12:01:05 Abdominal [facility] 10/11/2018 12:01:05 Colonoscopy completed Salome [facility] 10/11/2018 12:01:05 Imaging Results None recorded. Procedure Notes None recorded. Medical Equipment None Reported. Allergies Allergen ID Allergen Name Allergen Category Reaction Reaction Severity Criticality Documentation Date Start Date Code Code System Note Provider Name and Address Organization Details Recorded Time 062840 hydrochlo rothiazid e medicatio n Not available Not available Not available 10/11/2018 5487 RxNorm Salome lopez [facility] 9 12:01:49 539136 hydrochlo rothiazid e / telmisart an medicatio n Not available Not available Not available 10/11/2018 15279 6 RxNorm Salome lopez [facility] 9 12:02:05 Medications Name Sig Start Date Stop Date Status Note LastModified by Organization Details LastModified Time propafeno ne 150 mg tablet Take 1 tablet twice a day by oral route. 02/05 completed d/c per Dr. Obrien Not Available Not Available Not Available carvedilo l 6.25 mg tablet Take 1 tablet twice a day by oral route. 2019 active Not Available Not Available Not Avai deena carvedilo l 12.5 mg tablet Take 1 tablet twice a day by oral route. 06/26 completed Not Available Not Available Not Available indapamid e 2.5 mg tablet Take 1 tablet twice a day by oral route. 10/10 completed Not Available Not Available Not Available amiodaron e 200 mg tablet Take 1 tablet every day by oral route. 08/01 completed Not Available Not Available Not Available sucralfat e 100 mg/mL oral suspensio n TAKE 10ML BY MOUTH TWICE A DAY WITH MEALS FOR 7 DAYS active Not Available Not Available No t Available amlodipin e 2.5 mg tablet Take 1 tablet every day by oral route. active Not Available Not Available No t Available clopidogr el 75 mg tablet Take 1 tablet every day by oral route as directed for 90 days. 2019 active Not Available Not Available Not Avai lable sulfameth oxazole 800 mg-trimet hoprim 160 mg tablet TAKE 1 TABLET BY MOUTH EVERY 12 HOURS FOR 10 DAYS active Not Available Not Available No t Available omeprazol e 40 mg capsule,d elayed release TAKE 1 CAPSULE BY MOUTH TWICE A DAY active Not Available Not Available No t Available cephalexi n 500 mg capsule TAKE 1 CAPSULE BY MOUTH EVERY 6 HOURS FOR 10 DAYS active Not Available Not Available No t Available Adult Low Dose Aspirin 81 mg tablet,de layed release Take 1 tablet every day by oral route as directed for 90 days. 2019 active Not Available Not Available Not Avai lable rosuvasta tin 5 mg tablet Take 1 tablet every day by oral route. active Not Available Not Available No t Available Aspir-81 12/18 completed Not Available Not Available Not Available carvedilo l 12/18 completed Not Available Not Available Not Available amlodipin e 12/18 completed Not Available Not Available Not Available indapamid e 12/18 completed Not Available Not Available Not Available propafeno ne 12/18 completed Not Available Not Available Not Available Eliquis 5 mg tablet Take 1 tablet twice a day by oral route. 09/[address] Self. Pt to switch from Eliquis to Plavix and Aspirin Not Available Not Available Not Available potassium chloride ER 20 mEq tablet,ex tended release Take 1 tablet twice a day by oral route. active Not Available Not Available No t Available Eye Vitamin and Minerals active Not Available Not Available Not Available lutein 20 mg-zeaxan thin 1,000 mcg capsule Take 1 capsule every day by oral route. active Not Available Not Available No t Available Vitals Date Recorded Body height Respiratory rate Body mass index (BMI) Body weight Body temperature Heart rate Oxygen saturation Oxygen saturation in Arterial blood by Pulse oximetry Pain severity - 0-10 verbal numeric rating [Score] - Reported Systolic And Diastolic Provider Name and Address Organization Details Last Updated DateTime 0 177.8 cm 16 /min 37.6 kg/m2 266781. 2 g 97.9 [degF] 56 /min 95 % 95 % 0 129/61 mm[Hg] Jaqui Carrillo [facility] 0 16:57:56 Date Recorded Body height Heart rate Systolic And Diastolic Provider Name and Address Organization Details Last Updated DateTime 06/27/2019 177.8 cm 46 /min 140/80 mm[Hg] Angel Self, DO [address], [place], [address], [facility] 06/27/2019 12:52:23 Date Recorded Body height Provider Name an d Address Organization Details Last Updated DateTime 07/31/2019 177.8 cm Lois Danielle, NEEDLE SETTER [address], [place], [address], [facility] 07/31/2019 10:30:43 Date Recorded Body mass index (BMI) Body weight Heart rate Systolic And Diastolic Provider Name and Address Organization Details Last Updated DateTime 07/31/2019 35.2 kg/m2 760326.57 g 47 /min 130/74 mm[Hg] Adeline Monrealnapoleonzayra [facility] 07/31/2019 10:37:19 Date Recorded Body height Body mass index (BMI) Body weight Body temperature Respiratory rate Oxygen saturation Oxygen saturation in Arterial blood by Pulse oximetry Heart rate Pain severity - 0-10 verbal numeric rating [Score] - Reported Systolic And Diastolic Provider Name and Address Organization Details Last Updated DateTime 0 177.8 cm 34.3 kg/m2 191980. 58 g 98 [degF] 16 /min 97 % 97 % 54 /min 0 160/75 mm[Hg] Stormy Dia [facility] 0 11:51:37 Social History Question Answer Notes LastModified by Organizat ion Details LastModified Time Tobacco Smoking Status Former Smoker Salome lopez [facility] 10/11/2018 12:00:58 Do You Have An Advance Directive? Yes Information not available 10/11/2018 What Is Your Level Of Caffeine Consumption? Moderate [email or web address] Information not available 12/18/2018 Which Illicit Or Recreational Drugs Have You Used? None Information not available 12/18/2018 Live Alone Or With Others? With Others Information not available 12/18/2018 Do You Use Any Of The Following Medications? None [email or web address] Information not available 12/18/2018 Patients Living Environment Safe And Secure? Yes Information not available 10/11/2018 High Risk For Falls? No [email or web address] Information not available 12/18/2018 Readiness To Learn Accepting [email or web address] Information not available 12/18/2018 Barriers To Learning None [email or web address] Information not available 12/18/2018 Learning Preferences No Preferences [email or web address] Information not available 12/18/2018 Have You Had A Fever And/or Symptoms Of A Lower Respiratory Illness (cough, Difficulty Breathing, Etc)? No [email or web address] Information not available 10/07/2019 Marital Status [email or web address] Informatio n not available 12/18/2018 Do You Have Symptoms Associated With Zika Virus (fever, Rash, Joint Pain, Or Conjunctivitis)? No [email or web address] Information not available 12/18/2018 Have You Recently (within The Last 12 Weeks, Or During A Current ) Traveled To Or Lived In A Zika-affected Area? No [email or web address] Information not available 12/18/2018 Sex: Unknown Functional Status Question Answer Note LastModified by Organizat ion Details LastModified Time What is your level of alcohol consumption? Occasional Information not available 10/11/2018 Are you able to care for yourself independently? Yes Information not available 10/11/2018 Mental Status None recorded. Family History Relationship Description Onset Age of this Age Resolved Age Notes LastModified by Organization Details LastModified Time Mother Diabetes mellitus [email or web address] Not available 2018 12:00:15 Mother Kidney disease [place] Not available 2018 12:00:15 Mother Heart disease [place] Not available 2018 12:00:15 Mother Cardiac arrhythmia brushton Not available 05/12 16:58:28 Mother Hypertensive disorder br[place] Not available 2019 16:58:28 Unspecified Relation Malignant neoplastic disease [place] Not available 2018 12:00:16 Medical History Condition Response cancer Y arthritis N high blood pressure Y acid reflux/GERD N neurologic disease N diabetes mellitus N musculoskeletal disease N heart disease Y lung disease N high cholesterol N Past Encounters Encounter ID Performer Location Encounter Start Date Encounter Closed Date Diagnosis/Indication Diagnosis SNOMED-CT Code Diagnosis ICD10 Code Diagnosis Note [id number] Geronimo Herrera Jr. 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 Currently not on aspirin. Has nitro. Atrial fibrillation 4943 6004 I48.91 He is in A. fib despite Propafenon e. I note that he was on short acting Propafenon e and only taking bid. His macular degenerati on may not allow for anticoagul ant therapy. If this is the case, would place watchman. I discussed the procedure with the patient in detail. He does not feel well in A. fib. He feels a little washed out and would like to get back to normal rhythm. I will need at least a short course of anticoagul ation in order to cardiovert him. He has insurance coverage for medication s. We could replace Propafenon e with Multaq and do JESSICA /cardiover estephania as an outpatient Hyperlipidemia 64359807 E78.5 Goal LDL less than 70. Get lipid panel. Age relate d macular degeneration 971370061 H35.30 Patient will contact his ophthalmol ogist and request clearance for or anticoagul ation or antiplatel et therapy. [id number] Claudia Obrien MD [facility] [address] [place] [address] 02/05/2019 08:38:16 02/05/2019 10:37:03 Atrial fibrillation 45530858 I48.91 Poor long-term anticoagul ation candidate due to risk of retinal bleeding. He is still in atrial fibrillati on. Stop Propafenon e and increase carvedilol to 12.5 mg twice daily. We will get him in to see EP for considerat ion of ablation. Depending on their opinion, may also get him in to see Dr. Manzano for a watchman. he is very symptomati c with his A. fib. Await opinion of his ophthalmol ogist as will need short-term anticoagul ation. I discussed with Dr. Stone. We will make arrangemen ts for him to see the patient Edema of l ower extremity [id number] R60.0 Get echo. Get venous insufficie ncy study. Follow-up in clinic after Coronary arteriosclerosis in pilot station artery [id number] I25.10 Angina class 0. Stress test reassuring . Needs to be on a statin with goal LDL 60. I told him to get [facility] to assure that this is done [id number] Geronimo Herrera Jr. MD [facility] [address],[facility] [address] [place] [address] 02/07/2019 09:45:39 02/26/2019 09:39:12 Tongue carcinoma [id number] C02.9 [id number] Jr. MD [facility] [address],[facility] [address] [place] [address] 03/04/2019 16:32:03 03/28/2019 11:02:31 Tongue carcinoma [id number] C02.9 [id number] Angel Self, MG_CARD [facility] [address] [place] [address] 03/14/2019 10:53:05 03/14/2019 12:27:04 Chronic atrial fibrillation [id number] I48.20 ECG today reveals rate controlled atrial fibrillati on. Suspect patient likely is not rate controlled with exertion. Patient last underwent cardiovers ion in 2016. He was subsequent ly trialed on propafenon e and subsequent ly taken off of this medication as it was not effective. Patient was never tried on amiodarone or offered repeat cardiovers ion or ablation therapy. We reviewed the 3-pronged approach to the management of atrial fibrillati on consisting of rate control, rhythm control, and CVA prophylaxi s. We also discussed that many rhythm control options may be of diminishin g value at this point given patient's chronicity of atrial fibrillati on. Regardless , patient states he remains symptomati c and would wish to try 1 more attempt at rhythm control. Additional ly, patient has had recent stress testing 12/27/18 which was negative for ischemia, and recent echocardio graphy 03/01/19 which reveals preserved biventricu lar systolic function. Thus, -We will plan for JESSICA/cardio version as a litmus test to determine if patient can achieve restoratio n of sinus rhythm; will obtain measuremen ts for possible future left atrial appendage closure at that time -If JESSICA/cardio version is successful , will initiate amiodarone and short-term anticoagul ation with Eliquis at that time -If patient demonstrat es any capacity to maintain sinus rhythm for consistent period of time, will consider proceeding with pulmonary vein isolation via ablation. If patient immediatel y reversed atrial fibrillati on, will proceed with rate control approach to patient's atrial fibrillati on and try to address symptoms via improved rate control and diuresis for diastolic dysfunctio n. Obstructiv e sleep apnea of adult [id number] 103 G47.33 Patient is compliant with CPAP. This is likely contributo r to patient's atrial fibrillati on. Given how ruborous he is on exam today and the symptoms patient describes, his CPAP may need re-titrati on. -Continue CPAP nightly and while sleeping -Recommend follow-up with pulmonary to adjust and titrate CPAP Retinal hemorrhage 57569 [id number] H35.63 Significan t and recurrent issue for which patient follows with a retinal specialist . Patient states previous retinal specialist whom evaluate Entresto told him on multiple occasions that long-term anticoagul ation would be detrimenta l. Patient states the retinal specialist he is recently establishe d with here has yet to weigh in on the issue and is extremely difficult to get a hold of. -We will attempt to get a hold of retinal specialist determine if patient is still a poor candidate for anticoagul ation or if he can tolerate long-term anticoagul ation therapy -Decision to proceed with anticoagul ation versus left atrial pannus closure will be dependent on status of patient's retinal hemorrhage s and profession al opinion of retinal specialist [id number] Angel Self, [facility]CARD [facility] [address] [place] [address] 04/11/2019 13:39:45 04/11/2019 14:58:35 Chronic atrial fibrillation [id number] I48.20 Patient last underwent cardiovers ion in 2016. He was subsequent ly trialed on propafenon e and subsequent ly taken off of this medication as it was not effective. Patient was never tried on amiodarone or offered repeat cardiovers ion or ablation therapy. We reviewed the 3-pronged approach to the management of atrial fibrillati on consisting of rate control, rhythm control, and CVA prophylaxi s. We also discussed that many rhythm control options may be of diminishin g value at this point given patient's chronicity of atrial fibrillati on. Regardless , patient states he remains symptomati c and would wish to try 1 more attempt at rhythm control. Additional ly, patient has had recent stress testing 12/27/18 which was negative for ischemia, and recent echocardio graphy 03/01/19 which reveals preserved biventricu lar systolic function. Following this, patient underwent successful JESSICA cardiovers ion with restoratio n of sinus rhythm after third shock. He was subsequent ly started on amiodarone and remains in sinus rhythm today. ECG reveals sinus rhythm. Due to previously failing antiarrhyt hmic therapy and the aggressive nature of his atrial fibrillati on and his significan t symptomati c improvemen t in sinus rhythm, we discussed that it is reasonable to proceed with ablation. I discussed the risks and benefits of a electrophy siology study and atrial fibrillati on ablation. Specifical ly I reviewed the risks of bleeding, DVT/PE, vascular injury, risks of sedation, cardiac perforatio n and tamponade, infection, damage to the intrinsic conduction system requiring a permanent pacemaker, myocardial infarction , stroke or other embolic event, phrenic nerve injury, esophageal injury, pulmonary vein stenosis, and other intangible risks. Knowing these risks, and that other options were available, including doing nothing, the patient chose to undergo the procedure. -Continue Eliquis for anticoagul ation -Continue amiodarone for rhythm control -Continue Coreg for rate control -Schedulin g pulmonary vein isolation with EnSite Obstructiv e sleep apnea of adult [id number] 103 G47.33 Patient is compliant with CPAP. -Continue CPAP nightly and while sleeping Retinal hemorrhage 64734 008 H35.63 Patient's retinal specialist says this is not a rate limiting factor in his anticoagul ation therapy. -Continue Eliquis for anticoagul ation [id number] Geronimo Herrera Jr. MD [facility] [address],[place] [address] [place] [address] 05/13/2019 16:39:36 05/26/2019 13:29:30 Tongue carcinoma [id number] C02.9 [id number] Angel Self DO [facility] [address] [place] [address] 06/27/2019 08:12:26 06/27/2019 13:58:26 Obstructive sleep apnea of adult [id number] 103 G47.33 Patient is compliant with CPAP. -Continue CPAP nightly and while sleeping Retinal hemorrhage 95789 008 H35.63 Gracein g data from patient's previous retinal specialist and current retinal specialist . Pt notes previous specialist was thorough and exhibited concern regarding OAC given his recurrent retinal hemorrhage s requiring repeated therapy, whereas current specialist is perceived to be somewhat dismissive of his concerns. -Continue Eliquis for anticoagul ation for now but plan for Watchman due to recurrent bleeding issues as noted below. Longstandi ng persistent atrial fibrillation [id number] I48.11 Recent stress testing 12/27/18 which was negative for ischemia, and recent echocardio graphy 03/01/19 which reveals preserved biventricu lar systolic function. Previously chronic for years but attemped JESSICA/DCCV which restored NSR on 3rd attempt. Loaded with amiodarone . Followed by PVI. Done well since. 1 week event monitor performed and pending processing . HR remains mildly low in upper 40s. Hemodynami navneet stable without symptoms, but pt concerned about HR. Additional ly, espouses bleeding concerns as noted below. We reviewed a four-dani r approach to the management of atrial fibrillati on consisting of rate control, rhythm control, stroke prevention , and risk factor modificati on. Based on pt goals and our discussion -Continue Eliquis for anticoagul ation for now but plan for Watchman implantati on due to retinal hemorrhage s an recurrent extremity bleeding with ADLs -Continue amiodarone for rhythm control for now, but will plan to d/c if event monitor reveals little to no AF burden; will consider intitiatio n of sotalol on inpatient basis after amiodarone washout -Continue Coreg for rate control, but reduce by half to now 6.25mg PO BID - f/u in 3 months Anticoagulant therapy 18 [id number] Z79.01 Recurrent bleeding issues. Inhibiting ADLs and causing bleeding on furniture and sheets. This in conjunctio n with concern for recurrent retinal hemorrhage s as noted above warrants alternativ e approach to mcfp oral anticoagul ation in this patient. Thus,- plan for watchman in the near future with one of my colleagues I discussed the risks and benefits of Watchman implantati on. Specifical ly I reviewed the risks of bleeding, DVT/PE, vascular injury, risks of sedation, cardiac perforatio n and tamponade, infection, damage to the intrinsic conduction system requiring a permanent pacemaker, myocardial infarction , stroke or other embolic event, esophageal injury, and other intangible risks. Knowing these risks, and that other options were available, including doing nothing, the patient chose to undergo the procedure. All questions were addressed. [id number] Lois Santos APRN [facility] [address] [place] [address] 07/31/2019 10:09:38 08/05/2019 14:43:05 Atrial fibrillation [id number] I48.91 S/P Watchman procedure. Stable from post-opera tive standpoint . Continue eliquis. Scheduled for pre-op lab work and JESSICA to evaluate Watchman device on 09/03/2019. Sinus bradycardia [id number] [address]00.[address] Self. Reviewed results of event monitor from 06/11/19 which showed sinus rhythm with no evidence of atrial fibrillati on. Patient will continue his coreg 6.25mg BID, but we will discontinu e his amiodarone at this time. Advised to present to the emergency department if he develops symptoms from bradycardi a. [id number] Geronimo Herrera Jr. MD [facility] [address] [place] [address] 10/07/2019 11:22:24 10/23/2019 11:44:42 Carcinoma of base of tongue [id number] C01 [id number] Angel Self DO [facility] [address] [place] [address] 01/21/2020 08:02:13 01/22/2020 00:02:46 Longstanding persistent atrial fibrillation [id number] I48.11 Difficult to treat but finally able to maintain some degree of rhythm control on amiodarone after multiple cardiovers ion attempts until PVI with successful maintenanc e of sinus rhythm. Amiodarone subsequent ly discontinu ed. Due to retinal hemorrhage s and recurrent bleeding, long-term anticoagul ation was contraindi cated. He underwent left atrial appendage occluder implantati on and has subsequent ly completed therapy. He is doing well from an atrial fibrillati on standpoint . We discussed a 4 pillar approach to the management of atrial fibrillati on consisting of rate control, rhythm control, stroke prevention , and risk factor modificati on. Based on our discussion ,-Continue aspirin monotherap y now that left atrial appendage occluder is in situ -Continue Coreg for rate control -Hold off on antiarrhyt hmic therapy for now as patient remains in sinus rhythm; should AF return in the future, would prefer to initiate class Ic or class III antiarrhyt hmic as hemodynami cs and renal parameters allow prior to reverting to amiodarone -Follow-up with AF clinic in 6 months Retinal hemorrhage 78244 008 H35.63 Status post left atrial appendage occluder implantati on and discontinu ation of anticoagul ation. -Continue to monitor -Follow-up with patient's primary retinal specialist Obstructiv e sleep apnea of adult [id number] 103 G47.33 Patient is compliant with CPAP. -Continue CPAP nightly and while sleeping Health Concerns Section Related Observation LastModified by Organization Detai ls LastModified Time None Recorded Concern Status LastModified by Organization Details LastModified Time None Recorded Advance Directives Directive Y: Payers Insurance Date Sequence Insurance Name Policy Number Policy Castle Covered Member ID Castle Member ID Guarantor Name 01/20/2020 [place] Farhat Daly [id number] Farhat Daly 01/20/2020 1 [place] Farhat Daly [id number] Farhat Daly 12/24/2018 1 [place] Farhat Daly [id number] Farhat Daly 12/18/2018 1 [place] Farhat Daly [id number] Farhat Daly 12/24/2018 [place] Farhat Daly [id number] Farhat Daly 01/27/2020 2 [employer] [place] (MEDICARE SUPPLEMENT) Farhat Daly [id number] Farhat Daly 03/14/2019 2 [employer]ET[employer] (POS) Farhat Daly [id number] Farhat Daly 10/11/2019 2 [employer]ETNA Farhat Daly [id number] Farhat Daly
--- OUTSIDE RECORDS SUMMARY | 2024-09-23 19:34 | XMS_ITS | Patient Health Record ---
Author Organization [facility] Address [address] [place] [address] Care Team Providers Care Manifest/Order Organizer Print Orders Name Role Phone Samy Shaw Unavailable [phone] Allergies Allergen (clinical drug ingredient) Drug/Non Drug Allergy documented on EMR Reaction Allergy Type Onset Date Status HCTZ Unknown Drug Allergy Active telmisartan Micardis Unknown Drug Allergy Activ e Reason For Referral No Information Medications Medication SIG (Take, Route, Frequency, Duration) Notes Start Date End Date Status propafenone Active indapamide Active amLODIPine Active Immunizations Vaccine Route Administration Date Status Comme nts Pneumococcal Unknown 12/28/2017 Administered Influenza Unknown 01/23/2019 Refused Social History Tobacco Use: Social History Observation Description Date Details (start date - stop date) Former Smoker NA - NA Smoking Question Answer Notes Status: former smoker How long has it been since you last smoked? 1-5 years Alcohol Question Answer Notes Did you have a drink containing alcohol in the p ast year? Yes How often did you have six o r more drinks on one occasion in the past year? Never (0 points) how many drink did you have on a typical day when you were drinking in the past year? 1 or 2 (0 points) How often did you have a dri nk containing alcohol in the past year? Never (0 points) Points 0 Interpretation Negative Section Notes: Are you experiencing respiratory systems which include a fever 100.4 or greater or a cough? no Have you traveled internationally within the last 14 days? no Have you traveled on a cruise ship within the last 14 days? no Problems Problem Type SNOMED Code ICD Code Onset Dates Problem Status W/U Status Risk Notes Problem Verruca vulgaris (89266142) Verruca vulgaris (B07.9) Active confirmed Problem Contact dermatitis (28843265) Contact dermatitis (L25.9) Active confirmed Problem Seborrheic keratosis (31830808) Seborrheic keratosis (L82.1) Active confirmed Plan Of Treatment No Information Insurance Providers Payer Name Payer Address Payer Phone Subscriber Number Group Number Insured Name Patient Relationship to Insured Coverage Start Date Coverage End Date [place] [address] [address] [place] [address] [phone] [id number] Farhat Daly Self - patient is the insured [employer] [address] [address] [place] [address] [phone] [id number] Farhat Daly Self - patient is the insured Medical (General) History Medical History History ICD Code Hx of BCC Hypertension Tongue Cancer Surgical History Surgery Date(Month/Year) BCC Removal Cancer in the Tongue Removed
--- NOTE | 2024-09-23 19:38 | XRR_ITS ---
PROCEDURE INFORMATION: Exam: XR Abdomen Exam date and time: 09/23/2024 7:44 PM Age: 79 years old Clinical indication: Abdominal pain; Prior surgery; Surgery date: 6+ months; Surgery type: Watchman closure device, cardiac ablation, appendectomy; Additional info: Weakness, bowel pain TECHNIQUE: Imaging protocol: Radiologic exam of the abdomen. Views: 2 Views. Upright and supine views. COMPARISON: CR XR chest 1V portable [id number] 02/07/2024 12:32 PM FINDINGS: Lungs: Mild pulmonary vascular congestion. Bibasilar atelectasis versus infiltrate. Heart/Mediastinum: Cardiomegaly. Gastrointestinal tract: Moderate right colon constipation. Intraperitoneal space: Normal. No free air. Vasculature: Aortic atherosclerotic calcifications. Bones/joints: Right humeral head impacted fracture, may be chronic, please correlate clinically. 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 XR/XR acute abdomen series [id number] IMPRESSION: 1. Cardiomegaly. 2. Mild pulmonary vascular congestion. 3. Bibasilar atelectasis versus infiltrate. 4. Aortic atherosclerotic calcifications. 5. Right humeral head impacted fracture, may be chronic, please correlate clinically. 6. Moderate right colon constipation. 7. 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
--- NOTE | 2024-09-23 19:41 | ED_ITS ---
HPI - Weakness 2 General: Chief complaint: Weakness Stated complaint: Chills, Dark Urine, Tick bite, weak Time Seen by Provider: 09/23/24 19:35 History of Present Illness: 79-year-old man with a history of mc ry artery disease, BPH, gout, hyperlipidemia, left ventricular hypertrophy, PTSD, history of tongue cancer with surgical excision, A-fib with a watchman placement and hypertension who presents emergency room with generalized weakness and malaise. Decreased appetite. Grumbling in his belly and mild discomfort. Congestion. Chills. Headache. No altered mental status. No focal motor deficits. No chest pain. No shortness of breath. He did have a recent tick bite. also states his urine has been very dark. She is worried he might have a UTI or tick illness. Or that he might be dehydrated. He does have a temp of 99.1 on presentation. He had a fall about 4 months ago and had a subdural hematoma with a broken shoulder and wrist. He has been recovering from that and going to rehab. Related Data Home Medications ?Medication ?Instructions ?Recorded ?Confirmed amlodipine 2.5 mg tablet 2.5 mg PO DAILY 08/13/20 hydroxyzine HCl 25 mg tablet 25 mg PO TID PRN anxiety or sleep 06/29/22 02/27/24 carvedilol 12.5 mg tablet See Rx Instructions .Route . COMPLEX 02/07/24 02/27/24 dorzolamide 22.3 mg-timolol 6.8 1 drp ophthalmic (eye) BID 02/07/24 02/27/24 mg/mL eye drops finasteride 5 mg tablet 5 mg PO DAILY 02/07/2402/26 latanoprost 0.005 % eye drops 1 drp ophthalmic (eye) Q PM 02/07/24 02/27/24 potassium chloride 20 mEq See Rx Instructions .Route . COMPLEX 02/07/24 02/27/24 tablet,extended release vit C 250 mg-vit E 90 mg-zinc 40 1 tab PO BID 02/07/24 02/27/24 mg-copper 1 [id number]-ecjbbv-fprzdn capsule (PreserVision AREDS-2) tamsulosin 0.4 mg capsule 0.8 mg PO DAILY 06/20/24 Previous Rx's ?Medication ?Instructions ?Recorded aspirin 81 mg tablet,delayed 81 mg PO DAILY #30 tabs 1 04/12/23 release atorvastatin 40 mg tablet 40 mg PO DAILY #30 tabs 01/27 06/20 clopidogrel 75 mg tablet 75 mg PO DAILY #30 tabs 01/27 06/20 isosorbide mononitrate 30 mg 30 mg PO DAILY #90 tabs 1 tablet,extended release 24 hr furosemide 40 mg tablet (Lasix) 40 mg PO QAM PRN edema #30 tabs 03/04/24 Allergies Allergy/AdvReac Type Severity Reaction Status Date / Time clonidine Allergy unknown Verified 09/23/24 19:34 diltiazem Allergy unknown Verified 09/23/24 19:34 hydrochlorothiazide Allergy unknown Verified 09/23/24 19:34 lisinopril Allergy unknown Verified 09/23/24 19:34 sertraline (From Zoloft) Allergy unknown Verified 09/23/24 19:34 spironolactone (From Allergy unknown Verified 09/23/24 19:34 Aldactone) telmisartan (From Micardis) Allergy unknown Verified 09/23/24 19:34 Review of Systems 2 Narrative: Constitutional symptoms: Negative except as documented in HPI. Skin symptoms: Negative except as documented in HPI. Eye symptoms: Negative except as documented in HPI. ENMT symptoms: Negative except as documented in HPI. Respiratory symptoms: Negative except as documented in HPI. Cardiovascular symptoms: Negative except as documented in HPI. Gastrointestinal symptoms: Negative except as documented in HPI. Genitourinary symptoms: Negative except as documented in HPI. Musculoskeletal symptoms: Negative except as documented in HPI. Neurologic symptoms: Negative except as documented in HPI. Psychiatric symptoms: Negative except as documented in HPI. Endocrine symptoms: Negative except as documented in HPI. PFSH ED 2 PFSH: Medical History (Updated 09/23/24 @ 22:55 by Ketty Burgos MD) Atherosclerosis of coronary artery Benign prostatic hyperplasia Gout Hyperlipidemia LVH (left ventricular hypertrophy) Hearing loss Macular degeneration PTSD (post-traumatic stress disorder) Hx of tongue cancer Hx of tuberculosis Presence of Watchman left atrial appendage closure device Sleep apnea Ventricular tachycardia CAD (coronary artery disease) Patient was told to have mild coronary disease by cardiac catheterization. Paroxysmal A-fib Hypertension Surgical History Hx of lymph node excision Hx of neck surgery Hx of tonsillectomy Hx of appendectomy History of radiofrequency ablation procedure for cardiac arrhythmia Family History Mother CAD (coronary artery disease) Cancer Diabetes Son Cancer Chronic kidney disease (CKD) Father Dementia Lung disease TB Stroke Denies family history of Clotting disorder Suicide Anesthesia complication Bleeding disorder Social History Smoking and tobacco/nicotine status: former use of tobacco/nicotine Alcohol intake: never Substance/Drug Use: never Physical Exam 2 Narrative: EXAM NARRATIVE: General: Alert, no acute distress. Skin: Warm, dry. Head: Normocephalic, atraumatic. Neck: Supple, trachea midline. Eye: Extraocular movements are intact. Ears, nose, mouth and throat: mucosa moist. Cardiovascular: Regular, Normal peripheral perfusion. Respiratory: Lungs are clear to auscultation, respirations are non-labored, breath sounds are equal, Symmetrical chest wall expansion. Gastrointestinal: Soft, Nontender, Non distended Musculoskeletal: Normal ROM, no deformity. Neurological: Alert and oriented, No focal neurological deficit observed. Psychiatric: Cooperative, appropriate mood & affect. Course 2 Vital Signs: Vital signs: Vital Signs Temperature 99.1 F 09/23/24 19:29 Pulse Rate 86 09/23/24 22:54 Respiratory Rate 18 09/23/24 22:54 Blood Pressure 144/86 09/23/24 22:54 Pulse Oximetry 92 09/23/24 22:54 Oxygen Delivery Me thod Room Air 09/23/24 19:29 MDM - Weakness Medical Decision Making Medical decision making: Differential diagnosis for patient presenting with generalized weakness including but not limited to and based on the above HPI, review of systems and physical exam: Sepsis. Dehydration. Renal failure. Electrolyte abnormalities. Anemia. Congestive heart failure. Hypotension. Coronary syndrome. Hepatitis. Cirrhosis. Infections such as pneumonia, urinary tract infection, Tick bourne illness, Cellulitis, Viral infections including influenza and Covid-19. Workup: labwork and lab/exam driven imaging ordered to evaluate, rule in and rule out above pathologies. EKG: Time 2010. Rate 85. Atrial fibrillation with controlled rate, No ST-T changes, no ectopy, This was reviewed and interpreted by myself the ER physician at 2014 Chest x-ray: Cardiomegaly and possible early fluid overload but this looks fairly stable. No infiltrate. No pneumothorax. This was reviewed and interpreted by myself the emergency room physician. I also reviewed the radiology report. Lab Review: Laboratory results were reviewed and interpreted by myself the emergency room physician. Significant leukocytosis with a white count of 19.3. However lactate is only minimally elevated at 2. Procalcitonin is mildly elevated at 0.22. No renal failure. Hemoglobin is slightly elevated at 17. No liver enzyme elevation. Urinalysis is positive for bacteria, greater than 100 whites but is nitrate negative I reviewed the patient's medical record. 79-year-old man with a history of coronary artery disease, BPH, gout, hyperlipidemia, left ventricular hypertrophy, PTSD, history of tongue cancer with surgical excision, A-fib with a watchman placement and hypertension Reexamination: Patient remained stable. No increased work of breathing. No altered mental status. No focal motor deficits. Patient was a bit reluctant to come in the hospital but I talked to his that I am concerned this could be early sepsis/SIRS. Consultation: I spoke Dr. Singer who agrees to admission Assessment and plan: Urinary tract infection Systemic inflammatory response syndrome -1 L normal saline bolus. Patient has a history of heart failure and his blood pressure has been elevated to normal. He does have a high white count but lactate is not elevated. I do not believe he is septic at this point but might be early with systemic inflammatory response syndrome - IV Rocephin was administered. -Sepsis quality measures. -Lactic acid with a reflex was ordered. -Blood cultures were ordered. -I discussed the patient with the hospitalist on-call who is admitting the patient. - Discussed findings and plan with patient. Answered any questions. - All laboratory values were reviewed and interpreted personally by myself, the ER physician - All imaging was reviewed and interpreted personally by myself, the ER physician. - Evaluation and treatment of this problem were appropriate in the emergency setting Lab Data 09/23/24 20:00 09/23/24 20:00 Radiology Impressions Chest/Abdomen X-ray 09/23/24 19:38 IMPRESSION: 1. Cardiomegaly. 2. Mild pulmonary vascular congestion. 3. Bibasilar atelectasis versus infiltrate. 4. Aortic atherosclerotic calcifications. 5. Right humeral head impacted fracture, may be chronic, please correlate clinically. 6. Moderate right colon constipation. 7. 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 Laboratory Results WBC 19.25 10^3/uL (3.29-11.43) H 09/23/24 20:00 RBC 5.98 10^6/uL (3.85-5.65) H 09/23/24 20:00 Hgb 17.30 g/dL (11.27-16.99) H 09/23/24 20:00 Hct 51.8 % (37-53) 09/23/24 20:00 MCV 86.6 fl (82-101) 09/23/24 20:00 MCH 28.9 pg (27-33) 09/23/24 20:00 MCHC 33.4 g/dL (30-55) 09/23/24 20:00 RDW 14.2 % (12.1-15.1) 09/23/24 20:00 Plt Count 238 10^3/cmm (157-399) 09/23/24 20:00 MPV 9.2 fL (7.4-10.4) 09/23/24 20:00 Neut % (Auto) 80.1 % 09/23/24 20:00 Lymph % (Auto) 5.2 % 09/23/24 20:00 Fountain % (Auto) 12.9 % 09/23/24 20:00 Eos % (Auto) 0.8 % 09/23/24 20:00 Baso % (Auto) 0.4 % 09/23/24 20:00 Neut # (Auto) 15.41 10^3/uL (1.8-7.7) H 09/23/24 20:00 Lymph # (Auto) 1.0 10^3/uL (0.8-4.8) 09/23/24 20:00 Fountain # (Auto) 2.5 10^3/uL (0.2-0.9) H 09/23/24 20:00 Eos # (Auto) 0.2 10^3/uL (0.0-0.8) 09/23/24 20:00 Baso # (Auto) 0.1 10^3/uL (0.0-0.1) 09/23/24 20:00 Nucleated RBC % (auto) 0 % 09/23/24 20:00 Nucleated RBCs # 0.0 /100WBC 09/23/24 20:00 Sodium 138 mmol/L (136-145) 09/23/24 20:00 Potassium 4.4 mmol/L (3.5-5.1) 09/23/24 20:00 Chloride 101 mmol/L (98-107) 09/23/24 20:00 Carbon Dioxide 24 mmol/L (22-29) 09/23/24 20:00 Anion Gap 17.4 (5-19) 09/23/24 20:00 BUN 18 mg/dL (8-23) 09/23/24 20:00 Creatinine 1.0 mg/dL (0.7-1.2) 09/23/24 20:00 GFR Calculation Not Reportable 09/23/24 20:00 Glucose 119 mg/dL (65-115) H 09/23/24 20:00 Calculated Osmolality 289 mOsm/kg (285-295) 09/23/24 20:00 Lactic Acid 2.0 mmol/L (0.5-2.2) 09/23/24 20:00 Calcium 9.7 mg/dL (8.5-10.5) 09/23/24 20:00 Total Bilirubin 1.1 mg/dL (0.15-1.2) 09/23/24 20:00 AST 21 U/L (0-40) 09/23/24 20:00 ALT 19 U/L (0-41) 09/23/24 20:00 Alkaline Phosphatase 142 U/L (40-130) H 09/23/24 20:00 Troponin T Baseline 16 ng/L (0-15) H 09/23/24 20:00 Troponin T 120 Minute 13.37 ng/L (0-15) 09/23/24 22:04 Delta Troponin T -2.63 ABS# (0-10) L 09/23/24 22:04 C-Reactive Protein 146.8 mg/L (0.0-4.9) H 09/23/24 20:00 Total Protein 6.6 g/dL (6.6-8.7) 09/23/24 20:00 Albumin 4.0 g/dL (3.5-5.2) 09/23/24 20:00 Globulin 2.6 g/dL (1.3-4.6) 09/23/24 20:00 Procalcitonin 0.22 ng/mL (0-0.5) 09/23/24 20:00 Urine Color Yellow (Yellow) 09/23/24 19:42 Urine Appearance Cloudy (CLEAR) A 09/23/24 19:42 Urine pH 6.5 (5-7) 09/23/24 19:42 Ur Specific [employer] 1.023 (1.005-1.030) 09/23/24 19:42 Urine Protein 3+ (Negative) A 09/23/24 19:42 Urine Glucose (UA) Negative (Normal) 09/23/24 19:42 Urine Ketones Trace (Negative) 09/23/24 19:42 Urine Blood Negative (Negative) 09/23/24 19:42 Urine Nitrate Negative (Negative) 09/23/24 19:42 Urine Bilirubin Negative (Negative) 09/23/24 19:42 Urine Urobilinogen 2.0 mg/dL (Negative) H 09/23/24 19:42 Ur Leukocyte Esterase 2+ (Negative) A 09/23/24 19:42 Urine RBC 0-2 /hpf (0-2) 09/23/24 19:42 Urine WBC >100 /hpf (0-5) H 09/23/24 19:42 Ur Squamous Epith Cells 0-5 /hpf (0-5) 09/23/24 19:42 Amorphous Sediment Not Reportable 09/23/24 19:42 Urine Bacteria 1+ /hpf (NONE) H 09/23/24 19:42 Hyaline Casts 0.40 /lpf 09/23/24 19:42 All radiology interpretation(s) finalized by discharge Discharge Plan Discharge Patient Disposition: Admitted As Inpatient Clinical Impression: Acute UTI, SIRS (systemic inflammatory response syndrome) Condition: Stable Coding Level of Care Code ED Family Literacy Coordinator for Sheela Retana
[2024-09-23 19:48] LABS: Glucose Urine UA Negative (Normal); Nitrate Urine Negative (Negative); Specific Gravity, Urine 1.023 (1.005-1.030)
--- NOTE | 2024-09-23 20:11 | ECG_ITS ---
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 Measurements Intervals Reasnor Rate: 85 P: 0 DE: 0 QRS: 64 QRSD: 114 T: 41 QT: 367 QTc: 437 Interpretive Statements ATRIAL FIBRILLATION INCOMPLETE RIGHT BUNDLE BRANCH BLOCK [90+ ms QRS DURATION, TERMINAL R IN V1/V2, 40+ ms S IN I/aVL/V4/V5/V6] ABNORMAL RHYTHM ECG Compared to ECG 02/09/2024 16:06:44 Incomplete right bundle-branch block now present Electronically Signed On 09-26-2024 10:27:24 CDT by Matthias Flores M.D. [email or web address]
[2024-09-23 20:28] LABS: Hematocrit 51.8 % (37-53); Hemoglobin 17.30 g/dL (11.27-16.99); Mean Corpuscular HGB Conc 33.4 g/dL (30-55); Mean Corpuscular Hemoglobin 28.9 pg (27-33); Mean Corpuscular Volume 86.6 fl (82-101); Nucleated Red Blood Cells % 0 %; Platelet Count 238 10^3/cmm (157-399); Red Blood Count 5.98 10^6/uL (3.85-5.65); White Blood Count 19.25 10^3/uL (3.29-11.43)
[2024-09-23] MEDS: cefTRIAXone 1,000 mg SDV 1000 MG IVP (20:34)
[2024-09-23 20:43] LABS: Lactic Sepsis W/Reflex 2.0 mmol/L (0.5-2.2)
[2024-09-23 20:44] LABS: Alanine Aminotransferase 19 U/L (0-41); Albumin Level 4.0 g/dL (3.5-5.2); Alkaline Phosphatase 142 U/L (40-130); Blood Urea Nitrogen 18 mg/dL (8-23); Calcium 9.7 mg/dL (8.5-10.5); Carbon Dioxide 24 mmol/L (22-29); Chloride 101 mmol/L (98-107); Creatinine Clr Calc Pharmacy 73.5433; Globulin 2.6 g/dL (1.3-4.6); Glucose 119 mg/dL (65-115); Osmolality Calculated 289 mOsm/kg (285-295); Sodium 138 mmol/L (136-145); Total Protein 6.6 g/dL (6.6-8.7)
[2024-09-23 20:46] LABS: Troponin(5th) Baseline 16 ng/L (0-15)
[2024-09-23 20:47] LABS: Anion Gap 17.4 (5-19); Aspartate Amino Transferase 21 U/L (0-40); Potassium 4.4 mmol/L (3.5-5.1)
[2024-09-23 20:49] LABS: Procalcitonin 0.22 ng/mL (0-0.5)
[2024-09-23 22:37] LABS: Troponin 5 2HR 13.37 ng/L (0-15)
[2024-09-23 22:40] LABS: Troponin 5 2HR Delta -2.63 ABS# (0-10)
--- NOTE | 2024-09-23 23:51 | PM.HP ---
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 Patient is on dual medication for prostate hypertrophy. This had been a culprits for urinary tract infection in this patient. Patient is very hard of hearing and need to have speech through a piece of equipment for better hearing. Patient symptomatology only started today and saw instant. He was having low-grade fever at home and chills. And when he finally went to the bathroom today to void he only voided very small according to the and it was very painful. At the emergency room urinalysis were significant for greater than 100,000 white cells. Aside from the urinary issues patient also had complained of having tick bites and being quite weak. Patient related that they have urine have been noted to be very dark. Patient received a gram of Rocephin in the emergency room upon further evaluation of the patient I feel that the inflammation in his system where much to actually attribute that so much on the 1 day symptomatology of urinary tract infection. Patient need to be on 2 g of Rocephin and also add an empiric treatment for tick related illness. Patient white count on arrival was 20,000. All other lab studies were entirely unremarkable. Patient C-reactive protein was in the 146, incredibly high. Normal C-reactive protein is 0-4.9. Patient has coronary artery disease was status post stent placement January last year and had had fall as well in June 4 months ago with subdural hematoma and had just finished rehabilitation and home. Patient came to the hospital from home for current evaluation of not feeling well and having chills with dysuria. Review of Systems Narrative: System review upon 10 organ review we are noted to be genitourinary and systemic with low-grade fever and chills otherwise unremarkable. Medications/Allergies Home Medications ?Medication ?Instructions ?Recorded ?Confirmed ?Last Taken ?Type amlodipine 2.5 mg tablet 2.5 mg PO DAILY 08/13/20 02/27/24 02/07/24 History hydroxyzine HCl 25 mg tablet 25 mg PO TID PRN anxiety or sleep 06/29/22 02/27/24 Unknown History carvedilol 12.5 mg tablet See Rx Instructions .Route .COMPLEX 12/11/24 12/31/24 12/11/24 History dorzolamide 22.3 mg-timolol 6.8 1 drp ophthalmic (eye) BID 02/07/24 02/27/24 02/07/24 History mg/mL eye drops finasteride 5 mg tablet 5 mg PO DAILY 02/07/24 02/27/24 02/07/24 History latanoprost 0.005 % eye drops 1 drp ophthalmic (eye) QPM 02/07/24 02/27/24 Unknown History potassium chloride 20 mEq See Rx Instructions .Route .COMPLEX 02/07/24 02/27/24 02/07/24 History tablet,extended release vit C 250 mg-vit E 90 mg-zinc 40 1 tab PO BID 02/07/24 02/27/24 02/07/24 History mg-copper 1 ty-cyjeay-fxlzuc capsule (PreserVision AREDS-2) aspirin 81 mg tablet,delayed 81 mg PO DAILY #30 tabs 02/10/24 02/27/24 Unknown Rx release atorvastatin 40 mg tablet 40 mg PO DAILY #30 tabs 02/10/24 02/27/24 Unknown Rx clopidogrel 75 mg tablet 75 mg PO DAILY #30 tabs 02/10/24 02/27/24 Unknown Rx isosorbide mononitrate 30 mg 30 mg PO DAILY #90 tabs 02/27/24 02/27/24 Unknown Rx tablet,extended release 24 hr furosemide 40 mg tablet (Lasix) 40 mg PO QAM PRN edema #30 tabs 03/04/24 Unknown Rx tamsulosin 0.4 mg capsule 0.8 mg PO DAILY 06/20/24 Unknown History Allergies Allergy/AdvReac Type Severity Reaction Status Date / Time clonidine Allergy unknown Verified 09/23/24 19:34 diltiazem Allergy unknown Verified 09/23/24 19:34 hydrochlorothiazide Allergy unknown Verified 09/23/24 19:34 lisinopril Allergy unknown Verified 09/23/24 19:34 sertraline (From Zoloft) Allergy unknown Verified 09/23/24 19:34 spironolactone (From Allergy unknown Verified 09/23/24 19:34 Aldactone) telmisartan (From Micardis) Allergy unknown Verified 09/23/24 19:34 PFSH Acute PFSH: Medical History Atherosclerosis of coronary artery Benign prostatic hyperplasia Gout Hyperlipidemia LVH (left ventricular hypertrophy) Hearing loss Macular degeneration PTSD (post-traumatic stress disorder) Hx of tongue cancer Hx of tuberculosis Presence of Watchman left atrial appendage closure device Sleep apnea Ventricular tachycardia CAD (coronary artery disease) Patient was told to have mild coronary disease by cardiac catheterization. Paroxysmal A-fib Hypertension Surgical History Hx of lymph node excision Hx of neck surgery Hx of tonsillectomy Hx of appendectomy History of radiofrequency ablation procedure for cardiac arrhythmia Family History Mother CAD (coronary artery disease) Cancer Diabetes Son Cancer Chronic kidney disease (CKD) Father Dementia Lung disease TB Stroke Denies family history of Clotting disorder Suicide Anesthesia complication Bleeding disorder Social History Smoking and tobacco/nicotine status: former use of tobacco/nicotine Alcohol intake: never Substance/Drug Use: never Vitals/I&O/Wt Last Vital Signs Temp 99.1 F 09/23/24 19:29 Pulse 95 09/23/24 23:31 Resp 18 09/23/24 23:31 BP 149/89 09/23/24 23:31 Pulse Ox 94 09/23/24 23:31 O2 Del Method Room Air 09/23/24 19:29 Weight last 48 hrs Weight 111.13 kg Physical Exam Narrative: General The patient looks weak very jovial not very ill appearing. HEENT normocephalic atraumatic Neck neck is supple Cardiovascular heart rate is regular Lungs are clear Abdomen is soft nontender nondistended unremarkable Extremities are intact no edema has good pulses Neurology has no focality lab studies reviewed and noted for inflammatory profile of C-reactive protein white count of 20,000 Data 09/23/24 20:00 09/23/24 20:00 Micro: Microbiology 09/23/24 20:25 Blood Culture - Preliminary Blood SPECIMEN COLLECTED 09/23/24 20:29 Blood Culture - Preliminary Blood SPECIMEN COLLECTED A&P Assessment and plan 1. SIRS (systemic inflammatory response syndrome): - It is had to call this UTI with sepsis rather his UTI with much inflammatory profile and associated with chills but with no hypotension and no real concerning fever the patient has chills - Treat UTI monitor inflammatory profile such as C-reactive protein is with much elevation Continue with ceftriaxone regarding the UTI continue to monitor and optimize Patient is with systolic dysfunction and with a current mild vascular congestion upon arriving to the emergency room will be cautious of any IV fluid at this time. 2. Acute UTI: Continue ceftriaxone 2 g IV daily because of high level of inflammatory profile with C-reactive protein Continue to treat and optimize Encouraged patient to drink Cautious with IV hydration Patient had recent stent placement in January 2024 3. LV dysfunction: Patient had had coronary artery disease with ischemic cardiomyopathy continue home medication Continue supporting heart medications 4. Heart failure with reduced ejection fraction: Patient should continue home Lasix while in the hospital and also at discharge Avoid IV fluid Patient received a liter in the emergency room 5. CAD (coronary artery disease): Patient with coronary artery disease status post stent placement in January Continue Plavix and baby aspirin, continue carvedilol, isosorbide, 6. Paroxysmal A-fib: Did this patient have ablation for his A-fib? Patient is not on any anticoagulant Continue rate control with beta-ubaldo Will continue to follow through and optimize 7. Hypertrophy of prostate with urinary retention: Has BPH Continue tamsulosin, finasteride, 8. Tick bite: Will initiate empiric doxycycline and monitor Plan: GI and DVT prophylaxis in place PDMP PDMP Reviewed: Last Reviewed 09/24/24 00:55 by Franchesca Singer MD Attestations Medical Necessity Statement*: Patient with much leukocytosis and inflammatory profile with elevated C-reactive protein not feeling well this is a inpatient admission for further workup and optimization of care for at least 2 midnights Coding Level of Care Code 50780 Diagnoses SIRS (systemic inflammatory response syndrome) R65.10 Acute UTI N39.0 LV dysfunction I51.9 Heart failure with reduced ejection fraction I50.20 CAD (coronary artery disease) I25.10 Paroxysmal A-fib I48.0 Hypertrophy of prostate with urinary retention N40.1; R33.8 Tick bite W57.XXXA Time Spent (min) 60
[2024-09-24] VITALS (12 sets, daily range): BP systolic 133–174; BP diastolic 71–102; PULSE 77–106; RESP 15–17; TEMP 36.7–36.8; O2SAT 90–97; BMI 36.1
[2024-09-24 00:37] LABS: CRP High Sensitivity Cardiac 16.980 mg/dL (0.0-0.3)
[2024-09-24] MEDS: ondansetron 2 mg/ML SDV 2 mL 4 MG IVP (00:47)
[2024-09-24 01:58] LABS: Hematocrit 46.2 % (37-53); Hemoglobin 15.40 g/dL (11.27-16.99); Mean Corpuscular HGB Conc 33.3 g/dL (30-55); Mean Corpuscular Hemoglobin 28.9 pg (27-33); Mean Corpuscular Volume 86.7 fl (82-101); Nucleated Red Blood Cells % 0 %; Platelet Count 200 10^3/cmm (157-399); Red Blood Count 5.33 10^6/uL (3.85-5.65); White Blood Count 19.21 10^3/uL (3.29-11.43)
[2024-09-24 02:17] LABS: Troponin 5 6HR 16.47 ng/L (0-15); Troponin 5 6HR Delta 0.47 ng/L (0-12)
[2024-09-24 02:18] LABS: Lactic Sepsis W/Reflex 1.2 mmol/L (0.5-2.2)
[2024-09-24 02:26] LABS: Alanine Aminotransferase 18 U/L (0-41); Albumin Level 3.4 g/dL (3.5-5.2); Alkaline Phosphatase 128 U/L (40-130); Anion Gap 18.0 (5-19); Aspartate Amino Transferase 17 U/L (0-40); Blood Urea Nitrogen 14 mg/dL (8-23); Calcium 9.0 mg/dL (8.5-10.5); Carbon Dioxide 22 mmol/L (22-29); Chloride 103 mmol/L (98-107); Creatinine Clr Calc Pharmacy 73.5433; Globulin 2.4 g/dL (1.3-4.6); Glucose 134 mg/dL (65-115); Magnesium 2.0 mg/dL (1.7-2.3); Osmolality Calculated 290 mOsm/kg (285-295); Potassium 4.0 mmol/L (3.5-5.1); Sodium 139 mmol/L (136-145); Total Protein 5.8 g/dL (6.6-8.7)
[2024-09-24 02:29] LABS: CRP High Sensitivity Cardiac 18.170 mg/dL (0.0-0.3)
[2024-09-24] MEDS: doxycycline 100 MG in sodium chloride 0.9% (plus) 100 ML IV ×2 (02:42→12:43)
[2024-09-24] MEDS: heparin 5,000 unit/mL INJ 1 mL 5000 UNIT SUBCUT ×2 (06:05→17:29)
--- OUTSIDE RECORDS SUMMARY | 2024-09-24 06:30 | XMS_ITS | Continuity of Care Document ---
Author Name [facility] Organization 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 Unavailable Unavailable Problems Combined list of problems [...] Unknown Organization Benign essential hypertension (SNOMED CT 2462581) Active Condition Unknown Organization Hypertension, Benign Active [...] Condition U nknown Organization Hyperlipidemia (SNOMED CT 76139715) Active Condition Unknown Organization Hypertension5 Active Condition PREVIO USLY ON HCTZ/PROPRANOL OL 25/40 MG. HYPOKALEMIA?<b r/>HCTZ/LISINO PRIL 12.520 INITIATED REPLACEMENT Unknown Organization Hypokalemia Active Condition Unknown Organization Hyponatremia Active Condition Unknown Organization Left ventricular hypertrophy6 Active Condition cardiology exam 06/28/17 karlene Dia 6 months Unknown Organization Cancer of tongue Active Condition Unkno wn Organization Medical examinations/reports status (SNOMED CT 870925881) Active Condition Unknown Organization Obstructive sleep apnea syndrome7 Active Condition CPAP Unknown Organization Bilateral foot pain Active Condition Un known Organization Ptsd Active Condition Unknown Organization Elevated PSA Active Condition Unknown Organization Sensorineural hearing loss Active Condition Unknown Organization Ventricular tachycardia Active Condition Unknown Organization AF- Atrial Fibrillation (SCT 27042250) Active Condition Jun 15, 2020 Entered By: MILLA DANG RD Comment: Intermittent. Watchman device implanted.Jun 15, 2020 Entered By: MILLA DANG RD Comment: Hx. Abalation procedure. [facility] [facility] Benign prostatic hyperplasia Active Condition GERDA Janna [facility] Benign Prostatic Hypertrophy with Outflow Obstruction (SCT [id number]) Active Condition [place] [facility] Bilateral tinnitus Active Condition [place] [facility] CAD - Coronary artery disease Active Condition Mar 13, 2018 Entered By: RODO DRISCOLL Comment: cardiology eval 01/09/18 reviewed on 03/13/18 [facility] CAD - Coronary Artery Disease ([facility] [id number]) Active Condition [place] [facility] Coronary artery disease Active Condition [facility] Elevated PSA Active Condition Jun 12, 2020 Entered By: MILLA DANG RD Comment: 18 in May,.Jun 15, 2020 Entered By: MILLA DANG RD Comment: Biopsy neg. per pt. Declines referral 05/2020. [facility] Elevated PSA (SNOMED CT 924774508) Active Condition [facility] Exposure to potentially hazardous chemical [facility] to potentially hazardous substance Active Condition [facility] Family History of Diabetes Mellitus Active Condition Aug 03 07 Entered By: ZAIDA RAY Comment: MOTHER, NIDDM [facility] Generalized seizure Active Condition May 23, 2017 Entered By: RODO DRISCOLL Comment: hospitalized 04/2017 seizures secondary to severe hyponatremia [facility] Gout (SCT 86884554) Active Condition [facility] Hearing Loss (SCT 07399160) Active Condition [facility] Hyperlipidemia (SCT 88050931) [facility] Hypertension Active Condition Jan 16, 2006 Entered By: ZAIDA RAY Comment: PREVIOUSLY ON HCTZ/PROPRANOL OL 25/40 MG. HYPOKALEMIA?Ju n 2006 Entered By: ZAIDA RAY Comment: HCTZ/LISINOPRI L 12.5 INITIATED REPLACEMENT [facility] Hypertension (SNOMED CT 80656679) Active Condition [facility] [facility] Left ventricular hypertrophy Active Condition Aug 22, 2017 Entered By: RODO DRISCOLL Comment: cardiology exam 06/28/17 karlene Dia 6 months [facility] - Left ventricular hypertrophy Active Condition [facility] [facility] Obstructive sleep apnea syndrome Active Condition May 23, 2017 Entered By: RODO DRISCOLL Comment: CPAP [facility] Obstructive sleep apnea syndrome Active Condition [facility] PTSD - Post-traumatic stress disorder Active Condition [place] [facility] Sleep Apnea Active Condition Jan 16, 2006 Entered By: ZAIDA RAY Comment: ON C-PAP. CONSISTENT USE ENCOURAGED GERDA CandelariaStefani [facility] Sleep Apnea (SCT 84813291) [facility] Vitamin B12 deficiency Active Condition [facility] VT - Ventricular tachycardia Active Condition [place] [facility] Wet senile macular degeneration Active Condition Dec 06, 2017 Entered By: RODO DRISCOLL Comment: Eyeinjections every 8 weeks- Eylea [facility] Chest discomfort Inactive Condition 05/23/2017 [facility] Chest pain Inactive Condition 03/13/2018 Jan 25, 2018 Entered By: RODO DRISCOLL Comment: lidia [facility] Edema Inactive Condition 10/27/2004 GERDA [facility] Fatigue Inactive Condition 05/15/2017 [facility] STA [facility] Lipoma Inactive Condition 05/15/2017 [facility] STA [facility] Morbid obesity Inactive Condition 05/23/2017 [facility] Obesity Inactive Condition 01/16/2006 GERDA TeaganStefani [facility] Obstructive Sleep APNEA (ADULT) (Pediatric) (ICD-9-CM 327.23) Inactive Condition 05/15/2017 [facility] Other and unspecified Sleep Apnea (ICD-9-CM 780.57) Inactive Condition 05/15/2017 [facility] Palpitations Inactive Condition 03/13/2018Dec Entered By: RODO DRISCOLL Comment: per [facility] SENSORY R L B Inactive Condition 08/03/2006 KRIS CRESPOHLEN [facility] Tinnitus-Subj R L B Inactive Condition 08/03/2006 [facility] Diagnosis: ICD-10-CM Z00.01 Encounter for general adult medical exam w abnormal findings Active Diagnosis [facility] Diagnosis: ICD-10-CM Z09 Encntr for f/u exam aft trtmt for cond oth than malig neoplm Active Diagnosis [facility] Diagnosis: ICD-10-CM F43.10 Post-traumatic stress disorder, unspecified Active Diagnosis [facility] Diagnosis: ICD-10-CM Z46.1 Encounter for fitting and adjustment of hearing aid Active Diagnosis [facility] [facility] Diagnosis: ICD-10-CM N40.1 Benign prostatic hyperplasia with lower urinary tract symp Active Diagnosis [facility] Diagnosis: ICD-10-CM Z02.89 Encounter for other administrative examinations Active Diagnosis [facility] Diagnosis: ICD-10-CM H93.13 Tinnitus, bilateral Active Diagnosis [facility] Diagnosis: ICD-10-CM D49.2 Neoplasm of unsp behavior of bone, soft tissue, and skin Active Diagnosis [facility] Diagnosis: ICD-10-CM Z13.89 Encounter for screening for other disorder Active Diagnosis [facility] Diagnosis: ICD-10-CM I25.10 Athscl heart disease of [place] coronary artery w/o ang pctrs Active Diagnosis [facility] Diagnosis: ICD-10-CM G47.33 Obstructive sleep apnea (adult) (pediatric) Active Diagnosis [facility] Medications Combined list of outpatient medications from [...] FOR HEART/BL OOD PRESSURE ORAL ACTIVE 06/14/2025 [id number] 5 ANSELMO JAIN [address] [place] [address] [facility] AMLODIPINE BESYLATE 2.5MG TAB TAKE ONE TABLET BY MOUTH ONCE A DAY FOR HEART/BL OOD PRESSURE ORAL DISCONT INUED 05/26/2024 [id number] 5 SHANNON DANG [address] [place] [address] [facility] AMLODIPINE BESYLATE 5MG TAB 5 mg, [...] DAILY WITH MEALS ORAL ACTIVE AMERICOLAXMIY 2017 [facility] APIXABAN 5MG TAB 5 mg, Oral, BID, [...] DISEASE TAKE WITH FOOD. ORAL ACTIVE 02/13/2025 [id number] 4 ANSELMO JAIN 2023 120 [facility] ATORVASTATI N CA 80MG TAB TAKE ONE-HALF TABLET BY MOUTH EVERY EVENING FOR HIGH CHOLESTE ROL ORAL ACTIVE 02/13/2025 [id number] 5 ANSELMO JAIN G 2023 45 [facility] ATORVASTATI N CALCIUM 10MG TAB [...] WITH FOOD. DOSAGE CHANGE ORAL ACTIVE 06/14/2025 [id number] 5 ANSELMO JAIN 2024 135 [place] [facility] CARVEDILOL 12.5MG TAB TAKE ONE TABLET BY MOUTH EVERY MORNING AND TAKE ONE-HALF TABLET EVERY EVENING FOR HIGH BLOOD PRESSURE TAKE WITH FOOD. DOSAGE CHANGE ORAL DISCONT INUED 06/16/2024 [id number] 5 SHANNON DANG 2023 [address] [place] [facility] CARVEDILOL 25MG TAB 12.5 mg, [...] WITH MEALS ORAL ACTIVE MARIO WEN 2017 [facility] CIPROFLOXAC IN HCL 500MG TAB 500 mg, [...] FOR ACUTE CORONARY SYNDROME ORAL ACTIVE 02/13/2025 [id number] 5 ANSELMO JAIN [address] [place] [address] [facility] COLCHICINE 0.6MG CAP TAKE 1 CAPSULE BY MOUTH ORAL ACTIVE LAXMI DRISCOLL 2017 [facility] COLCHICINE 0.6MG TAB 1.2 mg, Oral, TAKE [...] DAY FOR GLAUCOMA OPHTHA LMIC ACTIVE 07/25/2025 [id number] REX DELATORRE EDWARD 2024 10 [place] [facility] DORZOLAMIDE HCL 22.3MG/HIEN LOL MALEATE 6.8MG/ML SOLN,OPH INSTILL 1 DROP IN LEFT EYE TWICE A DAY OPHTHA LMIC 06/15/2024 [id number] 5 SHANNON DANG [address] [place] [address] [facility] FINASTERIDE 5MG TAB TAKE ONE TABLET BY MOUTH ONCE A DAY FOR BENIGN PROSTATI C HYPERPLA NELSON SWALLOW WHOLE, DO NOT CRUSH, SPLIT, OR CHEW. ORAL ACTIVE 12/14/2024 [id number] 5 ANSELMO JAIN ISTEL G [address] [place] [address] [facility] FUROSEMIDE 40MG TAB TAKE ONE TABLET BY MOUTH EVERY MORNING FOR FLUID RETENTIO N (EDEMA) ORAL ACTIVE 06/14/2025 [id number] 5 ANSELMO JAIN ISTEL G [address] [place] [address] [facility] FUROSEMIDE 40MG TAB TAKE ONE TABLET BY MOUTH EVERY MORNING FOR FLUID RETENTIO N (EDEMA) ORAL DISCONT INUED 05/26/2024 [id number] 5 SHANNON DANG [address] [place] [address] [facility] GABAPENTIN 300MG CAP TAKE ONE CAPSULE BY MOUTH THREE TIMES A DAY FOR NERVE PAIN ORAL ACTIVE 05/16/2025 [id number] 5 ANSELMO JAIN G 2024 270 [facility] HYDROXYZINE HCL 25MG TAB TAKE ONE TABLET BY MOUTH THREE TIMES A DAY NEEDED ANXIETY OR SLEEP. *MAY CAUSE DROWSINE SS* ORAL ACTIVE 06/14/2025 [id number] 5 ANSELMO JAIN ISTEL G 2024 150 [facility] INDAPAMIDE 2.5MG TAB 2.5 mg, [...] NOT CRUSH OR CHEW. ORAL ACTIVE 06/14/2025 [id number] 5 ANSELMO JAIN ISTEL G 2024 90 [facility] ISOSORBIDE MONONITRATE 30MG TAB,SA TAKE ONE TABLET BY MOUTH ONCE A DAY TO PREVENT CHEST PAIN. TAKE ON EMPTY STOMACH. SWALLOW WHOLE. DO NOT CRUSH OR CHEW. ORAL DISCONT INUED 05/26/2024 [id number] 5 SHANNON DANG 2023 90 [facility] LATANOPROST 0.005% SOLN,OPH INSTILL 1 DROP IN BOTH EYES EVERY EVENING FOR GLAUCOMA . KEEP REFRIGER ATED UNTIL READY TO USE, THEN STORE AT ROOM TEMPERAT URE FOR MAXIMUM OF 42 DAYS. OPHTHA LMIC ACTIVE 06/14/2025 [id number] 5 ANSELMO JAIN G 2024 7.5 [facility] LATANOPROST 0.005% SOLN,OPH INSTILL 1 DROP IN BOTH EYES EVERY EVENING FOR GLAUCOMA . KEEP REFRIGER ATED UNTIL READY TO USE, THEN STORE AT ROOM TEMPERAT URE FOR MAXIMUM OF 42 DAYS. OPHTHA LMIC DISCONT INUED 05/26/2024 [id number] 5 SHANNON DANG 2023 7.5 [facility] METHOCARBAM OL 750MG TAB TAKE 1 TABLET BY MOUTH EVERY EIGHT(8) HOURS NEEDED FOR MUSCLE SPASM ORAL ACTIVE 05/16/2025 [id number] 5 ANSELMO JAIN 2024 270 [facility] MULTIVIT/OP HTH AREDS2/LUTE IN/ZEAXANTH IN CAP/TAB TAKE 1 CAP/TAB BY MOUTH TWICE A DAY WITH MEAL(S) FOR EYE HEALTH. AVOID IF YOU HAVE PEANUT ALLERGY. ORAL ACTIVE 06/14/2025 [id number] 5 ANSELMO JAINTEL G 2024 240 [facility] MULTIVIT/OP HTH AREDS2/LUTE IN/ZEAXANTH IN CAP/TAB TAKE 1 CAP/TAB BY MOUTH TWICE A DAY WITH MEAL(S) FOR EYE HEALTH. AVOID IF YOU HAVE PEANUT ALLERGY. ORAL DISCONT INUED 05/26/2024 [id number] SHANNON DANG 2023 240 [facility] NITROFURANT OIN MONO/MACRO 100MG SA [...] 30 MINUTES BEFORE MEAL(S) ORAL ACTIVE 02/13/2025 [id number] ANSELMO JAIN ISTEL G 2023 90 [facility] POTASSIUM CHLORIDE 20MEQ TAB,SA (DISPERSIBL E) TAKE ONE TABLET BY MOUTH ONCE A DAY FOR POTASSIU M SUPPLEME NTATION AND TAKE 1 ADDITION AL TABLET EVERY OTHER DAY. TAKE WITH FOOD ORAL ACTIVE 06/14/2025 [id number] 5 ANSELMO JAIN ISTEL G 2024 135 [facility] POTASSIUM CHLORIDE 20MEQ TAB,SA (DISPERSIBL E) TAKE ONE TABLET BY MOUTH ONCE A DAY FOR POTASSIU M SUPPLEME NTATION AND TAKE 1 ADDITION AL TABLET EVERY OTHER DAY. TAKE WITH FOOD ORAL DISCONT INUED 05/26/2024 [id number] SHANNON DANG 2023 135 [facility] POTASSIUM CL 20MEQ SA TAB [...] TIMES A DAY OPHTHA LMIC ACTIVE 09/04/2025 [id number] MONTYPETTY GUDINOIgnacio CLARITZA 2024 10 [place] [facility] PROPAFENONE HCL 150MG TAB 150 mg, [...] WITH OINTMENT . OPHTHA LMIC ACTIVE 10/03/2024 [id number] 5 PETTY MILLAN CLARITZA 2024 1 [facility] TABLET CUTTER MIS, As Directed , USE [...] (FOR PROSTATE ) ORAL SUSPEND ED 12/14/2024 [id number] ANSELMO JAIN G 2023 180 [facility] TAMSULOSIN HCL 0.4MG CAP TAKE ONE CAPSULE BY MOUTH EVERY EVENING APPROXIM ATELY 30 MINUTES AFTER THE SAME MEAL EACH DAY (FOR PROSTATE ) ORAL DISCONT INUED (EDIT) 05/26/2024 [id number] 4 SHANNON DANG 2023 90 [facility] Allergies, Adverse Reactions, Alerts Combined list of allergies from Department of Defense and Veterans Affairs facilities. It does not include entries that were removed or entered in error. Substance Category Reaction Severity Reaction type Status Date Reported Comments Source ALDACTONE Propensity to adverse reactions to drug (finding) Gynecomasti a active 9 [facility] ALDACTONE Propensity to adverse reactions to drug (finding) active 1 [facility] CLONIDINE Propensity to adverse reactions to drug (finding) Fatigue active 5 GERDA [facility] CLONIDINE Propensity to adverse reactions to drug (finding) Xerostomia active 9 [facility] cloNIDine Drug allergy Aptyalism (disorder), Aptyalism (disorder), Fatigue (finding) <not entered> Active One or More [facility] Faciliti es PST DILTIAZEM Propensity to adverse reactions to drug (finding) Ankle edema active 6 GERDA [facility] DILTIAZEM Propensity to adverse reactions to drug (finding) Swollen ankle region active 1 [facility] dilTIAZem Drug allergy Swollen ankle (finding), Ankle edema (finding) <not entered> Active One or More [facility] Faciliti es PST HCTZ HYDROCHLOROT HIAZIDE Propensity to adverse reactions to drug (finding) Swelling of lower limb active 1 [facility] HYDROCHLOROT HIAZIDE Propensity to adverse reactions to drug (finding) Swelling of lower limb active 9 [facility] hydroCHLOROt hiazide Drug allergy Leg swelling symptom (finding), Leg swelling symptom (finding) <not entered> Active One or More [facility] Faciliti es PST LISINOPRIL Propensity to adverse reactions to drug (finding) Cough active 1 [facility] lisinopril Drug allergy Cough (finding), Cough (finding) <not entered> Active One or More A Faciliti es PST MICARDIS Propensity to adverse reactions to drug (finding) Anaphylaxis active 9 [facility] MICARDIS TABS Propensity to adverse reactions to drug (finding) active 3 [facility] MICARDIS TABS Propensity to adverse reactions to drug (finding) Anaphylaxis active 5 GERDA [facility] sertraline Drug allergy Nausea and vomiting [...] and vomiting, Headache active 8 GERDA [facility] Immunizations Combined list of available immunizations from the Department of Defense and Veterans Affairs facilities. Immunization Series Date Given Administered By Site Reaction Lot Number CVX Code Drug Database Admin Status Comments Source TDAP 1 2024 115 complet ed HISTORICA L INFORMATI ON - FROM OTHER REGISTRY, [facility] PNEUMOCOCCAL POLYSACCHARID E PPV23 2023 JT PETERSON LEFT DELTO ID [id number] 33 complet ed [facility]MIN[facility] AT MEDIC[facility] INFLUENZA, TRIVALENT, ADJUVANTED 2018 168 complet [...] 2013 109 complet ed ELIAS VELAZQUEZ F [facility] pneumococcal polysaccharid e, 23 valent 2013 [...] complet ed See note ELIAS VELAZQUEZ [facility] TDAP 2013 115 complet ed noted in JLV [facility] PNEUMOCOCCAL, ADULT (HISTORICAL) 2004 NONE 33 complet ed [id number] [facility] pneumococcal vaccine, unspecified 2004 109 complet ed Result Comment: [id number] Ambulat ory Pharmac y Td(adult) unspecified formulation 2001 139 complet ed Td(adult) unspecifi ed formulati on 08/27/01 Recorded Ambulat ory Pharmac y TETANUS-DIPHT HERIA (HISTORICAL) 2001 139 complet ed GERDA Saldivar [facility] Td(adult) unspecified formulation 2001 139 complet ed Td(adult) unspecifi ed formulati on 02/27/01 Recorded Ambulat ory Pharmac y TD(ADULT) UNSPECIFIED FORMULATION 2001 139 complet ed [facility] influenza virus vaccine, inactivated 2000 88 complet ed influenza virus vaccine, inactivat ed 11/27/00 Recorded Ambulat ory Pharmac y INFLUENZA, UNSPECIFIED FORMULATION 2000 88 complet ed GERDA Saldivar [facility] Results Combined list of recent chemistry, hematology [...] 2024 01:57 PM Reporting Lab: [place] [facility] [address] [place] [address] Performin g Lab: [place] [facility] [address] [place] [address] [facility] CBC LEUKOCYTES [#/VOLUME] IN BLOOD BY AUTOMATED COUNT 8.2 10*3/u L 3.6 - 11.2 06/19 Specimen Type: BLOOD No comment entered. Ordering Provider: ANSELMO JAIN Report Released Date/Time : Jun 13, 2024 01:57 PM Reporting Lab: [place] [facility] [address] [place] [address] Performin g Lab: [place] [facility] [address] [place] [address] [facility] CBC ERYTHROCYTES [#/VOLUME] IN BLOOD BY AUTOMATED COUNT 5.52 10*6/u L 4.10 - 5.70 06/19 Specimen Type: BLOOD No comment entered. Ordering Provider: ANSELMO JAIN Report Released Date/Time : Jun 13, 2024 01:57 PM Reporting Lab: [place] [facility] [address] [place] [address] Performin g Lab: [place] [facility] [address] [place] [address] [facility] CBC HEMOGLOBIN [MASS/VOLUME] IN BLOOD 15.9 g/dL 13.1 - 16.8 06/19 Specimen Type: BLOOD No comment entered. Ordering Provider: ANSELMO JAIN Report Released Date/Time : Jun 13, 2024 01:57 PM Reporting Lab: [place] [facility] [address] [place] [address] Performin g Lab: [place] [facility] [address] [place] [address] [facility] CBC HEMATOCRIT [VOLUME FRACTION] OF BLOOD 48.5 38.2 - 48.4 06/19 H Specimen Type: BLOOD No comment entered. Ordering Provider: ANSELMO JAIN Report Released Date/Time : Jun 13, 2024 01:57 PM Reporting Lab: [place] [facility] [address] [place] [address] Performin g Lab: [place] [facility] [address] [place] [address] [facility] CBC MCV [ENTITIC VOLUME] BY AUTOMATED COUNT 87.9 fL 80.0 - 100.0 06/19 Specimen Type: BLOOD No comment entered. Ordering Provider: ANSELMO JAIN Report Released Date/Time : Jun 13, 2024 01:57 PM Reporting Lab: [place] [facility] [address] [place] [address] Performin g Lab: [place] [facility] [address] [place] [address] [facility] CBC MCH [ENTITIC MASS] BY AUTOMATED COUNT 28.8 pg 27.0 - 34.0 06/19 Specimen Type: BLOOD No comment entered. Ordering Provider: ANSELMO JAIN Report Released Date/Time : Jun 13, 2024 01:57 PM Reporting Lab: [place] [facility] [address] [place] [address] Performin g Lab: [place] [facility] [address] [place] [address] [facility] CBC MCHC [MASS/VOLUME] BY AUTOMATED COUNT 32.8 g/dL 33.0 - 36.0 06/19 L Specimen Type: BLOOD No comment entered. Ordering Provider: ANSELMO JAIN Report Released Date/Time : Jun 13, 2024 01:57 PM Reporting Lab: [place] [facility] [address] [place] [address] Performin g Lab: [place] [facility] [address] [place] [address] [facility] CBC PLATELETS [#/VOLUME] IN BLOOD BY AUTOMATED COUNT 275 10*3/u L 150 - 400 06/19 Specimen Type: BLOOD No comment entered. Ordering Provider: ANSELMO JAIN Report Released Date/Time : Jun 13, 2024 01:57 PM Reporting Lab: [place] [facility] [address] [place] [address] Performin g Lab: [place] [facility] [address] [place] [address] [facility] CBC PLATELET MEAN VOLUME [ENTITIC VOLUME] IN BLOOD BY AUTOMATED COUNT 8.9 fL 7.5 - 11.2 06/19 Specimen Type: BLOOD No comment entered. Ordering Provider: ANSELMO JAIN Report Released Date/Time : Jun 13, 2024 01:57 PM Reporting Lab: [place] [facility] [address] [place] [address] Performin g Lab: [place] [facility] [address] [place] [address] [facility] CBC ERYTHROCYTE DISTRIBUTION WIDTH [RATIO] BY AUTOMATED COUNT 13.6 11.8 - 15.1 06/19 Specimen Type: BLOOD No comment entered. Ordering Provider: ANSELMO JAIN Report Released Date/Time : Jun 13, 2024 01:57 PM Reporting Lab: [place] [facility] [address] [place] [address] Performin g Lab: [place] [facility] [address] [place] [address] [facility] CBC LYMPHOCYTES/1 00 LEUKOCYTES IN BLOOD BY AUTOMATED COUNT 14.1 06/19 Specimen Type: BLOOD No comment entered. Ordering Provider: ANSELMO JAIN Report Released Date/Time : Jun 13, 2024 01:57 PM Reporting Lab: [place] [facility] [address] [place] [address] Performin g Lab: [place] [facility] [address] [place] [address] [facility] CBC MONOCYTES/100 LEUKOCYTES IN BLOOD BY AUTOMATED COUNT 12.0 06/19 Specimen Type: BLOOD No comment entered. Ordering Provider: ANSELMO JAIN Report Released Date/Time : Jun 13, 2024 01:57 PM Reporting Lab: [place] [facility] [address] [place] [address] Performin g Lab: [place] [facility] [address] [place] [address] [facility] CBC NEUTROPHILS/1 00 LEUKOCYTES IN BLOOD BY AUTOMATED COUNT 65.3 06/19 Specimen Type: BLOOD No comment entered. Ordering Provider: ANSELMO JAIN Report Released Date/Time : Jun 13, 2024 01:57 PM Reporting Lab: [place] [facility] [address] [place] [address] Performin g Lab: [place] [facility] [address] [place] [address] [facility] CBC EOSINOPHILS/1 00 LEUKOCYTES IN BLOOD BY AUTOMATED COUNT 7.3 06/19 Specimen Type: BLOOD No comment entered. Ordering Provider: ANSELMO JAIN Report Released Date/Time : Jun 13, 2024 01:57 PM Reporting Lab: [place] [facility] [address] [place] [address] Performin g Lab: [place] [facility] [address] [place] [address] [facility] CBC BASOPHILS/100 LEUKOCYTES IN BLOOD BY AUTOMATED COUNT 0.9 06/19 Specimen Type: BLOOD No comment entered. Ordering Provider: ANSELMO JAIN Report Released Date/Time : Jun 13, 2024 01:57 PM Reporting Lab: [place] [facility] [address] [place] [address] Performin g Lab: [place] [facility] [address] [place] [address] [facility] CBC LYMPHOCYTES [#/VOLUME] IN BLOOD BY AUTOMATED COUNT 1.15 10*3/u L 0.77 - 4.50 06/19 Specimen Type: BLOOD No comment entered. Ordering Provider: ANSELMO JAIN Report Released Date/Time : Jun 13, 2024 01:57 PM Reporting Lab: [place] [facility] [address] [place] [address] 8 Performin g Lab: [place] [facility] [address] [place] [phone] [facility] CBC MONOCYTES [#/VOLUME] IN BLOOD BY AUTOMATED COUNT 0.98 10*3/u L 0.19 - 0.8 06/19 H Specimen Type: BLOOD No comment entered. Ordering Provider: ANSELMO JAIN Report Released Date/Time : Jun 13, 2024 01:57 PM Reporting Lab: [place] [facility] [address] [place] [address] Performin g Lab: [place] [facility] [address] [place] [phone] 8 [facility] CBC NEUTROPHILS [#/VOLUME] IN BLOOD BY AUTOMATED COUNT 5.35 10*3/u L 2.10 - 8.00 06/19 Specimen Type: BLOOD No comment entered. Ordering Provider: ANSELMO JAIN Report Released Date/Time : Jun 13, 2024 01:57 PM Reporting Lab: [place] [facility] [address] [place] [address] 8 Performin g Lab: [place] [facility] [address] [place] [address] 8 [facility] CBC EOSINOPHILS [#/VOLUME] IN BLOOD BY AUTOMATED COUNT 0.60 10*3/u L 0.00 - 0.60 06/19 Specimen Type: BLOOD No comment entered. Ordering Provider: ANSELMO JAIN Report Released Date/Time : Jun 13, 2024 01:57 PM Reporting Lab: [place] [facility] [address] [place] [address] 8 Performin g Lab: [place] [facility] [address] [place] [phone] 8 [facility] CBC BASOPHILS [#/VOLUME] IN BLOOD BY AUTOMATED COUNT 0.07 10*3/u L 0.00 - 0.20 06/19 Specimen Type: BLOOD No comment entered. Ordering Provider: ANSELMO JAIN Report Released Date/Time : Jun 13, 2024 01:57 PM Reporting Lab: [place] [facility] [address] [place] [phone] Performin g Lab: [place] [facility] [address] [place] [phone] 8 [facility] CBC IMMATURE GRANULOCYTES/ 100 LEUKOCYTES IN BLOOD BY AUTOMATED COUNT 0.4 06/19 Specimen Type: BLOOD No comment entered. Ordering Provider: ANSELMO JAIN Report Released Date/Time : Jun 13, 2024 01:57 PM Reporting Lab: [place] [facility] [address] [place] [address] 8 Performin g Lab: [place] [facility] [address] [place] [phone] [facility] CBC IMMATURE GRANULOCYTES [#/VOLUME] IN BLOOD BY AUTOMATED COUNT 0.03 10*3/u L 0.00 - 0.05 06/19 Specimen Type: BLOOD No comment entered. Ordering Provider: ANSELMO JAIN Report Released Date/Time : Jun 13, 2024 01:57 PM Reporting Lab: [place] [facility] [address] [place] [address] Performin g Lab: [place] [facility] [address] [place] [address] 8 [facility] CHOLESTEROL PANEL (PB) CHOLESTEROL [MASS/VOLUME] IN SERUM OR PLASMA 123 mg/dL 0 - 200 06/19 Specimen Type: PLASMA No comment entered. Ordering Provider: ANSELMO JAIN Report Released Date/Time : Jun 13, 2024 01:57 PM Reporting Lab: [place] [facility] [address] [place] [address] Performin g Lab: [place] [facility] [address] [place] [address] 8 [facility] CHOLESTEROL PANEL (PB) TRIGLYCERIDE [MASS/VOLUME] IN SERUM OR PLASMA 163 mg/dL 0 - 150 06/19 H Specimen Type: PLASMA No comment entered. Ordering Provider: ANSELMO JAIN Report Released Date/Time : Jun 13, 2024 01:57 PM Reporting Lab: [place] [facility] [address] [place] [address] Performin g Lab: [place] [facility] [address] [place] [address] 8 [facility] CHOLESTEROL PANEL (PB) CHOLESTEROL IN LDL [MASS/VOLUME] IN SERUM OR PLASMA BY CALCULATION 56.7 mg/dL 06/19 Specimen Type: PLASMA No comment entered. Ordering Provider: ANSELMO JAIN Report Released Date/Time : Jun 13, 2024 01:57 PM Reporting Lab: [place] [facility] [address] [place] [address] 8 Performin g Lab: [place] [facility] [address] [place] [address] 8 [facility] CHOLESTEROL PANEL (PB) CHOLESTEROL IN HDL [MASS/VOLUME] IN SERUM OR PLASMA 33.7 mg/dL 40 06/19 L Specimen Type: PLASMA No comment entered. Ordering Provider: ANSELMO JAIN Report Released Date/Time : Jun 13, 2024 01:57 PM Reporting Lab: [place] [facility] [address] [place] [address] Performin g Lab: [place] [facility] [address] [place] [address] [facility] CHOLESTEROL PANEL (PB) CHOLESTEROL IN HDL/CHOLESTER OL.TOTAL [MASS RATIO] IN SERUM OR PLASMA 27.4 25 06/19 Specimen Type: PLASMA No comment entered. Ordering Provider: ANSELMO JAIN Report Released Date/Time : Jun 13, 2024 01:57 PM Reporting Lab: [place] [facility] [address] [place] [address] Performin g Lab: [place] [facility] [address] [place] [address] 8 [facility] COMPREHENSI VE METABOLIC PANEL CREATININE [MASS/VOLUME] IN SERUM OR PLASMA 0.94 mg/dL 0.7 - 1.3 06/19 Specimen Type: PLASMA No comment entered. Ordering Provider: ANSELMO JAIN Report Released Date/Time : Jun 13, 2024 01:57 PM Reporting Lab: [place] [facility] [address] [place] [address] Performin g Lab: [place] [facility] [address] [place] [address] [facility] COMPREHENSI VE METABOLIC PANEL UREA NITROGEN [MASS/VOLUME] IN SERUM OR PLASMA 17 mg/dL 9 - 25 06/19 Specimen Type: PLASMA No comment entered. Ordering Provider: ANSELMO JAIN Report Released Date/Time : Jun 13, 2024 01:57 PM Reporting Lab: [place] [facility] [address] [place] [address] Performin g Lab: [place] [facility] [address] [place] [address] [facility] COMPREHENSI VE METABOLIC PANEL GLUCOSE [MASS/VOLUME] IN SERUM OR PLASMA 97 mg/dL 72 - 99 06/19 Specimen Type: PLASMA No comment entered. Ordering Provider: ANSELMO JAIN Report Released Date/Time : Jun 13, 2024 01:57 PM Reporting Lab: [place] [facility] [address] [place] [address] 8 Performin g Lab: [place] [facility] [address] [place] [address] 8 [facility] COMPREHENSI VE METABOLIC PANEL SODIUM [MOLES/VOLUME ] IN SERUM OR PLASMA 140 meq/L 136 - 145 06/19 Specimen Type: PLASMA No comment entered. Ordering Provider: ANSELMO JAIN Report Released Date/Time : Jun 13, 2024 01:57 PM Reporting Lab: [place] [facility] [address] [place] [address] 8 Performin g Lab: [place] [facility] [address] [place] [address] [facility] COMPREHENSI VE METABOLIC PANEL POTASSIUM [MOLES/VOLUME ] IN SERUM OR PLASMA 3.8 meq/L 3.5 - 5 06/19 Specimen Type: PLASMA No comment entered. Ordering Provider: ANSELMO JAIN Report Released Date/Time : Jun 13, 2024 01:57 PM Reporting Lab: [place] [facility] [address] [place] [address] 8 Performin g Lab: [place] [facility] [address] [place] [address] [facility] COMPREHENSI VE METABOLIC PANEL CHLORIDE [MOLES/VOLUME ] IN SERUM OR PLASMA 108 meq/L 98 - 107 06/19 H Specimen Type: PLASMA No comment entered. Ordering Provider: ANSELMO JAIN Report Released Date/Time : Jun 13, 2024 01:57 PM Reporting Lab: [place] [facility] [address] [place] [address] Performin g Lab: [place] [facility] [address] [place] [address] 8 [facility] COMPREHENSI VE METABOLIC PANEL CARBON DIOXIDE, TOTAL [MOLES/VOLUME ] IN SERUM OR PLASMA 23 meq/L 22 - 31 06/19 Specimen Type: PLASMA No comment entered. Ordering Provider: ANSELMO JAIN Report Released Date/Time : Jun 13, 2024 01:57 PM Reporting Lab: [place] [facility] [address] [place] [address] Performin g Lab: [place] [facility] [address] [place] [address] [facility] COMPREHENSI VE METABOLIC PANEL CALCIUM [MASS/VOLUME] IN SERUM OR PLASMA 9.7 mg/dL 8.4 - 10.4 06/19 Specimen Type: PLASMA No comment entered. Ordering Provider: ANSELMO JAIN Report Released Date/Time : Jun 13, 2024 01:57 PM Reporting Lab: [place] [facility] [address] [place] [address] Performin g Lab: [place] [facility] [address] [place] [address] [facility] COMPREHENSI VE METABOLIC PANEL PROTEIN [MASS/VOLUME] IN SERUM OR PLASMA 6.9 g/dL 6 - 8.6 06/19 Specimen Type: PLASMA No comment entered. Ordering Provider: ANSELMO JAIN Report Released Date/Time : Jun 13, 2024 01:57 PM Reporting Lab: [place] [facility] [address] [place] [address] 8 Performin g Lab: [place] [facility] [address] [place] [address] [facility] COMPREHENSI VE METABOLIC PANEL ALBUMIN [MASS/VOLUME] IN SERUM OR PLASMA 3.9 g/dL 3.4 - 5 06/19 Specimen Type: PLASMA No comment entered. Ordering Provider: ANSELMO JAIN Report Released Date/Time : Jun 13, 2024 01:57 PM Reporting Lab: [place] [facility] [address] [place] [address] 8 Performin g Lab: [place] [facility] [address] [place] [address] [facility] COMPREHENSI VE METABOLIC PANEL BILIRUBIN.TOT AL [MASS/VOLUME] IN SERUM OR PLASMA 1.0 mg/dL 0.2 - 1.2 06/19 Specimen Type: PLASMA No comment entered. Ordering Provider: ANSELMO JAIN Report Released Date/Time : Jun 13, 2024 01:57 PM Reporting Lab: [place] [facility] [address] [place] [address] 8 Performin g Lab: [place] [facility] [address] [place] [address] [facility] COMPREHENSI VE METABOLIC PANEL ALKALINE PHOSPHATASE [ENZYMATIC ACTIVITY/VOLU ME] IN SERUM OR PLASMA 137 U/L 40 - 150 06/19 Specimen Type: PLASMA No comment entered. Ordering Provider: ANSELMO JAIN Report Released Date/Time : Jun 13, 2024 01:57 PM Reporting Lab: [place] [facility] [address] [place] [address] Performin g Lab: [place] [facility] [address] [place] [address] [facility] COMPREHENSI VE METABOLIC PANEL ASPARTATE AMINOTRANSFER ASE [ENZYMATIC ACTIVITY/VOLU ME] IN SERUM OR PLASMA 25 U/L 5 - 34 06/19 Specimen Type: PLASMA No comment entered. Ordering Provider: ANSELMO JAIN Report Released Date/Time : Jun 13, 2024 01:57 PM Reporting Lab: [place] [facility] [address] [place] [address] 8 Performin g Lab: [place] [facility] [address] [place] [address] [facility] COMPREHENSI VE METABOLIC PANEL ALANINE AMINOTRANSFER ASE [ENZYMATIC ACTIVITY/VOLU ME] IN SERUM OR PLASMA 25 U/L 8 - 40 06/19 Specimen Type: PLASMA No comment entered. Ordering Provider: ANSELMO JAIN Report Released Date/Time : Jun 13, 2024 01:57 PM Reporting Lab: [place] [facility] [address] [place] [address] 8 Performin g Lab: [place] [facility] [address] [place] [address] 8 [facility] COMPREHENSI VE METABOLIC PANEL GLOMERULAR FILTRATION RATE/1.73 SQ M.PREDICTED [VOLUME RATE/AREA] IN SERUM, PLASMA OR BLOOD BY CREATININE-BA SED FORMULA (CKD-EPI 2020) 82 06/19 Specimen Type: PLASMA No comment entered. Ordering Provider: ANSELMO JAIN Report Released Date/Time : Jun 13, 2024 01:57 PM Reporting Lab: [place] [facility] [address] [place] [address] 8 Performin g Lab: [place] [facility] [address] [place] [address] 8 [facility] FOLATE (PB) FOLATE [MASS/VOLUME] IN SERUM OR PLASMA 11.5 ng/mL 7 - 20 06/19 Specimen Type: SERUM No comment entered. Ordering Provider: ANSELMO JAIN Report Released Date/Time : Jun 13, 2024 01:57 PM Reporting Lab: [place] [facility] [address] [place] [address] Performin g Lab: [place] [facility] [address] [place] [address] 8 [facility] HGA1C HEMOGLOBIN A1C/HEMOGLOBI N.TOTAL IN BLOOD 5.7 4.0 - 6.0 06/19 Specimen Type: BLOOD No comment entered. Ordering Provider: ANSELMO JAIN Report Released Date/Time : Jun 13, 2024 01:57 PM Reporting Lab: [place] [facility] [address] [place] [address] 8 Performin g Lab: [place] [facility] [address] [place] [address] [facility] TSH (MA-PB) THYROTROPIN [UNITS/VOLUME ] IN SERUM OR PLASMA 1.185 u[IU]/ mL 0.47 - 5 06/19 Specimen Type: SERUM No comment entered. Ordering Provider: ANSELMO JAIN Report Released Date/Time : Jun 13, 2024 01:57 PM Reporting Lab: [place] [facility] [address] [place] [address] Performin g Lab: [place] [facility] [address] [place] [address] 8 [facility] VITAMIN D, 25-HYDROXY 25-HYDROXYVIT PADILLA D3 [MASS/VOLUME] IN SERUM OR PLASMA >154.2 ng/mL 30 - 96 06/19 H Specimen Type: SERUM No comment entered. Ordering Provider: ANSELMO JAIN Report Released Date/Time : Jun 13, 2024 01:57 PM Reporting Lab: [place] [facility] [address] [place] [address] 8 Performin g Lab: [place] [facility] [address] [place] [address] [facility] FREE T4 (MA-PB) THYROXINE (T4) FREE [MASS/VOLUME] IN SERUM OR PLASMA 0.94 ng/dL 0.7 - 1.48 06/14 Specimen Type: SERUM No comment entered. Ordering Provider: SHANNON DANG Report Released Date/Time : Jun 12, 2023 12:45 PM Reporting Lab: [place] [facility] [address] [place] [address] Performin g Lab: [place] [facility] [address] [place] [address] [facility] HGA1C HEMOGLOBIN A1C/HEMOGLOBI N.TOTAL IN BLOOD 5.8 4.0 - 6.0 06/14 Specimen Type: BLOOD No comment entered. Ordering Provider: SHANNON DANG Report Released Date/Time : Jun 12, 2023 12:45 PM Reporting Lab: [place] [facility] [address] [place] [address] Performin g Lab: [place] [facility] [address] [place] [address] [facility] Vital Signs Combined list of [...] SYSTOLIC BLOOD PRESSURE 129 06/20/19 25 11:03:00 [facility] DIASTOLIC BLOOD PRESSURE 79 025 11:03:00 [facility] PULSE OXIMETRY 94 06/19/2024 11:03:00 [facility] WEIGHT 250.7 06/19/2024 11:03:00 [facility] BMI 49 kg/m2 06/19/2024 11:03:00 [place] [facility] PAIN 7 06/19/2024 11:03:00 [place] [facility] TEMPERATURE 97.5 06/19/2024 11:03:00 [facility] PULSE 79 06/19/2024 11:03:00 [place] [facility] RESPIRATION 20 06/19/2024 11:03:00 [facility] SYSTOLIC BLOOD PRESSURE 152 05/16/19 25 13:10:00 [place] [facility] DIASTOLIC BLOOD PRESSURE 99 025 13:10:00 [place] [facility] PULSE OXIMETRY 96 05/15/2024 13:10:00 [place] [facility] WEIGHT 254.0 05/15/2024 13:10:00 [place] [facility] BMI 50 kg/m2 05/15/2024 13:10:00 [place] [facility] TEMPERATURE 97.4 05/15/2024 13:10:00 [place] [facility] PULSE 84 05/15/2024 13:10:00 [place] [facility] RESPIRATION 20 05/15/2024 13:10:00 [place] [facility] SYSTOLIC BLOOD PRESSURE 138 02/13/20 24 10:01:00 [place] [facility] DIASTOLIC BLOOD PRESSURE 77 024 10:01:00 [place] [facility] PULSE OXIMETRY 94 02/13/2024 10:01:00 [place] [facility] WEIGHT 242.1 02/13/2024 10:01:00 [place] [facility] BMI 47 kg/m2 02/13/2024 10:01:00 [place] [facility] PAIN 0 02/13/2024 10:01:00 [place] [facility] HEIGHT 60.0 02/13/2024 10:01:00 [place] [facility] TEMPERATURE 97.8 02/13/2024 10:01:00 [place] [facility] PULSE 93 02/13/2024 10:01:00 [place] [facility] RESPIRATION 20 02/13/2024 10:01:00 [place] [facility] Encounters Combined list of: 1) Encounters from [facility] facilities going backup to the last 18 months, not all VA inpatient encounters are included; 2) Encounters from the Department of Defense facilities going backup to 280 months. Location Location Details Encounter Type Encounter Number Reason For Visit Attending Provider ADM Date DC Date Status Disposition Source [facility] Outpatient Encounter [id number] 05/24 [facility] CONT AIRWAY PRESSURE DEVICE [id number] Diagnos is: ICD-10- CM G47.33 Obstruc tive sleep apnea (adult) (pediat rex) JASON COY 05/25 [facility] Outpatient Encounter [id number] 05/28 [facility] Outpatient Encounter [id number] 06/07 [facility] OFFICE O/P EST MOD 30 MIN [id number] Diagnos is: ICD-10- CM 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 Linsey DANG 06/14 [facility] Outpatient Encounter [id number] Linsey DANG 06/15 [facility] Outpatient Encounter [id number] 06/15 [facility] Outpatient Encounter [id number] 06/15 [facility] HC PRO PHONE CALL 5-10 MIN [id number] Diagnos is: ICD-10- CM Z13.89 Encount er for screeni ng for other disorde r KEM CHAPMAN 06/25 [place] [facility] PSYCH DIAGNOSTIC EVALUATION [id number] Diagnos is: ICD-10- CM F43.10 Post-tr aumatic stress disorde r, unspeci fiDANDY Stark P 07/02 [facility] OFFICE O/P EST SF 10 MIN [id number] Diagnos is: ICD-10- CM 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, soft tissue, and skin Steven MACKENZIE REYNALDO 07/05 [facility] Outpatient Encounter [id number] 07/05 [facility] En[facility] [id number] 07/06 [facility] Outpatient Encounter [id number] 07/09 [facility] Encounter [id number] CHRISTIANO NANCE 07/10 [facility] [place] [facility] Outpatient Encounter [id number] 07/24 [place] [facility] Outpatient Encounter [id number] 07/31 [facility] Outpatient Encounter [id number] 08/08 [facility] Outpatient Encounter [id number] 09/05 [facility] PT 60 MINUTES [id number] Diagnos is: ICD-10- CM F43.10 Post-tr aumatic stress disorde r, unspecDANDY Suarez P 09/14 [facility] PSYTX W PT 60 MINUTES [id number] Diagnos is: ICD-10- CM F43.10 Post-tr aumatic stress disorde r, unspeci DANDY Elena ARIAS P 09/24 [facility] PSYTX W PT 60 MINUTES [id number] Diagnos is: ICD-10- CM F43.10 Post-tr aumatic stress disorde r, unspecashley weinberg ELVADANDY [facility]AS [facility] F[facility] FEE [id number] Diagnos is: ICD-10- CM H93.13 Tinnitu s, bilater al GRAVES,ANGEL BEAU A [facility] [place] [facility] [place] [place] [id number] Diagnos is: ICD-10- CM H93.13 Tinnitu s, bilater al GRAVES,ANGEL BEAU A 10/11 [place] [facility] Outpatient Encounter [id number] 10/17 [facility] Outpatient Encounter [id number] 10/17 [facility] PSYTX W PT 60 MINUTES [id number] Diagnos is: ICD-10- CM F43.10 Post-tr aumatic stress disorde r, unspecashley weinberg ELVADANDY ARIAS P 10/18 [facility] Outpatient Encounter [id number] [id number] 10/23 [facility] FEE 01985-8.65 [id number] Diagnos is: ICD-10- CM Z02.89 Encount er for other adminis trative examina LUAN Goldberg 10/24 [facility] Outpatient Encounter 28665-7.65 [id number] Diagnos is: ICD-10- CM Z02.89 Encount er for other adminis trative examina LUAN Goldberg 10/24 [facility] Outpatient Encounter [id number] 11/05 [facility] FEE 44145-8.65 [id number] Diagnos is: ICD-10- CM Z46.1 Encount er for fitting and adjustm ent of hearing aid ANGEL ISIDRO A 11/09 [facility] CONFORMITY EVALUATION 61110-7.65 [id number] Diagnos is: ICD-10- CM Z46.1 Encount er for fitting and adjustm ent of hearing aid ANGEL ISIDRO A 11/09 [facility] PS[facility] PT 60 MINUTES 70412-2.65 [id number] Diagnos is: ICD-10- CM F43.10 Post-tr aumatic stress disorde r, unspeci fied DANDY STEVENSON ARIAS P 11/12 [facility] FEE 43875-5.65 [id number] Diagnos is: ICD-10- CM Z46.1 Encount er for fitting and adjustm ent of hearing aid ANGEL ISIDRONDRA A 11/23 [facility] HEARING AID FITTING/CH ECKING 11936-3.65 [id number] Diagnos is: ICD-10- CM Z46.1 Encount er for fitting and adjustm ent of hearing aid ANGEL ISIDRO 11/23 [facility] PSYTX W PT 60 MINUTES 34928-5.65 [id number] Diagnos is: ICD-10- CM F43.10 Post-tr aumatic stress disorde r, DANDY Nelson P 12/05 [facility] Outpatient Encounter [id number] [id number] 12/12 [facility] PSYTX W PT 60 MINUTES 26670-2.65 [id number] Diagnos is: ICD-10- CM F43.10 Post-tr aumatic stress disorde r, DANDY Nelson P 12/17 [facility] PSYTX W PT 60 MINUTES 71596-7.65 [id number] Diagnos is: ICD-10- CM F43.10 Post-tr aumatic stress disorde r, DANDY Nelson P 12/17 [facility] OFFICE O/P EST LOW 20 MIN 95146-2.65 [id number] Diagnos is: ICD-10- CM 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 ALBIN JAIN G 12/17 [facility] PSYTX W PT 60 MINUTES 55423-8.65 [id number] Diagnos is: ICD-10- CM F43.10 Post-tr aumatic stress disorde r, DANDY Nelson P 12/25 [facility] FEE 66823-6.65 [id number] Diagnos is: ICD-10- CM Z46.1 Encount er for fitting and adjustm ent of hearing aid ANGEL ISIDRO A 12/28 [facility] HEARING AID REPAIR/MOD IFYING 74925-5.65 [id number] Diagnos is: ICD-10- CM Z46.1 Encount er for fitting and adjustm ent of hearing aid ANGEL ISIDRO A 12/28 [facility] PSYTX W PT 60 MINUTES 38915-4.65 [id number] Diagnos is: ICD-10- CM F43.10 Post-tr aumatic stress disorde r, unspeci DANDY Elena P 01/02 [facility] Outpatient Encounter [id number] 01/03 [facility] PSYTX W PT 60 MINUTES [id number] Diagnos is: ICD-10- CM F43.10 Post-tr aumatic stress disorde r, DANDY Nelson P 01/10 [facility] Outpatient Encounter [id number] 01/29 [facility] FEE [id number] Diagnos is: ICD-10- CM Z46.1 Encount er for fitting and adjustm ent of hearing aid ANGEL ISIDRO A 01/29 [facility] HEARING AID REPAIR/MOD IFYING [id number] Diagnos is: ICD-10- CM Z46.1 Encount er for fitting and adjustm ent of hearing aid ANGEL ISIDRO A 01/29 [facility] Outpatient Encounter [id number] 01/30 [facility] Outpatient Encounter [id number] FANNIE JEAN-BAPTISTE 02/06 [facility] OFF[facility] O/P EST MOD 30 MIN [id number] Diagnos is: ICD-10- CM Z09 Encntr for f/u exam aft trtmt for cond oth than malig ALBIN Molina 02/12 [facility] Outpatient Encounter [id number] 02/22 [facility] Outpatient Encounter [id number] 03/08 [facility] Outpatient Encounter [id number] 03/12 [facility] Outpatient Encounter [id number] 03/14 [facility] Outpatient Encounter [id number] 03/20 [facility] Outpatient Encounter [id number] 03/27 [facility] MINUTES [id number] Diagnos is: ICD-10- CM F43.10 Post-tr aumatic stress disorde r, unspeci DANDY Elena P 05/03 [facility] Outpatient Encounter [id number] 05/06 [facility] Outpatient Encounter [id number] 05/06 FALUIS CARLOS [facility] Outpatient Encounter [id number] MARY JANE GARCIA 05/08 [facility] Outpatient Encounter [id number] DOLORES COLON 05/08 FAJIMITeagan [facility] Outpatient Encounter [id number] 05/08 [facility] Outpatient Encounter [id number] 05/12 MIRNATeagan [facility] Outpatient Encounter [id number] 05/13 [facility] OFFICE O/P EST MOD 30 MIN [id number] Diagnos is: ICD-10- CM Z09 Encntr for f/u exam aft trtmt for cond oth than isamarig ALBIN Molina 05/15 [facility] En[facility] [id number] 05/16 [facility] Outpatient Encounter [id number] 05/16 [facility] Encounter [id number] 05/31 [facility] Outpatient Encounter [id number] 06/13 [facility] Outpatient Encounter [id number] 06/18 [facility] Outpatient Encounter [id number] 06/19 [facility] OFFICE O/P EST MOD 30 MIN [id number] Diagnos is: ICD-10- CM Z00.01 Encount er for general adult medical exam w abnorma l finding s ALBIN JAIN G 06/19 [facility] Outpatient Encounter [id number] 06/20 [facility] Encounter [id number] ALBIN JAIN G 06/20 [facility] Outpatient Encounter [id number] 07/05 [facility] Out[facility] Encounter [id number] 07/08 [facility] Outpatient Encounter [id number] 07/24 [facility] Outpatient Encounter [id number] 07/29 [facility] Outpatient Encounter [id number] 08/01 [facility] Outpatient Encounter [id number] 08/14 [facility] Outpatient Encounter [id number] ANATOLY GOLDBERG A 09/04 [facility] Outpatient Encounter [id number] 09/13 [facility] Procedures Combined list of: 1) Procedures from Department of [facility] Affairs facilities going back up to thelast 18 months, not all [place] non-surgical procedures are included; 2) All procedures from the Department of Defense facilities. Procedure Procedure Type Code Date Perfomer Comments [facility] e BIOPSY, PROSTATE; NEEDLE OR PUNCH, SINGLE OR MULTIPLE, ANY APPROACH Biopsy, prostate; needle or punch, single or multiple, any approach 72023 7 Ambulatory Pharmacy BIOPSY, PROSTATE; NEEDLE OR PUNCH, SINGLE OR MULTIPLE, ANY APPROACH Biopsy, prostate; needle or punch, single or multiple, any approach 99079 4 Ambulatory Pharmacy COLONOSCOPY, FLEXIBLE; DIAGNOSTIC, INCLUDING COLLECTION OF SPECIMEN(S) BY BRUSHING OR WASHING, WHEN PERFORMED (SEPARATE PROCEDURE) Colonoscopy, flexible, proximal to splenic flexure; diagnostic, with or without collection of specimen(s) by brushing or washing, with or without colon decompression (separate procedure) 10790 7 [facility] Normal results Ambulatory Pharmacy COLONOSCOPY, FLEXIBLE; DIAGNOSTIC, INCLUDING COLLECTION OF SPECIMEN(S) BY BRUSHING OR WASHING, WHEN PERFORMED (SEPARATE PROCEDURE) Colonoscopy, flexible, proximal to splenic flexure; diagnostic, with or without collection of specimen(s) by brushing or washing, with or without colon decompression (separate procedure) 13469 6 Ambulatory Pharmacy Other appendectomy 47.09 5 Ambulatory Pharmacy COLONOSCOPY, FLEXIBLE; DIAGNOSTIC, INCLUDING COLLECTION OF SPECIMEN(S) BY BRUSHING OR WASHING, WHEN PERFORMED (SEPARATE PROCEDURE) Colonoscopy, flexible, proximal to splenic flexure; diagnostic, with or without collection of specimen(s) by brushing or washing, with or without colon decompression (separate procedure) 12706 3 Ambulatory Pharmacy COLONOSCOPY, FLEXIBLE; DIAGNOSTIC, INCLUDING COLLECTION OF SPECIMEN(S) BY BRUSHING OR WASHING, WHEN PERFORMED (SEPARATE PROCEDURE) Colonoscopy, flexible, proximal to splenic flexure; diagnostic, with or without collection of specimen(s) by brushing or washing, with or without colon decompression (separate procedure) 35869 3 Normal Ambulatory Pharmacy Social History Combined list of available smoking, tobacco, and other social history from Department of Defense and Veterans Affairs facilities. Social History Type Response Date Comment Sourc e Tobacco smoking status NHIS VA-TOBACCO USE FORMER CIGARETTES 05/15/2024 [facility] History of tobacco use VA-TOBACCO USE FORMER OTHER TYPE 05/15/2024 [facility] History of tobacco use VA-TOBACCO FORMER USER 06/15/2023 [facility] History of tobacco use VA-TOBACCO FORMER USER 06/15/2022 [facility] History of tobacco use VA-TOBACCO FORMER USER 06/15/2021 [facility] History of tobacco use VA-TOBACCO FORMER USER 06/15/2020 [facility] Sex Representation Male (finding) 11/15/2019 Un known Organization History of tobacco use VA-TOBACCO NEVER USED 02/06/2019 [facility] History of tobacco use VA-TOBACCO USE DECLINED TO ANSWER 10/26/2017 [facility] History of tobacco use LIFETIME NON-USER OF TOBACCO 10/24/2017 [facility] History of tobacco use LIFETIME NON-USER OF TOBACCO 05/02/2017 non smoker [facility] History of tobacco use TOBACCO SCREEN COMPLETED 11/22/2016 [facility] History of tobacco use TOBACCO SCREEN COMPLETED 01/13/2016 [facility] History of tobacco use TOBACCO SCREEN COMPLETED 05/05/2015 [facility] History of tobacco use LIFETIME NON-USER OF TOBACCO 08/20/2014 Non-smoker [facility] History of tobacco use QUIT TOBACCO >7 YEARS AGO 11/01/2007 [facility] History of tobacco use QUIT TOBACCO >12 MO and <7 YRS AGO 07/13/2007 [facility] History of tobacco use HISTORY OF NON-SMOKING >1YR 01/16/20061981 [facility] History of tobacco use HISTORY OF NON-SMOKING >1YR 10/27/20041981 [facility] History of tobacco use CURRENT NON-TOBAC CO USER-HX OF USE 04/27/2004 [facility] History of tobacco use CURRENT NON-TOBAC CO USER-HX OF USE 11/28/2003 [facility] History of tobacco use CURRENT NON-TOBAC CO USER-HX OF USE 05/06/2003 [facility] History of tobacco use CURRENT NON-TOBAC CO USER-HX OF USE 12/12/2002 [facility] History of tobacco use CURRENT NON-TOBAC CO USER-HX OF USE 06/25/2002 [facility] History of tobacco use TOB-CURRENT NON-SMOKER BUT HX 04/30/2002 [facility] Sexual Orientation Ambula tory Pharmacy Gender identity Ambulator y Pharmacy Assessment and Plan Combined list of future care activities from Department of [facility] and [facility] facilities (e.g., assessment and plan notes, appointments, orders, and referrals). Additional future care activities may be listed in the Plan of Care section. Result Assessment and Plan Date Source Assessment and Plan No data available for this section 09/24/2024 Ambulatory Pharmacy Plan of Care List of future care activities from Department [facility] facilities. Additional future care activities may be listed in the Assessment and Plan section. Date/Time Care Activity Care Activity Detail Facili ty 02/12/2025 AMBULATORY - MEDICINE AM[facility]ATORY - [facility] Advance Directives List of completed, amended, or rescinded Advance Directives on record at Department [facility] facilities. An actual copy of the Directive is not included. Date Advance Directive Provider Source 08/17/2007 ADVANCE DIRECTIVE HUDSON SHEPARD [facility] 08/16/2007 ADVANCE DIRECTIVE Pipe [facility] 04/01/2004 ADVANCE DIRECTIVE DAREN [facility]ISE [facility] Functional Status Combined list of recent functional and cognitive assessments recorded at Department of Defense and Veterans Affairs ([place]).[place] Functional [place] Measurement (FIM) Scale: 1 = Total Assistance (Subject = 0% +), 2 = Maximal Assistance (Subject = 25% +), 3 = Moderate Assistance (Subject = 50% +), 4 = Minimal Assistance (Subject = 75% +), 5 = Supervision, 6 = Modified [place] (Device), 7 = Complete [place] (Timely, Safely). Assessment Date/Time Source Assessment Type Assessment Skill Assessment Score Assessment Details No data available for this section
--- OUTSIDE RECORDS SUMMARY | 2024-09-24 06:30 | XMS_ITS | Patient Health Record ---
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.9) Active confirmed Problem Contact dermatitis (62148639) Contact dermatitis (L25.9) Active confirmed Problem Seborrheic keratosis (37769409) Seborrheic keratosis (L82.1) Active confirmed Plan Of Treatment No Information Insurance Providers Payer Name Payer Address Payer Phone Subscriber Number Group Number Insured Name Patient Relationship to Insured Coverage Start Date Coverage End Date [place] [address] [address] [place] [address] [phone] [id number] Farhat Daly Self - patient is the insured [employer] [address] [address] [place] [address] [id number] Farhat Daly Self - patient is the insured Medical (General) History Medical History History ICD Code Hx of BCC Hypertension Tongue Cancer Surgical History Surgery Date(Month/Year) BCC Removal Cancer in the Tongue Removed
--- NOTE | 2024-09-24 09:19 | PC.CHAP ---
Pastoral Care Encounter/Spiritual Assessment Type of Contact [] Declined service center supervisor visit [] Patient/Family/Request visit [] Outpatient visit [] Follow-up visit [] Physician referral [] Code/Alert [x] Routine visit [] Staff referral [] Actively dying [] Patient sleeping [x] Family support [] [] Out of room [] Palliative care [] [] Receiving care in room [] Pre-surgical visit [] Trauma [] Long length of stay [] ICU visit [] Other: Relational/Emotional Strength [x] Patient feels connected with others/family/visitors/staff [] Distress [] Loneliness/isolation [] Abandonment Spirituality of Patient [x] Person of Debbi [] Attends Muslim of their Debbi [x] Believes in Prayer [] Reads Bible or Congregational materials [] There are Spiritual issues to be addressed Dishwasher Preparer Interventions [x] Prayer [x] Active listening [x] Non-anxious presence [x] Spiritual/emotional support [] Crisis/trauma care [] Spiritual counseling [] Bereavement support [] Provided bereavement packet [] Provided Bible/devotional materials [] Provided toy/stuffed animal, coloring book to patient or family member [] Provided Communion [] Anointing/[place] [] Salvation [x] Completed spiritual assessment [] Other: Impact on Illness or Injury [] Angry [] Fearful [] Anxious [] Often cries [] Exhaustion [] Unable to work [] Unable to attend congregation [] Unable to walk/stand [] Unable to read [] Unable to drive [] Unable to eat/drink [] Unable to sleep [] Unable to be with family [] Patient intubated [] Other: Summary Time spent with patient 5 min
[2024-09-24] MEDS: polyethylene glycol 3350 Pkt 17 gm PO (14:52)
--- NOTE | 2024-09-24 17:01 | P.PN_ITS ---
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 Patient states that he had coronary disease with a stent by Dr. Unger in January. He has had a history of prostatitis in 2011 and a UTI in remote past about 20 years ago when he had his last ultrasound of the kidneys. He has not been on antibiotics in last 1 year. Patient reports that he has had chills pain myalgia and dark urine voiding about 100 cc at a time with frequency and urgency and some incontinence the last few weeks. sent him into the hospital. Additionally he had a tick on his right flank August 30 removed it with tweezers looked under magnifying glass and thinks all the parts were there. There was never a target bull's-eye pattern but there was erythema. Patient is admits to being weaker and states that he was weaker and fell in April suffering a head injury with a bleed a fractured right humerus and a fractured left radius was transferred to [facility] but did not require brain surgery Patient states he feels somewhat better than admission with antibiotics overnight. Patient states he is typically on furosemide at home but has not received any here Vitals/I&O/Wt Last Vital Signs Temp 98.1 F 09/24/24 15:36 Pulse 77 09/24/24 15:36 Resp 17 09/24/24 15:36 BP 171/85 09/24/24 15:36 Pulse Ox 95 09/24/24 15:36 O2 Del Method Room Air 09/24/24 15:36 09/24/24 09/24/24 09/24/24 06:59 14:59 22:59 Intake Total 1150 / 1150 456 / 456 Balance 1150 / 1150 456 / 456 Weight last 48 hrs Weight 118.478 kg Weight 114.169 kg Weight 111.13 kg Physical Exam 2 Narrative: General Well-developed well-nourished obese male in no acute cardiopulmonary distress. He is hard of hearing He is weak and requires assistance of myself and to sit up. CV regular rate and rhythm Lungs crackles heard in both bases right side largely resolved with coughing left side incompletely resolved Back no flank pain Right flank with scab where he had a tick bite. This looks like it was significant bite but there is no current rash Calves 1+2 pretibial edema Patient has his CPAP machine at bedside Data 09/24/24 01:50 09/24/24 01:50 Micro: Microbiology 09/23/24 20:25 Blood Culture - Preliminary Blood SPECIMEN COLLECTED 09/23/24 20:29 Blood Culture - Preliminary Blood SPECIMEN COLLECTED A&P Assessment and plan 1. SIRS (systemic inflammatory response syndrome): Elevated C-reactive protein marked. Will obtain an ultrasound of the kidneys 2. Acute UTI: Continue ceftriaxone 2 g IV daily. Ultrasound of the kidneys 3. LV dysfunction: Patient had had coronary artery disease with ischemic cardiomyopathy continue home medication Patient with LVEF 45 to 50% RA dilatation and pulmonary hypertension suspect this is related to his sleep apnea and obesity 4. Coronary artery disease involving [place] coronary artery of [place] heart without angina pectoris: Patient with coronary artery disease status post stent placement in January Continue Plavix and baby aspirin, continue carvedilol, isosorbide, Hs-CRP markedly elevated will start colchicine 5. Paroxysmal A-fib: Did this patient have ablation for his A-fib? Patient is not on any anticoagulant Continue rate control with beta-ubaldo Will continue to follow through and optimize 6. Hypertrophy of prostate with urinary retention: Has BPH Continue tamsulosin, finasteride, 7. Tick bite: Will initiate empiric doxycycline and monitor. Unclear if this is tickborne disease but will continue doxycycline for now Plan: GI and DVT prophylaxis in place PDMP PDMP Reviewed: Not Reviewed Attestations 2 Medical Necessity Statement*: Patient remains in the hospital for IV antibiotics repeat labs in the morning and also obtain ultrasound of the kidneys Coding Level of Care Code 07591 Diagnoses SIRS (systemic inflammatory response syndrome) R65.10 Acute UTI N39.0 LV dysfunction I51.9 Coronary artery disease involving [place] coronary artery of [place] heart without angina pectoris I25.10 Coronary Disease-Associated Artery/Lesion type: [place] artery [place] vs. transplanted heart: [place] heart Associated angina: without angina Paroxysmal A-fib I48.0 Hypertrophy of prostate with urinary retention N40.1; R33.8 Tick bite W57.XXXA Time Spent (min) 40
[2024-09-24] MEDS: FUROsemide 10 mg/mL SDV 2mL 20 MG IVP (17:29)
[2024-09-24] MEDS: dorzolamide 2% Op Soln 10 mL Btl 1 DROP EYE-BOTH (17:56)
[2024-09-24] MEDS: timolol 0.5% Op Soln 5 mL Btl 1 DROP EYE-BOTH (17:57)
[2024-09-24] MEDS: cefTRIAXone 2,000 mg SDV 2000 MG IVP (20:06)
[2024-09-24] MEDS: prednisoLONE 1% Op Susp 5 mL Btl 1 DROP EYE-BOTH (20:07)
--- NOTE | 2024-09-24 23:48 | USCV_ITS ---
Farhat Daly Age: 79 Gender: M : 1945 Exam Date: 09/24/2024 00:13 Ordering Phys: Franchesca Singer MD Technologist: MANUELA [place] [facility] [place]ication: systolic dysfunction with mild vascular congestion, hx CAD, HL, LVH, Afib. BP: 157 / 93 HR: 79 Rhythm: Atrial fibrillation Technical Quality: Adequate MEASUREMENTS (Male / Female) Normal Values 2D ECHO LV Diastolic Diameter PLAX 4.6 cm 4.2 - 5.9 / 3.9 - 5.3 cm IVS Diastolic Thickness 2.0 cm 0.6 - 1.0 / 0.6 - 0.9 cm IVS Systolic Thickness 2.5 cm LVPW Diastolic Thickness 2.1 cm 0.6 - 1.0 / 0.6 - 0.9 cm LVPW Systolic Thickness 2.9 cm LVOT Diameter 2.6 cm LV Ejection Fraction 2D Teich 67.8 % LV Ejection Fraction MOD 4C 60.3 % LV Ejection Fraction MOD 2C 61.2 % LV Ejection Fraction 2C AL 63.8 % LA Diameter 5.1 cm Aorta at Sinotubular Diameter 3.3 cm IVC Diameter 1.8 cm M-MODE LA Ao Ratio MM 1.4 AV Cusp Separation MM 2.0 cm DOPPLER AV Peak Velocity 101.0 cm/s LVOT Peak Velocity 84.0 cm/s AV Area Cont Eq vti 3.9 cm squared AV Area Cont Eq pk 4.6 cm squared MV Peak Velocity 112.0 cm/s MV Area PHT 4.7 cm squared Mitral E to A Ratio 0.0 TR Peak Velocity 299.0 cm/s TR Peak Gradient 35.8 mmHg TV Peak E Velocity 51.0 cm/s PV Peak Velocity 104.0 cm/s FINDINGS Left Ventricle Normal left ventricular size, systolic function and wall thickness, with no regional wall motion abnormalities. Left ventricular ejection fraction is estimated at 60 %. Grade I/IV diastolic dysfunction (abnormal relaxation filling pattern), normal to mildly elevated filling pressures. Right Ventricle The right ventricle is normal in size and function. Right Atrium The right atrium is normal in size. Left Atrium Moderately increased left atrial size. Mitral Valve Moderately thickened mitral valve. Moderate mitral annular calcification. No mitral valve stenosis. Trace mitral valve regurgitation. Aortic Valve Moderate aortic valve calcification. No aortic valve stenosis. Mild aortic valve regurgitation. Tricuspid Valve Structurally normal tricuspid valve without significant stenosis or regurgitation. Pulmonary artery systolic pressure is normal. Pulmonic Valve Mild pulmonary valve regurgitation. Pericardium Normal pericardium without effusion. Aorta Normal ascending aorta dimension. IVC The inferior vena cava appears normal. CONCLUSIONS Normal left ventricular size, systolic function and wall thickness, with no regional wall motion abnormalities. Left ventricular ejection fraction is estimated at 60 %. Grade I/IV diastolic dysfunction (abnormal relaxation filling pattern), normal to mildly elevated filling pressures. Moderately increased left atrial size. Moderately thickened mitral valve. Moderate mitral annular calcification. No mitral valve stenosis. Trace mitral valve regurgitation. Moderate aortic valve calcification. No aortic valve stenosis. Mild aortic valve regurgitation. There is no pericardial effusion. Right atrial pressure is around 5 mm of mercury. Caitlin Unger MD (Electronically Signed) Final Date: 25 September 2024 11:14 S
[2024-09-25] MEDS: doxycycline 100 MG in sodium chloride 0.9% (plus) 100 ML IV ×2 (00:29→12:11)
[2024-09-25 04:00] VITALS: BP 147/92; PULSE 83; RESP 16; TEMP 36.5; O2SAT 95
[2024-09-25] MEDS: heparin 5,000 unit/mL INJ 1 mL 5000 UNIT SUBCUT ×2 (04:16→17:29)
[2024-09-25 05:44] LABS: Hematocrit 51.9 % (37-53); Hemoglobin 17.10 g/dL (11.27-16.99); Mean Corpuscular HGB Conc 32.9 g/dL (30-55); Mean Corpuscular Hemoglobin 28.8 pg (27-33); Mean Corpuscular Volume 87.4 fl (82-101); Nucleated Red Blood Cells % 0 %; Platelet Count 234 10^3/cmm (157-399); Red Blood Count 5.94 10^6/uL (3.85-5.65); White Blood Count 13.07 10^3/uL (3.29-11.43)
[2024-09-25 06:09] LABS: Alanine Aminotransferase 33 U/L (0-41); Albumin Level 3.4 g/dL (3.5-5.2); Alkaline Phosphatase 143 U/L (40-130); Anion Gap 18.7 (5-19); Aspartate Amino Transferase 29 U/L (0-40); Blood Urea Nitrogen 13 mg/dL (8-23); Calcium 9.8 mg/dL (8.5-10.5); Carbon Dioxide 23 mmol/L (22-29); Chloride 104 mmol/L (98-107); Creatinine Clr Calc Pharmacy 82.5652; Globulin 3.7 g/dL (1.3-4.6); Glucose 98 mg/dL (65-115); Magnesium 2.1 mg/dL (1.7-2.3); Osmolality Calculated 294 mOsm/kg (285-295); Potassium 3.7 mmol/L (3.5-5.1); Sodium 142 mmol/L (136-145); Total Protein 7.1 g/dL (6.6-8.7)
[2024-09-25 07:29] VITALS: BP 148/92; PULSE 86; RESP 19; TEMP 36.5; O2SAT 97
[2024-09-25 07:34] VITALS: BP 161/92; PULSE 97; RESP 18; TEMP 36.8; O2SAT 95
[2024-09-25] MEDS: polyethylene glycol 3350 Pkt 17 gm PO (08:26)
[2024-09-25] MEDS: timolol 0.5% Op Soln 5 mL Btl 1 DROP EYE-BOTH ×2 (08:27→17:26)
[2024-09-25] MEDS: prednisoLONE 1% Op Susp 5 mL Btl 1 DROP EYE-BOTH ×2 (08:27→20:42)
[2024-09-25] MEDS: dorzolamide 2% Op Soln 10 mL Btl 1 DROP EYE-BOTH ×2 (08:27→17:32)
--- NOTE | 2024-09-25 08:52 | US_ITS ---
WS: [id number] RENAL ULTRASOUND URINARY BLADDER ULTRASOUND HISTORY: UTI and BPH COMPARISON: None available. TECHNIQUE: 2-D and color Doppler imaging of the kidney submitted. Right kidney: 10.9 cm x 5.4 cm x 6.2 cm. Normal echogenicity with no hydronephrosis or mass. Cortical cyst lower pole 1.5 x 1.2 x 1.4 cm. Left kidney: 11.7 cm x 4.5 cm x 6.0 cm. Normal echogenicity with no hydronephrosis or mass. Aorta: Normal. Urinary Bladder: Normal distention. Enlarged heterogeneous prostate. Prostate measures 6.3 x 6.4 x 6.0 cm. Prevoid volume: 118 mL. Postvoid volume: 0 mL. US/US renal BI with PV bladder IMPRESSION: 1. Normal sized kidneys with no obstruction. 2. Simple cyst lower pole RIGHT kidney, 1.5 cm. 3. No post void urinary bladder residual.
--- NOTE | 2024-09-25 10:03 | PC.SOCIAL ---
IMM Updated Updated pt & his on IMM. No questions voiced. Provided pt a copy. Initialed, dated, & timed a copy & placed in chart.
[2024-09-25 11:42] VITALS: BP 121/77; PULSE 87; RESP 18; TEMP 36.7; O2SAT 95
[2024-09-25 16:02] VITALS: BP 120/79; PULSE 82; RESP 18; TEMP 36.4; O2SAT 95
--- NOTE | 2024-09-25 17:54 | P.PN_ITS ---
Subjective 2 Subjective: 79-year-old male states he fee ls better since admission also thinks he is doing better. He has not done physical therapy yet but states he was enrolled and it couple times then stopped because he was having eye surgery. He was waiting until recovery. I pointed out that he has been falling at home and that he needs to start now to get stronger and patient voiced understanding Kidney bladder ultrasound were done and there was no postvoid residual and no obstructing stones Vitals/I&O/Wt Last Vital Signs Temp 97.5 F L 09/25/24 16:02 Pulse 82 09/25/24 16:02 Resp 18 09/25/24 16:02 BP 120/79 09/25/24 16:02 Pulse Ox 95 09/25/24 16:02 O2 Del Method Room Air 09/25/24 16:02 09/25/24 09/25/24 09/25/24 06:59 14:59 22:59 Intake Total 100 / 796 580 / 580 Balance 100 / 796 580 / 580 Weight last 48 hrs Weight 113.426 kg Weight 118.478 kg Weight 114.169 kg Weight 111.13 kg Physical Exam 2 Narrative: General Well-developed well-nourished obese male in no acute cardiopulmonary distress. He is hard of hearing CV regular rate and rhythm Lungs clear to auscultation bilaterally Abdomen soft nontender nondistended Calves trace pretibial edema Patient has his CPAP machine at bedside shows that he had a leak last night but AHI was low. Settings are APAP 8-20 with EPR setting of 2 and humidity setting of 5 Data 09/25/24 04:43 09/25/24 04:43 Micro: Microbiology 09/23/24 19:42 Urine Culture - Preliminary Urine,Clean Catch Gram Negative Rods 09/23/24 20:25 Blood Culture - Preliminary Blood NEGATIVE TO DATE 09/23/24 20:29 Blood Culture - Preliminary Blood NEGATIVE TO DATE A&P Assessment and plan 1. Acute UTI: Continue ceftriaxone 2 g IV daily. Ultrasound of the kidneys negative white count down to 13 additional day of IV antibiotics and anticipate discharge home on oral antibiotics tomorrow 2. SIRS (systemic inflammatory response syndrome): Elevated C-reactive protein marked. I am not convinced that he has a systemic tick disease. Start physical therapy 3. LV dysfunction: Patient had had coronary artery disease with ischemic cardiomyopathy continue home medication Patient with LVEF 45 to 50% RA dilatation and pulmonary hypertension suspect this is related to his sleep apnea and obesity 4. Coronary artery disease involving [place] coronary artery of [place] heart without angina pectoris: Patient with coronary artery disease status post stent placement in January Continue Plavix and baby aspirin, continue carvedilol, isosorbide, Hs-CRP markedly elevated will start colchicine 5. Paroxysmal A-fib: Did this patient have ablation for his A-fib? Patient is not on any anticoagulant Continue rate control with beta-ubaldo Will continue to follow through and optimize 6. Hypertrophy of prostate with urinary retention: Has BPH but no urine retention on ultrasound Continue tamsulosin, finasteride, 7. Tick bite: Will initiate empiric doxycycline and monitor. Unclear if this is tickborne disease but will continue doxycycline for now Plan: GI and DVT prophylaxis in place PDMP PDMP Reviewed: Not Reviewed Attestations 2 Medical Necessity Statement*: Patient remains in hospital for another day of IV antibiotics for UTI and elevated white count Coding Level of Care Code Acute Code for Chg Fwd Diagnoses Acute UTI N39.0 SIRS (systemic inflammatory response syndrome) R65.10 LV dysfunction I51.9 Coronary artery disease involving [place] coronary artery of [place] heart without angina pectoris I25.10 Coronary Disease-Associated Artery/Lesion type: [place] artery [place] vs. transplanted heart: [place] heart Associated angina: without angina Paroxysmal A-fib I48.0 Hypertrophy of prostate with urinary retention N40.1; R33.8 Tick bite W57.XXXA Time Spent (min) 30
[2024-09-25 20:00] VITALS: BP 116/70; PULSE 67; RESP 16; TEMP 36.6; O2SAT 94
--- NOTE | 2024-09-25 22:06 | PC.NURSE ---
This nurse went to administer patients 2100 Ceftriaxone via IVP. Nurse noticed redness above iv site and patient complained of pain upon palpation. This nurse removed iv and attempted to place new iv. Nurse attempted iv access twice and patient stated that's enough, have my come here and put one in. This nurse educated patient on importance of medications he was recieving through the IV and that we were not able to let his place an iv, but he can refuse to have an iv if he wishes. Patient continued to refuse iv access.
--- NOTE | 2024-09-25 23:48 | PC.NURSE ---
Patient agreed to let nurse attempt to place IV. mortising machine operator Radha Fontanez placed 20g in the left ac space after one attempt. This nurse administered IVP Ceftriaxone at 2350, next dose to be re-timed
[2024-09-25] MEDS: cefTRIAXone 2,000 mg SDV 2000 MG IVP (23:51)
[2024-09-26] VITALS: BP 131/82; PULSE 86; RESP 17; TEMP 36.6; O2SAT 96
[2024-09-26] MEDS: doxycycline 100 MG in sodium chloride 0.9% (plus) 100 ML IV ×2 (00:55→12:26)
[2024-09-26 04:00] VITALS: BP 158/72; PULSE 87; RESP 17; TEMP 36.5; O2SAT 96
[2024-09-26 04:17] LABS: Hematocrit 46.3 % (37-53); Hemoglobin 15.20 g/dL (11.27-16.99); Mean Corpuscular HGB Conc 32.8 g/dL (30-55); Mean Corpuscular Hemoglobin 28.6 pg (27-33); Mean Corpuscular Volume 87.2 fl (82-101); Nucleated Red Blood Cells % 0 %; Platelet Count 241 10^3/cmm (157-399); Red Blood Count 5.31 10^6/uL (3.85-5.65); White Blood Count 7.91 10^3/uL (3.29-11.43)
[2024-09-26 04:43] LABS: Alanine Aminotransferase 44 U/L (0-41); Albumin Level 3.0 g/dL (3.5-5.2); Alkaline Phosphatase 133 U/L (40-130); Anion Gap 17.4 (5-19); Aspartate Amino Transferase 35 U/L (0-40); Blood Urea Nitrogen 16 mg/dL (8-23); Calcium 9.1 mg/dL (8.5-10.5); Carbon Dioxide 21 mmol/L (22-29); Chloride 104 mmol/L (98-107); Creatinine Clr Calc Pharmacy 67.5533; Globulin 3.4 g/dL (1.3-4.6); Glucose 100 mg/dL (65-115); Magnesium 2.2 mg/dL (1.7-2.3); Osmolality Calculated 289 mOsm/kg (285-295); Potassium 3.4 mmol/L (3.5-5.1); Sodium 139 mmol/L (136-145); Total Protein 6.4 g/dL (6.6-8.7)
[2024-09-26] MEDS: heparin 5,000 unit/mL INJ 1 mL 5000 UNIT SUBCUT (06:16)
[2024-09-26 07:40] VITALS: BP 161/81; PULSE 87; RESP 18; TEMP 36.5; O2SAT 97
[2024-09-26] MEDS: timolol 0.5% Op Soln 5 mL Btl 1 DROP EYE-BOTH (09:29)
[2024-09-26] MEDS: dorzolamide 2% Op Soln 10 mL Btl 1 DROP EYE-BOTH (09:29)
[2024-09-26] MEDS: prednisoLONE 1% Op Susp 5 mL Btl 1 DROP EYE-BOTH ×2 (09:29→12:26)
[2024-09-26 11:55] VITALS: BP 132/86; PULSE 79; RESP 18; TEMP 36.6; O2SAT 96
--- NOTE | 2024-09-26 12:54 | P.DS_ITS ---
Discharge Providers Date of Admission: 09/23/24 22:50 Date of Discharge: September 26, 2024 Attending Provider at Admission: Franchesca Singer MD Attending Provider at Discharge: Arun Pereira MD Primary Care Provider: [place] Diagnoses at Discharge Discharge Diagnosis 1. Acute UTI: Details from hospital stay: Patient responded well to Rocephin and will complete a course with cefuroxime and doxycycline for Citrobacter. Ultrasound of the kidney showed no obstruction solid mass or urinary retention 2. SIRS (systemic inflammatory response syndrome): Details from hospital stay: Resolved clinically 3. LV dysfunction: Details from hospital stay: LVEF on 09/24/2024 was 60% with grade 1 diastolic dysfunction 4. Coronary artery disease involving [place] coronary artery of [place] heart without angina pectoris: Details from hospital stay: Known cardiac stent to mid LAD on 02/09/2024. Patient has a markedly elevated high-sensitivity C-reactive protein but this is nonspecific in the setting of ongoing infection and can be retested in a month. reports that the patient is taking atorvastatin 40 mg daily since January. I have also recommended that patient get a lipoprotein a tested 5. Paroxysmal A-fib: Details from hospital stay: Stable 6. Hypertrophy of prostate with urinary retention: Details from hospital stay: Patient is emptying bladder okay 7. Tick bite: Details from hospital stay: Unclear if this plays a part in the inflammation but we will treat empirically with doxycycline 100 mg twice a day for 10 more days which would total 13 8. Sleep apnea: Details from hospital stay: Continue with CPAP 9. Obesity (BMI 30-39.9): Details from hospital stay: Recommended increase in therapy and diet restriction Reason for Visit Reason for Visit: Chills, Dark Urine, Tick bite, weak Brief History: Farhat Daly is a 79 year old male with medical history significant for obstructive uropathy because of enlarged prostate. Patient is on dual medication for prostate hypertrophy. This had been a culprits for urinary tract infection in this patient. Patient is very hard of hearing and need to have speech through a piece of equipment for better hearing. Patient symptomatology only started today and saw instant. He was having low-grade fever at home and chills. And when he finally went to the bathroom today to void he only voided very small according to the and it was very painful. At the emergency room urinalysis were significant for greater than 100,000 white cells. Aside from the urinary issues patient also had complained of having tick bites and being quite weak. Patient related that they have urine have been noted to be very dark. Patient received a gram of Rocephin in the emergency room upon further evaluation of the patient I feel that the inflammation in his system where much to actually attribute that so much on the 1 day symptomatology of urinary tract infection. Patient need to be on 2 g of Rocephin and also add an empiric treatment for tick related illness. Patient white count on arrival was 20,000. All other lab studies were entirely unremarkable. Patient C-reactive protein was in the 146, incredibly high. Normal C-reactive protein is 0-4.9. Patient has coronary artery disease was status post stent placement January last year and had had fall as well in June 4 months ago with subdural hematoma and had just finished rehabilitation and home. Patient came to the hospital from home for current evaluation of not feeling well and having chills with dysuria. Hospital Course Hospital Course Patient was treated with ceftriaxone and did well. White count decreased steadily now down to 7.91. Ultrasound the kidney showed no obstruction or mass or stones there is a simple cyst 1.5 cm in the right kidney Patient had tick bite that I examined and there still is a scab but there is not rash or obvious inflammatory arthritis. His CRP 98.8 and HS CRP 18.7 but pt not tolerate colchicine in past due to diarrhea. Recommend repeat inflammatory markers once the urinary tract infection has been treated completely and also that he has completed the doxycycline for the 13 days total The patient was evaluated by physical therapy and recommended to continue on outpatient therapy. He has used his CPAP here. Physical Exam Narrative: General Well-developed well-nourished obese male in no acute cardiopulmonary stress CV regular rate and rhythm Lungs clear to auscultation Abdomen positive bowel tones soft nontender Back no flank tenderness Discharge Data Studies Completed and Pending Completed Studies During Hospitalization Category Date Time Status XR acute abdomen series [id number] Stat Exams 09/23/24 19:38 Completed CV. echo complete* [id number] Routine Ultrasound 09/24/24 23:48 Completed US renal BI with PV bladder Routine Ultrasound 09/25/24 08:52 Completed Pending at discharge Category Date Time Status Blood Culture Stat Lab 09/23/24 20:25 Results Radiology Impressions Chest/Abdomen X-ray 09/23/24 19:38 IMPRESSION: 1. Cardiomegaly. 2. Mild pulmonary vascular congestion. 3. Bibasilar atelectasis versus infiltrate. 4. Aortic atherosclerotic calcifications. 5. Right humeral head impacted fracture, may be chronic, please correlate clinically. 6. Moderate right colon constipation. 7. 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 Renal Ultrasound 09/25/24 08:52 IMPRESSION: 1. Normal sized kidneys with no obstruction. 2. Simple cyst lower pole RIGHT kidney, 1.5 cm. 3. No post void urinary bladder residual. Laboratory Results WBC 7.91 10^3/uL (3.29-11.43) 09/26/24 03:41 RBC 5.31 10^6/uL (3.85-5.65) 09/26/24 03:41 Hgb 15.20 g/dL (11.27-16.99) 09/26/24 03:41 Hct 46.3 % (37-53) 09/26/24 03:41 MCV 87.2 fl (82-101) 09/26/24 03:41 MCH 28.6 pg (27-33) 09/26/24 03:41 MCHC 32.8 g/dL (30-55) 09/26/24 03:41 RDW 13.7 % (12.1-15.1) 09/26/24 03:41 Plt Count 241 10^3/cmm (157-399) 09/26/24 03:41 MPV 9.1 fL (7.4-10.4) 09/26/24 03:41 Neut % (Auto) 58.8 % 09/26/24 03:41 Lymph % (Auto) 16.3 % 09/26/24 03:41 [place] % (Auto) 16.1 % 09/26/24 03:41 Eos % (Auto) 6.6 % 09/26/24 03:41 Baso % (Auto) 1.1 % 09/26/24 03:41 Neut # (Auto) 4.65 10^3/uL (1.8-7.7) 09/26/24 03:41 Lymph # (Auto) 1.3 10^3/uL (0.8-4.8) 09/26/24 03:41 [place] # (Auto) 1.3 10^3/uL (0.2-0.9) H 09/26/24 03:41 Eos # (Auto) 0.5 10^3/uL (0.0-0.8) 09/26/24 03:41 Baso # (Auto) 0.1 10^3/uL (0.0-0.1) 09/26/24 03:41 Nucleated RBC % (auto) 0 % 09/26/24 03:41 Nucleated RBCs # 0.0 /100WBC 09/26/24 03:41 Sodium 139 mmol/L (136-145) 09/26/24 03:41 Sodium Cancelled 09/26/24 03:41 Potassium 3.4 mmol/L (3.5-5.1) L 09/26/24 03:41 Potassium Cancelled 09/26/24 03:41 Chloride 104 mmol/L (98-107) 09/26/24 03:41 Chloride Cancelled 09/26/24 03:41 Carbon Dioxide 21 mmol/L (22-29) L 09/26/24 03:41 Carbon Dioxide Cancelled 09/26/24 03:41 Anion Gap 17.4 (5-19) 09/26/24 03:41 Anion Gap Cancelled 09/26/24 03:41 BUN 16 mg/dL (8-23) 09/26/24 03:41 BUN Cancelled 09/26/24 03:41 Creatinine 1.1 mg/dL (0.7-1.2) 09/26/24 03:41 Creatinine Cancelled 09/26/24 03:41 GFR Calculation Cancelled 09/26/24 03:41 GFR Calculation Not Reportable 09/26/24 03:41 Glucose 100 mg/dL (65-115) 09/26/24 03:41 Glucose Cancelled 09/26/24 03:41 Calculated Osmolality 289 mOsm/kg (285-295) 09/26/24 03:41 Calculated Osmolality Cancelled 09/26/24 03:41 Lactic Acid 1.2 mmol/L (0.5-2.2) 09/24/24 01:50 Calcium 9.1 mg/dL (8.5-10.5) 09/26/24 03:41 Calcium Cancelled 09/26/24 03:41 Phosphorus 3.9 mg/dL (2.5-4.5) D 09/26/24 03:41 Magnesium 2.2 mg/dL (1.7-2.3) 09/26/24 03:41 Total Bilirubin 0.5 mg/dL (0.15-1.2) 09/26/24 03:41 AST 35 U/L (0-40) 09/26/24 03:41 ALT 44 U/L (0-41) H 09/26/24 03:41 Alkaline Phosphatase 133 U/L (40-130) H 09/26/24 03:41 Troponin T Baseline 16 ng/L (0-15) H 09/23/24 20:00 Troponin T 120 Minute 13.37 ng/L (0-15) 09/23/24 22:04 Delta Troponin T -2.63 ABS# (0-10) L 09/23/24 22:04 Troponin T Hi Sens 6Hr 16.47 ng/L (0-15) H 09/24/24 01:50 Troponin T Hi Sens 6Hr Delta 0.47 ng/L (0-12) 09/24/24 01:50 C-Reactive Protein 98.8 mg/L (0.0-4.9) H 09/26/24 03:41 C-React Prot High Sens 18.170 mg/dL (0.0-0.3) H 09/24/24 01:50 Total Protein 6.4 g/dL (6.6-8.7) L 09/26/24 03:41 Albumin 3.0 g/dL (3.5-5.2) L 09/26/24 03:41 Globulin 3.4 g/dL (1.3-4.6) 09/26/24 03:41 Procalcitonin 0.22 ng/mL (0-0.5) 09/23/24 20:00 Urine Color Yellow (Yellow) 09/23/24 19:42 Urine Appearance Cloudy (CLEAR) A 09/23/24 19:42 Urine pH 6.5 (5-7) 09/23/24 19:42 Ur Specific [place] 1.023 (1.005-1.030) 09/23/24 19:42 Urine Protein 3+ (Negative) A 09/23/24 19:42 Urine Glucose (UA) Negative (Normal) 09/23/24 19:42 Urine Ketones Trace (Negative) 09/23/24 19:42 Urine Blood Negative (Negative) 09/23/24 19:42 Urine Nitrate Negative (Negative) 09/23/24 19:42 Urine Bilirubin Negative (Negative) 09/23/24 19:42 Urine Urobilinogen 2.0 mg/dL (Negative) H 09/23/24 19:42 Ur Leukocyte Esterase 2+ (Negative) A 09/23/24 19:42 Urine RBC 0-2 /hpf (0-2) 09/23/24 19:42 Urine WBC >100 /hpf (0-5) H 09/23/24 19:42 Ur Squamous Epith Cells 0-5 /hpf (0-5) 09/23/24 19:42 Amorphous Sediment Not Reportable 09/23/24 19:42 Urine Bacteria 1+ /hpf (NONE) H 09/23/24 19:42 Hyaline Casts 0.40 /lpf 09/23/24 19:42 Vitals Last Vital Signs Temp 97.8 F 09/26/24 11:55 Pulse 79 09/26/24 11:55 Resp 18 09/26/24 11:55 BP 132/86 09/26/24 11:55 Pulse Ox 96 09/26/24 11:55 O2 Del Method Room Air 09/26/24 11:55 Discharge Plan Discharge Patient Disposition: Home Condition: Stable Prescriptions: New cefuroxime axetil 500 mg tablet 500 mg PO BID 10 Days Qty: 20 0RF doxycycline monohydrate 100 mg tablet 100 mg PO BID 10 Days Qty: 20 0RF Continued amlodipine 2.5 mg tablet 2.5 mg PO DAILY tamsulosin 0.4 mg capsule 0.8 mg PO DAILY hydroxyzine HCl 25 mg tablet 25 mg PO TID PRN (Reason: anxiety or sleep) isosorbide mononitrate 30 mg tablet extended release 24 hr 30 mg PO DAILY Qty: 90 3RF furosemide [Lasix] 40 mg tablet 40 mg PO QAM PRN (Reason: edema) Qty: 30 1RF carvedilol 12.5 mg Tablet See Rx Instructions .ROUTE .COMPLEX Rx Instructions: Take 1 tablet by mouth in the morning and (1/2) one-half tablet in the evening. dorzolamide-timolol 22.3-6.8 mg/mL Drops 1 drp OPHTHALMIC (EYE) BID finasteride 5 mg Tablet 5 mg PO DAILY PreserVision AREDS-2 250-90-40-1 mg Capsule 1 tab PO BID potassium chloride 20 mEq tablet extended release See Rx Instructions .ROUTE .COMPLEX Rx Instructions: Take 1 tablet by mouth daily and take an additional dose every other day. clopidogrel 75 mg Tablet 75 mg PO DAILY Qty: 30 0RF sodium chloride [Renee 128] 5 % ointment See Rx Instructions .ROUTE .COMPLEX Rx Instructions: Apply 1 a small amount Both Eyes six times a day keep eye wet with ointment prednisolone acetate 1 % drops,suspension 1 drp ophthalmic (eye) QID Discharge Order = DC NOW: Discharge Order (Routine); Ordered 09/26/24 Ordered By: Arun Pereira Referrals: [facility] [Occupational Therapist, Medical] - 10/02/24 3:00 pm Discharge Diet: Cardiac and Diabetic Discharge Activity: Increase activity as tolerated Patient Instructions: Cefuroxime (By mouth) (Ceftin), Doxycycline (By mouth) (Acticlate, Adoxa, Avidoxy, Monodox, Doryx), Heart Failure (DC), Lyme Disease (GEN), Urinary Tract Infection in Men (DC), Tick Bite (GEN), CHF Stoplight, Opioid Safety, Patient Portal & [place] Instructions Activity Restrictions/Additional Instructions: You were admitted with bad urinary tract infection but kidney ultrasound shows no obstruction by stones or solid masses in your kidney. There is a simple cyst in the right kidney 1.5 cm not expected to be a problem your bladder was emptying well after passing urine. Your inflammatory markers were quite high on admission but the cause is not readily apparent. I considered treating you with colchicine due to history of plus elevated high-sensitivity C-reactive protein but as you expressed you have had trouble with diarrhea with that medication in the past I looked at your tick bite which still shows a scar from August 30 but not obvious migratory arthritis in your joints or persistent rash. We are treating you with doxycycline which covers your Citrobacter urinary tract infection as well as the possibility of tick bite related Lyme disease. Furthermore I have prescribed cefuroxime which will double cover the Citrobacter in the urine and provides better urine penetration. Follow-up with your primary care physician in 1 week and please continue with outpatient therapy. Continue with your home CPAP. Return if worsened fevers or if kidney pain Discharge Attestations Time Spent in Discharge Care*: greater than 30 min Quality Metrics Clinical Quality Measures [ No reported AMI, CVA or VTE this stay] Coding Level of Care Code 93053 Diagnoses Acute UTI N39.0 SIRS (systemic inflammatory response syndrome) R65.10 LV dysfunction I51.9 Coronary artery disease involving [place] coronary artery of [place] heart without angina pectoris I25.10 Coronary Disease-Associated Artery/Lesion type: [place] artery [place] vs. transplanted heart: [place] heart Associated angina: without angina Paroxysmal A-fib I48.0 Hypertrophy of prostate with urinary retention N40.1; R33.8 Tick bite W57.XXXA Sleep apnea G47.30 Obesity (BMI 30-39.9) E66.9 Time Spent (min) 45
[2024-09-26 13:49] VITALS: BP 132/86; PULSE 79; RESP 18; TEMP 36.6; O2SAT 96
== END 2024-09-26 13:50 | disposition home or self-care (01) | DRG 690 ==
LOC: ER 23:07 → ER IP 09-24 → MEDSURG 09-24 06:29
PROVIDERS: Admitting Provider Internal Medicine; Emergency Provider Emergency Medicine; Visit Provider Internal Medicine
DX: N39.0 Urinary tract infection, site not specified (principal); R65.10 Systemic inflammatory response syndrome (SIRS) of non-infectious origin without acute organ dysfunction; I50.20 Unspecified systolic (congestive) heart failure; I25.10 Atherosclerotic heart disease of native coronary artery without angina pectoris; I48.0 Paroxysmal atrial fibrillation; N40.1 Benign prostatic hyperplasia with lower urinary tract symptoms; N13.8 Other obstructive and reflux uropathy; R33.8 Other retention of urine; T14.8XXA Other injury of unspecified body region, initial encounter; W57.XXXA Bitten or stung by nonvenomous insect and other nonvenomous arthropods, initial encounter; G47.30 Sleep apnea, unspecified; E66.9 Obesity, unspecified; Z68.36 Body mass index [BMI] 36.0-36.9, adult; H91.90 Unspecified hearing loss, unspecified ear; N28.1 Cyst of kidney, acquired; I51.9 Heart disease, unspecified; M10.9 Gout, unspecified; E78.5 Hyperlipidemia, unspecified; F43.10 Post-traumatic stress disorder, unspecified; H35.30 Unspecified macular degeneration; I11.0 Hypertensive heart disease with heart failure; Z95.5 Presence of coronary angioplasty implant and graft; Z79.02 Long term (current) use of antithrombotics/antiplatelets; Z91.81 History of falling; Z87.891 Personal history of nicotine dependence; Z98.890 Other specified postprocedural states; Z86.11 Personal history of tuberculosis; Z85.810 Personal history of malignant neoplasm of tongue
CPT/HCPCS: 36415; 74022; 76770; 76857; 80053; 81001; 83605; 83735; 84100; 84145; 84484; 85025; 86140; 86141; 87040; 87077; 87086; 87186; 93005; 93306; 96365; 96366; 96367; 96372; 96375; 96376; 97110; 97161; 97165; 99285; J0696; J1644; J1938; J2405; J3490; J7030; J9999

== ENCOUNTER → 2025-01-01 13:48 | Outpatient (BNVA) | payer OTHER, SELFPAY | PROVIDERS: PCP Family Medicine Geriatric Medicine; Visit Provider Internal Medicine Cardiovascular Disease | DX: I48.0 Paroxysmal atrial fibrillation (principal); I25.10 Atherosclerotic heart disease of native coronary artery without angina pectoris; R60.0 Localized edema; Z95.818 Presence of other cardiac implants and grafts; G47.33 Obstructive sleep apnea (adult) (pediatric); I47.20 Ventricular tachycardia, unspecified; I10 Essential (primary) hypertension; R06.02 Shortness of breath; Z87.891 Personal history of nicotine dependence | CPT/HCPCS: 36415; 80048; 83880; 99214 ==

== ENCOUNTER 2025-01-17 12:53 | Outpatient (RCR) | payer OTHER, SELFPAY | END 2025-01-26 23:59 | disposition home or self-care (01) | LOC: SPT 12:53 | PROVIDERS: Visit Provider Family Medicine Geriatric Medicine | DX: R53.1 Weakness (principal) | CPT/HCPCS: 97162; 97530 ==

== ENCOUNTER 2025-01-24 10:23 | Outpatient (CLI) | payer OTHER, SELFPAY ==
[2025-01-24 12:38] LABS: Blood Urea Nitrogen 19 mg/dL (8-23); Calcium 9.7 mg/dL (8.5-10.5); Carbon Dioxide 23 mmol/L (22-29); Chloride 106 mmol/L (98-107); Glucose 113 mg/dL (65-115); NT Pro B Type Natriuretic Pept 909 pg/mL (0-450); Osmolality Calculated 293 mOsm/kg (285-295); Sodium 140 mmol/L (136-145)
[2025-01-24 12:48] LABS: Anion Gap 14.9 (5-19); Potassium 3.9 mmol/L (3.5-5.1)
== END 2025-01-24 10:24 | disposition home or self-care (01) ==
LOC: LAB 10:24
PROVIDERS: PCP Family Medicine Geriatric Medicine; Visit Provider Internal Medicine Cardiovascular Disease
DX: I11.0 Hypertensive heart disease with heart failure (principal); I50.20 Unspecified systolic (congestive) heart failure; I25.10 Atherosclerotic heart disease of native coronary artery without angina pectoris; I48.0 Paroxysmal atrial fibrillation
CPT/HCPCS: 36415; 80048; 83880

== ENCOUNTER 2025-01-27 05:00 | Outpatient (RCR) | payer OTHER, SELFPAY | END 2025-02-26 23:59 | disposition home or self-care (01) | LOC: SPT 05:00 | PROVIDERS: PCP Family Medicine Geriatric Medicine; Visit Provider Family Medicine Geriatric Medicine | DX: R53.1 Weakness (principal) | CPT/HCPCS: 97110 ==